=== PATIENT | female | born 1985 | race Caucasian/White ===

== ENCOUNTER 2020-05-01 11:21 | Emergency (ER) | payer MEDICAID, SELFPAY ==
--- NOTE | ~2020-05-01 | XR_ITS ---
EXAMINATION: XR THORACIC SPINE XR LUMBAR SPINE CLINICAL INFORMATION: Lower back pain radiating to the upper back COMPARISON: None TECHNIQUE: 3 views of the thoracic spine. 3 views of the lumbar spine. FINDINGS: Thoracic spine: No fracture or subluxation. Vertebral body height and alignment is maintained. Disc spaces are maintained. The paravertebral soft tissues are unremarkable. The visualized lung is clear. Lumbar spine: No fracture or subluxation. Mild levoscoliosis. Vertebral body height and alignment is maintained. Disc spaces are maintained. The sacroiliac joints are symmetric. Visualized bowel gas pattern is unremarkable. XR/XR lumbar spine 2-3V IMPRESSION: Slightly levoscoliosis of the lumbar spine. Otherwise unremarkable appearance of the thoracolumbar spine.
--- NOTE | ~2020-05-01 | XR_ITS ---
EXAMINATION: XR THORACIC SPINE XR LUMBAR SPINE CLINICAL INFORMATION: Lower back pain radiating to the upper back COMPARISON: None TECHNIQUE: 3 views of the thoracic spine. 3 views of the lumbar spine. FINDINGS: Thoracic spine: No fracture or subluxation. Vertebral body height and alignment is maintained. Disc spaces are maintained. The paravertebral soft tissues are unremarkable. The visualized lung is clear. Lumbar spine: No fracture or subluxation. Mild levoscoliosis. Vertebral body height and alignment is maintained. Disc spaces are maintained. The sacroiliac joints are symmetric. Visualized bowel gas pattern is unremarkable. XR/XR thoracic spine 3V IMPRESSION: Slightly levoscoliosis of the lumbar spine. Otherwise unremarkable appearance of the thoracolumbar spine.
[2020-05-01 11:53] VITALS: BP 119/70; PULSE 85; RESP 18; TEMP 36.6; O2SAT 99; BMI 29.2
[2020-05-01 13:04] LABS: Glucose Urine UA NEG (NEG); Leukocyte Esterase Urine NEG (NEG); Nitrite Urine NEG (NEG); Specific Gravity - Urine >= 1.030 (1.005-1.025); Urine Blood NEG (NEG); Urine Ketones 15 MG/DL (NEG); Urine Protein NEG (NEG-TRACE)
[2020-05-01 13:05] LABS: UPreg QC Valid YES; Urine Pregnancy NEGATIVE (NEGATIVE)
[2020-05-01 13:13] LABS: Appearance Urine CLEAR; Color Urine YELLOW
[2020-05-01 14:00] LABS: Basophils Absolute Auto 0.1 X10*3/uL (0.0-0.2); Basophils Percent Auto 0.6 % (0-2); Eosinophils Absolute Auto 0.2 X10*3/uL (0.0-0.4); Eosinophils Percent Auto 2.1 % (0-4); Hematocrit 40.1 % (37-47); Hemoglobin 13.6 g/dl (12.0-16.0); Imm Gran Abs Auto 0.03 X10*3/uL (0.00-0.03); Imm Gran Pct Auto 0.4 % (0.0-0.4); Lymphocytes Absolute Auto 2.5 X10*3/uL (1.2-4.9); Lymphocytes Percent Auto 30.1 % (20-40); Mean Corpuscular HGB Conc 33.9 g/dl (31.0-35.0); Mean Corpuscular Hemoglobin 33.7 pg (27.0-33.0); Mean Corpuscular Volume 99.5 fL (80-98); Mean Platelet Volume 10.3 fL (9.4-12.3); Monocytes Absolute Auto 0.5 X10*3/uL (0.1-1.2); Monocytes Percent Auto 6.1 % (2-11); Neutrophils Percent Auto 60.7 % (45-73); Platelet Count 216 X10*3/uL (160-400); Red Blood Count 4.03 X10*6/uL (4.20-5.50); Red Cell Distribution Width 11.7 % (11.0-16.0); White Blood Count 8.2 X10*3/uL (4.8-10.8)
[2020-05-01] MEDS: NaPROXEN 500 MG TABLET PO (14:16)
[2020-05-01 14:35] LABS: Anion Gap 13 (12-20); Blood Urea Nitrogen 13 mg/dL (9-16); Carbon Dioxide 23 mmol/L (22-29); Chloride 106 mmol/L (96-108); Estimated Glomerular Filt Rate > 60; Glucose Random 68 mg/dL (60-115); Potassium 3.9 mmol/L (3.3-5.1); Sodium 138 mmol/L (135-145)
[2020-05-01 14:40] LABS: MANUAL DIFF FLAG NO
--- NOTE | 2020-05-01 15:42 | ED.BACK ---
HPI - Back Pain/Injury General Chief Complaint: Back Pain/Injury Stated Complaint: back pain,headache Time Seen by Provider: 05/01/20 13:21 Source: patient Mode of arrival: ambulatory Limitations: no limitations History of Present Illness HPI Narrative: 34-year-old female with a past medical history of asthma, migraine headaches and tachycardia presenting to the ED with complaints of lower back pain radiating to her thoracic spine worse with movement over the past month worse today. Reports that she has been taking [id number] Motrin and muscle relaxants and no symptomatic relief. Reports that the pain is making her nauseated. Denies any other symptoms complaints or concerns at this time. Denies recent injury. MD elicited complaint: back pain Onset (ago): month(s) (A month and a half worse today) Timing: constant and progressively worsening Severity: moderate Similar Symptoms Previously: No Quality: aching Location: lumbar spine Radiation: other (To thoracic spine) Exacerbating factors: movement Relieving factors: none Associated symptoms: denies other symptoms Work related injury: No Related Data Previous Rx's Medication Instructions Recorded acetaminophen [Tylenol Extra 500 mg PO Q6H PRN #14 tab 05/01/20 Strength] cyclobenzaprine 10 mg PO Q8H #10 tab 05/01/20 naproxen 500 mg PO BID PRN #10 tab 05/01/20 oxycodone 5 mg PO BID PRN #10 tab 05/01/20 Allergies Allergy/AdvReac Type Severity Reaction Status Date / Time levofloxacin [From LEVAQUIN] Allergy Intermediate rash Verified 05/01/20 11:52 Review of Systems Review of Systems: Constitutional : No trauma, No Weight loss, No Fever, No Chills, ENT/Mouth : No Hearing loss, No Ear Pain, No Nasal Congestion, No Sinus Pain, No Hoarseness, No sore throat, No Rhinorrhea, No Swallowing Difficulty Cardiovascular : No Chest Pain, No SOB Respiratory : No Cough, No Dyspnea Gastrointestinal : No Nausea, No Vomiting, No Diarrhea, No abdominal Pain, No Hematochezia, No Melena Genitourinary : No Dysuria, No Urinary Frequency, No Hematuria, No Urinary or Bowel Incontinence/retention Musculoskeletal : + Back pain, No neck pain, No joint stiffness, No joint swelling Skin : No Skin Lesions, No rash or signs of infection Neuro : No Weakness, No radiation, No Numbness, No Paresthesias, + headache, no loss of bowel or bladder incontinence, no saddle anesthesia, Focal weakness, No radiation Denies history of IV drug usage. Yes all other systems are reviewed and are negative [facility] Past Medical History Attestation statement: The following information was validated with the patient. Medical History Asthma Migraine Tachycardia Social History Social History Advance Directives: No Advance Directives Information Provided: No Physical Exam Vital Signs: Vital Signs: Last Vital Signs Temp 97.9 F 05/01/20 11:53 Pulse 85 05/01/20 11:53 Resp 18 05/01/20 11:53 BP 119/70 05/01/20 11:53 Pulse Ox 99 05/01/20 11:53 Body Mass Index 29.2 vital signs have been reviewed as normal and appeared to be correct. Blood pressure normal. Heart rate normal. Respiration rate normal. Temperature normal. Oxygen saturation normal. Appearance: Alert. Oriented X3. No acute distress. Head: Normal external exam. Normocephalic. Atraumatic. No Hsu signs noted. No raccoon eyes noted Eyes: PERRLA. EOMI. Conjunctiva and sclera normal. Eyelids normal. ENT: EAC normal. TM's Normal. Pharynx normal. Uvula midline. Moist mucous membranes. No trismus noted. No drooling noted. No muffled voice noted. Neck: Normal inspection. Neck supple. FROM. No adenopathy. Thyroid Normal. No meningeal signs. No neck mass noted. CVS: Normal heart rate and rhythm. Heart sound normal. No murmurs noted. Pulses normal throughout. Respiratory: No respiratory distress. Painless inspiration. Breath sounds normal. No wheezes/rales/rhonchi noted. Chest nontender. No accessory muscle usage noted or decreased air movement noted. Abdomen: Soft and nontender. Bowel sounds normal in all 4 quadrants. No distention noted. No organomegaly noted. No visible injury noted. Back: No CVA tenderness. Full range of motion noted. No obvious deformities, or edema. Mild para-spinal muscular tenderness from lumbar region to coccyx. Full ROM in back and lower extremities. 5/5 strength hip extension/flexion, abduction, adduction. Mild Lumbar pain with hip flexion against resistance. Straight leg raise test negative on right; Straight leg raise test negative on left; Reflexes normal ankle and knee bilaterally; EHL motor strength normal bilaterally Skin: Skin warm and dry. Normal skin color. Normal skin turgor. No rashes/lesions/lacerations noted. Extremities: No lower extremity edema. Extremities exhibit normal range of motion. Extremities nontender. Neuro: Oriented X 3. No motor deficit. No sensory deficit. Reflexes normal. Course Course Course Narrative: Pt c likely muscular pain, but could be herniated disc. Neuro exam shows no deficits. Not c/w AAA/epidural abscess/dissection.No high risk Hx (Incont, fever, immunosupp, recent surgery/LP, coag, signif trauma, wt loss, puls mass, hx/o Ca, TB, or IVDU) to warrant MRI/CT today. Labs obtained and all within normal limits. UA within normal limits no evidence of UTI. Negative . X-ray obtained revealed levoscoliosis of lumbar spine otherwise no other acute processes noted. Not c/w Pyelo/UTI/kidney stone/spinal fx. Not cauda equina syndrome. DC c meds and f/u. MDM - Back Pain/Injury Differential Diagnosis Differential diagnosis: Likely lumbar radiculopathy, sciatica and strain of lumbar region Medical Records Attestation: I reviewed the patient's medical records. Lab Data Attestation: I reviewed the patient's lab results. Result diagrams: 05/01/20 13:52 05/01/20 13:52 Labs: Lab Results 05/01/20 05/01/20 05/01/20 Range/Units 12:38 12:38 13:52 WBC 8.2 (4.8-10.8) X10*3/uL RBC 4.03 L (4.20-5.50) X10*6/uL Hgb 13.6 (12.0-16.0) g/dl Hct 40.1 (37-47) % MCV 99.5 H (80-98) fL MCH 33.7 H (27.0-33.0) pg MCHC 33.9 (31.0-35.0) g/dl RDW 11.7 (11.0-16.0) % Plt Count 216 (160-400) X10*3/uL MPV 10.3 (9.4-12.3) fL Immature Gran % (Auto) 0.4 (0.0-0.4) % Neut % (Auto) 60.7 (45-73) % Lymph % (Auto) 30.1 (20-40) % [place] % (Auto) 6.1 (2-11) % Eos % (Auto) 2.1 (0-4) % Baso % (Auto) 0.6 (0-2) % Lymph # (Auto) 2.5 (1.2-4.9) X10*3/uL [place] # (Auto) 0.5 (0.1-1.2) X10*3/uL Eos # (Auto) 0.2 (0.0-0.4) X10*3/uL Baso # (Auto) 0.1 (0.0-0.2) X10*3/uL Abs Immat Gran (auto) 0.03 (0.00-0.03) X10*3/uL Absolute Neuts (auto) 5.0 (2.0-8.3) X10*3/uL Absolute Nucleated RBC 0.000 (0.0-0.012) X10*3/uL Nucleated RBC % (auto) 0.0 (0.0-0.2) /100WBC Sodium (135-145) mmol/L Potassium (3.3-5.1) mmol/L Chloride (96-108) mmol/L Carbon Dioxide (22-29) mmol/L Anion Gap (12-20) BUN (9-16) mg/dL Creatinine (0.5-1.4) mg/dL Estim Creat Clear Calc Estimated GFR Random Glucose (60-115) mg/dL Calcium (8.4-10.2) mg/dL Urine Color YELLOW Urine Appearance CLEAR Urine pH 6.0 (5.0-8.0) Ur Specific [place] >= 1.030 H (1.005-1.025) Urine Protein NEG (NEG-TRACE) MG/DL Urine Glucose (UA) NEG (NEG) MG/DL Urine Ketones 15 (NEG) MG/DL Urine Blood NEG (NEG) Urine Nitrite NEG (NEG) Ur Leukocyte Esterase NEG (NEG) Urine Test NEGATIVE (NEGATIVE) 05/01/20 Range/Units 13:52 WBC (4.8-10.8) X10*3/uL RBC (4.20-5.50) X10*6/uL Hgb (12.0-16.0) g/dl Hct (37-47) % MCV (80-98) fL MCH (27.0-33.0) pg MCHC (31.0-35.0) g/dl RDW (11.0-16.0) % Plt Count (160-400) X10*3/uL MPV (9.4-12.3) fL Immature Gran % (Auto) (0.0-0.4) % Neut % (Auto) (45-73) % Lymph % (Auto) (20-40) % [place] % (Auto) (2-11) % Eos % (Auto) (0-4) % Baso % (Auto) (0-2) % Lymph # (Auto) (1.2-4.9) X10*3/uL [place] # (Auto) (0.1-1.2) X10*3/uL Eos # (Auto) (0.0-0.4) X10*3/uL Baso # (Auto) (0.0-0.2) X10*3/uL Abs Immat Gran (auto) (0.00-0.03) X10*3/uL Absolute Neuts (auto) (2.0-8.3) X10*3/uL Absolute Nucleated RBC (0.0-0.012) X10*3/uL Nucleated RBC % (auto) (0.0-0.2) /100WBC Sodium 138 (135-145) mmol/L Potassium 3.9 (3.3-5.1) mmol/L Chloride 106 (96-108) mmol/L Carbon Dioxide 23 (22-29) mmol/L Anion Gap 13 (12-20) BUN 13 (9-16) mg/dL Creatinine 0.64 (0.5-1.4) mg/dL Estim Creat Clear Calc 112.0 Estimated GFR > 60 Random Glucose 68 (60-115) mg/dL Calcium 9.0 (8.4-10.2) mg/dL Urine Color Urine Appearance Urine pH (5.0-8.0) Ur Specific [place] (1.005-1.025) Urine Protein (NEG-TRACE) MG/DL Urine Glucose (UA) (NEG) MG/DL Urine Ketones (NEG) MG/DL Urine Blood (NEG) Urine Nitrite (NEG) Ur Leukocyte Esterase (NEG) Urine Test (NEGATIVE) Imaging Data X-ray of thoracic/lumbar spine: Attestation: I personally reviewed and interpreted this imaging study as follows: Radiologist's impression: FINDINGS: Thoracic spine: No fracture or subluxation. Vertebral body height and alignment is maintained. Disc spaces are maintained. The paravertebral soft tissues are unremarkable. The visualized lung is clear. Lumbar spine: No fracture or subluxation. Mild levoscoliosis. Vertebral body height and alignment is maintained. Disc spaces are maintained. The sacroiliac joints are symmetric. Visualized bowel gas pattern is unremarkable. XR/XR thoracic spine 3V IMPRESSION: Slightly levoscoliosis of the lumbar spine. Otherwise unremarkable appearance of the thoracolumbar spine. Discharge Plan Discharge Clinical Impression: Lumbar scoliosis, Back pain Patient Disposition: Home, Self-Care Instructions: Scoliosis in Children (DC), Back Pain (ED), Lower Back Exercises (ED) Additional Instructions: You had normal labs today. Your urine was within normal limits there was no evidence of a urinary tract infection. You had a negative test. Your x-rays revealed scoliosis of the lumbar spine. Follow-up with your primary care provider and return if any new or worsening symptoms. You can also call [facility] they are located at [address] [place] [address] their number is [phone] Prescriptions: New cyclobenzaprine 10 mg tablet 10 mg PO Q8H Qty: 10 RF: 0 acetaminophen [Tylenol Extra Strength] 500 mg tablet 500 mg PO Q6H PRN (Reason: pain) Qty: 14 RF: 0 naproxen 500 mg tablet 500 mg PO BID PRN (Reason: pain) Qty: 10 RF: 0 oxycodone 5 mg tablet 5 mg PO BID PRN (Reason: pain) Qty: 10 RF: 0 Referrals: Rachel Clark NP [Primary Care Provider] - 2 days
== END 2020-05-01 16:21 | disposition home or self-care (01) ==
PROVIDERS: Emergency Provider Emergency Medicine; PCP Nurse Practitioner Family
DX: M54.5 Low back pain (principal); M41.86 Other forms of scoliosis, lumbar region
CPT/HCPCS: 36415; 72072; 72100; 80048; 81003; 81025; 85025; 99283; 99284

== ENCOUNTER 2020-05-22 10:30 | Emergency (ER) | payer MEDICAID, SELFPAY ==
--- NOTE | 2020-05-22 10:32 | ED.ARRPALP ---
HPI - Arrhythmia/Palpitations General Chief Complaint: Arrhythmia/Palpitations Stated Complaint: SVT 190 CONVERTED TO 90 FROM MD OFFICE Time Seen by Provider: 05/22/20 10:32 Source: patient Mode of arrival: EMS Limitations: no limitations History of Present Illness HPI narrative: Patient with prior history of SVT on beta blockers, since having her baby 2 years ago no issues. Now with 2 weeks of symptoms. Patient has not taken any of her betablocker since having her baby. MD complaint: rapid heart beat Onset (ago): week(s) Duration: intermittent Severity: moderate Context: occurred during exertion Arrhythmia history: SVT Associated symptoms: shortness of breath Related Data Previous Rx's Medication Instructions Recorded acetaminophen [Tylenol Extra 500 mg PO Q6H PRN #14 tab 05/01/20 Strength] cyclobenzaprine 10 mg PO Q8H #10 tab 05/01/20 naproxen 500 mg PO BID PRN #10 tab 05/01/20 oxycodone 5 mg PO BID PRN #10 tab 05/01/20 atenolol 25 mg PO DAILY #30 tab 05/22/20 Allergies Allergy/AdvReac Type Severity Reaction Status Date / Time levofloxacin [From LEVAQUIN] Allergy Intermediate rash Verified 05/01/20 11:52 Review of Systems Constitutional: Constitutional: Reports no additional constitutional complaints Eyes: Eyes: Reports no additional eye complaints ENT: Denies dizziness Cardiovascular: Cardiovascular: Reports no additional cardiovascular complaints Respiratory: Respiratory: Reports as per HPI Gastrointestinal: Gastrointestinal: Reports no additional gastrointestinal complaints Genitourinary: Genitourinary: Reports no additional female genitourinary complaints Musculoskeletal: Musculoskeletal: Reports no additional musculoskeletal complaints Integumentary/Breasts: Skin/Breast: Denies rash Neurologic: Reports system reviewed and no additional complaints, except as documented, Denies dizziness and Denies Sensory deficit (Neuro) Psychiatric: Psychiatric: Denies anxiety PMFSH Past Medical History Medical History Asthma Migraine Tachycardia Social History Social History Alcohol intake: current Alcohol intake frequency: holidays/special occasions only Smoking Status: Former smoker Smoked in Last 30 Days: No Use of substances other than those prescribed or required for medical reasons: No Advance Directives: No Advance Directives Information Provided: No Physical Exam Vital Signs: Vital Signs: Last Vital Signs Temp 98.3 F 05/22/20 10:37 Pulse 72 05/22/20 11:58 Resp 18 05/22/20 11:58 BP 133/94 H 05/22/20 11:58 Pulse Ox 98 05/22/20 11:58 Body Mass Index 27.8 Const: General: healthy appearing Nutritional Appearance: average body habitus Orientation/consciousness: oriented to person and patient oriented x3 Limitations: no limitations HENMT: Head: Yes normal to inspection Ears: external ears normal General nose exam: Normal external nose present Mouth: Normal oral and palatal mucosa present and oropharynx normal Throat: Yes posterior oropharynx normal Eyes: General: appearance normal, both eyes and all related structures Neck: Other: supple Neck: Yes normal visual inspection Chest: Chest palpation & inspection: normal inspection of the chest Resp: Auscultation: clear to auscultation bilaterally Cardio: Jugular venous distension: no JVD Rate: regular rate Rhythm: regular rhythm Heart sounds: S1 normal heart sound present and S2 normal heart sound present GI: Inspection: Yes normal to inspection Palpation (GI): Soft to palpation, nontender and No hepatosplenomegaly present Auscultation: normal bowel sounds : General: Yes no CVA tenderness Back/Spine/Pelvis: Back: no CVA tenderness Skin: Other: multiple ecchymosis on body, neck, chest and back Neuro: General: oriented to person and patient oriented x3 Cranial nerves: Yes CN's II-XII intact bilaterally Motor exam (neuro): 5/5 motor strength present throughout Sensory Exam: No Sensory deficit (Neuro) Extrem: General: Yes normal to inspection Psych: Appearance: grossly normal Course Course Course Narrative: heart rate 80 will give a dose of atenolol and dc home MDM - Arrhythmia/Palpitations Differential Diagnosis Differential diagnosis: Likely palpitations and supraventricular tachycardia Lab Data Result diagrams: 05/22/20 10:59 05/22/20 10:59 Labs: Lab Results 05/22/20 05/22/20 05/22/20 Range/Units 10:59 10:59 10:59 WBC 7.6 (4.8-10.8) X10*3/uL RBC 3.99 L (4.20-5.50) X10*6/uL Hgb 13.4 (12.0-16.0) g/dl Hct 39.1 (37-47) % MCV 98.0 (80-98) fL MCH 33.6 H (27.0-33.0) pg MCHC 34.3 (31.0-35.0) g/dl RDW 11.6 (11.0-16.0) % Plt Count 260 (160-400) X10*3/uL MPV 10.1 (9.4-12.3) fL Immature Gran % (Auto) 0.3 (0.0-0.4) % Neut % (Auto) 53.3 (45-73) % Lymph % (Auto) 37.0 (20-40) % [place] % (Auto) 6.7 (2-11) % Eos % (Auto) 1.9 (0-4) % Baso % (Auto) 0.8 (0-2) % Lymph # (Auto) 2.8 (1.2-4.9) X10*3/uL [place] # (Auto) 0.5 (0.1-1.2) X10*3/uL Eos # (Auto) 0.1 (0.0-0.4) X10*3/uL Baso # (Auto) 0.1 (0.0-0.2) X10*3/uL Abs Immat Gran (auto) 0.02 (0.00-0.03) X10*3/uL Absolute Neuts (auto) 4.0 (2.0-8.3) X10*3/uL Absolute Nucleated RBC 0.000 (0.0-0.012) X10*3/uL Nucleated RBC % (auto) 0.0 (0.0-0.2) /100WBC Sodium 138 (135-145) mmol/L Potassium 3.8 (3.3-5.1) mmol/L Chloride 107 (96-108) mmol/L Carbon Dioxide 21 L (22-29) mmol/L Anion Gap 14 (12-20) BUN 11 (9-16) mg/dL Creatinine 0.62 (0.5-1.4) mg/dL Estim Creat Clear Calc 111.7 Estimated GFR > 60 Random Glucose 92 D (60-115) mg/dL Calcium 9.1 (8.4-10.2) mg/dL Troponin I High Sens < 3.5 (<3.5-17.0) ng/L TSH 0.81 (0.32-4.0) uIU/mL ECG Data Attestation: I personally reviewed and interpreted this ECG as follows: Interpretation: sinus 85, no st or twave changes Discharge Plan Discharge Clinical Impression: Supraventricular tachycardia Patient Disposition: Home, Self-Care Instructions: Supraventricular Tachycardia (ED) Prescriptions: New atenolol 25 mg tablet 25 mg PO DAILY Qty: 30 RF: 0 No Action cyclobenzaprine 10 mg tablet 10 mg PO Q8H Qty: 10 RF: 0 acetaminophen [Tylenol Extra Strength] 500 mg tablet 500 mg PO Q6H PRN (Reason: pain) Qty: 14 RF: 0 naproxen 500 mg tablet 500 mg PO BID PRN (Reason: pain) Qty: 10 RF: 0 oxycodone 5 mg tablet 5 mg PO BID PRN (Reason: pain) Qty: 10 RF: 0 Referrals: Physician,Unknown [Primary Care Provider] - 2 days
--- NOTE | 2020-05-22 10:36 | ECG_ITS ---
Test Reason : SVT Blood Pressure : / mmHG Vent. Rate : 085 BPM Atrial Rate : 085 BPM P-R Int : 134 ms QRS Dur : 092 ms QT Int : 366 ms P-R-T Axes : 075 056 046 degrees QTc Int : 435 ms Poor data quality Normal sinus rhythm Normal ECG When compared with ECG of 17-APR-2018 23:23, No significant change was found Referred By: Darryl Henriquez Electronically Signed By:Eduardo Vaughn
[2020-05-22 10:37] VITALS: BP 123/87; BP 138/90; PULSE 80; PULSE 86; RESP 18; TEMP 36.8; O2SAT 100; O2SAT 97; BMI 27.8
[2020-05-22 10:48] VITALS: BP 123/87; PULSE 80
[2020-05-22] MEDS: Metoprolol Tartrate 5 MG/5 ML VIAL IVPUSH (10:48)
[2020-05-22 11:04] LABS: MANUAL DIFF FLAG NO
[2020-05-22 11:08] LABS: Basophils Absolute Auto 0.1 X10*3/uL (0.0-0.2); Basophils Percent Auto 0.8 % (0-2); Eosinophils Absolute Auto 0.1 X10*3/uL (0.0-0.4); Eosinophils Percent Auto 1.9 % (0-4); Hematocrit 39.1 % (37-47); Hemoglobin 13.4 g/dl (12.0-16.0); Imm Gran Abs Auto 0.02 X10*3/uL (0.00-0.03); Imm Gran Pct Auto 0.3 % (0.0-0.4); Lymphocytes Absolute Auto 2.8 X10*3/uL (1.2-4.9); Mean Corpuscular HGB Conc 34.3 g/dl (31.0-35.0); Mean Corpuscular Hemoglobin 33.6 pg (27.0-33.0); Mean Platelet Volume 10.1 fL (9.4-12.3); Monocytes Absolute Auto 0.5 X10*3/uL (0.1-1.2); Monocytes Percent Auto 6.7 % (2-11); Neutrophils Percent Auto 53.3 % (45-73); Platelet Count 260 X10*3/uL (160-400); Red Blood Count 3.99 X10*6/uL (4.20-5.50); Red Cell Distribution Width 11.6 % (11.0-16.0); White Blood Count 7.6 X10*3/uL (4.8-10.8)
[2020-05-22 11:36] LABS: Anion Gap 14 (12-20); Blood Urea Nitrogen 11 mg/dL (9-16); Calcium 9.1 mg/dL (8.4-10.2); Carbon Dioxide 21 mmol/L (22-29); Chloride 107 mmol/L (96-108); Creatinine Clr Calc Pharmacy 111.7; Estimated Glomerular Filt Rate > 60; Glucose Random 92 mg/dL (60-115); Potassium 3.8 mmol/L (3.3-5.1); Sodium 138 mmol/L (135-145)
[2020-05-22 11:58] VITALS: BP 133/94; PULSE 72; RESP 18; O2SAT 98
[2020-05-22 11:58] LABS: TSH reflex Free T4 0.81 uIU/mL (0.32-4.0)
[2020-05-22 12:12] LABS: Troponin-I High Sensitivity < 3.5 ng/L (<3.5-17.0)
[2020-05-22] MEDS: atenoloL 25 MG TABLET PO (12:58)
== END 2020-05-22 13:46 | disposition home or self-care (01) ==
PROVIDERS: Emergency Provider Emergency Medicine
DX: I47.1 Supraventricular tachycardia (principal)
CPT/HCPCS: 36415; 80048; 84443; 84484; 85025; 93005; 96374; 99284; 99285

== ENCOUNTER 2020-05-30 18:45 | Emergency (ER) | payer MEDICAID, SELFPAY ==
[2020-05-30] VITALS (7 sets, daily range): BP systolic 100–133; BP diastolic 70–91; PULSE 66–160; RESP 16–20; TEMP 35–37; O2SAT 98–100; BMI 26.6
--- NOTE | 2020-05-30 | ECG_ITS ---
Test Reason : PALPATIONS Blood Pressure : / mmHG Vent. Rate : 156 BPM Atrial Rate : 153 BPM P-R Int : 000 ms QRS Dur : 080 ms QT Int : 286 ms P-R-T Axes : 000 076 060 degrees QTc Int : 460 ms Supraventricular tachycardia Nonspecific ST abnormality Abnormal ECG No previous ECGs available Referred By: Vargas Rojas Electronically Signed By:DUY PRESTON MD
--- NOTE | 2020-05-30 19:00 | ECG_ITS ---
Test Reason : PALPITATIONS Blood Pressure : / mmHG Vent. Rate : 141 BPM Atrial Rate : 138 BPM P-R Int : 000 ms QRS Dur : 080 ms QT Int : 298 ms P-R-T Axes : 000 069 047 degrees QTc Int : 456 ms Supraventricular tachycardia Nonspecific ST abnormality Abnormal ECG When compared with ECG of 22-MAY-2020 10:36, Vent. rate has increased BY 56 BPM Non-specific change in ST segment in Anterior leads Referred By: Vargas Rojas Electronically Signed By:DUY PRESTON MD
[2020-05-30 19:16] LABS: MANUAL DIFF FLAG NO
[2020-05-30 19:17] LABS: Basophils Absolute Auto 0.1 X10*3/uL (0.0-0.2); Basophils Percent Auto 0.5 % (0-2); Eosinophils Absolute Auto 0.2 X10*3/uL (0.0-0.4); Eosinophils Percent Auto 1.3 % (0-4); Hematocrit 43.4 % (37-47); Hemoglobin 14.6 g/dl (12.0-16.0); Imm Gran Abs Auto 0.06 X10*3/uL (0.00-0.03); Imm Gran Pct Auto 0.5 % (0.0-0.4); Lymphocytes Absolute Auto 3.1 X10*3/uL (1.2-4.9); Mean Corpuscular HGB Conc 33.6 g/dl (31.0-35.0); Mean Corpuscular Hemoglobin 33.7 pg (27.0-33.0); Mean Corpuscular Volume 100.2 fL (80-98); Mean Platelet Volume 10.2 fL (9.4-12.3); Monocytes Absolute Auto 0.9 X10*3/uL (0.1-1.2); Monocytes Percent Auto 6.8 % (2-11); Neutrophils Absolute Auto 8.7 X10*3/uL (2.0-8.3); Neutrophils Percent Auto 66.9 % (45-73); Platelet Count 287 X10*3/uL (160-400); Red Blood Count 4.33 X10*6/uL (4.20-5.50)
[2020-05-30 19:25] LABS: Prothrombin Time 12.3 SEC (10.8-13.0)
--- NOTE | 2020-05-30 19:25 | ED_ITS ---
HPI - Arrhythmia/Palpitations General Chief Complaint: Arrhythmia/Palpitations Stated Complaint: palpitations Time Seen by Provider: 05/30/20 18:59 Source: patient Mode of arrival: ambulatory Limitations: no limitations History of Present Illness HPI narrative: Patient history of SVT off and on for last 2 years on 25 mg Lopressor was here on 05/22 with similar episode at that time she was not taking Lopressor 25 mg q.d. now she is taking every day and still having the episodes of palpitations specially today on arrival patient's heart rate was 156 SVT patient feel lightheaded and dizzy denies any chest pain or shortness breath no caffeine intake MD complaint: rapid heart beat Related Data Previous Rx's Medication Instructions Recorded acetaminophen [Tylenol Extra 500 mg PO Q6H PRN #14 tab 05/01/20 Strength] cyclobenzaprine 10 mg PO Q8H #10 tab 05/01/20 naproxen 500 mg PO BID PRN #10 tab 05/01/20 oxycodone 5 mg PO BID PRN #10 tab 05/01/20 atenolol 25 mg PO DAILY #30 tab 05/22/20 Allergies Allergy/AdvReac Type Severity Reaction Status Date / Time levofloxacin [From LEVAQUIN] Allergy Intermediate rash Verified 05/01/20 11:52 Review of Systems Review of Systems: Constitutional : No Weight loss, No Fever, No Chills ENT/Mouth : No sore throat, No Rhinorrhea Eyes: No Eye Pain, No Swelling Cardiovascular : No Chest Pain, ++ palpitations Respiratory : No Cough, No Sputum, no shortness of breath Gastrointestinal : no Nausea, No Vomiting, No Diarrhea, No abdominal Pain, no black stools Genitourinary : No Dysuria, No Urinary Frequency Musculoskeletal : No joint pain, No Myalgias, No Joint Swelling Skin : No Skin Lesions, No rash Neuro : No Weakness, No Numbness, + Dizziness, No Headache Psych : No Anxiety/Panic, No Depression Heme/Lymph: No Bruising, No Lymphadenopathy Endocrine : No Polyuria, No Polydipsia All other systems reviewed and are negative [facility] Past Medical History Medical History Asthma Migraine Tachycardia Social History Social History Alcohol intake: never Smoking Status: Former smoker Smoked in Last 30 Days: No Use of substances other than those prescribed or required for medical reasons: No Advance Directives: No Advance Directives Information Provided: No Physical Exam Vital Signs: Vital Signs: Last Vital Signs Temp 98.2 F 05/30/20 22:10 Pulse 66 05/30/20 22:10 Resp 18 05/30/20 22:10 BP 101/74 05/30/20 22:10 Pulse Ox 99 05/30/20 22:10 Body Mass Index 26.6 Appearance: Alert. Oriented X3. No acute distress. Eyes: Pupils equal, round and reactive to light. ENT: Pharynx normal. Neck: Normal inspection. Neck supple. CVS: Regular rhythm tachycardia Pulses normal. Respiratory: No respiratory distress. Breath sounds normal. Abdomen: Soft and nontender. Bowel sounds are present, no mass palpable, no CVA tenderness Skin: Skin warm and dry. Normal skin color. Normal skin turgor. Extremities: No lower extremity edema. No calf tenderness Neuro: Oriented X 3. No motor deficit. No sensory deficit. MDM - Arrhythmia/Palpitations MDM Narrative Medical decision making narrative: Patient's history of SVT came with on beta- toyin 25 mg daily came with persistent tachycardia for last 2 weeks got worse prior to arrival on arrival patient's heart rate was fluctuating between 156-160 responded to Adenocard 26 mg IV push came back to 146 again will try to give her Lopressor 5 mg 20:15 patient heart rate is still in 140s sinus tachycardia will give another dose of Lopressor 5 mg patient labs are stable TSH 1.3 22:00 patient heart rate decreased to 60s after Valsalva maneuver sinus rhythm now will discharge patient home Differential Diagnosis Differential diagnosis: Likely palpitations Medical Records Attestation: I reviewed the patient's medical records. Lab Data Attestation: I reviewed the patient's lab results. Result diagrams: 05/30/20 19:11 05/30/20 19:11 Labs: Lab Results 05/30/20 05/30/20 05/30/20 Range/Units 19:10 19:10 19:11 WBC 13.0 H (4.8-10.8) X10*3/uL RBC 4.33 (4.20-5.50) X10*6/uL Hgb 14.6 (12.0-16.0) g/dl Hct 43.4 (37-47) % MCV 100.2 H (80-98) fL MCH 33.7 H (27.0-33.0) pg MCHC 33.6 (31.0-35.0) g/dl RDW 12.0 (11.0-16.0) % Plt Count 287 (160-400) X10*3/uL MPV 10.2 (9.4-12.3) fL Immature Gran % (Auto) 0.5 H (0.0-0.4) % Neut % (Auto) 66.9 (45-73) % Lymph % (Auto) 24.0 (20-40) % Osborne % (Auto) 6.8 (2-11) % Eos % (Auto) 1.3 (0-4) % Baso % (Auto) 0.5 (0-2) % Lymph # (Auto) 3.1 (1.2-4.9) X10*3/uL Osborne # (Auto) 0.9 (0.1-1.2) X10*3/uL Eos # (Auto) 0.2 (0.0-0.4) X10*3/uL Baso # (Auto) 0.1 (0.0-0.2) X10*3/uL Abs Immat Gran (auto) 0.06 H (0.00-0.03) X10*3/uL Absolute Neuts (auto) 8.7 H (2.0-8.3) X10*3/uL Absolute Nucleated RBC 0.000 (0.0-0.012) X10*3/uL Nucleated RBC % (auto) 0.0 (0.0-0.2) /100WBC PT 12.3 (10.8-13.0) SEC INR 1.0 (0.9-1.1) Sodium (135-145) mmol/L Potassium (3.3-5.1) mmol/L Chloride (96-108) mmol/L Carbon Dioxide (22-29) mmol/L Anion Gap (12-20) BUN (9-16) mg/dL Creatinine (0.5-1.4) mg/dL Estim Creat Clear Calc Estimated GFR Random Glucose (60-115) mg/dL Calcium (8.4-10.2) mg/dL Total Bilirubin (0.0-1.0) mg/dL Direct Bilirubin (0.0-0.5) mg/dL AST (5-31) U/L ALT (0-31) U/L Alkaline Phosphatase (39-117) U/L Troponin I High Sens 17.4 H D (<3.5-17.0) ng/L Total Protein (6.5-8.0) g/dL Albumin (3.5-5.0) g/dL TSH (0.32-4.0) uIU/mL 05/30/20 Range/Units 19:11 WBC (4.8-10.8) X10*3/uL RBC (4.20-5.50) X10*6/uL Hgb (12.0-16.0) g/dl Hct (37-47) % MCV (80-98) fL MCH (27.0-33.0) pg MCHC (31.0-35.0) g/dl RDW (11.0-16.0) % Plt Count (160-400) X10*3/uL MPV (9.4-12.3) fL Immature Gran % (Auto) (0.0-0.4) % Neut % (Auto) (45-73) % Lymph % (Auto) (20-40) % Osborne % (Auto) (2-11) % Eos % (Auto) (0-4) % Baso % (Auto) (0-2) % Lymph # (Auto) (1.2-4.9) X10*3/uL Osborne # (Auto) (0.1-1.2) X10*3/uL Eos # (Auto) (0.0-0.4) X10*3/uL Baso # (Auto) (0.0-0.2) X10*3/uL Abs Immat Gran (auto) (0.00-0.03) X10*3/uL Absolute Neuts (auto) (2.0-8.3) X10*3/uL Absolute Nucleated RBC (0.0-0.012) X10*3/uL Nucleated RBC % (auto) (0.0-0.2) /100WBC PT (10.8-13.0) SEC INR (0.9-1.1) Sodium 137 (135-145) mmol/L Potassium 4.2 (3.3-5.1) mmol/L Chloride 107 (96-108) mmol/L Carbon Dioxide 23 (22-29) mmol/L Anion Gap 11 L (12-20) BUN 23 H D (9-16) mg/dL Creatinine 0.89 (0.5-1.4) mg/dL Estim Creat Clear Calc 76.2 Estimated GFR > 60 Random Glucose 136 H D (60-115) mg/dL Calcium 9.2 (8.4-10.2) mg/dL Total Bilirubin 0.6 (0.0-1.0) mg/dL Direct Bilirubin 0.2 (0.0-0.5) mg/dL AST 18 (5-31) U/L ALT 13 (0-31) U/L Alkaline Phosphatase 57 (39-117) U/L Troponin I High Sens (<3.5-17.0) ng/L Total Protein 6.8 (6.5-8.0) g/dL Albumin 4.5 (3.5-5.0) g/dL TSH 1.30 (0.32-4.0) uIU/mL ECG Data Attestation: I personally reviewed and interpreted this ECG as follows: Interpretation: Sinus tachycardia heart rate 156 beats per minute narrow complex QRS, normal axis nonspecific ST changes no acute ischemia impression SVT Discharge Plan Discharge Clinical Impression: Supraventricular tachycardia Patient Disposition: Home, Self-Care Instructions: Supraventricular Tachycardia (ED) Additional Instructions: Take atenolol as prescribed daily. Follow with durability engineer for further evaluation and treatment Report to the ER if recurrence of palpitation Use Valsalva maneuver as advised Prescriptions: No Action atenolol 25 mg tablet 25 mg PO DAILY Qty: 30 RF: 0 cyclobenzaprine 10 mg tablet 10 mg PO Q8H Qty: 10 RF: 0 acetaminophen [Tylenol Extra Strength] 500 mg tablet 500 mg PO Q6H PRN (Reason: pain) Qty: 14 RF: 0 naproxen 500 mg tablet 500 mg PO BID PRN (Reason: pain) Qty: 10 RF: 0 oxycodone 5 mg tablet 5 mg PO BID PRN (Reason: pain) Qty: 10 RF: 0 Referrals: Minor Fiore MD [Physician] - 2 days
[2020-05-30] MEDS: Metoprolol Tartrate 5 MG/5 ML VIAL IVPUSH ×2 (19:28→20:21)
[2020-05-30] MEDS: 0.9 % Sodium Chloride 1,000 ML 999 ML IVCONT (19:28)
[2020-05-30 19:42] LABS: Alanine Aminotransferase 13 U/L (0-31); Albumin Level 4.5 g/dL (3.5-5.0); Alkaline Phosphatase 57 U/L (39-117); Anion Gap 11 (12-20); Aspartate Amino Transferase 18 U/L (5-31); Bilirubin Direct 0.2 mg/dL (0.0-0.5); Bilirubin Total 0.6 mg/dL (0.0-1.0); Blood Urea Nitrogen 23 mg/dL (9-16); Calcium 9.2 mg/dL (8.4-10.2); Carbon Dioxide 23 mmol/L (22-29); Chloride 107 mmol/L (96-108); Creatinine Clr Calc Pharmacy 76.2; Estimated Glomerular Filt Rate > 60; Glucose Random 136 mg/dL (60-115); Potassium 4.2 mmol/L (3.3-5.1); Sodium 137 mmol/L (135-145); Total Protein 6.8 g/dL (6.5-8.0)
[2020-05-30 20:12] LABS: Troponin-I High Sensitivity 17.4 ng/L (<3.5-17.0)
--- NOTE | 2020-05-30 20:23 | PC.NURSE ---
patient a&ox3, property assessment monitor tachy 140s- provider notified, 5mg metoprolol ordered and given, pt has c/o chest discomfort as well as dizziness, vitals otherwise continue to be stable, will continue to monitor.
--- NOTE | 2020-05-30 22:12 | PC.NURSE ---
patient a&ox3, pt continued to have tachy hr in 130s-140s, provider was notified and performed vagal maneuvers with patient which broke the rhythm, patient currently in nsr 60-70s, vss, will continue to monitor.
--- NOTE | 2020-05-30 22:29 | PC.NURSE ---
ON ARRIVAL TO HE ED, PATIENT HAVING AN EKG SHOWING SVT. BROUGHT BACK TO ROOM 11 WHERE 2 IV LINES PLACED IN BILATERAL AC. SEUN RN GRABBING MEDICATION PER ANWER VERBAL ORDER. PATIENT HR WAS 158, MEDICATION PUSHED, HR THEN IN THE 80S. PATIENT REPORTS FEELING BETTER. ABOUT 30 MINUTES LATER HR THEN IN THE 140'S MD AWARE AND 5 MG OF LOPRESSOR GIVEN BY THIS RN. PATIENT ON THE PHONE TALKING TO FAMILY.
== END 2020-05-30 23:00 | disposition home or self-care (01) ==
PROVIDERS: Emergency Provider Internal Medicine
DX: R00.2 Palpitations (principal); I47.1 Supraventricular tachycardia
CPT/HCPCS: 36415; 80048; 80076; 84443; 84484; 85025; 85610; 93005; 96361; 96374; 96375; 99284; J0153

== ENCOUNTER → 2020-09-05 14:22 | Outpatient (BNVA) | payer MEDICAID, SELFPAY | PROVIDERS: PCP Internal Medicine Geriatric Medicine; Visit Provider Advanced Practice Midwife | DX: Z32.01 Encounter for pregnancy test, result positive (principal); R45.89 Other symptoms and signs involving emotional state | CPT/HCPCS: 81025; 99212 ==

== ENCOUNTER 2020-09-14 13:29 | Outpatient (REF) | payer MEDICAID, SELFPAY ==
--- NOTE | ~2020-09-14 | US_ITS ---
EXAMINATION: OBSTETRICAL ULTRASOUND, Follow up HISTORY: 35-year-old with unknown LMP Dating ultrasound COMPARISON: None TECHNIQUE: Real time transabdominal imaging with color and M-mode Doppler. PRESENTATION: Breech PLACENTA LOCATION: Posterior without previa AMNIOTIC FLUID: Normal MEASUREMENTS: 1. Biparietal Diameter: 3.5 cm; 16.5 wks 2. Head Circumference: 13.0 cm; 16.5 wks 3. Abdominal Circumference: 10.5 cm; 16.4 wks 4. Femur Length: 2.3 cm; 17.0 wks 5. Heart Rate: 150 beats per minute WEIGHT: Estimated weight is 165 grams (0 lbs 6 oz) -- N/A %. Survey was not attempted due to early gestational age. No abnormalities were seen in visualized anatomy. GESTATIONAL AGE: 1. Established GA: N/A wks 2. GA from AUA: 16.6 wks ESTIMATED DATE OF DELIVERY: 1. Established BRENTON: N/A 2. BRENTON from AU: 02/23/2021 US/US OB <= 14 weeks fetus IMPRESSION: 1. A single active fetus is in breech presentation 2. AUA is consistent with 16.6 weeks of gestation giving her an BRENTON of 02/23/2021 A follow-up in approximately 3 weeks for the anatomic survey is suggested. Thank you very much for this referral. This note was generated with a voice recognition program. Please excuse any errors which may have been overlooked during my review of this note. Sometimes these errors may affect the content or meaning of a given sentence.
== END 2020-09-14 13:30 | disposition home or self-care (01) ==
LOC: HO.US 13:29
PROVIDERS: Visit Provider Advanced Practice Midwife
DX: Z34.91 Encounter for supervision of normal pregnancy, unspecified, first trimester (principal); Z36.87 Encounter for antenatal screening for uncertain dates
CPT/HCPCS: 76801

== ENCOUNTER → 2020-09-22 14:06 | Outpatient (BNVA) | payer MEDICAID, SELFPAY | PROVIDERS: Visit Provider Advanced Practice Midwife | DX: O99.322 Drug use complicating pregnancy, second trimester (principal); F12.90 Cannabis use, unspecified, uncomplicated; Z3A.18 18 weeks gestation of pregnancy | CPT/HCPCS: 99212 ==

== ENCOUNTER 2020-09-25 11:46 | Outpatient (REF) | payer MEDICAID, SELFPAY ==
[2020-09-25 22:33] LABS: CT PCR NOT DETECTED (Not Detect.); NG PCR NOT DETECTED (Not Detect.)
[2020-09-26 08:34] LABS: BV Int Neg Control Negative (Negative); BV Int Pos Control Positive (Positive)
[2020-09-30 01:36] LABS: HPV 16 RNA NOT DETECTED (NOT DETECTED); HPV mRNA E6/E7 rflx Detected (Not Detected)
== END 2020-09-25 11:47 | disposition home or self-care (01) ==
LOC: HO.LAB 11:46
PROVIDERS: Visit Provider Advanced Practice Midwife
DX: O26.892 Other specified pregnancy related conditions, second trimester (principal); K11.7 Disturbances of salivary secretion; Z20.2 Contact with and (suspected) exposure to infections with a predominantly sexual mode of transmission
CPT/HCPCS: 81003; 87480; 87491; 87510; 87591; 87624; 87625; 87660; 88142; 99212

== ENCOUNTER 2020-09-29 11:06 | Outpatient (REF) | payer MEDICAID, SELFPAY ==
--- NOTE | ~2020-09-29 | US_ITS ---
EXAMINATION: US OBSTETRICAL CLINICAL INFORMATION: 35-year-old at 19.0 weeks of gestation Screening for anomaly COMPARISON: 08/15/2020 TECHNIQUE: Real-time transabdominal ultrasound was performed using C1-5 megahertz transducer. FINDINGS: A single, active, fetus is seen in breech presentation. The placenta is posterior without previa, and the amniotic fluid volume is wnl. MEASUREMENTS: 1. Biparietal Diameter: 4.3 cm; 19.0 wks 2. Occipital Frontal Diameter: 5.8 cm 3. Head Circumference: 16.2 cm; 19.0 wks 4. Abdominal Circumference: 13.5 cm; 19.0 wks 5. Femur Length: 2.9 cm; 18.6 wks 6. Humerus Length: 2.7 cm; 18.5 wks 7. Tibia Length: 2.6 cm; 19.3 wks 8. Ulna Length: 2.5 cm; 19.0 wks 9. Lateral ventricle: 0.7 cm 10. Cerebellum: 1.9 cm; 20.0 wks 11. Cisterna Magna: 0.31 cm 12. Nuchal Fold: 3.25 mm 13. Heart Rate: 144 beats per minute Rt ovary: normal Lt ovary: normal Cervical length 4.1 cm on T/A. GESTATIONAL AGE: 1. Established GA: 19.0 wks 2. GA from [facility]: 19.0 wks ESTIMATED DATE OF DELIVERY: 1. Established BRENTON: 02/23/2021 2. BRENTON from [facility]: 02/23/2021 ANATOMY: The visualized anatomy includes but not limited to: 1. Cranium: Normal 2. Intracranial anatomy: cavum septum pellucidi, lateral ventricles, choroid plexus, cerebellum, posterior fossa, third and fourth ventricles. 3. face: orbits, lip/palate, profile, nasal bone 4. Heart: four-chamber view of the heart, ventricular septum, foramen ovale, pulmonary vein, left and right outflow tracts, three-vessel view, 3 vessel trachea view, aortic and ductal arches, situs.. 5. Diaphragm: Normal 6. Abdominal wall: Normal 7. Cord Insertion: Normal 8. Spine: Cervical, thoracic, lumbar, sacral. 9. Stomach: Normal size and shape 10. Right Kidney: Normal 11. Left Kidney: Normal 12. 3 vessel cord: Normal 13. Upper extremity: Open hands, fifth digit. 14. Lower extremity: Tibia, fibula, bilateral feet. 15. Bladder: Normal 16. Genitalia: Male, patient aware US/US OB /maternal detail IMPRESSION: 1. Single, living, intrauterine with appropriate biometry. 2. Normal survey DISCUSSION: I reviewed today's ultrasound findings. We discussed the limitations of ultrasound in diagnosing aneuploidy and other congenital abnormalities. I reviewed the differences between screening test and diagnostic test. Amniocentesis was discussed and declined. She was informed that the baseline incidence of congenital abnormalities is approximately 3-5%. Not all these conditions are diagnosable in utero. RECOMMENDATIONS: 1. Follow-up when necessary Thank you for allowing me to participate in her care. Total time 30 minutes. The time spent was devoted to counseling the patient about the disease and diagnosis, coordinating care including reviewing her records, pertinent lab data and studies, as well as discussing diagnostic evaluation and workup, plan therapeutic interventions and future disposition of care. This includes any additional research needed to obtain further information in formulating the plan of care of this patient. This note was generated with a voice recognition program. Please excuse any errors which may have been overlooked during my review of this note. Sometimes these errors may affect the content or meaning of a given sentence.
== END 2020-09-29 11:07 | disposition home or self-care (01) ==
LOC: HO.US 11:06
PROVIDERS: Visit Provider Advanced Practice Midwife
DX: Z36.3 Encounter for antenatal screening for malformations (principal)
CPT/HCPCS: 76811

== ENCOUNTER → 2020-10-31 13:21 | Outpatient (BNVA) | payer MEDICAID, SELFPAY | PROVIDERS: Visit Provider Advanced Practice Midwife | DX: O21.9 Vomiting of pregnancy, unspecified (principal); O99.612 Diseases of the digestive system complicating pregnancy, second trimester; K11.7 Disturbances of salivary secretion; Z3A.23 23 weeks gestation of pregnancy; Z12.4 Encounter for screening for malignant neoplasm of cervix | CPT/HCPCS: 99212 ==

== ENCOUNTER 2020-11-27 09:17 | Emergency (ER) | payer MEDICAID, SELFPAY ==
[2020-11-27 09:53] VITALS: BP 114/60; PULSE 71; RESP 17; TEMP 35.9; O2SAT 98; BMI 30.2
[2020-11-27] MEDS: Lidocaine HCl 1 % MPF 5 ML VIAL SUBCUT (11:16)
--- NOTE | 2020-11-27 11:32 | ED.SKABFB ---
HPI - Skin/Abscess/Foreign Bdy General Chief complaint: Skin/Abscess/Foreign Body Stated complaint: abscess Time Seen by Provider: 11/27/20 10:24 Source: patient Mode of arrival: ambulatory Limitations: no limitations History of Present Illness HPI narrative: 35-year-old female who is currently 24 weeks being followed by OB due date 02/23/2021 denies any gynecology teacher complaints presenting to the ED with complaints of an abscess to her left buttocks for the past 2-3 days worse today. Denies any other symptoms complaints or concerns at this time. MD complaint: abscess/boil Onset (ago): day(s) (2-3 days worse today) Location: buttocks (Left) Severity: moderate Quality: constant and other (Throbbing sensation) Pain Consistency: constant Relieving factors: none Exacerbating factors: none Context: none Associated symptoms: denies other symptoms Treatments prior to arrival: none Related Data Previous Rx's Medication Instructions Recorded vitamin with calcium 1 tab PO DAILY #90 tab 09/05/20 no.72-iron 27 mg-folic acid 1 mg tablet ( Vitamins Plus Low Iron) doxylamine succinate 25 mg tablet 25 mg PO BEDTIME PRN #30 tab 09/25/20 (Unisom (doxylamine)) pyridoxine (vitamin B6) 25 mg 25 mg PO TID #90 tab 09/25/20 tablet metronidazole 0.75 % vaginal gel 1 appful VAGINAL BID 5 Days #70 g 10/31/20 (Metrogel Vaginal) ondansetron HCl 4 mg tablet 4 mg PO Q8H PRN #30 tab 10/31/20 (Zofran) acetaminophen 500 mg tablet 1,000 mg PO QID PRN #14 tab 11/27/20 (Tylenol Extra Strength) cephalexin 500 mg capsule 500 mg PO Q6H 10 Days #40 cap 11/27/20 Allergies Allergy/AdvReac Type Severity Reaction Status Date / Time levofloxacin [From LEVAQUIN] Allergy Intermediate rash Verified 10/31/20 13:25 Review of Systems Review of Systems: Constitutional : No Fever, No Chills, Cardiovascular : No Chest Pain, No SOB Respiratory : No Dyspnea Gastrointestinal : No abdominal pain Musculoskeletal : No Joint Swelling Skin : positive skin abscess/surrounding erythema, No Foreign bodies, No rash Neuro : No Weakness, No Numbness/tingling Psych : No SI/HI/thoughts of self injury Yes all other systems are reviewed and are negative [facility] Past Medical History Attestation statement: The following information was validated with the patient. Medical History Asthma Migraine Tachycardia Social History Social History Household Members: Children Housing: Apartment Are you a primary out of school hours care worker to a significant other at home: No Do you presently have visiting nurse or other home services: No Alcohol intake: former Patient Tobacco Use Status: Never used Tobacco Substance Use Type: Marijuana Trauma History: none Special roderick needs: No Agree to transfusion: Yes Advance Directives: No Patient : Yes Physical Exam Vital Signs: Vital Signs: Last Vital Signs Temp 96.7 F L 11/27/20 09:53 Pulse 71 11/27/20 09:53 Resp 17 11/27/20 09:53 BP 114/60 11/27/20 09:53 Pulse Ox 98 11/27/20 09:53 Body Mass Index 30.2 vital signs have been reviewed as normal and appeared to be correct. Blood pressure normal. Heart rate normal. Respiration rate normal. Temperature normal. Oxygen saturation normal. Appearance: Alert. Oriented X3. No acute distress. Head: Normal external exam. Normocephalic. Atraumatic. Eyes: PERRLA. EOMI. Conjunctiva and sclera normal. Eyelids normal. ENT:Pharynx normal. Uvula midline. Moist mucous membranes. Neck: Normal inspection. Neck supple. FROM. No adenopathy. No meningeal signs. CVS: Normal heart rate and rhythm. Heart sound normal. Pulses normal throughout. No murmurs/rales/gallops. Respiratory: No respiratory distress. Painless inspiration. Breath sounds normal. No wheezes/rales/rhonchi noted. Chest nontender. No accessory muscle usage noted or decreased air movement noted. Abdomen: Soft and nontender. Bowel sounds normal in all 4 quadrants. No distention noted. No organomegaly noted. No visible injury noted. Gravid uterus consistent with dates. Back:Full range of motion noted. No rashes/lesion/induration/fluctuance or signs of infection noted. Skin: Tender moderate size abscess to the left buttocks with fluctuance and surrounding erythema. No streaking/induration/purulent drainage noted. The rest of the Skin is warm and dry. Normal skin color. Normal skin turgor. No additional rashes/lesions/lacerations noted. Extremities: Extremities exhibit normal range of motion. Extremities nontender. Neuro: Oriented X 3. No motor deficit. No sensory deficit. Reflexes normal. Normal steady gait. No focal neuro deficits noted. Vascular: + radial pulses/+ 2 distal pedal pulses/+2 dorsalis pedis b/l. Normal cap refill. No cyanosis noted to upper extremity nails and lower extremity toes nails. Course Course Course Narrative: 35-year-old female who is currently 24 weeks due date on 02/23/2021 being followed by OB denies any gynecology teacher complaints is now status post I and D to the left buttocks. No packing placed. No complications. Patient tolerated procedure well. Will DC home with antibiotics and symptomatic treatment instructions return if any new or worsening symptoms to follow up with primary care provider and OBGYN. Patient understands agrees with this plan. MDM - Skin/Abscess/Foreign Bdy Medical Records Attestation: I reviewed the patient's medical records. Procedures Abscess I/D Site: other (Left buttocks) Local Anesthetic: lidocaine 1% Amount of anesthesia used (mL): 5 Technique: incised with blade Amount of fluid expressed (mL): 5 Sent for culture/gram staining?: No Irrigation: Yes Packing used?: none Complications: other (No complications) Discharge Plan Discharge Clinical Impression: Cellulitis, Abscess of skin or subcutaneous tissue Patient Disposition: Home, Self-Care Instructions: Cellulitis (ED), Abscess Incision and Drainage (DC), Warm Compress or Soak (ED) Prescriptions: New cephalexin 500 mg capsule 500 mg PO Q6H 10 Days Qty: 40 RF: 0 acetaminophen [Tylenol Extra Strength] 500 mg tablet 1,000 mg PO QID PRN (Reason: fever or pain) Qty: 14 RF: 0 No Action pyridoxine (vitamin B6) 25 mg tablet 25 mg PO TID Qty: 90 RF: 1 Unisom (doxylamine) 25 mg tablet 25 mg PO BEDTIME PRN (Reason: sleep) Qty: 30 RF: 1 Vitamin Plus Low Iron 27 mg iron- 1 mg tablet 1 tab PO DAILY Qty: 90 RF: 0 ondansetron HCl [Zofran] 4 mg tablet 4 mg PO Q8H PRN (Reason: nausea and vomiting) Qty: 30 RF: 1 metronidazole [Metrogel Vaginal] 0.75 % gel 1 appful vaginal BID 5 Days Qty: 70 RF: 0 Referrals: [facility] [Primary Care Provider] - 2 days Hitesh Arevalo MD [Physician] - 2 days Print Language: Filipino
== END 2020-11-27 11:48 | disposition home or self-care (01) ==
PROVIDERS: Emergency Provider Emergency Medicine
DX: L02.31 Cutaneous abscess of buttock (principal); F12.90 Cannabis use, unspecified, uncomplicated; Z79.899 Other long term (current) drug therapy; Z87.891 Personal history of nicotine dependence
CPT/HCPCS: 10060; 99283; 99284

== ENCOUNTER 2020-11-29 10:55 | Outpatient (REF) | payer MEDICAID, SELFPAY ==
[2020-11-29 12:40] LABS: Hematocrit 34.6 % (37-47); Hemoglobin 12.1 g/dl (12.0-16.0); Mean Corpuscular Hemoglobin 34.5 pg (27.0-33.0); Mean Corpuscular Volume 98.6 fL (80-98); Mean Platelet Volume 10.1 fL (9.4-12.3); Platelet Count 208 X10*3/uL (160-400); Red Blood Count 3.51 X10*6/uL (4.20-5.50); Red Cell Distribution Width 12.2 % (11.0-16.0); White Blood Count 8.4 X10*3/uL (4.8-10.8)
[2020-11-29 13:52] LABS: Syphilis Screen Nonreactive (Nonreactive)
[2020-11-29 15:50] LABS: Amphetamine Screen Urine Not Detected (Not Detect); Barbiturates, Urine Not Detected (Not Detect); Benzodiazepines Screen Urine Not Detected (Not Detect); Cannabinoid Screen Urine POSITIVE (Not Detect); Cocaine Screen Urine Not Detected (Not Detect); Fentanyl, urine Not Detected (Not Detect); Opiate Screen Urine Not Detected (Not Detect); Phencyclidine Screen Urine Not Detected (Not Detect)
[2020-11-30 05:04] LABS: HBsAGNum1 0.15 S/CO (0.00-0.99); HIV AB/AG Nonreactive (Nonreactive); HIV Num 1 0.11 S/CO (0.00-0.99); Hepatitis B Surface Antigen Negative (Negative); ~HepC Num1 0.06 S/CO (0.00-0.79); ~Hepatitis C Antibody Nonreactive (Nonreactive)
[2020-12-01 07:17] LABS: Rubella IgG Antibody 2.89 Index
== END 2020-11-29 10:56 | disposition home or self-care (01) ==
LOC: HO.LAB 10:55
PROVIDERS: Advanced Practice Midwife; Visit Provider Obstetrics & Gynecology
DX: O09.32 Supervision of pregnancy with insufficient antenatal care, second trimester (principal); O26.892 Other specified pregnancy related conditions, second trimester; R87.612 Low grade squamous intraepithelial lesion on cytologic smear of cervix (LGSIL); O99.342 Other mental disorders complicating pregnancy, second trimester; F41.8 Other specified anxiety disorders; O21.2 Late vomiting of pregnancy; O99.322 Drug use complicating pregnancy, second trimester; F12.90 Cannabis use, unspecified, uncomplicated; Z3A.27 27 weeks gestation of pregnancy; Z79.899 Other long term (current) drug therapy
CPT/HCPCS: 80307; 85027; 86762; 86780; 86787; 86803; 86850; 86900; 86901; 87340; 87389; 99212

== ENCOUNTER 2020-12-05 17:55 | Emergency (ER) | payer MEDICAID, SELFPAY ==
--- NOTE | ~2020-12-05 | XR_ITS ---
EXAMINATION: XR CHEST CLINICAL INFORMATION: Shortness of breath, cough. 29 weeks of gestation. COMPARISON: Chest radiograph dated from 09/24/2019. TECHNIQUE: AP view of the chest was obtained. FINDINGS: Normal appearance of the cardiomediastinal silhouette. Subtle hazy opacities in the right lower lobe. Otherwise, lungs are clear. No pleural effusion or pneumothorax. No acute osseous findings. XR/XR chest 1V IMPRESSION: Subtle hazy opacities in the right lower lobe are indeterminate and could be related with subsegmental atelectasis and in part accentuated by patient's slight rotation. However, an early infiltrate cannot be excluded.
[2020-12-05 18:01] VITALS: BP 169/80; PULSE 108; RESP 22; TEMP 36.4; O2SAT 95; BMI 31.5
--- NOTE | 2020-12-05 18:43 | ECG_ITS ---
Test Reason : SOB Blood Pressure : / mmHG Vent. Rate : 093 BPM Atrial Rate : 093 BPM P-R Int : 134 ms QRS Dur : 098 ms QT Int : 366 ms P-R-T Axes : 080 067 045 degrees QTc Int : 455 ms Normal sinus rhythm Incomplete right bundle branch block Borderline ECG Heart rate has decreased Referred By: Nathalie Ferrera Electronically Signed By:KATHI STEWART MD
[2020-12-05] MEDS: methylPREDNISolone Sod Succ 125 MG/2 ML VIAL IVPUSH (18:52)
[2020-12-05] MEDS: Magnesium Sulfate/H2O 2 GM/50 ML PIGGYBACK IV (18:52)
--- NOTE | 2020-12-05 18:53 | ED.SOB ---
HPI - SOB/Dyspnea General Chief Complaint: Dyspnea Stated Complaint: 29 wks, SoB, Asthma Time Seen by Provider: 12/05/20 18:30 Source: patient Mode of arrival: ambulatory History of Present Illness HPI Narrative: 35-year-old female with a past medical history of asthma, migraines, tachycardia, at 29 weeks gestation, presenting to the ED complaining increasing chest tightness, SOB, headache, myalgias, nonproductive and chest discomfort with deep inspiration and coughing x3 days. Reports increased wheezing despite inhalers. Denies fever chills, nausea, vomiting,, vaginal bleeding, vaginal discharge. Denies recent travel Related Data Previous Rx's Medication Instructions Recorded vitamin with calcium 1 tab PO DAILY #90 tab 09/05/20 no.72-iron 27 mg-folic acid 1 mg tablet ( Vitamins Plus Low Iron) doxylamine succinate 25 mg tablet 25 mg PO BEDTIME PRN #30 tab 09/25/20 (Unisom (doxylamine)) pyridoxine (vitamin B6) 25 mg 25 mg PO TID #90 tab 09/25/20 tablet metronidazole 0.75 % vaginal gel 1 appful VAGINAL BID 5 Days #70 g 10/31/20 (Metrogel Vaginal) ondansetron HCl 4 mg tablet 4 mg PO Q8H PRN #30 tab 10/31/20 (Zofran) acetaminophen 500 mg tablet 1,000 mg PO QID PRN #14 tab 11/27/20 (Tylenol Extra Strength) cephalexin 500 mg capsule 500 mg PO Q6H 10 Days #40 cap 11/27/20 Allergies Allergy/AdvReac Type Severity Reaction Status Date / Time levofloxacin [From LEVAQUIN] Allergy Intermediate rash Verified 10/31/20 13:25 Review of Systems Review of Systems: Constitutional: No Fever, No Chills, No Fatigue, No Malaise ENT/Mouth: No Ear Pain, No Nasal Congestion, No sore throat, No Rhinorrhea Eyes: No Eye Pain, No Swelling, No Redness, No Discharge, No Vision Changes Cardiovascular: +Chest Pain, + SOB, + Dyspnea on Exertion, No Orthopnea, No Edema, No Palpitations Respiratory: +Cough, No Sputum, +Wheezing, No Smoke Exposure, No Dyspnea Gastrointestinal: No Nausea, No Vomiting, No Diarrhea, No Constipation, No Abdominal pain Genitourinary: No Dysuria, No Urinary Frequency, No Flank Pain Musculoskeletal: No joint pain, No Myalgias, No Joint Swelling Skin: No Skin Lesions, No rash Neuro: No Weakness, No Numbness, No Dizziness, No Headache Yes all other systems are reviewed and are negative [facility] Past Medical History Attestation statement: The following information was validated with the patient. Medical History Asthma Migraine Tachycardia Social History Social History Household Members: Children Housing: Apartment Are you a primary care services manager to a significant other at home: No Do you presently have visiting nurse or other home services: No Alcohol intake: former Patient Tobacco Use Status: Never used Tobacco Substance Use Type: Marijuana Trauma History: none Special roderick needs: No Agree to transfusion: Yes Advance Directives: No Advance Directives Information Provided: Yes Physical Exam Vital Signs: Vital Signs: Last Vital Signs Temp 98.8 F 12/05/20 20:23 Pulse 109 H 12/05/20 21:37 Resp 20 12/05/20 21:37 BP 128/62 12/05/20 21:37 Pulse Ox 98 12/05/20 21:37 Body Mass Index 31.5 Const: General: cooperative Orientation/consciousness: patient oriented x3 Limitations: no limitations HENMT: Head: Yes normal to inspection Ears: hearing grossly normal bilaterally General nose exam: Normal external nose present Face and sinus: Yes normal facial exam Eyes: General: appearance normal, both eyes and all related structures EOM: EOMs intact bilaterally Neck: Neck: Yes normal visual inspection and Yes no meningeal signs Resp: Effort & Inspection: tachypneic Auscultation: wheezes expiratory wheezes, inspiratory wheezes and throughout Cardio: Rate: regular rate and tachycardic Heart sounds: S1 normal heart sound present and S2 normal heart sound present GI: Other: gravid uterus Inspection: Yes normal to inspection Palpation (GI): Soft to palpation, nontender, no guarding and not rigid Skin: Rashes: no rashes Wounds: no wounds Neuro: General: patient oriented x3 and no meningeal signs Gait exam (Neuro): Normal gait present Extrem: General: Yes normal to inspection, Yes no pedal edema and Yes no calf tenderness Course Course Course Narrative: -1913--no leukocytosis of 14.3 > empiric Ceftriaxone given -H&H stable, D-dimer 260 > upper limit of normal 278, PE unlikely. Labs otherwise unremarkable, beta quant 3,629 -2023-- XR chest 1V IMPRESSION: Subtle hazy opacities in the right lower lobe are indeterminate and could be related with subsegmental atelectasis and in part accentuated by patient's slight rotation. However, an early infiltrate cannot be excluded. > IV Azithromycin added. Plan will be for transfer to [facility], pending COVID results. On re-evaluation patient is still with diffuse expiratory wheeze, but better air movement -COVID-19, influenza, RSV negative. - HR 143 -spoke to OBGYN physician at [facility], who reports patient needs to be transferred to [facility] -spoke to OBGYN Dr. Kearney at [facility], patient will be admitted to Medicine with OBGYN consultation at [facility] -[phone]--Spoke to hospitalist Viki Felix at [facility], accepted patient, accepting physician Dr. Dinero MDM - SOB/Dyspnea MDM Narrative Medical decision making narrative: 35-year-old female with a past medical history of asthma, migraines, tachycardia, at 29 weeks gestation, presenting to the ED complaining increasing chest tightness, SOB, headache, myalgias, nonproductive and chest discomfort with deep inspiration and coughing x3 days. On exam initially tachycardic, tachypneic, inspiratory and expiratory wheeze noted throughout, no pedal edema/calf tenderness, talking in short sentences. Concern for asthma exacerbation vs PE. Rule out pneumonia/viral syndrome/COVID-19. Low concern for severe sepsis at this time, vital sign abnormalities likely from albuterol use [employer] Plan: EKG, labs, CXR, COVID-19 testing, Albuterol, Solu-Medrol, magnesium, Medical Records Attestation: I reviewed the patient's medical records. Lab Data Attestation: I reviewed the patient's lab results. Result diagrams: 12/05/20 18:51 12/05/20 18:51 Labs: Lab Results 12/05/20 12/05/20 12/05/20 Range/Units 18:51 18:51 18:51 WBC 14.3 H (4.8-10.8) X10*3/uL RBC 3.48 L (4.20-5.50) X10*6/uL Hgb 12.1 (12.0-16.0) g/dl Hct 34.3 L (37-47) % MCV 98.6 H (80-98) fL MCH 34.8 H (27.0-33.0) pg MCHC 35.3 H (31.0-35.0) g/dl RDW 12.0 (11.0-16.0) % Plt Count 283 D (160-400) X10*3/uL MPV 9.6 (9.4-12.3) fL Immature Gran % (Auto) 0.6 H (0.0-0.4) % Neut % (Auto) 77.3 H (45-73) % Lymph % (Auto) 12.4 L (20-40) % [place] % (Auto) 7.0 (2-11) % Eos % (Auto) 2.4 (0-4) % Baso % (Auto) 0.3 (0-2) % Lymph # (Auto) 1.8 (1.2-4.9) X10*3/uL [place] # (Auto) 1.0 (0.1-1.2) X10*3/uL Eos # (Auto) 0.4 (0.0-0.4) X10*3/uL Baso # (Auto) 0.0 (0.0-0.2) X10*3/uL Abs Immat Gran (auto) 0.08 H (0.00-0.03) X10*3/uL Absolute Neuts (auto) 11.1 H (2.0-8.3) X10*3/uL Absolute Nucleated RBC 0.000 (0.0-0.012) X10*3/uL Nucleated RBC % (auto) 0.0 (0.0-0.2) /100WBC PT (9.9-13.0) SEC INR (0.9-1.1) APTT (24.1-38.0) SEC D-Dimer NG/ML Sodium 136 (135-145) mmol/L Potassium 3.7 (3.3-5.1) mmol/L Chloride 106 (96-108) mmol/L Carbon Dioxide 18 L (22-29) mmol/L Anion Gap 16 (12-20) BUN 7 L D (9-16) mg/dL Creatinine 0.60 (0.5-1.4) mg/dL Estim Creat Clear Calc 123.0 Estimated GFR > 60 Random Glucose 84 (60-115) mg/dL Lactic Acid (0.5-2.0) mmol/L Calcium 9.0 (8.4-10.2) mg/dL Magnesium 1.8 (1.6-2.6) mg/dL Total Bilirubin 0.2 (0.0-1.0) mg/dL Direct Bilirubin < 0.2 (0.0-0.5) mg/dL AST 21 (5-31) U/L ALT 10 (0-31) U/L Alkaline Phosphatase 105 D (39-117) U/L Troponin I High Sens < 3.5 (<3.5-17.0) ng/L B-Natriuretic Peptide 24 (<100) pg/mL Total Protein 6.7 (6.5-8.0) g/dL Albumin 3.8 (3.5-5.0) g/dL Beta HCG, Quant 3629 mIU/mL Coronavirus (PCR) (Negative) Influenza Type A (PCR) (Negative) Influenza Type B (PCR) (Negative) RSV RNA Qual (PCR) (Negative) 12/05/20 12/05/20 12/05/20 Range/Units 19:25 19:25 19:26 WBC (4.8-10.8) X10*3/uL RBC (4.20-5.50) X10*6/uL Hgb (12.0-16.0) g/dl Hct (37-47) % MCV (80-98) fL MCH (27.0-33.0) pg MCHC (31.0-35.0) g/dl RDW (11.0-16.0) % Plt Count (160-400) X10*3/uL MPV (9.4-12.3) fL Immature Gran % (Auto) (0.0-0.4) % Neut % (Auto) (45-73) % Lymph % (Auto) (20-40) % [place] % (Auto) (2-11) % Eos % (Auto) (0-4) % Baso % (Auto) (0-2) % Lymph # (Auto) (1.2-4.9) X10*3/uL [place] # (Auto) (0.1-1.2) X10*3/uL Eos # (Auto) (0.0-0.4) X10*3/uL Baso # (Auto) (0.0-0.2) X10*3/uL Abs Immat Gran (auto) (0.00-0.03) X10*3/uL Absolute Neuts (auto) (2.0-8.3) X10*3/uL Absolute Nucleated RBC (0.0-0.012) X10*3/uL Nucleated RBC % (auto) (0.0-0.2) /100WBC PT 10.0 (9.9-13.0) SEC INR 0.9 (0.9-1.1) APTT 23.8 L (24.1-38.0) SEC D-Dimer 260 NG/ML Sodium (135-145) mmol/L Potassium (3.3-5.1) mmol/L Chloride (96-108) mmol/L Carbon Dioxide (22-29) mmol/L Anion Gap (12-20) BUN (9-16) mg/dL Creatinine (0.5-1.4) mg/dL Estim Creat Clear Calc Estimated GFR Random Glucose (60-115) mg/dL Lactic Acid 0.6 (0.5-2.0) mmol/L Calcium (8.4-10.2) mg/dL Magnesium (1.6-2.6) mg/dL Total Bilirubin (0.0-1.0) mg/dL Direct Bilirubin (0.0-0.5) mg/dL AST (5-31) U/L ALT (0-31) U/L Alkaline Phosphatase (39-117) U/L Troponin I High Sens (<3.5-17.0) ng/L B-Natriuretic Peptide (<100) pg/mL Total Protein (6.5-8.0) g/dL Albumin (3.5-5.0) g/dL Beta HCG, Quant mIU/mL Coronavirus (PCR) NEGATIVE (Negative) Influenza Type A (PCR) NEGATIVE (Negative) Influenza Type B (PCR) NEGATIVE (Negative) RSV RNA Qual (PCR) NEGATIVE (Negative) ECG Data Attestation: I personally reviewed and interpreted this ECG as follows: ECG interpretation date: 12/05/20 ECG interpretation time: 19:09 Prior ECG tracings: available for review Interpretation: EKG normal sinus rhythm with a rate of 93. QTC 455, artifact present, nonischemic no STEMI Critical Care Time Critical Care Time Critical Care Time: Yes Total Critical Care Time: 30 Attestation: Greater than 30 minutes of critical care time was spent evaluating patient, obtaining history, reviewing labs, reviewing imaging, re-evlauting patient, speaking to consultants, and transferring patient to acute care facility Discharge Plan Discharge Clinical Impression: Asthma with exacerbation, Pneumonia, 29 weeks gestation of Patient Disposition: Xfer [facility] Transfer Details: Accepting physician Dr. Dinero Prescriptions: No Action cephalexin 500 mg capsule 500 mg PO Q6H 10 Days Qty: 40 RF: 0 acetaminophen [Tylenol Extra Strength] 500 mg tablet 1,000 mg PO QID PRN (Reason: fever or pain) Qty: 14 RF: 0 pyridoxine (vitamin B6) 25 mg tablet 25 mg PO TID Qty: 90 RF: 1 Unisom (doxylamine) 25 mg tablet 25 mg PO BEDTIME PRN (Reason: sleep) Qty: 30 RF: 1 Vitamin Plus Low Iron 27 mg iron- 1 mg tablet 1 tab PO DAILY Qty: 90 RF: 0 ondansetron HCl [Zofran] 4 mg tablet 4 mg PO Q8H PRN (Reason: nausea and vomiting) Qty: 30 RF: 1 metronidazole [Metrogel Vaginal] 0.75 % gel 1 appful vaginal BID 5 Days Qty: 70 RF: 0
[2020-12-05 18:56] LABS: MANUAL DIFF FLAG NO
[2020-12-05 18:57] LABS: Basophils Percent Auto 0.3 % (0-2); Eosinophils Absolute Auto 0.4 X10*3/uL (0.0-0.4); Eosinophils Percent Auto 2.4 % (0-4); Hematocrit 34.3 % (37-47); Hemoglobin 12.1 g/dl (12.0-16.0); Imm Gran Abs Auto 0.08 X10*3/uL (0.00-0.03); Imm Gran Pct Auto 0.6 % (0.0-0.4); Lymphocytes Absolute Auto 1.8 X10*3/uL (1.2-4.9); Lymphocytes Percent Auto 12.4 % (20-40); Mean Corpuscular HGB Conc 35.3 g/dl (31.0-35.0); Mean Corpuscular Hemoglobin 34.8 pg (27.0-33.0); Mean Corpuscular Volume 98.6 fL (80-98); Mean Platelet Volume 9.6 fL (9.4-12.3); Neutrophils Absolute Auto 11.1 X10*3/uL (2.0-8.3); Neutrophils Percent Auto 77.3 % (45-73); Platelet Count 283 X10*3/uL (160-400); Red Blood Count 3.48 X10*6/uL (4.20-5.50); White Blood Count 14.3 X10*3/uL (4.8-10.8)
[2020-12-05 19:14] LABS: Alanine Aminotransferase 10 U/L (0-31); Albumin Level 3.8 g/dL (3.5-5.0); Alkaline Phosphatase 105 U/L (39-117); Anion Gap 16 (12-20); Aspartate Amino Transferase 21 U/L (5-31); Bilirubin Direct < 0.2 mg/dL (0.0-0.5); Bilirubin Total 0.2 mg/dL (0.0-1.0); Blood Urea Nitrogen 7 mg/dL (9-16); Carbon Dioxide 18 mmol/L (22-29); Chloride 106 mmol/L (96-108); Estimated Glomerular Filt Rate > 60; Glucose Random 84 mg/dL (60-115); Magnesium 1.8 mg/dL (1.6-2.6); Potassium 3.7 mmol/L (3.3-5.1); Sodium 136 mmol/L (135-145); Total Protein 6.7 g/dL (6.5-8.0)
[2020-12-05] MEDS: 0.9 % Sodium Chloride 500 ML 999 ML IV ×2 (19:15→20:53)
[2020-12-05] MEDS: Albuterol Sulfate (0.083%) 2.5 MG/3 ML VIAL.NEB 7.5 MG INHALE (19:17)
[2020-12-05 19:18] VITALS: PULSE 97; O2SAT 98
[2020-12-05 19:18] LABS: B Type Natriuretic Peptide 24 pg/mL (<100); Troponin-I High Sensitivity < 3.5 ng/L (<3.5-17.0)
[2020-12-05 19:19] LABS: HCG Quantitative 3629 mIU/mL
[2020-12-05 19:39] LABS: INTERNATIONAL NORM RATIO 0.9 (0.9-1.1)
[2020-12-05 19:42] LABS: D Dimer 260 NG/ML; Partial Thromboplastin Time 23.8 SEC (24.1-38.0)
[2020-12-05 19:52] LABS: Lactic Acid 0.6 mmol/L (0.5-2.0)
[2020-12-05] MEDS: cefTRIAXone sodium 1 GM in 0.9 % Sodium Chloride 50 ML IV (20:07)
[2020-12-05 20:20] LABS: Influenza A PCR NEGATIVE (Negative); Influenza B PCR NEGATIVE (Negative); Resp Syncy Virus RNA Qual PCR NEGATIVE (Negative); SARS COV2 PCR INHOUSE NEGATIVE (Negative)
[2020-12-05 20:23] VITALS: BP 128/62; PULSE 118; RESP 19; TEMP 37.1; O2SAT 98
[2020-12-05] MEDS: Azithromycin 500 MG in 0.9 % Sodium Chloride 250 ML 125 MG IV (20:49)
[2020-12-05 21:37] VITALS: BP 128/61; BP 128/62; PULSE 105; PULSE 109; RESP 20; RESP 24; O2SAT 97; O2SAT 98
[2020-12-05 22:06] VITALS: PULSE 103; O2SAT 97
[2020-12-05 22:27] VITALS: BP 115/46; PULSE 103; RESP 21; O2SAT 96
--- NOTE | 2020-12-05 22:45 | PC.NURSE ---
nurse to nurse called to Madalyn at [facility] [place] - will call when pt en route [phone]
--- NOTE | 2020-12-05 23:21 | PC.NURSE ---
Called an notified [facility] patient on route.
== END 2020-12-05 23:38 | disposition short-term general hospital (02) ==
PROVIDERS: Physician Assistant; Emergency Provider Internal Medicine
DX: O99.513 Diseases of the respiratory system complicating pregnancy, third trimester (principal); J18.9 Pneumonia, unspecified organism; J45.901 Unspecified asthma with (acute) exacerbation; R06.02 Shortness of breath; Z20.822 Contact with and (suspected) exposure to COVID-19; Z3A.29 29 weeks gestation of pregnancy
CPT/HCPCS: 0241U; 36415; 71045; 80048; 80076; 83605; 83735; 83880; 84484; 84702; 85025; 85379; 85610; 85730; 87040; 93005; 94640; 94644; 96365; 96366; 96367; 96375; 99285; J0456; J0696; J2930; J3475

== ENCOUNTER 2022-04-14 09:45 | Emergency (ER) | payer MEDICAID, SELFPAY ==
--- NOTE | ~2022-04-14 | US_ITS ---
EXAMINATION: US OBSTETRICAL ULTRASOUND CLINICAL INFORMATION: with spotting, rule out ectopic COMPARISON: OB ultrasound 09/29/2020. LMP: Unknown. Gestational age by maternal dates is unknown. Estimated date of delivery by maternal dates is unknown. TECHNIQUE: Ultrasound of the maternal pelvis is performed using transabdominal and transvaginal transducers. Transvaginal imaging is performed due to inadequate visualization transabdominally. M-mode Doppler is also performed. FINDINGS: There is a single intrauterine gestational sac with visible yolk sac, embryo/fetus, and cardiac activity. There is a small amount of subchorionic hemorrhage. Cervix is closed. HR: 108 beats per minute. CRL (crown rump length): 0.2 cm (5 weeks and 6 days +/- 4 days). [place] (estimated date of delivery): 12/09/2022 +/- 4 days. MATERNAL ADNEXA: The right maternal ovary measures 3.4 x 2.2 x 2.6 cm. There is a physiologic 2.1 cm corpus luteum. The left maternal ovary measures 2.4 x 1.9 x 1.4 cm. Left ovary is unremarkable. There is no adnexal mass. Trace free fluid in the pelvic cul-de-sac. US/US OB pelvic and transvaginal IMPRESSION: 1. Single intrauterine gestation with ultrasound gestational age of 5 weeks and 6 +/- 4 days. There is a small volume of subchorionic hemorrhage for which continued clinical and sonographic surveillance is recommended. 2. Estimated date of delivery is 12/09/2022 +/- 4 days. 3. No maternal adnexal mass or pelvic ascites.
--- NOTE | ~2022-04-14 | XR_ITS ---
EXAMINATION: XR CALCANEUS, LEFT CLINICAL INFORMATION: Injury COMPARISON: X-ray 04/14/2022 foot TECHNIQUE: Lateral and axial views of the left calcaneus were obtained. FINDINGS: No acute calcaneal fractures seen. The subtalar articulations appear maintained. Plantar calcaneal spur. Limited evaluation of the residual bones on these provided views, without gross fracture identified. XR/XR calcaneus LT min 2V IMPRESSION: No radiographic evidence of acute calcaneal fracture.
--- NOTE | ~2022-04-14 | XR_ITS ---
EXAMINATION: XR FOOT, LEFT CLINICAL INFORMATION: Rule out fracture. COMPARISON: None TECHNIQUE: AP, lateral, and oblique views of the left foot. XR/XR foot LT min 3V FINDINGS/IMPRESSION: There is a minimally displaced fracture involving the lateral aspects of the tuft of the left second distal phalanx. No other fracture or dislocation is seen. Bony mineralization appears preserved. The joint spaces appear maintained. There is a plantar calcaneal spur.
[2022-04-14 09:47] VITALS: BP 134/82; PULSE 97; RESP 20; TEMP 36.6; O2SAT 98; BMI 29.2
[2022-04-14 11:49] LABS: UPreg QC Valid YES; Urine Pregnancy POSITIVE (NEGATIVE)
[2022-04-14 12:39] LABS: MANUAL DIFF FLAG NO
[2022-04-14 12:40] LABS: Basophils Absolute Auto 0.1 X10*3/uL (0.0-0.2); Basophils Percent Auto 0.7 % (0-2); Eosinophils Absolute Auto 0.1 X10*3/uL (0.0-0.4); Eosinophils Percent Auto 0.8 % (0-4); Hematocrit 37.5 % (37.0-47.0); Hemoglobin 12.8 g/dl (12.0-16.0); Imm Gran Abs Auto 0.02 X10*3/uL (0.00-0.03); Imm Gran Pct Auto 0.3 % (0.0-0.4); Lymphocytes Absolute Auto 1.6 X10*3/uL (1.2-4.9); Lymphocytes Percent Auto 21.4 % (20-40); Mean Corpuscular HGB Conc 34.1 g/dl (31.0-35.0); Mean Corpuscular Hemoglobin 32.8 pg (27.0-33.0); Mean Corpuscular Volume 96.2 fL (80.0-98.0); Mean Platelet Volume 9.8 fL (9.4-12.3); Monocytes Absolute Auto 0.5 X10*3/uL (0.1-1.2); Monocytes Percent Auto 7.3 % (2-11); Neutrophils Absolute Auto 5.1 x10*3/uL (2.0-8.3); Neutrophils Percent Auto 69.5 % (45-73); Platelet Count 251 X10*3/uL (160-400); White Blood Count 7.4 X10*3/uL (4.8-10.8)
[2022-04-14 12:58] LABS: Anion Gap 12 (12-20); Blood Urea Nitrogen 10 mg/dL (9-16); Calcium 9.1 mg/dL (8.4-10.2); Carbon Dioxide 23 mmol/L (22-29); Chloride 106 mmol/L (96-108); Creatinine Clr Calc Pharmacy 124.1; Estimated Glomerular Filt Rate > 60; Glucose Random 89 mg/dL (60-115); Sodium 137 mmol/L (135-145)
[2022-04-14 13:19] LABS: Appearance Urine Turbid; Color Urine Yellow; Glucose Urine UA Negative (Negative); Leukocyte Esterase Urine Negative (Negative); Nitrite Urine Negative (Negative); Specific Gravity - Urine >= 1.030 (1.005-1.025); Urine Blood Negative (Negative); Urine Ketones Negative (Negative); Urine Protein Trace mg/dL (Neg-Trace)
--- NOTE | 2022-04-14 15:04 | ED.GENADULT ---
HPI - General Adult General Chief complaint: Extremity Injury, Lower Stated complaint: L foot inj Time Seen by Provider: 04/14/22 11:22 History of Present Illness HPI narrative: Patient with 2 complaints 1st complaint is she was standing on a chair and when she stepped down off the chair she stepped on to 1 of her child's toys and felt a sharp pain in her heel and now is here complaining of left heel pain Other complaint is she has felt nauseous for the last several days and thinks she might be , her last known period was approximately 2 months ago and she has had episodes of spotting since, denies any pelvic pain, no dysuria No abdominal pain no diarrhea no fever no recent illness Related Data Previous Rx's Medication Instructions Recorded vitamin with calcium 1 tab PO DAILY #90 tabs 09/05/20 no.72-iron 27 mg-folic acid 1 mg tablet ( Vitamins Plus Low Iron) doxylamine succinate 25 mg tablet 25 mg PO BEDTIME PRN sleep #30 tabs 09/25/20 (Unisom (doxylamine)) pyridoxine (vitamin B6) 25 mg 25 mg PO TID #90 tabs 09/25/20 tablet metronidazole 0.75 % (37.5 mg/5 1 appful vaginal BID 5 days #70 10/31/20 gram) vaginal gel (Metrogel grams Vaginal) ondansetron HCl 4 mg tablet 4 mg PO Q8H PRN nausea and 10/31/20 (Zofran) vomiting #30 tabs acetaminophen 500 mg tablet 1,000 mg PO QID PRN fever or pain 11/27/20 (Tylenol Extra Strength) #14 tabs cephalexin 500 mg capsule 500 mg PO Q6H 10 days #40 caps 11/27/20 Allergies Allergy/AdvReac Type Severity Reaction Status Date / Time levofloxacin [From LEVAQUIN] Allergy Intermediate rash Verified 10/31/20 13:25 [facility] Past Medical History Source: nursing notes reviewed Medical History Asthma Migraine Tachycardia Social History Social History Household Members: Children Housing: Apartment Are you a primary doggy daycare activities director to a significant other at home: No Do you presently have visiting nurse or other home services: No Alcohol intake: former Patient Tobacco Use Status: Never used Tobacco Substance Use Type: Marijuana Trauma History: none Special roderick needs: No Agree to transfusion: Yes Advance Directives: Yes Advance Directives Information Provided: Yes Advance Directives on File: No Physical Exam ED Vital Signs: Vital Signs - 24 hr 04/14/22 09:47 Temperature 97.9 F Pulse Rate 97 Respiratory Rate 20 Blood Pressure 134/82 Pulse Oximetry 98 Oxygen Delivery Method Room Air BMI result Body Mass Index 29.2 General appearance is no acute distress Head is normocephalic atraumatic Eyes anicteric no pallor Pharynx moist mucous membranes no redness swelling or exudate voice normal Neck is supple Chest clear to auscultation bilateral Heart no murmur Abdomen is soft nontender no rebound no guarding Extremities full range of motion x4 The left foot exam there is no obvious swelling there is no break in the skin there is tenderness to the heel and patient is walking on her toe to avoid putting weight on her heel but she is able to walk, Achilles tendon is intact and functioning normally, neurovascular intact distal Course Course Course Narrative: Left foot x-ray and left heel x-ray, calcaneus x-ray were negative CBC, chemistry, and urinalysis without acute abnormalities no sign of urinary tract infection, patient has no symptoms of urinary tract infection HCG was positive, [place] 22467, pelvic ultrasound showed single intrauterine gestation gestational age about 5 weeks, no adnexal mass Patient does experience some nausea but no vomiting, she is well hydrated now X-rays of her foot and calcaneus were negative but she did walk with a very uncomfortable limp so she was given crutches, 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 04/14/22 12:35 04/14/22 12:35 Labs: Lab Results 04/14/22 04/14/22 04/14/22 Range/Units 11:40 11:40 12:35 WBC 7.4 (4.8-10.8) X10*3/uL RBC 3.90 L (4.20-5.50) X10*6/uL Hgb 12.8 (12.0-16.0) g/dl Hct 37.5 (37.0-47.0) % MCV 96.2 (80.0-98.0) fL MCH 32.8 (27.0-33.0) pg MCHC 34.1 (31.0-35.0) g/dl RDW 12.0 (11.0-16.0) % Plt Count 251 (160-400) X10*3/uL MPV 9.8 (9.4-12.3) fL Immature Gran % (Auto) 0.3 (0.0-0.4) % Neut % (Auto) 69.5 (45-73) % Lymph % (Auto) 21.4 (20-40) % [place] % (Auto) 7.3 (2-11) % Eos % (Auto) 0.8 (0-4) % Baso % (Auto) 0.7 (0-2) % Lymph # (Auto) 1.6 (1.2-4.9) X10*3/uL [place] # (Auto) 0.5 (0.1-1.2) X10*3/uL Eos # (Auto) 0.1 (0.0-0.4) X10*3/uL Baso # (Auto) 0.1 (0.0-0.2) X10*3/uL Abs Immat Gran (auto) 0.02 (0.00-0.03) X10*3/uL Absolute Neuts (auto) 5.1 (2.0-8.3) x10*3/uL Absolute Nucleated RBC 0.000 (0.0-0.012) X10*3/uL Nucleated RBC % (auto) 0.0 (0.0-0.2) /100WBC Sodium (135-145) mmol/L Potassium (3.3-5.1) mmol/L Chloride (96-108) mmol/L Carbon Dioxide (22-29) mmol/L Anion Gap (12-20) BUN (9-16) mg/dL Creatinine (0.5-1.4) mg/dL Estim Creat Clear Calc Estimated GFR Random Glucose (60-115) mg/dL Calcium (8.4-10.2) mg/dL Beta HCG, Quant mIU/mL Urine Color Yellow Urine Appearance Turbid Urine pH 6.0 (5.0-9.0) Ur Specific [place] >= 1.030 H (1.005-1.025) Urine Protein Trace (Neg-Trace) mg/dL Urine Glucose (UA) Negative (Negative) mg/dL Urine Ketones Negative (Negative) mg/dL Urine Blood Negative (Negative) Urine Nitrite Negative (Negative) Ur Leukocyte Esterase Negative (Negative) Urine Test POSITIVE H (NEGATIVE) Blood Type 04/14/22 04/14/22 Range/Units 12:35 12:35 WBC (4.8-10.8) X10*3/uL RBC (4.20-5.50) X10*6/uL Hgb (12.0-16.0) g/dl Hct (37.0-47.0) % MCV (80.0-98.0) fL MCH (27.0-33.0) pg MCHC (31.0-35.0) g/dl RDW (11.0-16.0) % Plt Count (160-400) X10*3/uL MPV (9.4-12.3) fL Immature Gran % (Auto) (0.0-0.4) % Neut % (Auto) (45-73) % Lymph % (Auto) (20-40) % [place] % (Auto) (2-11) % Eos % (Auto) (0-4) % Baso % (Auto) (0-2) % Lymph # (Auto) (1.2-4.9) X10*3/uL [place] # (Auto) (0.1-1.2) X10*3/uL Eos # (Auto) (0.0-0.4) X10*3/uL Baso # (Auto) (0.0-0.2) X10*3/uL Abs Immat Gran (auto) (0.00-0.03) X10*3/uL Absolute Neuts (auto) (2.0-8.3) x10*3/uL Absolute Nucleated RBC (0.0-0.012) X10*3/uL Nucleated RBC % (auto) (0.0-0.2) /100WBC Sodium 137 (135-145) mmol/L Potassium 4.0 (3.3-5.1) mmol/L Chloride 106 (96-108) mmol/L Carbon Dioxide 23 (22-29) mmol/L Anion Gap 12 (12-20) BUN 10 (9-16) mg/dL Creatinine 0.59 (0.5-1.4) mg/dL Estim Creat Clear Calc 124.1 Estimated GFR > 60 Random Glucose 89 (60-115) mg/dL Calcium 9.1 (8.4-10.2) mg/dL Beta HCG, Quant 09662 mIU/mL Urine Color Urine Appearance Urine pH (5.0-9.0) Ur Specific [place] (1.005-1.025) Urine Protein (Neg-Trace) mg/dL Urine Glucose (UA) (Negative) mg/dL Urine Ketones (Negative) mg/dL Urine Blood (Negative) Urine Nitrite (Negative) Ur Leukocyte Esterase (Negative) Urine Test (NEGATIVE) Blood Type A Positive Discharge Plan Discharge Clinical Impression: Contusion of left heel, Patient Disposition: Home, Self-Care Additional Instructions: X-rays of your heel and foot did not show any broken bones so this is likely a bruise and should improve within several days If still having trouble walking on it and lots of pain after a week follow with orthopedist or your doctor for re-evaluation test was positive, ultrasound did confirm a in the uterus If bleeding worsens or if you develop pelvic pain, or vomiting or feel dehydrated return to the ER any time Most important follow with your feeder worker power unit operator for care in spring Prescriptions: No Action cephalexin 500 mg capsule 500 mg PO Q6H 10 Days Qty: 40 0RF acetaminophen [Tylenol Extra Strength] 500 mg tablet 1,000 mg PO QID PRN (Reason: fever or pain) Qty: 14 0RF pyridoxine (vitamin B6) 25 mg tablet 25 mg PO TID Qty: 90 1RF Unisom (doxylamine) 25 mg tablet 25 mg PO BEDTIME PRN (Reason: sleep) Qty: 30 1RF Vitamin Plus Low Iron 27 mg iron- 1 mg tablet 1 tab PO DAILY Qty: 90 0RF ondansetron HCl [Zofran] 4 mg tablet 4 mg PO Q8H PRN (Reason: nausea and vomiting) Qty: 30 1RF metronidazole [Metrogel Vaginal] 0.75 % gel 1 appful vaginal BID 5 Days Qty: 70 0RF Referrals: Cale Burt MD [Physician] - (Left foot injury) Interventions: ED Discharge Assessment Last Done: 04/14/22 15:25 Discharge Date/Time: 04/14/22 15:25
[2022-04-14 15:23] VITALS: BP 116/72; PULSE 67; RESP 18; TEMP 36.9; O2SAT 100
== END 2022-04-14 15:25 | disposition home or self-care (01) ==
PROVIDERS: Physician Assistant Medical; Emergency Provider Emergency Medicine; PCP General Practice
DX: S90.32XA Contusion of left foot, initial encounter (principal); O26.92 Pregnancy related conditions, unspecified, second trimester; Z3A.14 14 weeks gestation of pregnancy; M79.672 Pain in left foot; Y29.XXXA Contact with blunt object, undetermined intent, initial encounter; Y93.9 Activity, unspecified; Y92.009 Unspecified place in unspecified non-institutional (private) residence as the place of occurrence of the external cause; Y99.9 Unspecified external cause status; Z79.899 Other long term (current) drug therapy
CPT/HCPCS: 36415; 73630; 73650; 76801; 76817; 80048; 81003; 81025; 84702; 85025; 86900; 86901; 99283

== ENCOUNTER 2022-10-28 12:41 | Emergency (ER) | payer MEDICAID, SELFPAY ==
--- NOTE | 2022-10-28 12:42 | ECG_ITS ---
Test Reason : chest pain Blood Pressure : / mmHG Vent. Rate : 091 BPM Atrial Rate : 091 BPM P-R Int : 130 ms QRS Dur : 084 ms QT Int : 362 ms P-R-T Axes : 067 043 029 degrees QTc Int : 445 ms Normal sinus rhythm Normal ECG When compared with ECG of 05-DEC-2020 19:09, No significant change was found Referred By: Patricia Sinclair Electronically Signed By:KATIE PICKERING
--- NOTE | 2022-10-28 12:42 | ED_ITS ---
HPI - General Adult General Chief complaint: Dyspnea Stated complaint: chest pain Time Seen by Provider: 10/28/22 16:49 Source: patient Mode of arrival: ambulatory Limitations: no limitations History of Present Illness HPI narrative: Patient is 8 months 5 para 4 with history of anxiety been having palpitation episodes since morning with dieting today while driving felt increased shortness of breath and chest discomfort with palpitation with more anxiety saturating 100% on room air normal vitals no abdominal pain no vaginal bleed no swelling or pain in the legs history of similar episodes in the past Related Data Previous Rx's Medication Instructions Recorded vitamin with calcium 1 tab PO DAILY #90 tabs 09/05/20 no.72-iron 27 mg-folic acid 1 mg tablet ( Vitamins Plus Low Iron) doxylamine succinate 25 mg tablet 25 mg PO BEDTIME PRN sleep #30 tabs 09/25/20 (Unisom (doxylamine)) pyridoxine (vitamin B6) 25 mg 25 mg PO TID #90 tabs 09/25/20 tablet metronidazole 0.75 % (37.5 mg/5 1 appful vaginal BID 5 days #70 10/31/20 gram) vaginal gel (Metrogel grams Vaginal) ondansetron HCl 4 mg tablet 4 mg PO Q8H PRN nausea and 10/31/20 (Zofran) vomiting #30 tabs acetaminophen 500 mg tablet 1,000 mg PO QID PRN fever or pain 11/27/20 (Tylenol Extra Strength) #14 tabs cephalexin 500 mg capsule 500 mg PO Q6H 10 days #40 caps 11/27/20 hydroxyzine HCl 25 mg tablet 25 mg PO TID PRN anxiety #20 tabs 10/28/22 Allergies Allergy/AdvReac Type Severity Reaction Status Date / Time levofloxacin [From LEVAQUIN] Allergy Intermediate rash Verified 10/28/22 12:51 Review of Systems Review of Systems: Yes all other systems are reviewed and are negative PMFSH Past Medical History Medical History Asthma Migraine Tachycardia Social History Social History Household Members: Children Housing: Apartment Are you a primary critical care nurse to a significant other at home: No Do you presently have visiting nurse or other home services: No Alcohol intake: never Patient Tobacco Use Status: Never used Tobacco Smoked in Last 30 Days: No Use of substances other than those prescribed or required for medical reasons: No Substance Use Type: Marijuana Trauma History: none Special roderick needs: No Agree to transfusion: Yes Advance Directives: No Advance Directives Information Provided: No Patient : Yes Physical Exam ED Vital Signs: Vital Signs - 24 hr 10/28/22 12:44 10/28/22 17:05 10/28/22 17:24 Temperature 98.3 F Pulse Rate 92 81 86 Respiratory Rate 20 16 18 Blood Pressure 119/70 104/56 L 124/70 Pulse Oximetry 98 100 Oxygen Delivery Method Room Air Room Air BMI result Body Mass Index 33.3 Appearance: Alert. Oriented X3. No acute distress. Anxious Eyes: PERRLA, No Nystagmus ENT: Pharynx normal. Oral Mucosa moist Neck: Normal inspection. Neck supple. CVS: Normal heart rate and rhythm. Pulses normal. Respiratory: No respiratory distress. Equal air entry bilateral, no wheezing/rales/rhonchi Abdomen: Soft and nontender. Bowel sounds are present, gravid uterus nontender no CVA tenderness Skin: Skin warm and dry. Normal skin color. Normal skin turgor. Extremities: No lower extremity edema. No calf tenderness Neuro: Oriented X 3. No motor deficit. No sensory deficit.No cerebellar signs , cranial nerves II-XII intact Course Course Course Narrative: This is a rapid medical exam: Additional HPI, ROS, PE not included below will be deferred to primary provider. Patient is a 37-year-old female [place] 12/08/22 history of SVT presenting to the emergency department with complaint of shortness of breath and chest tightness which began prior to arrival. States has had similar symptoms previously, today symptoms began while driving. Patient initially hypertensive and tachycardic in triage, both of which improved during triage assessment. No lower extremity edema. Plan: EKG, labs, UA Medications Administered Discontinued Medications Generic Name Dose Route Start Last Admin Trade Name Freq PRN Reason Stop Dose Admin Hydroxyzine HCl 25 mg 10/28/22 17:35 10/28/22 17:43 Hydroxyzine Hcl 25 Mg Tablet PO 10/28/22 17:36 25 mg ONCE ONE Administration Medical Decision Making Medical Decision Making [facility] Narrative: Patient anxiety 8 months workup negative for acute discharge patient home on Atarax Differential Diagnosis Differential Diagnoses: The differential diagnosis associated with the presentation includes Anxiety/PE/asthma/pneumonia/ACS Admission/Observation Consideration of admission/observation: Escalation of care including admission/observation considered Lab Data MDM Lab Attestation statement: I reviewed the patient's lab results. 10/28/22 13:17 10/28/22 13:17 Labs: Lab Results 10/28/22 10/28/22 10/28/22 Range/Units 13:15 13:15 13:17 WBC 11.5 H (4.8-10.8) X10*3/uL RBC 3.52 L (4.20-5.50) X10*6/uL Hgb 11.4 L (12.0-16.0) g/dl Hct 33.9 L (37.0-47.0) % MCV 96.3 (80.0-98.0) fL MCH 32.4 (27.0-33.0) pg MCHC 33.6 (31.0-35.0) g/dl RDW 12.1 (11.0-16.0) % Plt Count 275 (160-400) X10*3/uL MPV 9.5 (9.4-12.3) fL Immature Gran % (Auto) 1.4 H (0.0-0.4) % Neut % (Auto) 72.9 (45-73) % Lymph % (Auto) 15.9 L (20-40) % [place] % (Auto) 6.4 (2-11) % Eos % (Auto) 2.7 (0-4) % Baso % (Auto) 0.7 (0-2) % Lymph # (Auto) 1.8 (1.2-4.9) X10*3/uL [place] # (Auto) 0.7 (0.1-1.2) X10*3/uL Eos # (Auto) 0.3 (0.0-0.4) X10*3/uL Baso # (Auto) 0.1 (0.0-0.2) X10*3/uL Abs Immat Gran (auto) 0.16 H (0.00-0.03) X10*3/uL Absolute Neuts (auto) 8.4 H (2.0-8.3) x10*3/uL Absolute Nucleated RBC 0.000 (0.0-0.012) X10*3/uL Nucleated RBC % (auto) 0.0 (0.0-0.2) /100WBC PT 10.1 L (11.1-13.3) SEC INR 0.8 L (0.9-1.1) D-Dimer High Sensitivty 480 NG/ML Sodium (135-145) mmol/L Potassium (3.3-5.1) mmol/L Chloride (96-108) mmol/L Carbon Dioxide (22-29) mmol/L Anion Gap (12-20) BUN (9-16) mg/dL Creatinine (0.5-1.4) mg/dL Estim Creat Clear Calc Estimated GFR Random Glucose (60-115) mg/dL Calcium (8.4-10.2) mg/dL Total Bilirubin (0.0-1.0) mg/dL AST (5-31) U/L ALT (0-31) U/L Alkaline Phosphatase (39-117) U/L Troponin I High Sens (<3.5-17.0) ng/L Total Protein (6.5-8.0) g/dL Albumin (3.5-5.0) g/dL Urine Color Yellow Urine Appearance Clear Urine pH 7.0 (5.0-9.0) Ur Specific [place] 1.010 (1.005-1.025) Urine Protein Negative (Neg-Trace) mg/dL Urine Glucose (UA) Negative (Negative) mg/dL Urine Ketones Negative (Negative) mg/dL Urine Blood Negative (Negative) Urine Nitrite Negative (Negative) Ur Leukocyte Esterase Negative (Negative) 10/28/22 10/28/22 Range/Units 13:17 13:17 WBC (4.8-10.8) X10*3/uL RBC (4.20-5.50) X10*6/uL Hgb (12.0-16.0) g/dl Hct (37.0-47.0) % MCV (80.0-98.0) fL MCH (27.0-33.0) pg MCHC (31.0-35.0) g/dl RDW (11.0-16.0) % Plt Count (160-400) X10*3/uL MPV (9.4-12.3) fL Immature Gran % (Auto) (0.0-0.4) % Neut % (Auto) (45-73) % Lymph % (Auto) (20-40) % [place] % (Auto) (2-11) % Eos % (Auto) (0-4) % Baso % (Auto) (0-2) % Lymph # (Auto) (1.2-4.9) X10*3/uL [place] # (Auto) (0.1-1.2) X10*3/uL Eos # (Auto) (0.0-0.4) X10*3/uL Baso # (Auto) (0.0-0.2) X10*3/uL Abs Immat Gran (auto) (0.00-0.03) X10*3/uL Absolute Neuts (auto) (2.0-8.3) x10*3/uL Absolute Nucleated RBC (0.0-0.012) X10*3/uL Nucleated RBC % (auto) (0.0-0.2) /100WBC PT (11.1-13.3) SEC INR (0.9-1.1) D-Dimer High Sensitivty NG/ML Sodium 135 (135-145) mmol/L Potassium 4.0 (3.3-5.1) mmol/L Chloride 105 (96-108) mmol/L Carbon Dioxide 22 (22-29) mmol/L Anion Gap 12 (12-20) BUN 7 L (9-16) mg/dL Creatinine 0.60 (0.5-1.4) mg/dL Estim Creat Clear Calc 124.0 Estimated GFR > 60 Random Glucose 82 (60-115) mg/dL Calcium 9.1 (8.4-10.2) mg/dL Total Bilirubin 0.3 (0.0-1.0) mg/dL AST 42 H (5-31) U/L ALT 18 (0-31) U/L Alkaline Phosphatase 141 H (39-117) U/L Troponin I High Sens < 2.7 (<3.5-17.0) ng/L Total Protein 7.0 (6.5-8.0) g/dL Albumin 3.6 (3.5-5.0) g/dL Urine Color Urine Appearance Urine pH (5.0-9.0) Ur Specific [place] (1.005-1.025) Urine Protein (Neg-Trace) mg/dL Urine Glucose (UA) (Negative) mg/dL Urine Ketones (Negative) mg/dL Urine Blood (Negative) Urine Nitrite (Negative) Ur Leukocyte Esterase (Negative) Independent Interpretation I performed an independent interpretation of an: EKG Interpretation: Normal sinus rhythm heart rate 91 beats per minute normal intervals normal axis no acute ischemia Discharge Plan Discharge Clinical Impression: Anxiety Patient Disposition: Home, Self-Care Instructions: Anxiety (ED) Additional Instructions: Take Atarax 1 tablet every 8 hours as needed for severe anxiety Follow-up with PCP Prescriptions: New hydroxyzine HCl 25 mg tablet 25 mg PO TID PRN (Reason: anxiety) Qty: 20 0RF No Action cephalexin 500 mg capsule 500 mg PO Q6H 10 Days Qty: 40 0RF acetaminophen [Tylenol Extra Strength] 500 mg tablet 1,000 mg PO QID PRN (Reason: fever or pain) Qty: 14 0RF pyridoxine (vitamin B6) 25 mg tablet 25 mg PO TID Qty: 90 1RF Unisom (doxylamine) 25 mg tablet 25 mg PO BEDTIME PRN (Reason: sleep) Qty: 30 1RF Vitamin Plus Low Iron 27 mg iron- 1 mg tablet 1 tab PO DAILY Qty: 90 0RF ondansetron HCl [Zofran] 4 mg tablet 4 mg PO Q8H PRN (Reason: nausea and vomiting) Qty: 30 1RF metronidazole [Metrogel Vaginal] 0.75 % gel 1 appful vaginal BID 5 Days Qty: 70 0RF Interventions: ED Discharge Assessment Last Done: 10/28/22 17:57 Discharge Date/Time: 10/28/22 17:57
[2022-10-28 12:44] VITALS: BP 119/70; PULSE 92; RESP 20; TEMP 36.8; O2SAT 98; BMI 33.3
[2022-10-28 13:20] LABS: MANUAL DIFF FLAG NO
[2022-10-28 13:22] LABS: Basophils Absolute Auto 0.1 X10*3/uL (0.0-0.2); Basophils Percent Auto 0.7 % (0-2); Eosinophils Absolute Auto 0.3 X10*3/uL (0.0-0.4); Eosinophils Percent Auto 2.7 % (0-4); Hematocrit 33.9 % (37.0-47.0); Hemoglobin 11.4 g/dl (12.0-16.0); Imm Gran Abs Auto 0.16 X10*3/uL (0.00-0.03); Imm Gran Pct Auto 1.4 % (0.0-0.4); Lymphocytes Absolute Auto 1.8 X10*3/uL (1.2-4.9); Lymphocytes Percent Auto 15.9 % (20-40); Mean Corpuscular HGB Conc 33.6 g/dl (31.0-35.0); Mean Corpuscular Hemoglobin 32.4 pg (27.0-33.0); Mean Corpuscular Volume 96.3 fL (80.0-98.0); Mean Platelet Volume 9.5 fL (9.4-12.3); Monocytes Absolute Auto 0.7 X10*3/uL (0.1-1.2); Monocytes Percent Auto 6.4 % (2-11); Neutrophils Absolute Auto 8.4 x10*3/uL (2.0-8.3); Neutrophils Percent Auto 72.9 % (45-73); Platelet Count 275 X10*3/uL (160-400); Red Blood Count 3.52 X10*6/uL (4.20-5.50); Red Cell Distribution Width 12.1 % (11.0-16.0); White Blood Count 11.5 X10*3/uL (4.8-10.8)
[2022-10-28 13:24] LABS: Appearance Urine Clear; Color Urine Yellow; Glucose Urine UA Negative (Negative); Leukocyte Esterase Urine Negative (Negative); Nitrite Urine Negative (Negative); Urine Blood Negative (Negative); Urine Ketones Negative (Negative); Urine Protein Negative (Neg-Trace)
[2022-10-28 13:29] LABS: INTERNATIONAL NORM RATIO 0.8 (0.9-1.1); Prothrombin Time 10.1 SEC (11.1-13.3)
[2022-10-28 13:52] LABS: Alanine Aminotransferase 18 U/L (0-31); Albumin Level 3.6 g/dL (3.5-5.0); Alkaline Phosphatase 141 U/L (39-117); Anion Gap 12 (12-20); Aspartate Amino Transferase 42 U/L (5-31); Bilirubin Total 0.3 mg/dL (0.0-1.0); Blood Urea Nitrogen 7 mg/dL (9-16); Calcium 9.1 mg/dL (8.4-10.2); Carbon Dioxide 22 mmol/L (22-29); Chloride 105 mmol/L (96-108); Estimated Glomerular Filt Rate > 60; Glucose Random 82 mg/dL (60-115); Sodium 135 mmol/L (135-145)
[2022-10-28 14:01] LABS: Troponin-I High Sensitivity < 2.7 ng/L (<3.5-17.0)
[2022-10-28 17:02] LABS: D Dimer High Sensitivity 480 NG/ML
[2022-10-28 17:05] VITALS: BP 104/56; PULSE 81; RESP 16
[2022-10-28 17:24] VITALS: BP 124/70; PULSE 86; RESP 18; O2SAT 100
[2022-10-28] MEDS: hydrOXYzine HCL 25 MG TABLET PO (17:43)
--- NOTE | 2022-10-28 17:56 | PC.NURSE ---
pt reporting increased anxiety, medicated per MAR, HR 142 via doppler, vss.
== END 2022-10-28 17:57 | disposition home or self-care (01) ==
PROVIDERS: Registered Nurse Emergency; Emergency Provider Internal Medicine; PCP General Practice
DX: O26.91 Pregnancy related conditions, unspecified, first trimester (principal); R07.89 Other chest pain; R06.02 Shortness of breath; F41.9 Anxiety disorder, unspecified; Z3A.08 8 weeks gestation of pregnancy; Z79.899 Other long term (current) drug therapy
CPT/HCPCS: 36415; 80053; 81003; 84484; 85025; 85379; 85610; 93005; 99283; 99284

== ENCOUNTER 2023-04-07 12:55 | Outpatient (REF) | payer MEDICAID, SELFPAY ==
[2023-04-07 16:15] LABS: MANUAL DIFF FLAG NO
[2023-04-07 16:22] LABS: Appearance Urine Clear; Color Urine Yellow; Glucose Urine UA Negative (Negative); Leukocyte Esterase Urine Negative (Negative); Nitrite Urine Negative (Negative); Urine Blood Negative (Negative); Urine Ketones Negative (Negative); Urine Protein Negative (Neg-Trace)
[2023-04-07 16:25] LABS: Bacteria Urine None Seen (None Seen); Hyaline Casts Urine 0-2 /LPF (0-2); RBC Urine 0-2 /HPF (0-2); WBC Urine 0-5 /HPF (0-5)
[2023-04-07 16:36] LABS: Basophils Absolute Auto 0.1 X10*3/uL (0.0-0.2); Basophils Percent Auto 1.1 % (0-2); Eosinophils Absolute Auto 0.4 X10*3/uL (0.0-0.4); Eosinophils Percent Auto 5.1 % (0-4); Hematocrit 39.2 % (37.0-47.0); Hemoglobin 12.8 g/dl (12.0-16.0); Imm Gran Abs Auto 0.04 X10*3/uL (0.00-0.03); Imm Gran Pct Auto 0.6 % (0.0-0.4); Lymphocytes Percent Auto 27.8 % (20-40); Mean Corpuscular HGB Conc 32.7 g/dl (31.0-35.0); Mean Platelet Volume 10.2 fL (9.4-12.3); Monocytes Absolute Auto 0.5 X10*3/uL (0.1-1.2); Monocytes Percent Auto 7.7 % (2-11); Neutrophils Absolute Auto 4.1 x10*3/uL (2.0-8.3); Neutrophils Percent Auto 57.7 % (45-73); Platelet Count 280 X10*3/uL (160-400); Red Cell Distribution Width 13.3 % (11.0-16.0)
[2023-04-07 16:38] LABS: Estimated Average Glucose 94 mg/dL; Hemoglobin A1c % 4.9 % (<6.0)
[2023-04-07 16:44] LABS: Alanine Aminotransferase 12 U/L (0-31); Albumin Level 4.1 g/dL (3.5-5.0); Alkaline Phosphatase 76 U/L (39-117); Anion Gap 10 (12-20); Aspartate Amino Transferase 20 U/L (5-31); Bilirubin Total 0.2 mg/dL (0.0-1.0); Blood Urea Nitrogen 12 mg/dL (9-16); Carbon Dioxide 24 mmol/L (22-29); Chloride 109 mmol/L (96-108); Estimated Glomerular Filt Rate > 60; Glucose Random 80 mg/dL (60-115); Potassium 3.8 mmol/L (3.3-5.1); Sodium 139 mmol/L (135-145); Total Protein 6.7 g/dL (6.5-8.0)
== END 2023-04-07 12:56 | disposition home or self-care (01) ==
LOC: HO.HHCL 12:55
PROVIDERS: Visit Provider General Practice
DX: O14.90 Unspecified pre-eclampsia, unspecified trimester (principal)
CPT/HCPCS: 36415; 80053; 81001; 83036; 85025

== ENCOUNTER 2023-07-17 12:22 | Outpatient (REF) | payer MEDICAID, SELFPAY ==
[2023-07-17 14:23] LABS: Bacterial Vaginosis PCR POSITIVE (Negative); Candida Group PCR NOT DETECTED (Not Detect); Candida glab krusei PCR NOT DETECTED (Not Detect); Trichomonas vaginalis PCR NOT DETECTED (Not Detect)
[2023-07-17 14:52] LABS: CT PCR NOT DETECTED (Not Detect.); NG PCR NOT DETECTED (Not Detect.)
== END 2023-07-17 12:23 | disposition home or self-care (01) ==
LOC: HO.LNP 12:22
PROVIDERS: Visit Provider Registered Nurse
DX: N76.0 Acute vaginitis (principal)
CPT/HCPCS: 0352U; 0353U; 87086; 87088; 87186

== ENCOUNTER 2023-07-28 21:18 | Emergency (ER) | payer MEDICAID, SELFPAY ==
[2023-07-28 21:42] VITALS: BP 142/95; PULSE 88; RESP 18; TEMP 36.9; O2SAT 95; BMI 34.2
[2023-07-28 22:29] LABS: Influenza A PCR NEGATIVE (Negative); Influenza B PCR NEGATIVE (Negative); Resp Syncy Virus RNA Qual PCR NEGATIVE (Negative); SARS COV2 PCR INHOUSE NEGATIVE (Negative)
--- OUTSIDE RECORDS SUMMARY | 2023-08-01 09:35 | XMS_ITS | Continuity of Care Document ---
Author Organization [facility] Address [address] [place] [id number] Care Team Providers Care Publication Director Name Role Phone Riley LEON, Justyna Acevedo Primary Care Physician Encounter [facility] [place] Date(s): 01/29/23 - 02/28/[address] [id number] Allergies, Adverse Reactions, Alerts Substance Reaction Severity Status levoFLOXacin Unknown Active levoFLOXacin ophthalmic Levofloxacin Levofloxacin Active Immunizations Given and Recorded Vaccine Date Status Refusal Reason influenza virus vaccine, inactivated 12/23/22 Give n influenza virus vaccine, inactivated 12/07/20 Give n tetanus/diphtheria/pertussis, acel(Tdap) 10/11/22 Given tetanus/diphtheria/pertussis, acel(Tdap) 12/07/20 Given tetanus/diphtheria/pertussis, acel(Tdap) 01/06/16 Given Medications acetaminophen 325 mg oral tablet 650 mg, 2, tablet, By Mouth, Every 4 hours, PRN, # 12 tablet, Refills 0, Tot. Refills 0, Maintenance, as needed for pain, 10/15/22 23:24:00 EDT, Route to Pharmacy Electronically, [facility]/pharmacy #[id number], 155, cm, 10/11/22 14:32:00 EDT, Height, 86.3, kg, 01... Start Date: 10/15/22 Status: Ordered albuterol CFC free 90 mcg/inh inhalation aerosol 180 mcg, 2, puffs, Inhalation, Every 4 hours, PRN, # 6.7 Gm, Refills 0, Tot. Refills 0, Maintenance, 11/20/22 14:32:00 EDT, Inhaler, Route to Pharmacy Electronically, [id number], [facility]/pharmacy #[id number], 155, cm, 11/15/22 10:18:00... Start Date: 11/20/22 Status: Ordered albuterol CFC free 90 mcg/inh inhalation aerosol 2, puffs, Inhalation, 4 times a day, PRN, # 8 Gm, Refills 0, Tot. Refills 0, Maintenance, 10/15/22 23:23:00 EDT, Aerosol, Route to Pharmacy Electronically, [id number], [facility]/pharmacy #[id number], 155, cm, 10/11/22 14:32:00 EDT, Heigh... Start Date: 10/15/22 Status: Ordered albuterol inhaler (OP) 0 Refills, Maintenance Start Date: 12/06/20 Status: Ordered Flovent HFA 110 mcg/inh inhalation aerosol 2 puffs, Inhalation, 2 times a day, # 12 Gm, 0 Refills, Maintenance, 10/15/22 23:17:00 EDT, Aerosol, [facility]/pharmacy #[id number], Partial fill upon patient request if the prescription is for a schedule II opioid drug., 155, cm, 10/11/22 14:32:00 EDT, Height, 8... Start Date: 10/15/22 Status: Ordered NIFEdipine 30 mg oral tablet, extended release 30 mg, By Mouth, Daily, # 30 tablet, Refills 0, Tot. Refills 0, Maintenance, 12/27/22 8:28:00 EDT, Route to Pharmacy Electronically, [facility], Partial fill upon patient request if the prescription is for a schedule II opioid drug... Start Date: 12/27/22 Stop Date: 01/26/23 Status: Ordered Problem List Condition Confirmation Course Effective Dates Status Health [facility] Informant Asthma Confirmed Active Obese class I Confirmed Active History ofParoxysmal SVT (supraventricular tachycardia) 1 Confirmed Active Pre-eclampsia Confirmed Active 1SVT in 2019 not futher problem Social History Social History Type Response Smoking Status Former smoker, quit more than 30 days ago; Other: Quit 2021; entered on: 05/13/22 Sex Patient Care team information Care Team Personnel Name: Gabriela Mcguire LPN Position: [facility] RN Member Role: Primary Care Nurse Name: Riley LEON, Justyna Acevedo Position: [facility] Physician - Primary Care Member Role: PCP Address: Address: [address] [place] [address], [address] [place], [place] [address] Care Team Related Persons Name: DAISY OWEN Address: [address] Address: [address] [place] [address] [place] Name: FABRICE OWEN Address: [address] Address: home [address] [place] [address] [place] Name: MONICO OWEN Address: [id number] Address: home [address] [place] [address] [place] Name: PETER DUKE Address: home [address] [place] [address]
--- OUTSIDE RECORDS SUMMARY | 2023-08-01 09:35 | XMS_ITS | Continuity of Care Document ---
Author Organization [facility] ter Address [address] [place] [address]- Care Team Providers Care Repair Department Supervisor Name Role Phone Justyna Lin MD Primary Care Physician Encounter [facility] Date(s): 03/27/23 - 03/27/[address] [address] Discharge Disposition: A-D/C Home Attending Physician: Kala Khoury MD Admitting Physician: Kala Khoury MD Referring Physician: Kala Khoury MD Allergies, Adverse Reactions, Alerts Substance Reaction Severity [...] 10/15/22 23:24:00 EDT, Route to Pharmacy Electronically, [facility]/pharmacy #[id number], 155, cm, 10/11/22 14:32:00 EDT, Height, 86.3, kg, 01... Start Date: 10/15/22 Status: Ordered albuterol CFC free 90 mcg/inh inhalation aerosol 180 mcg, 2, puffs, Inhalation, Every 4 hours, PRN, # 6.7 Gm, Refills 0, Tot. Refills 0, Maintenance, 11/20/22 14:32:00 EDT, Inhaler, Route to Pharmacy Electronically, [id number], [facility]/pharmacy #[id number], 155, cm, 11/15/22 10:18:00... Start Date: 11/20/22 Status: Ordered albuterol CFC free 90 mcg/inh inhalation aerosol 2, puffs, Inhalation, 4 times a day, PRN, # 8 Gm, Refills 0, Tot. Refills 0, Maintenance, 10/15/22 23:23:00 EDT, Aerosol, Route to Pharmacy Electronically, [id number], [facility]/pharmacy #[id number], 155, cm, 10/11/22 14:32:00 EDT, Heigh... Start Date: 10/15/22 Status: Ordered Flovent HFA 110 mcg/inh inhalation aerosol 2 puffs, Inhalation, 2 times a day, # 12 Gm, 0 Refills, Maintenance, 10/15/22 23:17:00 EDT, Aerosol, [facility]/pharmacy #[id number], Partial fill upon patient request if the prescription is for a schedule II opioid drug., 155, cm, 10/11/22 14:32:00 EDT, Height, 8... Start Date: 10/15/22 Status: Ordered ibuprofen 800 mg oral tablet 800 mg, 1, tablet, By Mouth, 3 times a day, PRN, # 30 tablet, Refills 0, Tot. Refills 0, Acute 04/10/23 12:00:00 EST, for pain, 03/27/23 13:16:00 EST, Route to Pharmacy Electronically, [facility], Partial fill upon patient request... Start Date: 03/27/23 Stop Date: 04/10/23 Status: Ordered oxyCODONE 5 mg oral tablet 5 mg, 1, tablet, By Mouth, Every 6 hours, PRN, # 5 tablet, Refills 0, Tot. Refills 0, Acute 04/03/23 12:00:00 EST, as needed for pain, 03/27/23 13:17:00 EST, Route to Pharmacy Electronically, [facility], Partial fill upon patient r... Start Date: 03/27/23 Stop Date: 04/03/23 Status: Ordered Oxycodone 5mg Oral Tablet (PACU ONLY) 5 mg, Tablet, By Mouth, Once, in PACU ONLY, PRN for Pain , Moderate, Routine, 03/27/23 15:28:00 EST Start Date: 03/27/23 Stop Date: 03/27/23 Status: Completed Tylenol 325 mg oral tablet 650 mg, 2, tablet, By Mouth, Every 4 hours, PRN, # 30 tablet, Refills 0, Tot. Refills 0, Acute 04/10/23 12:00:00 EST, for pain, 03/27/23 13:16:00 EST, Route to Pharmacy Electronically, [facility], Partial fill upon patient request... Start Date: 03/27/23 Stop Date: 04/10/23 Status: Ordered Problem List Condition Confirmation Course Effective Dates Status Health St atus Informant Asthma Confirmed Active Obese class I Confirmed Active History ofParoxysmal SVT (supraventricular tachycardia) 1 Confirmed Active Pre-eclampsia Confirmed Active 1SVT in 2019 not futher problem Vital Signs Most recent to oldest [Reference Range]: 1 2 3 Height 155 cm (03/27/23 12:48 PM) 155 cm (03/26/23 10:42 AM) Weight 82 kg (03/27/23 12:48 PM) 82 kg (03/26/23 10:42 AM) Oxygen Saturation [94-100 %] 95 % (03/27/23 5:15 PM) 97 % (03/27/23 4:45 PM) 95 % (03/27/23 4:30 PM) Pulse Rate [55-90 bpm] 56 bpm (03/27/23 12:48 PM) Body Mass Index [18.5-24.99 kg/m2] 34.13 kg/m2 *>HHI* (03/27/23 12:48 PM) 34.13 kg/m2 *>HHI* (03/26/23 10:42 AM) Blood Pressure [90-138/55-84 mm Hg] 156/93mm Hg *H* (03/27/23 4:45 PM) 133/78mm Hg (03/27/23 4:30 PM) 142/86mm Hg *H* (03/27/23 4:15 PM) Respiratory Rate [16-30 br/min] 15 br/min *L* (03/27/23 5:17 PM) 19 br/min (03/27/23 4:45 PM) 20 br/min (03/27/23 4:30 PM) Temperature [96.8-100.4 DegF] 97.5 DegF (03/27/23 2:45 PM) 98.2 DegF (03/27/23 12:48 PM) Liters per Minute 2 L/min (03/27/23 3:15 PM) 6 L/min (03/27/23 2:45 PM) Mode of Delivery (Oxygen) Room air (03/27/23 4:30 PM) Nasal cannula (03/27/23 3:15 PM) Simple face mask (03/27/23 2:45 PM) Blood pressure sites Arm, left (03/27/23 2:45 PM) Arm, right (03/27/23 12:48 PM) Temperature Route Temporal (03/27/23 2:45 PM) Temporal (03/27/23 12:48 PM) Dry Weight 81.8 kg (03/27/23 12:48 PM) 82 kg (03/26/23 10:42 AM) Weight Obtained Via Patient/family state d (03/26/23 10:42 AM) Dry Weight Obtained Via Standing scale (03/27/23 12:48 PM) Patient/family stated (03/26/23 10:42 AM) Social History Social History Type Response Smoking Status Former smoker, quit more than 30 days ago; Other: Quit 2021; entered on: 05/13/22 Sex Note * Heidy Hayes RN: PERFORM Event Display: Discharge/Transfer Note Hospital Authored Date: [id number] Nursing Discharge Note Entered On: 03/27/2023 17:31 EST Performed On: 03/27/2023 17:31 EST by Heidy Hayes RN Nursing Discharge Note 2 Discharge Time : 03/27/2023 17:25 EST Discharge Level of Care at Discharge : Home/Retirement/Foster Care Patient Left Unit Via : Wheelchair Patient Accompanied Off Unit with : Responsible adult DC Instructions Provided & Signed by Pt : Yes Patient Understands D/C Instructions : Yes Patient Instructions Discharge Signed : Yes Discharge Comments : hemodynamically stable on transport off unit Did Pt have Specialty Bed or Wound Vac : No Heidy Hayes RN - 03/27/2023 17:31 EST * Heidy Hayes RN: PERFORM Event Display: Patient Education/Instruction Authored Date: [id number] Surgery Adult Discharge Instructions [address] [address] Name: MAMADOU MARIANO : 1985?? Visit: 03/27/2023 12:15?? Current Date: 03/27/2023 16:55 ?? Account: [id number]?? Surgery Discharge Instructions We would like to thank you for allowing us to assist you with your healthcare needs. The following includes patient education materials and information regarding your injury/illness. Our entire staffstrives to provide an excellent experience for our patients and their families. PLEASE ENSURE YOU FOLLOW-UP PER THE INSTRUCTIONS BELOW! ?? YOUR OPINION IS IMPORTANT TO US! Please complete the survey you may receive by mail or email. Your feedback will be used to make improvements to the healthcare experiences of our patients and their families. Surveys are administered by [employer] ?? If further treatment with your primary care physician or another doctor is recommended, it is important for you to keep the appointment. Call your primary care physician or return to the Emergency Department immediately if your condition worsens, fails to improve, or new symptoms develop. If you need to find a doctor, you can call [facility] [employer] Link for a referral at [phone] or toll free at [phone]) or log in to [email or web address].. ?? [facility], in keeping with [facility] guidance, no longer requires face masks for staff, patientsor visitors in most situations. Similiar to time spent indoors at other locations, there is the chance that you were exposed to repiratory viruses during your time with us (such as flu or COVID-19). If you develop symptoms concerning for a viral respiratory infection, please seek testing (and treatment if indicated) from your medical provider or home test kit. ?? You can view and manage your care through the patient portal or by using a health care chinmay of your choosing. [employer] is a website that allows you to securely view your medical information including your hospital discharge summary, office visit summaries, medications and follow-up visits. You can also request appointments, renew medications, and request access to your medical information using a health care chinmay of your choosing, or just ask a question. You are entitled to know the individuals who participated in your treatment. This information is available within your medical record and will be provided upon your request. You can enroll at [email or web address] or register d uring your next office visit. You have been discharged from [facility], Patient Care Unit: [facility]??. If you have any questions regarding these instructions after you leave, please call us and we will be happy to assist you. [facility] Your Care Team Attending Physician Iraida LEON, Kala Cole?? Discharging Providers Paulina Dwyer MD Reason for Admission UNDESIRED FERTILITY Your Diagnosis Postoperative pain Primary Care Provider Riley LEON, Justyna Acevedo? Advance Directive Health Care Proxy on File Yes - Health Care Proxy What to do next Instructions From Your Doctor ?? Orders? 03/27/23 14:54:00 EST?? Instructions from your Care Team Please follow written directions provided?? Scheduled Follow-Up Appointments Friday 2:20 PM EST ?? With: Paulina Dwyer MD Where: [facility] [address] [place] [address]- Status: Pending You Need to Schedule the Following Appointments Follow Up with??Kala Khoury Why: For follow up or any questions/ concerns Where: [address] [place] [address] [place] [address]- Business (1) Follow Up with??Justyna Lin When:??In 0 days Discharge Medications MAMADOU SIMMONS :1985 Visit Date:03/27/2023 Medications: Please continue your medications until treatment is completed or stopped by your provider. You may resume your daily prescription medications. Discuss any questions related to medications with your provider. What How Much When Why Instructions Next Dose New Ibuprofen (ibuprofen 800 mg oral tablet) 1 tab(s) Oral 3 times a day as needed for for pain Pickup at [facility] New Oxycodone (oxyCODONE 5 mg oral tablet) 1 tab(s) Oral Every 6 hours as needed for as needed for pain Postoperative pain Pickup at [facility] Changed Acetaminophen (acetaminophen 325 mg oral tablet) 2 tab(s) Oral Every 4 hours as needed for as needed for pain Changed Acetaminophen (Tylenol 325 mg oral tablet) 2 tab(s) Oral Every 4 hours as needed for for pain Pickup at [facility] Unchanged Albuterol (albuterol CFC free 90 mcg/ inh inhalation aerosol) 2 puff(s) Inhalation 4 times a day as needed for as needed for wheezing Unchanged Albuterol (albuterol CFC free 90 mcg/ inh inhalation aerosol) 2 puff(s) Inhalation Every 4 hours as needed for Wheezing/Shortness of Breath Unchanged Fluticasone (Flovent HFA 110 mcg/ inh inhalation aerosol) 2 puff(s) Inhalation Twice a day Pharmacy Information [facility]: [address] [place] [address] [phone] Allergies (NKA means No Known Allergies) levoFLOXacin levoFLOXacin ophthalmic??(Levofloxacin, Levofloxacin) Education Materials Below is the list of Educational Leaflet Providered with your Discharge Instructions. Surgery Medical Daystay Surgical Overnight Discharge Instructions?NSAID Analgesic Schedule?? Valuables and Belongings I fully understand and agree that [facility] accepts no responsibility for all my personal property including clothing, toilet articles, radios, jewelry, dentures, hearing aids, rings, money, or any other property that is in my possession or is brought to me after admission. I understand certain valuables may be placed in a hospital safe for a short period of time. I understand that the hospital is not liable for loss or damage due to accident, fire, or other natural occurrence while said property is in the safe. I accept full responsibility for any personal property that I keep with me, and will not hold the hospital responsible in case of loss or disappearance. I acknowledge that i have been encouraged to send valuables and belongings home. ?? Review of Valuable and Belonging List: With patient Date for Pt to Sign Valuables/Belongings: 03/27/23 12:48:00 ?? Valuables & Belongings ?? Clothes Electronic devices Jewelry Monetary Items Personal devices Miscellaneous Medications (Valuables) Valuables at Bedside Jacket, Pants, Shirt, Shoes, Undergarments Cell phone Earrings ? Valuables Sent Home ? Valuables Sent to Security ? Other Discharge Information ? Pulmonary Rehab Status?? Pulmonary Rehab Discharge Status?? Respiratory Rate: 19 br/min ? Common Emergency Awareness Tips IS IT A STROKE? Act FAST and Check for these signs: FACE Does the face look uneven? ARM Does one arm drift down? SPEECH Does their speech sound strange? TIME Call at any sign of stroke ?? Heart Attack Signs Chest discomfort: Most heart attacks involve discomfort in the center of the chest and lasts more than a few minutes, or goes away and comes back. It can feel like uncomfortable pressure, squeezing, fullness or pain. Discomfort in upper body: Symptoms can include pain or discomfort in one or both arms, back, neck, jaw or stomach. Shortness of breath: With or without discomfort. Other signs: Breaking out in a cold sweat, nausea, or lightheaded. Remember, MINUTES DO MATTER. If you experience any of these heart attack warning signs, call to get immediate medical attention! ?? Smoking can increase your chances of developing chronic health problems and can cause harmful effects to other family members in your house. If you smoke, you are strongly encouraged to quit. Please call [facility] [employer] Link at [phone] or [phone] ([phone]) or log in to [email or web address] for referrals to smoking cessation programs. ?? The National Suicide Prevention Hotline is available 16/09 if you or someone you know needs to find a reason to keep living. By calling 0-353-289-[employer] (6410) you'll be connected to a skilled, trained counselor at a crisis center in your area. SURGERY DISCHARGE INSTRUCTIONS SIGNATURE PAGE MAMADOU SIMMONS Location:[facility] Registration Date and Time:03/27/2023 12:15 EST Primary Care Physician: Justyna Lin MD, Attending Physician: Kala Khoury MD, I MAMADOU SIMMONS, have received the above patient education materials/instructions and have verbalized understanding. If ambulance or transport services are being used I further acknowledge being given a choice of service. ?? If you need to contact me, please call me at this number: CIS . Patient/Floriculturist Name: MAMADOU MARIANO Patient/Floriculturist Signature: Relationship to Patient: SELF Witness Name/Signature: Heidy Hayes Date: 03/27/2023 * Heidy Hayes RN: PERFORM, SIGN, VERIFY Event Display: Patient Education Handout Authored Date: [id number] * Heidy Hayes RN: PERFORM Event Display: Patient Education Leaflets Authored Date: [id number] Surgery Medical Daystay Surgical Overnight Discharge Instructions ?? 295 Medical Daystay/Surgical Overnight Discharge Instructions ? Since your coordination and judgment may be altered by medication and/or anesthesia, a responsible adult must drive you home from the hospital. ? If you have received medication for pain or sedation while under our care, you should not drive, operate machinery, drink alcohol, or sign any legal documents for 24 hours.?? You should have someone with you at home tonight. ? Remain at home the day of discharge.?? You may be up and about unless otherwise instructed by your physician. ? You may resume your daily prescription medication schedule.?? Any depressant medication should be avoided for 24 hours unless otherwise instructed by your surgeon or anesthesiologist. ? Call your physician for a follow-up appointment.? If you experience unusual or severe pain not relied by your pain medication, excessive bleedingor drainage, persistent nausea and vomiting, excessive swelling or redness, foul odor from incisionsite or fever over 100.6F, you need to call your physician. ? A follow-up phone call by a nurse will be made the day after your procedure.?? If you have stayed with us over night, you will not be receiving a follow-up phone call. ? Nausea and vomiting are a common side effect of prescription pain medication.?? We recommend that pills are not taken on an empty stomach.?? While taking any prescription pain medication you should not drive or drink alcohol. ? * Heidy Hayes RN: PERFORM Event Display: Patient Education Leaflets Authored Date: [id number] NSAID Analgesic Schedule ?? 604 NSAID???s Analgesic Schedule ?? Pain is the primary source of illness following your procedure and can include dehydration, difficulty and painful swallowing, and weight loss. These symptoms can lead to increased post-operative visits and hospital readmission. The best way to control pain is to take pain medications regularly. Your doctor has recommended both Ibuprofen and Acetaminophen (generic/store brands are okay, too). These can be picked up over the counter at your pharmacy of choice. Follow the instructions on the bottle to determine the proper dosage to give. The simplest way to take these medications it to rotate the two at 3-hour intervals. Here is a sample diagram. The time you take your medications may vary from this example. Do not give Ibuprofen more than every 6 hours or Acetaminophen every 4 hours. Do not give Acetaminophen if your doctor has given you a prescription that contains Acetaminophen. ? Patient Care team information Care Team Personnel Name: Gabriela Mcguire LPN Position: [facility] OB RN Member Role: Primary Care Nurse Name: Justyna Lin MD Position: [facility] Physician - Primary Care Member Role: PCP Address: Address: [address] [place] [address], [address] Care Team Related Persons Name: DAISY OWEN Address: [address] Address: home [address], [place] Name: FABRICE OWEN Address: [address] Address: home [address] [place], [place] Name: MONICO OWEN Address: [address] Address: home [address] [place], [place] Name: PETER DUKE Address: home [address] [place] [address]
--- OUTSIDE RECORDS SUMMARY | 2023-08-01 09:35 | XMS_ITS | Continuity of Care Document ---
Author Organization [facility] ter Address [address] [place] [address]- Care Team Providers Care Marketing Underwriter Name Role Phone Eduardo NO, [place] Primary Care Physician Encounter [facility] Date(s): 12/05/20 - 12/09/[address] [address] Discharge Disposition: A-D/C Home Attending Physician: Darcie Vega MD Admitting Physician: Jovita Dinero MD Referring Physician: Not on Staff, Referring MD Allergies, Adverse Reactions, Alerts Substance Reaction Severity Status levoFLOXacin Unknown Active Immunizations Given and Recorded Vaccine Date Status Refusal Reason influenza virus vaccine, inactivated 12/07/20 Give n tetanus/diphtheria/pertussis, acel(Tdap) 12/07/20 Given tetanus/diphtheria/pertussis, acel(Tdap) 01/06/16 Given Medications albuterol CFC free 90 mcg/inh inhalation aerosol 180 mcg, 2, puffs, Inhalation, Every 4 hours, PRN, # 6.7 Gm, Refills 0, Tot. Refills 0, Maintenance, 12/09/20 13:31:00 EDT, Inhaler, Route to Pharmacy Electronically, [id number], [facility], 157, cm, 12/06... Start Date: 12/09/20 Status: Ordered albuterol inhaler (OP) 0 Refills, Maintenance Start Date: 12/06/20 Status: Ordered azithromycin 250 mg oral tablet 1 tablet = 250 mg, By Mouth, Daily, for 3 days, # 3 tablet, 0 Refills, Acute 12/12/20 13:32:00 EDT,12/09/20 13:32:00 EDT, Tablet, [facility], Partial fill upon patient request ifthe prescription is for a schedule II opioid drug.,... Start Date: 12/09/20 Stop Date: 12/12/20 Status: Ordered Problem List Condition Effective Dates Status Health Status Inform ant Asthma(Confirmed) Active Smoking (tobacco) complicati ng , third trimester(Confirmed) Active Migraines(Confirmed) Active Paroxysmal SVT (supraventric ular tachycardia)(Confirmed) Active Results Orders for Microbiology Reports Name Date Sputum Culture w/ Gram Smear 12/06/20 Microbiology Reports TEST:Sputum Culture STATUS:Auth (Verified) BODY SITE: SOURCE:INDUCE COLLECTED DATE/TIME:12/06/20 3:09 PM Sputum Culture SPECIMEN DESCRIPTION : INDUCED SPUTUM SPECIAL REQUESTS : NONE GRAM STAIN : 2+ POLYMORPHONUCLEAR LEUKOCYTES 2+ GRAM POSITIVE COCCI CULTURE : 4+ NORMAL LUCIUS REPORT STATUS : FINAL 12/08/2020 Vital Signs Most recent to oldest [Reference Range]: 1 2 3 Height 157 cm (12/05/20 11:53 PM) Weight 76 kg (12/05/20 11:53 PM) Oxygen Saturation [94-100 %] 98 % (12/09/20 7:45 AM) 98 % (12/08/20 10:45 PM) 99 % (12/08/20 1:00 PM) Pulse Rate [55-90 bpm] 93 bpm *H* (12/05/20 11:53 PM) Body Mass Index [18.5-24.99] 30.83 *>HHI* (12/05/20 11:53 PM) Blood Pressure [90-138/55-84 mm Hg] 111/72mm Hg (12/09/20 7:45 AM) 105/53mm Hg (12/08/20 10:45 PM) 110/66mm Hg (12/08/20 1:00 PM) Respiratory Rate [16-30 br/min] 18 br/min (12/09/20 7:45 AM) 18 br/min (12/08/20 10:45 PM) 16 br/min (12/08/20 12:29 AM) Temperature [96.8-100.4 DegF] 98.6 DegF (12/09/20 7:45 AM) 99.0 DegF (12/08/20 10:45 PM) 98.9 DegF (12/08/20 12:29 AM) Mode of Delivery (Oxygen) Room air (12/09/20 7:45 AM) Room air (12/08/20 10:45 PM) Room air (12/08/20 1:00 PM) Blood pressure sites Arm, left (12/08/20 10:45 PM) Arm, left (12/08/20 1:00 PM) Arm, left (12/08/20 8:16 AM) Temperature Route Oral (12/09/20 7:45 AM) Oral (12/08/20 10:45 PM) Oral (12/08/20 12:29 AM) Dry Weight 76 kg (12/05/20 11:53 PM) Social History Social History Type Response Smoking Status Current every day adrianne crandall entered on: 01/06/16 Sex
--- OUTSIDE RECORDS SUMMARY | 2023-08-01 09:35 | XMS_ITS | Continuity of Care Document ---
Author Organization [facility] [employer] Address [address] [place] [id number]- Care Team Providers Care Community Educator Name Role Phone Not on Staff, PCP Primary Care Physician Unavail able Encounter [facility] Date(s): 09/04/22 - 11/01/[address] [id number] Attending Physician: Not on Staff, Attending MD Allergies, Adverse Reactions, Alerts Substance Reaction Severity Status levoFLOXacin Unknown Active levoFLOXacin ophthalmic Levofloxacin Levofloxacin Active Immunizations Given and Recorded Vaccine Date Status Refusal Reason tetanus/diphtheria/pertussis, acel(Tdap) 10/11/22 Given tetanus/diphtheria/pertussis, acel(Tdap) 12/07/20 Given tetanus/diphtheria/pertussis, acel(Tdap) 01/06/16 Given influenza virus vaccine, inactivated 12/07/20 Give n Medications acetaminophen 325 mg oral tablet 650 mg, 2, tablet, By Mouth, Every 4 hours, PRN, # 12 tablet, Refills 0, Tot. Refills 0, Maintenance, as needed for pain, 10/15/22 23:24:00 EDT, Route to Pharmacy Electronically, [facility]/pharmacy #[id number], 155, cm, 10/11/22 14:32:00 EDT, Height, 86.3, kg, 01... Start Date: 10/15/22 Status: Ordered albuterol CFC free 90 mcg/inh inhalation aerosol 2, puffs, Inhalation, 4 times a day, PRN, # 8 Gm, Refills 0, Tot. Refills 0, Maintenance, 10/15/22 23:23:00 EDT, Aerosol, Route to Pharmacy Electronically, [id number], [facility] #[id number], 155, cm, 10/11/22 14:32:00 EDT, Heigh... Start Date: 10/15/22 Status: Ordered albuterol CFC free 90 mcg/inh inhalation aerosol 180 mcg, 2, puffs, Inhalation, Every 4 hours, PRN, # 6.7 Gm, Refills 0, Tot. Refills 0, Maintenance, 12/09/20 13:31:00 EDT, Inhaler, Route to Pharmacy Electronically, [id number], [facility], 157, cm, 12/06... Start Date: 12/09/20 Status: Ordered albuterol inhaler (OP) 0 Refills, Maintenance Start Date: 12/06/20 Status: Ordered aspirin 81 mg oral delayed release tablet 162 mg, 2, tablet, By Mouth, Daily, # 180 tablet, Refills 1, Tot. Refills 1, Maintenance, 06/07/22 10:54:00 EDT, Route to Pharmacy Electronically, [facility], Partial fill upon patient request if the prescription is for a schedule... Start Date: 06/07/22 Stop Date: 12/04/22 Status: Ordered Flovent HFA 110 mcg/inh inhalation aerosol 2 puffs, Inhalation, 2 times a day, # 12 Gm, 0 Refills, Maintenance, 10/15/22 23:17:00 EDT, Aerosol, [facility]/pharmacy #[id number], Partial fill upon patient request if the prescription is for a schedule II opioid drug., 155, cm, 10/11/22 14:32:00 EDT, Height, 8... Start Date: 10/15/22 Status: Ordered guaiFENesin 100 mg/5 mL oral liquid 5 mL = 100 mg, By Mouth, Every 4 hours, PRN for cough, # 300 mL, 0 Refills, Maintenance, 10/15/22 23:22:00 EDT, Liquid, [facility]/pharmacy #[id number], 155, cm, 10/11/22 14:32:00 EDT, Height, 86.3, kg, 03/01/21 17:10:00 EST, Dry Weight Start Date: 10/15/22 Status: Ordered metronidazole topical 0.75% gel with applicator 1 application, Vaginally, Daily at bedtime, # 70 Gm, 0 Refills, Soft Stop, 06/11/22 12:19:00 EDT, Gel, [facility], Partial fill upon patient request if the prescription is for a schedule II opioid drug., 1 application Vaginally Jenniffer... Start Date: 06/11/22 Stop Date: 06/16/22 Status: Ordered miconazole 2% topical cream 1 application, Vaginally, Daily at bedtime, Apply 5 gm vaginally at bedtime for seven days, # 45 Gm, 0 Refills, Maintenance, 10/11/22 15:43:00 EDT, Cream, [facility], Partial fillupon patient request if the prescription is for a s... Start Date: 10/11/22 Stop Date: 10/18/22 Status: Ordered pyridoxine 25 mg oral tablet 1 tablet = 25 mg, By Mouth, 3 times a day, PRN Nausea & Vomiting, # 100 tablet, 8 Refills, Maintenance, 05/13/22 10:31:00 EDT, Tablet, Partial fill upon patient request if the prescription is fora schedule II opioid drug. Start Date: 05/13/22 Status: Ordered Problem List Condition Confirmation Course Effective Dates Status Health [facility] Informant Asthma Confirmed Active Former cigarette smoker quit 2021 Confirmed Active History of Migraines --2018 Confirmed Active Obese class I Confirmed Active History ofParoxysmal SVT (supraventricular tachycardia) 1 Confirmed Active 1SVT in 2019 not futher problem Social History Social History Type Response Smoking Status Former smoker, quit more than 30 days ago; Other: Quit 2021; entered on: 05/13/22 Sex Patient Care team information Care Team Personnel Name: Gabriela Mcguire LPN Position: [facility] OB RN Member Role: Primary Care Nurse Name: Not on Staff, PCP Position: [facility] Physician (General Medicine) Member Role: PCP Care Team Related Persons Name: DAISY OWEN Address: [id number] Address: [address] [place] [address] [place] Name: MONICO OWEN Address: [id number] Address: [address] [place] [address] [place] Name: PETER DUKE Address: [address] [place] [address]
--- OUTSIDE RECORDS SUMMARY | 2023-08-01 09:35 | XMS_ITS | Continuity of Care Document ---
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 you'll be connected to a skilled, trained counselor at a crisis center in your area. INPATIENT DISCHARGE INSTRUCTIONS SIGNATURE PAGE LEILANI MARIANOMAMADOU Location:[facility] Registration Date and Time:10/29/2022 14:39 EDT Primary Care Physician: Not on Staff, PCP Attending Physician: Tien Bowman MD, I MAMADOU SIMMONS, have received the above patient education materials/instructions and have verbalized understanding. If ambulance or transport services are being used I further acknowledge being given a choice of service. ?? If you need to contact me, please call me at this number: . Patient/Vocal Teacher Name: Patient/Vocal Teacher Signature: Relationship to Patient: Witness Name/Signature: Date: * Carin Villalba RN: PERFORM Event Display: Patient Education Leaflets Authored Date: [id number] Premature Labor ?? [id number] Premature Labor Premature labor ( labor) is when symptoms of labor occur before 37 weeks of . (Thisis 3 weeks before your due date.) Premature labor can lead to premature delivery. This means givingbirth to your baby early. Babies need at least 37 weeks of for all the organs to develop normally. The earlier the delivery, the greater the risks to the baby. In most cases, the cause of premature labor is unknown. But certain factors may make the problem more likely. These include: ??? History of premature labor with other pregnancies ??? Smoking ??? Alcohol or substance abuse ??? Low prepregnancy weight or weight gain during ??? Short time period between pregnancies ??? Being with twins, triplets, or more ??? History of certain types of surgery on the cervix or uterus ??? Having a short cervix ??? Certain infections There are a number of other risk factors. Ask your healthcare provider to help you understand the risk factors specific to your case. Then find out what you can do to control or reduce them. Contractions are one of the main signs of premature labor. A contraction is different from cramping. It may feel painful and the belly (abdomen) may get hard. It can last from a few seconds to a few minutes. Some women may feel only a sense of pressure in the belly, thighs, rectum, or vagina. Some may feel only the hardening of the uterus without pain or pressure. Or there may be a constant pain in the lower back, which spreads forward toward the belly. Premature labor is often treated with medicines.??A hospital stay may be needed. If labor doesn't progress and you and your baby are both healthy, you may be discharged to continue care at home. Home care ??? Ask your provider any questions you have. Be certain you understand how to care for yourself at home. Also follow all recommendations given by your healthcare providers. ??? Learn the signs of premature labor.??Watch for these signs when you get home. ??? Limit or restrict activities as advised. This may include stopping certain physical activities and cutting back hours at work. ??? Don't do strenuous work as advised by your provider.??Ask family and friends for help with tasks and support at home, if needed. ??? Don???t smoke, drink alcohol, or use other harmful substances. ??? Take steps to reduce stress. ??? Report any unusual symptoms to your provider. ?? Follow-up care Follow up with your healthcare provider directed.??Weekly visits with your provider may be needed. ?? When to seek medical advice Call your healthcare provider right away if any of these occur: ??? Regular or frequent contractions, whether they're painful or not ??? Pressure in the pelvis ??? Pressure in the lower belly or mildcramping in your belly with or without diarrhea ??? Constant low, dull backache ??? Gush or slow leaking of water from your vagina ??? Change in vaginal discharge (watery, mucus, or bloody) ??? Any vaginal bleeding ??? Decreased movement of your baby ?? Last Reviewed Date: 2021 ?? 4644-3181 [employer]. All rights reserved. This information is not intended as a substitute for professional medical care. Always follow your healthcare professional's instructions. ?? Patient Care team information Care Team Personnel Name: Gabriela Mcguire LPN Position: [facility] OB RN Member Role: Primary Care Nurse Name: Not on Staff, PCP Position: [facility] Physician (General Medicine) Member Role: PCP Name: *[facility], Trauma Attending Position: [facility] ED Attendings Patient Name: *[facility], Trauma Resident Position: [facility] ED Medicine MD Name: Carin Villalba RN Position: [facility] OB RN Member Role: Patient Care Provider Name: Callie Whittington RN Position: [facility] ED RN W/OE and Tasks Member Role: Patient Care Provider Name: Rivas Portillo Position: [facility] ED TA [facility] Member Role: Tape Control Skin Or Spar Mill Operator Care Team Related Persons Name: DAISY OWEN Address: [address] Address: home [address] [place] [address] [place] Name: MONICO OWEN Address: [address] Address: [address] [place] [address] [place] Name: PETER DUKE Address: [address] [place] [address]
--- OUTSIDE RECORDS SUMMARY | 2023-08-01 09:35 | XMS_ITS | Continuity of Care Document ---
Author Organization [facility] Address [address] [place] [address]- Care Team Providers Care Fixture Builder Name Role Phone Not on Staff, PCP Primary Care Physician Unavail able Encounter [facility] Date(s): 10/14/22 - 11/13/[address] [address] Allergies, Adverse Reactions, Alerts Substance Reaction Severity [...] 10/15/22 23:24:00 EDT, Route to Pharmacy Electronically, [id number], 155, cm, 10/11/22 14:32:00 EDT, Height, 86.3, kg, 01... Start Date: 10/15/22 Status: Ordered albuterol CFC free 90 mcg/inh inhalation aerosol 2, puffs, Inhalation, 4 times a day, PRN, # 8 Gm, Refills 0, Tot. Refills 0, Maintenance, 10/15/22 23:23:00 EDT, Aerosol, Route to Pharmacy Electronically, [id number], [id number], 155, cm, 10/11/22 14:32:00 EDT, Heigh... Start Date: 10/15/22 Status: Ordered albuterol CFC free 90 mcg/inh inhalation aerosol 180 mcg, 2, puffs, Inhalation, Every 4 hours, PRN, # 6.7 Gm, Refills 0, Tot. Refills 0, Maintenance, 12/09/20 13:31:00 EDT, Inhaler, Route to Pharmacy Electronically, [id number], [facility], 157, cm, 12/06... Start Date: 12/09/20 Status: Ordered albuterol inhaler (OP) 0 Refills, Maintenance Start Date: 12/06/20 Status: Ordered aspirin 81 mg oral delayed release tablet 162 mg, 2, tablet, By Mouth, Daily, # 180 tablet, Refills 1, Tot. Refills 1, Maintenance, 06/07/22 10:54:00 EDT, Route to Pharmacy Electronically, [facility], Partial fill upon patient request if the prescription is for a schedule... Start Date: 06/07/22 Stop Date: 12/04/22 Status: Ordered Flovent HFA 110 mcg/inh inhalation aerosol 2 puffs, Inhalation, 2 times a day, # 12 Gm, 0 Refills, Maintenance, 10/15/22 23:17:00 EDT, Aerosol, [id number], Partial fill upon patient request if the prescription is for a schedule II opioid drug., 155, cm, 10/11/22 14:32:00 EDT, Height, 8... Start Date: 10/15/22 Status: Ordered guaiFENesin 100 mg/5 mL oral liquid 5 mL = 100 mg, By Mouth, Every 4 hours, PRN for cough, # 300 mL, 0 Refills, Maintenance, 10/15/22 23:22:00 EDT, Liquid, [facility] #[id number], 155, cm, 10/11/22 14:32:00 EDT, Height, 86.3, kg, 03/01/21 17:10:00 EST, Dry Weight Start Date: 10/15/22 Status: Ordered metronidazole topical 0.75% gel with applicator 1 application, Vaginally, Daily at bedtime, # 70 Gm, 0 Refills, Soft Stop, 06/11/22 12:19:00 EDT, Gel, [facility], Partial fill upon patient request if the prescription is for a schedule II opioid drug., 1 application Vaginally Jenniffer... Start Date: 06/11/22 Stop Date: 06/16/22 Status: Ordered miconazole 2% topical cream 1 application, Vaginally, Daily at bedtime, Apply 5 gm vaginally at bedtime for seven days, # 45 Gm, 0 Refills, Maintenance, 10/11/22 15:43:00 EDT, Cream, [facility], Partial fillupon patient request if the [...] Nurse Name: Not on Staff, PCP Position: [facility] Physician (General Medicine) Member Role: PCP Care Team Related Persons Name: DAISY OWEN Address: Address: [address] [place] [address] [place] Name: MONICO OWEN Address: Address: [address] [place] [address] [place] Name: PETER DUKE Address: [address] [place] [address]
--- OUTSIDE RECORDS SUMMARY | 2023-08-01 09:35 | XMS_ITS | Continuity of Care Document ---
Author Organization [facility] Address [address] [place] [address]- Care Team Providers Care Poultry Veterinarian Name Role Phone Riley LEON, Justyna Acevedo Primary Care Physician [phone] Encounter [facility] Date(s): 12/24/22 - 01/25/[address] [address] Attending Physician: Not on Staff, [...] 01/06/16 Given Medications acetaminophen 325 mg oral capsule 2 capsule = 650 mg, By Mouth, Every 6 hours, PRN as needed for pain, For acute cause, 90 day supplynot indicated not to exceed 4000 mg/day, # 60 capsule, 0 Refills, Acute 02/21/23 7:00:00 EST, 12/23/22 6:52:00 EDT, Capsule, [facility]... Start Date: 12/23/22 Stop Date: 02/21/23 Status: Ordered acetaminophen 325 mg oral tablet 650 mg, 2, tablet, By Mouth, Every 4 hours, PRN, # 12 tablet, Refills 0, Tot. Refills 0, Maintenance, as needed for pain, 10/15/22 23:24:00 EDT, Route to Pharmacy Electronically, [facility]/pharmacy #[id number], 155, cm, 10/11/22 14:32:00 EDT, Height, 86.3, kg, 01... Start Date: 10/15/22 Status: Ordered albuterol CFC free 90 mcg/inh inhalation aerosol 180 mcg, 2, puffs, Inhalation, Every 4 hours, PRN, # 6.7 Gm, Refills 0, Tot. Refills 0, Maintenance, 11/20/22 14:32:00 EDT, Inhaler, Route to Pharmacy Electronically, [id number], [facility]/pharmacy #[id number], 155, cm, 11/15/22 10:18:00... Start Date: 11/20/22 Status: Ordered albuterol CFC free 90 mcg/inh inhalation aerosol 2, puffs, Inhalation, 4 times a day, PRN, # 8 Gm, Refills 0, Tot. Refills 0, Maintenance, 10/15/22 23:23:00 EDT, Aerosol, Route to Pharmacy Electronically, [id number], [facility]/pharmacy #[id number], 155, cm, 10/11/22 14:32:00 EDT, Heigh... Start Date: 10/15/22 Status: Ordered albuterol inhaler (OP) 0 Refills, Maintenance Start Date: 12/06/20 Status: Ordered Flovent HFA 110 mcg/inh inhalation aerosol 2 puffs, Inhalation, 2 times a day, # 12 Gm, 0 Refills, Maintenance, 10/15/22 23:17:00 EDT, Aerosol, [facility]/pharmacy #[id number], Partial fill upon patient request if the prescription is for a schedule II opioid drug., 155, cm, 10/11/22 14:32:00 EDT, Height, 8... Start Date: 10/15/22 Status: Ordered ibuprofen 600 mg oral tablet 600 mg, 1, tablet, By Mouth, Every 6 hours, PRN, For acute cause, 90 day supply not indicated not to exceed 3200 mg/day with food or milk, # 60 tablet, Refills 0, Tot. Refills 0, Acute 02/21/23 7:00:00 EST, Pain , Mild, 12/23/22 6:52:00 EDT, Route t... Start Date: 12/23/22 Stop Date: 02/21/23 Status: Ordered NIFEdipine 30 mg oral tablet, extended release 30 mg, By Mouth, Daily, # 30 tablet, Refills 0, Tot. Refills 0, Maintenance, 12/27/22 8:28:00 EDT, Route to Pharmacy Electronically, [facility], Partial fill upon patient request if the prescription is for a schedule II opioid drug... Start Date: 12/27/22 Stop Date: 01/26/23 Status: Ordered Problem List Condition Confirmation Course Effective Dates Status Health St atus Informant Asthma Confirmed Active History ofParoxysmal SVT (supraventricular tachycardia) 1 Confirmed Active Pre-eclampsia Confirmed Active Severe obesity (BMI 35.0-39.9) with comorbidity Confirmed Active 1SVT in 2019 not futher problem Social History Social History Type Response Smoking Status Former smoker, quit more than 30 days ago; Other: Quit 2021; entered on: 05/13/22 Sex Patient Care team information Care Team Personnel Name: Gabriela Mcguire LPN Position: [facility] OB RN Member Role: Primary Care Nurse Name: Justyna Lin MD Position: [facility] Physician - Primary Care Member Role: PCP Address: Address: [address] [place] [address], [address] Care Team Related Persons Name: DAISY OWEN Address: [address] Address: [address] [place] [address] [place] Name: MONICO OWEN Address: [address] Address: home [address] [place] [address] [place] Name: MAMADOU SIMMONS GIRL Address: [address] Address: home [address] [place] [address] [place] Name: PETER DUKE Address: [address] [place] [address]
--- OUTSIDE RECORDS SUMMARY | 2023-08-01 09:36 | XMS_ITS | Continuity of Care Document ---
Author Organization [facility] Address [address] [place] [address]- Care Team Providers Care Narcotics Agent Name Role Phone Riley LEON, Justyna Acevedo Primary Care Physician Encounter [facility] Date(s): 09/04/22 - 12/15/[address] [address] Attending Physician: Not on Staff, Attending MD [...] 10/15/22 23:24:00 EDT, Route to Pharmacy Electronically, [facility]/pharmacy #[id number], 155, cm, 10/11/22 14:32:00 EDT, Height, 86.3, kg, 01... Start Date: 10/15/22 Status: Ordered albuterol CFC free 90 mcg/inh inhalation aerosol 180 mcg, 2, puffs, Inhalation, Every 4 hours, PRN, # 6.7 Gm, Refills 0, Tot. Refills 0, Maintenance, 11/20/22 14:32:00 EDT, Inhaler, Route to Pharmacy Electronically, [id number], [facility]/pharmacy #[id number], 155, cm, 11/15/22 10:18:00... Start Date: 11/20/22 Status: Ordered albuterol CFC free 90 mcg/inh inhalation aerosol 2, puffs, Inhalation, 4 times a day, PRN, # 8 Gm, Refills 0, Tot. Refills 0, Maintenance, 10/15/22 23:23:00 EDT, Aerosol, Route to Pharmacy Electronically, [id number], [facility]/pharmacy #[id number], 155, cm, 10/11/22 14:32:00 EDT, Heigh... Start Date: 10/15/22 Status: Ordered albuterol inhaler (OP) 0 Refills, Maintenance Start Date: 12/06/20 Status: Ordered aspirin 81 mg oral delayed release tablet 162 mg, 2, tablet, By Mouth, Daily, # 180 tablet, Refills 1, Tot. Refills 1, Maintenance, 06/07/22 10:54:00 EDT, Route to Pharmacy Electronically, [facility], Partial fill upon patient request if the prescription is for a schedule... Start Date: 06/07/22 Stop Date: 12/04/22 Status: Ordered Flovent HFA 110 mcg/inh inhalation aerosol 2 puffs, Inhalation, 2 times a day, # 12 Gm, 0 Refills, Maintenance, 10/15/22 23:17:00 EDT, Aerosol, [facility]/pharmacy #[id number], Partial fill upon patient request if the prescription is for a schedule II opioid drug., 155, cm, 10/11/22 14:32:00 EDT, Height, 8... Start Date: 10/15/22 Status: Ordered guaiFENesin 100 mg/5 mL oral liquid 5 mL = 100 mg, By Mouth, Every 4 hours, PRN for cough, # 300 mL, 0 Refills, Maintenance, 10/15/22 23:22:00 EDT, Liquid, [facility]/pharmacy #[id number], 155, cm, 10/11/22 14:32:00 EDT, Height, 86.3, kg, 03/01/21 17:10:00 EST, Dry Weight Start Date: 10/15/22 Status: Ordered metronidazole topical 0.75% gel with applicator 1 application, Vaginally, Daily at bedtime, # 70 Gm, 0 Refills, Soft Stop, 06/11/22 12:19:00 EDT, Gel, [facility], Partial fill upon patient request if the prescription is for a schedule II opioid drug., 1 application Vaginally Jenniffer... Start Date: 06/11/22 Stop Date: 06/16/22 Status: Ordered miconazole 2% topical cream 1 application, Vaginally, Daily at bedtime, Apply 5 gm vaginally at bedtime for seven days, # 45 Gm, 0 Refills, Maintenance, 10/11/22 15:43:00 EDT, Cream, [facility], Partial fillupon patient request if [...] atus Informant Asthma Confirmed Active Obese class II Confirmed Active History ofParoxysmal SVT (supraventricular tachycardia) 1 Confirmed Active 1SVT in 2019 not futher problem Social History Social History Type Response Smoking Status Former smoker, quit more than 30 days ago; Other: Quit 2021; entered on: 05/13/22 Sex Patient Care team information Care Team Personnel Name: Gabriela Mcguire LPN Position: [facility] OB RN Member Role: Primary Care Nurse Name: Justyna Lin MD Position: [facility] Physician - Primary Care Member Role: PCP Address: Address: [address] [place] [address], 1st [place] [address]- Care Team Related Persons Name: DAISY OWEN Address: Address: home [address] [place] [address] [place] Name: MONICO OWEN Address: Address: [address] [place] [address] [place] Name: PETER DUKE Address: home [address] [facility] [place] [address]
--- OUTSIDE RECORDS SUMMARY | 2023-08-01 09:36 | XMS_ITS | Continuity of Care Document ---
Author Organization [facility] Address [address] [place] [address]- Care Team Providers Care Relay Motorman Name Role Phone Riley LEON, Justyna Acevedo Primary Care Physician Encounter [facility] Date(s): 09/25/22 - 10/25/[address] [address] Allergies, Adverse Reactions, Alerts Substance Reaction [...] 23:24:00 EDT, Route to Pharmacy Electronically, [facility]/pharmacy #[id number], 155, cm, 10/11/22 14:32:00 EDT, Height, 86.3, kg, 01... Start Date: 10/15/22 Status: Ordered albuterol CFC free 90 mcg/inh inhalation aerosol 2, puffs, Inhalation, 4 times a day, PRN, # 8 Gm, Refills 0, Tot. Refills 0, Maintenance, 10/15/22 23:23:00 EDT, Aerosol, Route to Pharmacy Electronically, [id number], [facility]/pharmacy #[id number], 155, cm, 10/11/22 14:32:00 EDT, Heigh... Start Date: 10/15/22 Status: Ordered albuterol CFC free 90 mcg/inh inhalation aerosol 180 mcg, 2, puffs, Inhalation, Every 4 hours, PRN, # 6.7 Gm, Refills 0, Tot. Refills 0, Maintenance, 12/09/20 13:31:00 EDT, Inhaler, Route to Pharmacy Electronically, [id number], [facility], 157, cm, 12/06... Start Date: 12/09/20 Status: Ordered albuterol inhaler (OP) 0 Refills, Maintenance Start Date: 12/06/20 Status: Ordered aspirin 81 mg oral delayed release tablet 162 mg, 2, tablet, By Mouth, Daily, # 180 tablet, Refills 1, Tot. Refills 1, Maintenance, 06/07/22 10:54:00 EDT, Route to Pharmacy Electronically, [facility], Partial fill upon patient request if the prescription is for a schedule... Start Date: 06/07/22 Stop Date: 12/04/22 Status: Ordered Flovent HFA 110 mcg/inh inhalation aerosol 2 puffs, Inhalation, 2 times a day, # 12 Gm, 0 Refills, Maintenance, 10/15/22 23:17:00 EDT, Aerosol, [facility]/pharmacy #[id number], Partial fill upon patient request if the prescription is for a schedule II opioid drug., 155, cm, 10/11/22 14:32:00 EDT, Height, 8... Start Date: 10/15/22 Status: Ordered guaiFENesin 100 mg/5 mL oral liquid 5 mL = 100 mg, By Mouth, Every 4 hours, PRN for cough, # 300 mL, 0 Refills, Maintenance, 10/15/22 23:22:00 EDT, Liquid, [facility]/pharmacy #[id number], 155, cm, 10/11/22 14:32:00 EDT, Height, 86.3, kg, 03/01/21 17:10:00 EST, Dry Weight Start Date: 10/15/22 Status: Ordered metronidazole topical 0.75% gel with applicator 1 application, Vaginally, Daily at bedtime, # 70 Gm, 0 Refills, Soft Stop, 06/11/22 12:19:00 EDT, Gel, [facility], Partial fill upon patient request if the prescription is for a schedule II opioid drug., 1 application Vaginally Jenniffer... Start Date: 06/11/22 Stop Date: 06/16/22 Status: Ordered miconazole 2% topical cream 1 application, Vaginally, Daily at bedtime, Apply 5 gm vaginally at bedtime for seven days, # 45 Gm, 0 Refills, Maintenance, 10/11/22 15:43:00 EDT, Cream, [facility], Partial fillupon patient request if [...] Team Personnel Name: Gabriela Mcguire LPN Position: [facility] OB RN Member Role: Primary Care Nurse Name: Justyna Lin MD Position: [facility] Physician - Primary Care Member Role: PCP Address: Address: [address], [address] [place] [address]- Care Team Related Persons Name: DAISY OWEN Address: [address] Address: [address] [place] [address] [place] Name: MONICO OWEN Address: [address] Address: [address] [place] [address] [place] Name: MAMADOU MARIANO Address: [address] [place] [address] Name: PETER DUKE Address: home [address] [place] [address]
--- OUTSIDE RECORDS SUMMARY | 2023-08-01 09:36 | XMS_ITS | Continuity of Care Document ---
Author Organization [facility] Address [address] [place] [address]- Care Team Providers Care Battery Container Inspector Name Role Phone Riley LEON, Justyna Acevedo Primary Care Physician [place] [facility] [place]/07/22 - 07/07/[address] [address] Allergies, Adverse Reactions, Alerts Substance [...] 13:31:00 EDT, Inhaler, Route to Pharmacy Electronically, [id number], [facility], 157, cm, 12/06... Start Date: 12/09/20 Status: Ordered albuterol inhaler (OP) 0 Refills, Maintenance Start Date: 12/06/20 Status: Ordered aspirin 81 mg oral delayed release tablet 162 mg, 2, tablet, By Mouth, Daily, # 180 tablet, Refills 1, Tot. Refills 1, Maintenance, 06/07/22 10:54:00 EDT, Route to Pharmacy Electronically, [facility], Partial fill upon patient request if the prescription is for a schedule... Start Date: 06/07/22 Stop Date: 12/04/22 Status: Ordered metronidazole topical 0.75% gel with applicator 1 application, Vaginally, Daily at bedtime, # 70 Gm, 0 Refills, Soft Stop, 06/11/22 12:19:00 EDT, Gel, [facility], Partial fill upon patient request if the prescription is for a schedule II opioid drug., 1 application Vaginally Jenniffer... Start Date: 06/11/22 Stop Date: 06/16/22 Status: Ordered pyridoxine 25 mg oral tablet 1 tablet = 25 mg, By Mouth, 3 times a day, PRN Nausea & Vomiting, # 100 tablet, 8 Refills, Maintenance, 05/13/22 10:31:00 EDT, Tablet, Partial fill upon patient request if the prescription is fora schedule II opioid drug. Start Date: 05/13/22 Status: Ordered Zithromax 500 mg oral tablet 2 tablet = 1,000 mg, By Mouth, Once, # 2 tablet, 0 Refills, Soft Stop, 06/10/22 15:36:00 EDT, Tablet, [facility], Partial fill upon patient request if the prescription is for a schedule II opioid drug., 155, cm, 06/07/22 10:47:00 E... Start Date: 06/10/22 Status: Ordered Problem List Condition Confirmation Course [...] Team Personnel Name: Gabriela Mcguire LPN Position: [facility] OB RN Member Role: Primary Care Nurse Name: Justyna Lin MD Position: [facility] Physician (General Medicine) Member Role: PCP Address: Address: [address] [place] [address], 1st [place] [address]- Care Team Related Persons Name: DAISY OWEN Address: [address] Address: [address] [address] [place] Name: MONICO OWEN Address: [address] Address: [address] [place] [address] Name: MAMADOU MARIANO Address: [address] [place] [address] Name: PETER DUKE Address: [address] [place] [address]
--- OUTSIDE RECORDS SUMMARY | 2023-08-01 09:36 | XMS_ITS | Continuity of Care Document ---
Author Organization [facility] ter Address [address] [place] [id number]- Care Team Providers Care Satellite Installer Name Role Phone Riley LEON, Justyna Acevedo Primary Care Physician [place] [facility] [place] - 12/27/[address] [id number] Discharge Disposition: A-D/C Home Attending Physician: Tien Bowman MD Admitting Physician: Tien Bowman MD Referring Physician: Tien Bowman MD Allergies, Adverse Reactions, Alerts Substance Reaction [...] 02/21/23 7:00:00 EST, 12/23/22 6:52:00 EDT, Capsule, [facility]... Start Date: 12/23/22 Stop Date: 02/21/23 Status: Ordered acetaminophen 325 mg oral tablet 650 mg, 2, tablet, By Mouth, Every 4 hours, PRN, # 12 tablet, Refills 0, Tot. Refills 0, Maintenance, as needed for pain, 10/15/22 23:24:00 EDT, Route to Pharmacy Electronically, [facility]/pharmacy #[id number], 155, cm, 10/11/22 14:32:00 EDT, Height, 86.3, kg, 01... Start Date: 10/15/22 Status: Ordered albuterol CFC free 90 mcg/inh inhalation aerosol 180 mcg, 2, puffs, Inhalation, Every 4 hours, PRN, # 6.7 Gm, Refills 0, Tot. Refills 0, Maintenance, 11/20/22 14:32:00 EDT, Inhaler, Route to Pharmacy Electronically, [id number], [facility]/pharmacy #[id number], 155, cm, 11/15/22 10:18:00... Start Date: 11/20/22 Status: Ordered albuterol CFC free 90 mcg/inh inhalation aerosol 2, puffs, Inhalation, 4 times a day, PRN, # 8 Gm, Refills 0, Tot. Refills 0, Maintenance, 10/15/22 23:23:00 EDT, Aerosol, Route to Pharmacy Electronically, [id number], [facility]/pharmacy #[id number], 155, cm, 10/11/22 14:32:00 EDT, Heigh... Start Date: 10/15/22 Status: Ordered albuterol inhaler (OP) 0 Refills, Maintenance Start Date: 12/06/20 Status: Ordered Flexeril 10 mg oral tablet 10 mg, Tablet, By Mouth, Once, STAT, 12/26/22 21:31:00 EDT, Stop date 12/26/22 21:31:00 EDT Start Date: 12/26/22 Stop Date: 12/26/22 Status: Completed Flovent HFA 110 mcg/inh inhalation aerosol 2 puffs, Inhalation, 2 times a day, # 12 Gm, 0 Refills, Maintenance, 10/15/22 23:17:00 EDT, Aerosol, [facility]/pharmacy #[id number], Partial fill upon patient request [...] Date: 12/23/22 Stop Date: 02/21/23 Status: Ordered Labetalol Inj 20 mg, Injection, IV Push Slowly, Once, Routine, 12/25/22 14:00:00 EDT, Stop date 12/25/22 14:00:00EDT Start Date: 12/25/22 Stop Date: 12/25/22 Status: Completed Labetalol Inj 40 mg, Injection, IV Push Slowly, Once, Routine, 12/25/22 15:00:00 EDT, Stop date 12/25/22 15:00:00EDT Start Date: 12/25/22 Stop Date: 12/25/22 Status: Completed NIFEdipine 30 mg oral tablet, extended release 30 mg, By Mouth, Daily, # 30 tablet, Refills 0, Tot. Refills 0, Maintenance, 12/27/22 8:28:00 EDT, Route to Pharmacy Electronically, [facility], Partial fill upon patient request [...] oldest [Reference Range]: 1 2 3 Height 156 cm (12/25/22 3:00 PM) Weight 90 kg (12/25/22 3:00 PM) Oxygen Saturation [94-100 %] 99 % (12/27/22 5:30 AM) 98 % (12/27/22 2:19 AM) 96 % (12/26/22 10:55 PM) Pulse Rate [55-90 bpm] 79 bpm (12/25/22 3:00 PM) 77 bpm (12/25/22 1:20 PM) 73 bpm (12/25/22 1:13 PM) Body Mass Index [18.5-24.99 kg/m2] 36.98 kg/m2 *>HHI* (12/25/22 3:00 PM) Blood Pressure [90-138/55-84 mm Hg] 142/90mm Hg *H* (12/27/22 8:25 AM) 144/74mm Hg *H* (12/27/22 5:30 AM) 134/69mm Hg (12/27/22 2:19 AM) Respiratory Rate [16-30 br/min] 20 br/min (12/27/22 2:19 AM) 18 br/min (12/26/22 10:55 PM) 18 br/min (12/26/22 10:50 PM) Temperature [96.8-100.4 DegF] 98.9 DegF (12/26/22 10:55 PM) 98.3 DegF (12/26/22 7:00 AM) 98.4 DegF (12/25/22 8:51 PM) Mode of Delivery (Oxygen) Room air (12/26/22 6:10 PM) Room air (12/26/22 3:10 PM) Room air (12/26/22 12:00 PM) Blood pressure sites Arm, left (12/26/22 6:10 PM) Arm, right (12/26/22 3:10 PM) Arm, left (12/26/22 12:00 PM) Temperature Route Oral (12/26/22 6:10 PM) Oral (12/26/22 7:00 AM) Oral (12/25/22 8:51 PM) Dry Weight 90 kg (12/25/22 3:00 PM) Social History Social History Type Response Smoking Status Former smoker, quit more than 30 days ago; Other: Quit 2021; entered on: 05/13/22 Sex History and physical note * Yamil LEON, Mary: PERFORM Event Display: History and Physical Hospital Authored Date: [id number] Patient: ??LEILANI MARIANO MAMADOU ? Age:??37 Years?Sex:??Female?:??1985?? OB Reason for Admission OB Reason for Admission?? No qualifying data available. LMP/EGA/BRENTON Gestational Age (EGA) and BRENTON? * Note: EGA calculated as of 12/25/2022 ?No EGA/BRENTON calculations have been recorded History of Present Illness 37y/o PPD 4 presents with 1 day history of headaches and vision changes. Was seen at peds office and noted to have severe range BP and brought to [facility] by EMS. Currently notes moderate headache,and general unwell feeling. Symptoms started last night??with headache an associated numbness of hands and prei-oral area, seeing spots in her vision. ??Denies any shortness of breath/chest pain/nausea/vomitting. Minimal vaginal bleeding. No abdominal pain. Review of Systems neg, except as above. Physical Exam Vitals & Measurements HR:??77??(Peripheral)?? BP:??169/98?? Gen: awake, alert and oriented Resp: CTAB, no added sounds CVS: RRR, no murmurs Abdo: soft, non tender, some left upper subchondral point tenderness ext: brisk patellar reflexes, no ankle clonus. Assessment/Plan PPD 4 with severe pre-eclampsia. s/p 60mg total of IV labetelol and 5mg hydralazine. Will admit Pre-eclampsia labs start Magnesiunm sulfate infusion continue to medically manage BPs. ?? Plan reviewed with patient and partner, they expressed understanding and all questions answered. OB History History?(5,0,0,5)? # 1 ?Baby 1 ?Outcome Date:??08/21/2002?Outcome or [...] Outcome:??Live ? Sex:??Male?Wt:?3311 g ? Complications:??None ?Hospital:??[facility] ?? # 4 ?Baby 1 ?Outcome Date:??12/21/2022?Outcome or Result:??Vaginal ?Gest Age:??41 weeks 6 days ? Outcome:??Live ? Sex:??Female?Wt:?3770 g ?Ethan Labor:??10 hr 45 min Labs Labs Labs & Tests Antibody Screen: Negative (12/21/22) Blood Type: A Positive (12/21/22) Chlamydia Trachomatis Amplified Probe: NEGATIVE (12/21/22) Creatinine-Blood: 0.6 mg/dL (12/22/22) Glucose 50 Gm, +60 Minutes: 75 mg/dL (09/04/22) Hct: 38.6 % (12/25/22) Hepatitis B Surface Antigen: NEGATIVE (05/20/22) Hepatitis C Ab: NEGATIVE (05/20/22) Hgb: 12.2 Gm/dL (12/25/22) HIV 4th Generation Ab-Ag Result: NEGATIVE (05/20/22) RPR Titer Result: NOT INDICATED (09/04/22) Rubella IgG Ab: POSITIVE (05/20/22) Syphilis Screen by JOHN: NEGATIVE (09/04/22) Urine Culture: Urine Culture (10/15/22) Problem List Active Active Problem List Asthma: (Medical) History ofParoxysmal SVT (supraventricular tachycardia): (Medical) SVT ??in 2019 ??not futher problem Obese class II: (Medical) Pre-eclampsia: (Medical) Procedure/Surgical History Dilatation & Curettage: 12/24/12 Vaginal delivery of fetus times 4 Home Medications Acetaminophen: 650 mg = 2 tablet, By Mouth, Every 4 hours, PRN (as needed for pain) Acetaminophen: 650 mg = 2 capsule, By Mouth, Every 6 hours, PRN (as needed for pain), For acute cause, 90 day supply not indicatednot to exceed 4000 mg/day Albuterol Albuterol: 2 puffs, Inhalation, 4 times a day, PRN (as needed for wheezing) Albuterol: 180 mcg = 2 puffs, Inhalation, Every 4 hours, PRN (Wheezing/Shortness of Breath) Fluticasone: 2 puffs, Inhalation, 2 times a day Ibuprofen: 600 mg = 1 tablet, By Mouth, Every 6 hours, PRN (Pain , Mild), For acute cause, 90 day supply not indicatednot to exceed 3200 mg/daywith food or milk Allergies levoFLOXacin levoFLOXacin ophthalmic??(Levofloxacin, Levofloxacin) Social History Alcohol Use: Never. Electronic Cigarette/Vaping Electronic Cigarette Use: Never. 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 Exercise Self assessment: Fair condition. Home/Environment Living situation: Home/Independent. Lives with: Children. DCF involvement: Past. Other: 2012 When I was young . Nutrition/Health Diet: Regular. Sexual Sexually involved in last 6 months: Yes. Gender identity: Identifies as female. Self described orientation: Straight or heterosexual. Substance Abuse Use: Current. Type: Marijuana. Other: Mar 2021 states I quit now makes me sick . Tobacco Use: Former smoker, quit more than 30 days ago. Other: Quit 2021. Family History No family history recorded. Plan No Data Found Hospital Progress note * Joanna Whitney RN: PERFORM, SIGN, VERIFY Event Display: Progress Note Hospital Authored Date: Patient: MAMADOU SIMMONS Age: 37 years Sex: Female : 1985 Associated Diagnoses: None Author: Joanna Whitney RN Pt denies GOMES, visual changes, RUQ pain or SOB. Discharge instructions discussed, new medications aswell as administration times discussed. Educated pt to resume babyscripts PP BP monitoring and alert provider if any Pre- E symptoms persist. D/c ambulatory off unit with partner. Discharge Information Case Management Discharge Plan : Case Management Discharge Plan Data 12/23/2022 13:19 EDT Discharge Level of Care at Discharge Home/Mcc/Foster Care * Jaymie Green RN: PERFORM, SIGN, VERIFY Event Display: Progress Note Hospital Authored Date: [id number] Patient: MAMADOU SIMMONS Age: 37 years Sex: Female : 1985 Associated Diagnoses: None Author: Jaymie Green RN Pt is a PP readmit post mag. Pt's VSS, some BPs have been mild range. Pt denies RUQ pain or vision changes at this time but was reporting headache overnight. Pt received tylenol and flexeril and is using a k pad for her head/neck pain. Pt states her pain has improved from a 7/10 to a 4/10 and is able to rest overnight. Continuing to check BPs q2-q4 and measuring urine outputs. Will continue with plan of care. * Lea Butler DO: PERFORM Event Display: Progress Note Hospital Authored Date: Patient: ??MAMADOU SIMMONS ? Age:??37 Years?Sex:??Female?:??1985?? Subjective Into see patient to evaluate headache. ??She states that she has left-sided pressure behind her eyes??but finds that it is radiating upwards from the back of her neck.?? She is having sensitivity to light as well.?? She has a history of migraines??but states that this does not feel similar to her migraines but finds that??some of the??symptoms she is having??is similar to a migraine.?? She??otherwise has no black spots in her vision, chest pain, shortness of breath, right upper quadrant pain. Review of Systems Constitutional, HEENT, cardiovascular, respiratory, gastrointestinal, genitourinary, musculoskeletal, skin, endocrine, neurological, psychiatric, hematologic/lymphatic, allergy/immune otherwise reviewed and negative Physical Exam Vitals & Measurements T:??98.3?F?? HR:??88??(Monitored)?? RR:??18?? BP:??128/74?? SpO2:??99%?? General: pleasant, cooperative,??laying comfortably in bed, well appearing, in no acute distress but does appear uncomfortable. Lights are off Pulm: non-labored respirations MSK: tenderness to palpation on left side of posterior neck, significant trapezius muscle tenderpoint on left side??. Psych: appropriate mood and affect. answering questions appropriately. Ext: non-tender, non-edematous Assessment/Plan Assessment:??Mamadou is a 37 yo G12 now P5,??readmitted on PPD4 in the setting of pre-eclampsia with severe features based on sustained severe range blood pressures. Received magnesium for seizure prophylaxis. Still having pressure along the left side of her head however does find it radiates from the posterior side of her neck on the left side. Significant tenderness to palpation on exam. Will administer dose of flexeril with K pad for MSK etiology of discomfort. Patient has history of migraines as well and given photophobia, could be another migraine. Will continue to monitor. If no improvement, discussed possible imaging. ?? state (Z39.2): - Continue routine care - Pain Management: continue Ibuprofen & Tylenol, ice packs on perineum; Rx sent to pharmacy - Lacerations/repairs: no repairs, right periurethral laceration healing well - feeding: Bottle - Contraception: Depo; Laparoscopic salpingectomy in near future (booking request sent) ?? Pre-eclampsia (O14.90): - s/p magnesium - I&O q4hr - BP q2-q4h - SCDs - Mag check q 4-6 hr Pushed medications: hydralazine 5,10 (12/25) PO antihypertensive: Nifedipine 30 daily (12/25) ?? Intake and Output Intake and Output Results?? This visit (24 hour periods starting at 07:00 EDT)? 12/26/22 *?? 12/25/22?? 12/24/22?? Total Summary?Intake mL?? 600?? 1,170?? --?Output mL?? 1,400?? 3,400?? --?Fluid Balance ?? -800?? -2,230?? --?? Intake (2)?Lactated Ringers Injection 1,000 mL mL?? 300?? 457.5?? --?Magnesium Sulfate 20 Gm mL?? 300?? 712.5?? --?Total?? 600?? 1,170?? --?? Output (1)?Urine Voided mL?? 1,400?? 3,400?? --?Total?? 1,400?? 3,400?? --?? Counts (2)?Urine Count ?? --?? 1?? --?Urine Voided mL?? 1,400?? 3,400?? --? * This column has not completed the indicated time period.?? Note * Joanna Whitney RN: PERFORM Event Display: Discharge/Transfer Note Hospital Authored Date: [id number] Nursing Discharge Note Entered On: 12/27/2022 11:06 EDT Performed On: 12/27/2022 11:05 EDT by Joanna Whitney RN Nursing Discharge Note 2 Discharge Time : 12/27/2022 10:40 EDT Discharge Level of Care at Discharge : Home/Mcc/Foster Care Patient Left Unit Via : Ambulatory Patient Accompanied Off Unit with : Significant other DC Instructions Provided & Signed by Pt : Yes Patient Understands D/C Instructions : Yes Patient Instructions Discharge Signed : Yes Did Pt have Specialty Bed or Wound Vac : No Joanna Whitney RN - 12/27/2022 11:05 EDT * Yamil LEON, Mary: PERFORM, MODIFY Event Display: Discharge/Transfer Note Hospital Authored Date: [id number] Patient: ??MAMADOU SIMMONS ? Age:??37 Years?Sex:??Female?:??1985?? Admit Date Admission Date: 12/25/2022 Discharge Date 12/27/2022 OB Reason for Admission OB Reason for Admission?? No qualifying data available. [facility] Course Mamadou is a 37 yo??, admitted on PPD4 from a vaginal delivery complicated by preeclampsia withoutsevere features. She presented with sustained severe BPs requiring IV hydralazine pushes, ruled in for preeclampsia with severe features, was started on Nifedipine 30 mg daily, and was admitted for magnesium for seizure prophylaxis. HELLP labs noted for elevated AST/ALT 85/64, that trended down on day of discharge AST/ALT 35/43. BPs were normal to high mild on Nifedipine. HD 2 patient reported occipital headache, relieved with flexeril overnight. Objective/Physical Exam on Day of Discharge Vitals & Measurements T:??98.9?F?? HR:??86??(Monitored)?? RR:??20?? BP:??142/90?? SpO2:??99%?? HT:??156??cm?? WT:??90??kg?? BMI:??36.98?? Gen: NAD Resp: WNL Abd: Soft, firm fundus Ext: WWP, trace edema, Assessment/Plan/Discharge Diagnosis Pre-eclampsia (O14.90):? S/P - 4g Mag bolus --> Mag 2g/hr Pushed medications: hydralazine 5,10 (12/25) PO antihypertensive: Nifedipine 30 daily (12/25) RX sent to pharmacy. ?? state (Z39.2):? - Continue routine care - Pain Management: continue Ibuprofen & Tylenol, ice packs on perineum; Rx sent to pharmacy - Lacerations/repairs:??no repairs, right periurethral laceration healing well - Infant feeding: Bottle - Contraception:??Depo; Laparoscopic??salpingectomy in near future??(booking request sent) ?? Future Appointments Friday 10:00 AM EST ?? Where: [facility] - Juvenile Probation Officer [address] [place] [phone]- Status: Pending Friday 11:20 AM EST ?? Where: [facility] - Juvenile Probation Officer [address] [place] [id number]- Status: Pending Delivery Summary Labor and Delivery Summary ?No active found. ?? Discharge Medications ???Acetaminophen (acetaminophen 325 mg oral capsule)???Acetaminophen (acetaminophen 325 mg oral tablet)???Albuterol (albuterol CFC free 90 mcg/inh inhalation aerosol)???Albuterol (albuterol CFC free 90 mcg/inh inhalation aerosol)???Albuterol (albuterol inhaler (OP))???Fluticasone (Flovent HFA 110 mc g/inh inhalation aerosol)???Ibuprofen (ibuprofen 600 mg oral tablet)???NIFEdipine (NIFEdipine 30 mgoral tablet, extended release) Immunizations during Hospitalization Vaccine Date Status influenza virus vaccine, inactivated 12/23/2022 Given tetanus/diphtheria/pertussis, acel(Tdap) 10/11/2022 Given influenza virus vaccine, inactivated 12/07/2020 Given tetanus/diphtheria/pertussis, acel(Tdap) 12/07/2020 Given tetanus/diphtheria/pertussis, acel(Tdap) 01/06/2016 Given Contraception ??desires laparoscopic??salpingectomy ? Infant Feeding Method No Results Patient Instructions ?Congratulations! enjoy this time with your family and don't forget to??take good care of yourself while taking care of baby. Specific instructions in addition to the instructions provided by nursing: -Do not put anything in the vagina, no tampons, intercourse or douching for 6 weeks. -??Walk as often as you are able to - Call your doctor if:?-fever of 100.4 or greater ?-heavy vaginal bleeding ?-foul-smelling vaginal discharge ?-difficulty or burning with urination ?-nausea and vomiting with inability to tolerate food ?-pain not controlled by your prescribed medications ?-redness/swelling/drainage at incision(s) ?-shortness of breath or chest pain. ? -or with any questions or concerns -Call if you have any symptoms of preeclampsia (high blood pressure in ) including: ? -??Headache, that won't??go away with Tylenol or usual??over the counter treatments ? -??Visual Changes ?- Pain in the right upper quadrant of your abdomen ? -?? SOB ?-??Chest Pain * Tongue Joanna TAVARES: PERFORM Event Display: Patient Education/Instruction Authored Date: [id number] Inpatient Adult Discharge Instructions [place] [id number] Name: MAMADOU MARIANO DOB: 1985 Visit: 12/25/2022 13:38:00 Current Date: 12/27/2022 09:05 Account: [id number] Inpatient Adult Discharge Instructions We would like [...] and their families. Surveys are administered by [email or web address] ?? If further treatment with your primary care physician or another doctor is recommended, it is important for you to keep the appointment. Call your primary care physician or return to the Emergency Department immediately if your condition worsens, fails to improve, or new symptoms develop. If you need to find a doctor, you can call [facility] Link for a referral at [phone] or toll free at [phone]) or log in to [email or web address].. ?? [facility], in keeping with [facility] guidance, no longer requires face masks for [...] a health care chinmay of your choosing. [employer] is a website that allows you to securely view your medical information including your hospital discharge summary, office visit summaries, medications and follow-up visits. You can also request appointments, renew medications, and request access to your medical information using a health care chinmay of your choosing, or just ask a question. You can enroll at [email or web address] or register during your next office visit. You have been discharged from [facility], Patient Care Unit: [facility]. If you have any questions regarding these instructions after you leave, please call us and we will be happy to assist you. [facility] Your Care Team Attending Physician Gracie LEON, Tien Discharging Providers Spenser LEON, Eleanor Reason for Admission [facility] Your Diagnosis Pre-eclampsia state Tests Performed Below is a partial list of the tests performed during your hospitalization. You may have had other tests and procedures not included in this list. Please discuss all test results with your provider. ALT AST BUN CBC Creatinine Magnesium Level Urine Protein/Creatinine Ratio Primary Care Provider Riley LEON, Justyna Acevedo Advance Directive Health Care Proxy on File Yes - Health Care Proxy Discharge Vitals Temperature: 98.9 DegF Height: 156 cm Pulse Rate: 79 bpm Weight: 90 kg Respiratory Rate: 20 br/min Body Mass Index:??36.98 kg/m2??Critical Systolic Blood Pressure:??142 mm Hg??High Body surface area: 1.97 Diastolic Blood Pressure:??90 mm Hg??High ?? Oxygen Saturation: 99 % ?? Studies Pending All tests and labs ordered during this hospital stay have been completed unless listed below. Please discuss all pending results with your provider listed above in these instructions. ?? Hold Lavender Tube (BB) What to do next Instructions From Your Doctor ?Congratulations! enjoy this time with your family and don't forget to??take good care of yourself while taking care of baby. Specific instructions in addition to the instructions provided by nursing: -Do not put anything in the vagina, no tampons, intercourse or douching for 6 weeks. -??Walk as often as you are able to - Call your doctor if:?-fever of 100.4 or greater ?-heavy vaginal bleeding ?-foul-smelling vaginal discharge ?-difficulty or burning with urination ?-nausea and vomiting with inability to tolerate food ?-pain not controlled by your prescribed medications ?-redness/swelling/drainage at incision(s) ?-shortness of breath or chest pain. ? -or with any questions or concerns -Call if you have any symptoms of preeclampsia (high blood pressure in ) including: ? -??Headache, that won't??go away with Tylenol or usual??over the counter treatments ? -??Visual Changes ?- Pain in the right upper quadrant of your abdomen ? -?? SOB ?-??Chest Pain Discharge Orders Scheduled Follow-Up Appointments Friday 10:00 AM EST ?? Where: [facility] - Juvenile Probation Officer [address] [place] [phone]- Status: Pending Friday 11:20 AM EST ?? Where: [facility] - Juvenile Probation Officer [address] [place] [phone]- Status: Pending Discharge Medications MAMADOU SIMMONS :1985 Visit Date:12/25/2022 Medications: Please continue your medications until treatment is completed or stopped by your provider. Medications not listed below should be discontinued. Discuss any questions related to medications with your provider. What How Much When Instructions Next Dose New NIFEdipine (NIFEdipine 30 mg oral tablet, extended release) 30 Milligram Oral Daily Duration: 30 Days Pickup at [facility] 9 AM daily Unchanged Acetaminophen (acetaminophen 325 mg oral capsule) 2 capsule Oral Every 6 hours as needed for as needed for pain For acute cause, 90 day supply not indicated not to exceed 4000 mg/ day ?? as needed Unchanged Acetaminophen (acetaminophen 325 mg oral tablet) [...] Breath Unchanged Albuterol (albuterol inhaler (OP)) Unchanged Fluticasone (Flovent HFA 110 mcg/ inh inhalation aerosol) 2 puff(s) Inhalation Twice a day Unchanged Ibuprofen (ibuprofen 600 mg oral tablet) 1 tab(s) Oral Every 6 hours as needed for Pain , Mild For acute cause, 90 day supply not indicated not to exceed 3200 mg/ day with food or milk ?? as needed Pharmacy Information [facility]: [address], [place] [id number] [phone] Test Results Below is a partial list of the most recent Laboratory test results done prior to this discharge. You may have had other tests and procedures not included in this list. Please discuss all test resultswith your provider. Est Creatinine Clearance - 99.78 mL/min (12/27/2022) ALT (12/27/2022) ???ALT (SGPT) - 43 units/L AST (12/27/2022) ???AST (SGOT) - 35 units/L BUN (12/25/2022) ???BUN - 13 mg/dL CBC (12/27/2022) ???WBC - 8.5 k/mm3???RBC - 4.12 m/mm3???Hgb - 12.0 Gm/dL???Hct - 37.3 %???MCV - 90.5 femtoliters???MCH - 29.1 pg???MCHC - 32.2 g/dL???Platelet Count - 292 k/mm3???RDW-SD - 45.1 femtoliters???MPV - 9.6 femtoliters???Nucleated RBC (Automated) - 0.0 #/100 WBC'S???Abs. NRBC - 0.0 k/mm3 Creatinine (12/27/2022) ???Creatinine-Blood - 0.6 mg/dL???Estimated GFR Creatinine - 119 ML/MIN/1.73 M2 Magnesium Level (12/25/2022) ???Magnesium - 4.4 mg/dL Urine Protein/Creatinine Ratio (12/25/2022) ???Protein, Total Urine Random - 5 mg/dL???TP/Cr Ratio - 0.31???Creatinine, Urine - 17.2 mg/dL Allergies (NKA means No Known Allergies) levoFLOXacin levoFLOXacin ophthalmic??(Levofloxacin, Levofloxacin) Problems Active Problems??(4) Asthma?? History ofParoxysmal SVT (supraventricular tachycardia)?? Pre-eclampsia?? Severe obesity (BMI 35.0-39.9) with comorbidity?? Education Materials Below is the list of Educational Leaflet Providered with your Discharge Instructions. Understanding Preeclampsia?? Valuables and Belongings I fully understand and agree that [facility] accepts no responsibility for all my [...] to send valuables and belongings home. ?? No Valuables/Belongings: No valuables/belongings present Review of Valuable and Belonging List: With patient Date for Pt to Sign Valuables/Belongings: 12/27/22 08:48:00 ?? Other Discharge Information ? Pulmonary Rehab Status?? Pulmonary Rehab Discharge Status?? Respiratory Rate: 20 br/min ? Common Emergency Awareness Tips IS [...] are strongly encouraged to quit. Please call [facility] Link at [phone] or [phone] ([phone]) or log in to [email or web address] for referrals to smoking cessation programs. ?? 686 Suicide & Crisis Lifeline is available 16/09 if you or someone you know needs to find a reason to keep living. By calling 259 you'll be connected to a skilled, trained counselor at a crisis center in your area. INPATIENT DISCHARGE INSTRUCTIONS SIGNATURE PAGE LEILANI MARIANOMAMADOU Location:[facility] Registration Date and Time:12/25/2022 13:38 EDT Primary Care Physician: Justyna Lin MD, Attending Physician: Tien Bowman MD, I MAMADOU SIMMONS, have received the above patient education materials/instructions and have verbalized understanding. If ambulance or transport services are being used I further acknowledge being given a choice of service. ?? If you need to contact me, please call me at this number: . Patient/Laser Beam Trim Operator Name: Patient/Laser Beam Trim Operator Signature: Relationship to Patient: Witness Name/Signature: Date: * Tongue Joanna TAVARES: PERFORM Event Display: Patient Education Leaflets Authored Date: [id number] Understanding Preeclampsia ?? [id number] Understanding Preeclampsia Preeclampsia is a condition that can happen in . It includes high blood pressure (hypertension), swelling, and signs of organ problems.??It can show up around week 20 of . It often goes away by 12 weeks after you give . It can lead to serious health risks for you and your baby. During your , your healthcare provider will watch your blood pressure. Your blood pressure will be monitored regularly throughout your to help check for preeclampsia. Dangers of preeclampsia If not treated, preeclampsia can cause problems for you and your baby. The placenta is the organ that nourishes your baby. It may tear away from the wall of the uterus. This can put the baby at risk for health problems ( distress). It can put the baby at risk for . Preeclampsia can also cause these health problems in you: ??? Kidney failure or other organ damage ??? Seizures ???Stroke ?? Who???s at risk for preeclampsia? No one knows what causes preeclampsia. It can happen in any person. But there are things that increase your risk. You may need to take a daily low dose of aspirin if you are at risk for preeclampsia. You???re at higher risk for preeclampsia if you have any of these: ??? Diabetes ??? High blood pressure ??? Obesity ??? Kidney disease ??? Autoimmune disease such as lupus ??? A family history of preeclampsia You???re at higher risk if any of these apply to you: ??? This is your first ??? You are having twins or more ??? You???re under age 18 or overage 40 ??? You used in vitro fertilization ??? You are Black And you???re at higher risk if you had any of these in a past : ??? Preeclampsia ??? Intrauterine growth restriction (IUGR) ? Placental abruption ? Symptoms A common symptom of preeclampsia is high blood pressure. Other symptoms may include: ??? Fast weight gain ??? Protein in your urine ??? Headache ??? Belly (abdominal) pain on your right side ??? Vision problems such as flashes or spots ??? Swelling (edema) in your face or hands (this often happens near the end of a normal ) ?? Tests you may have Your healthcare provider will want to check your blood pressure. This will need to be done often inyour . If your blood pressure is high, you may have??these tests: ??? Urine tests to look for protein ??? Blood tests to confirm preeclampsia ??? monitoring to make sure that your babyis healthy ?? Treating preeclampsia Preeclampsia almost always ends soon after you give . Until then, your healthcare provider canhelp you manage it. If your symptoms are mild, you may to: ? Limit your activity ??? Rest in bed ??? Not do heavy lifting ?? If your symptoms are severe, you will stay in the hospital. Treatment here may include: ??? Limits to your activity. This is to help control your blood pressure. You should not lift anything heavy. You will need to spend 8 hours a day lying down with your feet up. ??? Magnesium IV (intravenous) drip. This is done during labor. It's to prevent seizures ??? Induced labor or section. ?? When to call your healthcare provider Call your healthcare provider if your symptoms start quickly or are severe. This includes swelling,weight gain, or other symptoms.??Some cases of preeclampsia are more severe than others. Your symptoms also may change or get worse as you get closer to your due date. ?? Once you give In most cases, preeclampsia goes away on its own soon after you give . This is often by the 12th week after you deliver. Within days after you give , your blood pressure, swelling, and other symptoms??should get better. But for some people, problems from preeclampsia can continue after . ?? preeclampsia Preeclampsia that starts after is rare. There are 2 types: ??? preeclampsia. This may start in the first 48 hours after . ??? Late-onset preeclampsia. This starts more than 48 hours after . Both of these types are rare. But call your healthcare provider right away if you have symptoms of preeclampsia after you give . ?? How daily issues affect your health Many things in your daily life impact your health. This can include transportation, money problems,housing, access to food, and children's ministries director. If you can???t get to medical appointments, you may not receive the care you need. When money is tight, it may be difficult to pay for medicines. And living far from a grocery store can make it hard to buy healthy food. If you have concerns in any of these or other areas, talk with your healthcare team. They may know of local resources to assist you. Or they may have a staff person who can help. ?? Last Reviewed Date: 2020 ?? 3240-6256 [employer]. All rights reserved. This information is not intended as a substitute for professional medical care. Always follow your healthcare professional's instructions. ?? Patient Care team information Care Team Personnel Name: Gabriela Mcguire LPN Position: [facility] RN Member Role: Primary Care Nurse Name: Justyna Lin MD Position: S Physician - Primary Care Member Role: PCP Address: Address: [address] [place] [address], [address] Name: Joanna Whitney RN Position: [facility] RN Member Role: Patient Care Provider Care Team Related Persons Name: DAISY OWEN Address: [address] Address: home [address] [place] [address] [place] Name: MONICO OWEN Address: [address] Address: home [address] [address] [place] Name: MAMADOU SIMMONS GIRL Address: [address] Address: home [address] [place] [address] [place] Name: PETER DUKE Address: home [address] [place] [address]
--- OUTSIDE RECORDS SUMMARY | 2023-08-01 09:36 | XMS_ITS | Continuity of Care Document ---
Author Organization [facility] Address [address] [place] [address]- Care Team Providers Care Tile Shader Name Role Phone Not on Staff, PCP Primary Care Physician Unavail able [place]counter [facility] [place] Date(s): 10/15/22 - 11/14/[address] [address] Allergies, Adverse Reactions, Alerts Substance Reaction [...] 23:23:00 EDT, Aerosol, Route to Pharmacy Electronically, [id number], [facility]/pharmacy #[id number], 155, cm, 10/11/22 14:32:00 EDT, Heigh... Start Date: 10/15/22 Status: Ordered albuterol CFC free 90 mcg/inh inhalation aerosol 180 mcg, 2, puffs, Inhalation, Every 4 hours, PRN, # 6.7 Gm, Refills 0, Tot. Refills 0, Maintenance, 12/09/20 13:31:00 EDT, Inhaler, Route to Pharmacy Electronically, [id number], [facility], 157, cm, 12/06... Start Date: 12/09/20 Status: Ordered albuterol inhaler (OP) 0 Refills, Maintenance Start Date: 12/06/20 Status: Ordered aspirin 81 mg oral delayed release tablet 162 mg, 2, tablet, By Mouth, Daily, # 180 tablet, Refills 1, Tot. Refills 1, Maintenance, 06/07/22 10:54:00 EDT, Route to Pharmacy Electronically, [facility], Partial fill upon patient request if the prescription is for a schedule... Start Date: 06/07/22 Stop Date: 12/04/22 Status: Ordered Flovent HFA 110 mcg/inh inhalation aerosol 2 puffs, Inhalation, 2 times a day, # 12 Gm, 0 Refills, Maintenance, 10/15/22 23:17:00 EDT, Aerosol, [facility]/pharmacy #[id number], Partial fill upon patient request if the prescription is for a schedule II opioid drug., 155, cm, 10/11/22 14:32:00 EDT, Height, 8... Start Date: 10/15/22 Status: Ordered guaiFENesin 100 mg/5 mL oral liquid 5 mL = 100 mg, By Mouth, Every 4 hours, PRN for cough, # 300 mL, 0 Refills, Maintenance, 10/15/22 23:22:00 EDT, Liquid, [facility]/pharmacy #[id number], 155, cm, 10/11/22 14:32:00 EDT, Height, 86.3, kg, 03/01/21 17:10:00 EST, Dry Weight Start Date: 10/15/22 Status: Ordered metronidazole topical 0.75% gel with applicator 1 application, Vaginally, Daily at bedtime, # 70 Gm, 0 Refills, Soft Stop, 06/11/22 12:19:00 EDT, Gel, [facility], Partial fill upon patient request if the prescription is for a schedule II opioid drug., 1 application Vaginally Jenniffer... Start Date: 06/11/22 Stop Date: 06/16/22 Status: Ordered miconazole 2% topical cream 1 application, Vaginally, Daily at bedtime, Apply 5 gm vaginally at bedtime for seven days, # 45 Gm, 0 Refills, Maintenance, 10/11/22 15:43:00 EDT, Cream, [facility], Partial fillupon patient request if the [...] Team Personnel Name: Gabriela Mcguire LPN Position: [facility] RN Member Role: Primary Care Nurse Name: Not on Staff, PCP Position: [facility] Physician (General Medicine) Member Role: PCP Care Team Related Persons Name: DAISY OWEN Address: Address: [address] [place] [address] [place] Name: MONICO OWEN Address: Address: [address] [place] [address] [place] Name: PETER DUKE Address: [address] [place] [address]
--- OUTSIDE RECORDS SUMMARY | 2023-08-01 09:36 | XMS_ITS | Continuity of Care Document ---
Author Organization [facility] ter Address [address] [place] [address]- Care Team Providers Care Running Instructor Name Role Phone Eduardo NO, Rachel [place] Primary Care Physician [phone] [place] [facility] [place] Date(s): 03/01/21 - 03/04/[address] [address] Discharge Disposition: A-D/C Home Attending Physician: Blayne Tirado MD Admitting Physician: Blayne Tirado MD Referring Physician: Blayne Tirado MD Allergies, Adverse Reactions, Alerts Substance Reaction Severity Status levoFLOXacin Unknown Active Immunizations Given and Recorded Vaccine Date Status Refusal Reason influenza virus vaccine, inactivated 12/07/20 Give n tetanus/diphtheria/pertussis, acel(Tdap) 12/07/20 Given tetanus/diphtheria/pertussis, acel(Tdap) 01/06/16 Given Medications Acetaminophen Tablet 650 mg, Tablet, By Mouth, Every 4 hours, PRN for Pain , Mild, (1-3), may give 325mg per patient preference and re-dose with 325mg within 4 hours, if needed. Patient should only receive a total of 650mg of Acetaminophen every 4 hours., Routine, 03/02... Start Date: 03/02/21 Stop Date: 03/04/21 Status: Discontinued albuterol CFC free 90 mcg/inh inhalation aerosol 180 mcg, 2, puffs, Inhalation, Every 4 hours, PRN, # 6.7 Gm, Refills 0, Tot. Refills 0, Maintenance, 12/09/20 13:31:00 EDT, Inhaler, Route to Pharmacy Electronically, [id number], [facility], 157, cm, 12/06... Start Date: 12/09/20 Status: Ordered albuterol inhaler (OP) 0 Refills, Maintenance Start Date: 12/06/20 Status: Ordered Ibuprofen Tablet 800 mg, Tablet, By Mouth, Every 8 hours, PRN for Pain , Moderate, (4-6), may give 400mg per patientpreference and re-dose with 400mg within 8 hours if needed. Patient should only receive a total of 800mg of Ibuprofen every 8 hours., Routine, ... Start Date: 03/02/21 Stop Date: 03/04/21 Status: Discontinued Problem List Condition Effective Dates Status Health Status Inform ant Asthma(Confirmed) Active Smoking (tobacco) complicati ng , third trimester(Confirmed) Active Migraines(Confirmed) Active Obese class II(Confirmed) Active Paroxysmal SVT (supraventric ular tachycardia)(Confirmed) Active Vital Signs Most recent to oldest [Reference Range]: 1 2 3 4 Height 155 cm (03/04/21 8:19 AM) 155 cm (03/04/21 8:03 AM) 155 cm (03/03/21 11:04 PM) Weight 86.3 kg (03/01/21 5:10 PM) Oxygen Saturation [94-100 %] 99 % (03/03/21 4:55 PM) 97 % (03/03/21 8:26 AM) 98 % (03/03/21 5:21 AM) Pulse Rate [55-90 bpm] 64 bpm (03/04/21 8:19 AM) 65 bpm (03/03/21 11:04 PM) 75 bpm (03/03/21 4:55 PM) Body Mass Index [18.5-24.99] 35.92 *>HHI* (03/01/21 5:10 PM) Blood Pressure [90-138/55-84 mm Hg] 119/84mm Hg (03/04/21 8:19 AM) 130/70mm Hg (03/03/21 11:04 PM) 106/51mm Hg (03/03/21 4:55 PM) Respiratory Rate [16-30 br/min] 17 br/min (03/04/21 8:19 AM) 18 br/min (03/03/21 4:55 PM) 18 br/min (03/03/21 4:47 PM) 18 br/min (03/03/21 4:47 PM) Temperature [96.8-100.4 DegF] 98.3 DegF (03/04/21 8:19 AM) 98.0 DegF (03/03/21 11:04 PM) 97.9 DegF (03/03/21 4:55 PM) Mode of Delivery (Oxygen) Room air (03/03/21 4:55 PM) Room air (03/03/21 8:26 AM) Room air (03/03/21 5:21 AM) Blood pressure sites Arm, right (03/04/21 8:19 AM) Arm, left (03/03/21 4:55 PM) Arm, left (03/03/21 8:26 AM) Temperature Route Oral (03/04/21 8:19 AM) Oral (03/03/21 11:04 PM) Oral (03/03/21 4:55 PM) Dry Weight 86.3 kg (03/01/21 5:10 PM) Social History Social History Type Response Smoking Status Current every day adrianne crandall entered on: 01/06/16 Sex
--- OUTSIDE RECORDS SUMMARY | 2023-08-01 09:36 | XMS_ITS | Continuity of Care Document ---
Author Organization [facility] Address [address] [place] [address]- Care Team Providers Care Pedal Assembler Name Role Phone Riley LEON, Justyna Acevedo Primary Care Physician [phone] [facility] [place] Date(s): 03/24/23 - 04/23/[address] [address] Allergies, Adverse Reactions, Alerts Substance Reaction [...] 10/15/22 23:24:00 EDT, Route to Pharmacy Electronically, [facility]/pharmacy #[id number], 155, cm, 10/11/22 14:32:00 EDT, Height, 86.3, kg, 01... Start Date: 10/15/22 Status: Ordered albuterol CFC free 90 mcg/inh inhalation aerosol 180 mcg, 2, puffs, Inhalation, Every 4 hours, PRN, # 6.7 Gm, Refills 0, Tot. Refills 0, Maintenance, 11/20/22 14:32:00 EDT, Inhaler, Route to Pharmacy Electronically, [id number], [facility]/pharmacy #[id number], 155, cm, 11/15/22 10:18:00... Start Date: 11/20/22 Status: Ordered albuterol CFC free 90 mcg/inh inhalation aerosol 2, puffs, Inhalation, 4 times a day, PRN, # 8 Gm, Refills 0, Tot. Refills 0, Maintenance, 10/15/22 23:23:00 EDT, Aerosol, Route to Pharmacy Electronically, [id number], [facility]/pharmacy #[id number], 155, cm, 10/11/22 14:32:00 EDT, Heigh... Start Date: 10/15/22 Status: Ordered Flovent HFA 110 mcg/inh inhalation aerosol 2 puffs, Inhalation, 2 times a day, # 12 Gm, 0 Refills, Maintenance, 10/15/22 23:17:00 EDT, Aerosol, [facility]/pharmacy #[id number], Partial fill upon patient request if the prescription is for a schedule II opioid drug., 155, cm, 10/11/22 14:32:00 EDT, Height, 8... Start Date: 10/15/22 Status: Ordered Problem List Condition Confirmation Course [...] Care team information Care Team Personnel Name: Justyna Lin MD Position: [facility] Physician - Primary Care Member Role: PCP Address: Address: [address] [place] [address], 1[address] [place] [address]- Care Team Related Persons Name: DAISY OWEN Address: [address] Address: home [address] [place], [place] Name: FABRICE OWEN Address: [address] Address: home [address] [place], [place] Name: MONICO OWEN Address: [address] Address: [address] [place], [place] Name: PETER DUKE Address: home [address] [place] [address] [place] [address]
--- OUTSIDE RECORDS SUMMARY | 2023-08-01 09:36 | XMS_ITS | Continuity of Care Document ---
Author Organization [facility] Address [address] [place] [address]- Care Team Providers Care Logging Tractor Operator Swamp Name Role Phone Riley LEON, Justyna Acevedo Primary Care Physician En[place] [facility] [place] Date(s): 06/05/23 - 07/05/[address] [address] Attending Physician: AdmDiego grady Admitting Physician: AdmtrDiego Referring Physician: Admtr, Ar8 Allergies, Adverse Reactions, Alerts Substance Reaction Severity [...] EDT, Route to Pharmacy Electronically, [facility]/pharmacy #[id number], 155, cm, 10/11/22 14:32:00 EDT, Height, 86.3, kg, 01... Start Date: 10/15/22 Status: Ordered albuterol CFC free 90 mcg/inh inhalation aerosol 180 mcg, 2, puffs, Inhalation, Every 4 hours, PRN, # 6.7 Gm, Refills 0, Tot. Refills 0, Maintenance, 11/20/22 14:32:00 EDT, Inhaler, Route to Pharmacy Electronically, [id number], [facility]/pharmacy #[id number], 155, cm, 11/15/22 10:18:00... Start Date: 11/20/22 Status: Ordered albuterol CFC free 90 mcg/inh inhalation aerosol 2, puffs, Inhalation, 4 times a day, PRN, # 8 Gm, Refills 0, Tot. Refills 0, Maintenance, 10/15/22 23:23:00 EDT, Aerosol, Route to Pharmacy Electronically, [id number], [facility]/pharmacy #[id number], 155, cm, 10/11/22 14:32:00 EDT, Heigh... Start Date: 10/15/22 Status: Ordered Flovent HFA 110 mcg/inh inhalation aerosol 2 puffs, Inhalation, 2 times a day, # 12 Gm, 0 Refills, Maintenance, 10/15/22 23:17:00 EDT, Aerosol, [facility]/pharmacy #[id number], Partial fill upon patient request [...] Team Personnel Name: Justyna Lin MD Position: S Physician - Primary Care Member Role: PCP Address: Address: [facility], 1st [place] [address]- Care Team Related Persons Name: DAISY OWEN Address: [address] Address: home [address] [facility] [place] [address] Name: FABRICE OWEN Address: [address] Address: [address] [place] [address] Name: MONICO OWEN Address: [address] Address: [address] [place] [address] Name: PETER DUKE Address: home [address] [place] [address]
--- OUTSIDE RECORDS SUMMARY | 2023-08-01 09:36 | XMS_ITS | Continuity of Care Document ---
Author Organization [facility] Address [address] [place] [address]- Care Team Providers Care Machine Slat Basket Maker Name Role Phone Riley LEON, Justyna Acevedo Primary Care Physician [place] [facility] [place] Date(s): 02/25/23 - 03/27/[address] [address] Referring Physician: Genesis Medina Allergies, Adverse Reactions, Alerts Substance Reaction Severity [...] 10/15/22 23:24:00 EDT, Route to Pharmacy Electronically, [facility]/pharmacy #[id number], 155, cm, 10/11/22 14:32:00 EDT, Height, 86.3, kg, 01... Start Date: 10/15/22 Status: Ordered albuterol CFC free 90 mcg/inh inhalation aerosol 180 mcg, 2, puffs, Inhalation, Every 4 hours, PRN, # 6.7 Gm, Refills 0, Tot. Refills 0, Maintenance, 11/20/22 14:32:00 EDT, Inhaler, Route to Pharmacy Electronically, [id number], [facility]/pharmacy #[id number], 155, cm, 11/15/22 10:18:00... Start Date: 11/20/22 Status: Ordered albuterol CFC free 90 mcg/inh inhalation aerosol 2, puffs, Inhalation, 4 times a day, PRN, # 8 Gm, Refills 0, Tot. Refills 0, Maintenance, 10/15/22 23:23:00 EDT, Aerosol, Route to Pharmacy Electronically, [id number], [facility]/pharmacy #[id number], 155, cm, 10/11/22 14:32:00 EDT, Heigh... Start Date: 10/15/22 Status: Ordered Flovent HFA 110 mcg/inh inhalation aerosol 2 puffs, Inhalation, 2 times a day, # 12 Gm, 0 Refills, Maintenance, 10/15/22 23:17:00 EDT, Aerosol, [facility]/pharmacy #[id number], Partial fill upon patient request [...] 03/27/23 13:16:00 EST, Route to Pharmacy Electronically, [facility], Partial fill upon patient request... Start Date: 03/27/23 Stop Date: 04/10/23 Status: Ordered oxyCODONE 5 mg oral tablet 5 mg, 1, tablet, By Mouth, Every 6 hours, PRN, # 5 tablet, Refills 0, Tot. Refills 0, Acute 04/03/23 12:00:00 EST, as needed for pain, 03/27/23 13:17:00 EST, Route to Pharmacy Electronically, [facility], Partial fill upon patient r... Start Date: 03/27/23 Stop Date: 04/03/23 Status: Ordered Tylenol 325 mg oral tablet 650 mg, 2, tablet, By Mouth, Every 4 hours, PRN, # 30 tablet, Refills 0, Tot. Refills 0, Acute 04/10/23 12:00:00 EST, for pain, 03/27/23 13:16:00 EST, Route to Pharmacy Electronically, [facility], Partial fill upon patient request... [...] Team Personnel Name: Gabriela Mcguire LPN Position: [facility] OB RN Member Role: Primary Care Nurse Name: Justyna Lin MD Position: [facility] Physician - Primary Care Member Role: PCP Address: Address: [address] [place] [address], [address] Care Team Related Persons Name: DAISY OWEN Address: [address] Address: [address] [place] [address] [place] Name: FABRICE OWEN Address: [address] Address: [address] [place] [address] [place] Name: MONICO OWEN Address: [address] Address: [address] [place] [address] [place] Name: PETER DUKE Address: home [address] [place] [address]
--- OUTSIDE RECORDS SUMMARY | 2023-08-01 09:36 | XMS_ITS | Continuity of Care Document ---
Author Organization [facility] Address [address] [place] [id number]- Care Team Providers Care Genetic Coordinator Name Role Phone Riley LEON, Justyna Acevedo Primary Care Physician [phone] [place] [facility] [place] - 07/13/[address] [address]- Attending Physician: Not on Staff, Attending MD [...] 13:31:00 EDT, Inhaler, Route to Pharmacy Electronically, [id number], [facility], 157, cm, 12/06... Start Date: 12/09/20 Status: Ordered albuterol inhaler (OP) 0 Refills, Maintenance Start Date: 12/06/20 Status: Ordered aspirin 81 mg oral delayed release tablet 162 mg, 2, tablet, By Mouth, Daily, # 180 tablet, Refills 1, Tot. Refills 1, Maintenance, 06/07/22 10:54:00 EDT, Route to Pharmacy Electronically, [facility], Partial fill upon patient request if the prescription is for a schedule... Start Date: 06/07/22 Stop Date: 12/04/22 Status: Ordered metronidazole topical 0.75% gel with applicator 1 application, Vaginally, Daily at bedtime, # 70 Gm, 0 Refills, Soft Stop, 06/11/22 12:19:00 EDT, Gel, [facility], Partial fill upon patient request [...] Soft Stop, 06/10/22 15:36:00 EDT, Tablet, [facility], Partial fill upon patient request [...] Team Personnel Name: Gabriela Mcguire LPN Position: [facility] OB RN Member Role: Primary Care Nurse Name: Justyna Lin MD Position: [facility] Physician (General Medicine) Member Role: PCP Address: Address: [address] [place] [address], [address] [place] [address]- Care Team Related Persons Name: DAISY OWEN Address: [id number] Address: [address] [address] [place] Name: MONICO OWEN Address: [id number] Address: [address] [place] [address] [place] Name: MAMADOU MARIANO Address: [address] [place] [address] Name: PETER DUKE Address: [address] [place] [address]
--- OUTSIDE RECORDS SUMMARY | 2023-08-01 09:36 | XMS_ITS | Continuity of Care Document ---
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 above in these instructions. ?? Chlamydia/N. Gonorrhoeae TMA (NAAT) Hold Lavender Tube (BB) Type and Screen, Use Hold Lavender What to do next Instructions From Your Doctor Discharge:??Home ?? Please call the office with any concerns including:?? Heavy vaginal bleeding?? Fever of 100.4 or greater Foul-smelling vaginal discharge Difficulty or burning with urination Nausea and vomiting with inability to tolerate food Pain not controlled by the medications listed below Shortness of breath or chest pain. Swelling of the extremities. ?? General Instructions: - Avoid lifting anything 15 lbs or greater until cleared by doctor. - Stairs are OK but avoid multiple trips/ skipping steps and go slowly. - Walk as often as you are able. - Do not put anything in the vagina. No intercourse, tampons, or douching - For pain, you can use wzlq-scr-gufgvdg medicines:??Tylenol (acetaminophen, up to 1000mg every 6 hours) and ibuprofen (up to 600mg every 6 hours) - Continue using stool softeners as needed??(examples: colace/docusate, senna, miralax) - Shower as usual. Avoid tubs / soaking / pools. ?? Thank you for allowing us to be part of your care team. ?? [facility]??[address] Discharge Orders Instructions from your Care Team Discharge Care Instructions for the New Mom?? Please take a few moments to read through these helpful instructions before you leave the hospital.??Your nurse will be glad to answer any questions you may have. ??You can also find this and more information throughout the purple??Becoming a Family??booklet,??[facility]???s New Beginnings Guide??and the?? Consultation Services Guide??given to you after the of your baby. ??You may also phone our nurses stations if you have further questions. ??[facility]???s: ??First Floor ([phone]), Second Floor ([phone]). ?? Please call your provider if you have any questions or concerns ??before your next appointment. For ongoing support??please?Like?us on our Facebook page?[facility]???s New Beginnings?and sign up for our email newsletter at??[email or web address]. ??News and information will be sent to you??until your baby???s third birthday. Instructions for the New Mother Activity:?? For the next 2 weeks at home?no heavy lifting, avoid unnecessary stair climbing, and no driving (especially if you are taking medicine that may make you sleepy or feel that you are sleep deprived). ?? For the next 4-6 weeks - no tampons, no douches, no sexual intercourse. Use your krystina bottle to rinse your perineum until your vaginal flow stops. ??If you have stitches in your bottom, they generally dissolve within 7-10 days. ??Apply Tucks/witch isabel pads until your soreness subsides. ??Use your bathroom at home every 3 to 4 hours, rinse, and change your pads. Warm showers feel great on achy muscles, sore backs and sore bottoms. Exercise: Walking is the best form of exercise. ??Wait until your follow up appointment with your provider in4-6 weeks before engaging in more strenuous activity. Diet: Drink plenty of fluids to avoid constipation and to help support your recovery. Eat plenty of iron rich foods such as red meat, iron fortified cereals like Total and Cream of Wheat, raisins, prunes, greens and spinach. ??These will help to build your blood count back up as all women lose some blood after delivery. ??Also add foods rich in Vitamin C such as strawberries, oranges, papayas, kale and brady peppers. Continue to take your vitamins if you are . ??If you are not follow the instructions of your provider. ??If you were prescribed iron supplements such as ferrous sulfate, it is important to continue these until your doctor or freight conductor tells you to stop. Breast Care for Nursing Mothers: Wear a comfortable fitting, supportive nursing bra. ??An underwire bra is not recommended. Express drops of breast milk and rub over your nipples and areola (brown area) before and after each feeding to protect and heal sensitive skin and then air dry your nipples. ??If you are experiencing any soreness, you may purchase nipple cream such as TenderCare or Lansinoh. ??Use it in the following manner: ??finish your feeding or pumping session, self-express colostrum onto your nipple and air dry, apply the nipple cream to the nipple and areola. ??Use only small amounts for best results. If you are having difficulty getting the baby to latch onto the breast due to swelling of the areola, try applying pressure with your fingers for a couple of minutes above and below your nipple and walk your fingers outward softening the area and pushing the swelling away. ??This technique is knownas reverse pressure softening. ??For demonstrations of this and other techniques such as the [place] Hand Expression technique, please refer to the resources section of the Consultation Services Guide that you received from services.?? When your milk first comes in, usually within 3 to 5 days after delivery, you may experience engorgement. ??Your breasts may become swollen and very tender. ??Cold compresses work great to help with discomfort and reduce swelling. It will get better in a couple of days. ??Continue to nurse your baby frequently. ?? Call [facility]???s Consultation Service at [phone], press 1 to schedule an outpatient appointment or press 3??and a image consultant will return your call that day or the next if you call after 3pm. ? Control: Your doctor or freight conductor will discuss control methods with you [facility] or at your checkup. ??Be sure to let your provider know if you are . . You received a Depo Provera injection on _12/23/2022 . ??This control method is effective as long as you repeat it every 3 months.?Schedule your next dose before . ?? Pain Management: Cramping after is common and increases in strength with each baby you have. ??If you experience painful cramps, and have no allergies to acetaminophen (Tylenol) or ibuprofen (Motrin), you may continue to take these medications as you did in the hospital. ??Ibuprofen is also helpful with back aches following epidurals, perineal pain following a vaginal delivery, and moderate incisional pain after a section or a tubal ligation. ?? If you experience gas distention, especially after surgery, you may take an over the counter medication called simethicone. ??Take these chewable tablets 4 times a day as needed and directed on the package. ??Keep moving. ??Walking or rocking in a chair, will help to move the gas along. ??Turner tea made with heated turner aminta (instead of water) and a tea bag, stirred to dissolve carbonation (bubbles) is a helpful drink to soothe a gassy stomach. Warning Signs of a Problem to Notify Your Doctor or Tire Service Technician of: Heavy vaginal bleeding?which is??soaking a pad every hour??with bright red blood. Passing blood clots the size of an egg or larger. ?? A temperature greater than or equal to 100.4 especially if accompanied by any of the following symptoms?painful, frequent urination; extreme back or flank pain; lower belly pain with a foul smell to your vaginal flow; a red hard hot area on your breast. ?? Severe headache that does not go away after taking acetaminophen or ibuprofen. ?? A headache that changes your vision, including seeing spots or blurring. Right sided upper abdominal pain along the rib cage area. Pain in your legs that is warm and tender to the touch. depression signs may include?loss of interest in your baby, weepiness, difficulty focusing, weight loss with no appetite, exhaustion, feeling overwhelmed or anxious, feelings??of despair, or thoughts of harming yourself or your baby. ??These symptoms are important and should be discussed with your doctor or freight conductor. depression may develop over a period of time and needs prompt medical attention. ??Do not suffer in silence. ??In both the??Becoming a Family??booklet and the??[facility]??New Beginnings Guide??there is a screening tool used to identify women at risk, called the [place] Scale which you have taken in the office prior to delivery and again during your ho spital stay. ??Three to four weeks after your delivery, and before your check with your provider, take this test and share your results with your provider. ??Be sure to mention any score of 10 or more. ?? Many women, and even some partners, may experience the?baby blues?? . ??This is a state of feeling overwhelmed and weepy. ??Discomfort from childbirth, hormonal changes, exhaustion, changes to your body and lifestyle are a few of the things that contribute to the highs and lows new parents go through. ??Don???t be afraid to ask your partner or family and friends for some help at home so you can get some rest and a few minutes to yourself. ??The blues will quickly pass. Personal Safety: Every person has the right to feel safe at home and live free from physical or emotional harm. ??Ifyou have suffered mental or physical abuse at home, you are not alone. ??There is help. ??Please call [facility] or the [facility] at [phone]. ?? BP checks using baby scripts 2x per day Scheduled Follow-Up Appointments Friday 10:00 AM EST ?? Where: [facility] - [facility] [address] [place] [address]- Status: Pending Discharge Medications MAMADOU SIMMONS :1985 Visit Date:12/20/2022 Medications: Please continue your medications until treatment is completed or stopped by your provider. Medications not listed below should be discontinued. Discuss any questions related to medications with your provider. What How Much When Instructions Next Dose New Ibuprofen (ibuprofen 600 mg oral tablet) 1 tab(s) Oral Every 6 hours as needed for Pain , Mild For acute cause, 90 day supply not indicated not to exceed 3200 mg/ day with food or milk ?? Pickup at [facility] Changed Acetaminophen (acetaminophen 325 mg oral capsule) 2 capsule Oral Every 6 hours as needed for as needed for pain For acute cause, 90 day supply not indicated not to exceed 4000 mg/ day ?? Pickup at [facility] Changed Acetaminophen (acetaminophen 325 mg [...] puff(s) Inhalation Twice a day Pharmacy Information [facility]: [address], [place] [id number] [phone] ?? What How Much When Why Comments Stop Taking Aspirin (aspirin 81 mg oral delayed release tablet) 2 tab(s) Oral Daily Duration: 90 Days Stop Taking Guaifenesin (guaiFENesin 100 mg/ 5 mL oral liquid) 5 Milliliter Oral Every 4 hours as needed for for cough Stop Taking Metronidazole Topical (metronidazole topical 0.75% gel with applicator) 1 chinmay Vaginally Daily at Bedtime Duration: 5 Days Stop Taking Miconazole Topical (miconazole 2% topical cream) 1 chinmay Vaginally Daily at Bedtime Vaginal yeast infection Duration: 7 Days Apply 5 gm vaginally at bedtime for seven days ?? Stop Taking Pyridoxine (pyridoxine 25 mg oral tablet) 1 tab(s) Oral 3 times a day as needed for Nausea & Vomiting Test Results Below is a partial list of the most recent Laboratory test results done prior to this discharge. You may have had other tests and procedures not included in this list. Please discuss all test resultswith your provider. Antibody Screen - Negative (12/21/2022) Blood Type - A Positive (12/21/2022) Est Creatinine Clearance - 99.78 mL/min (12/21/2022) ALT (12/22/2022) ???ALT (SGPT) - 15 units/L AST (12/22/2022) ???AST (SGOT) - 40 units/L BUN (12/21/2022) ???BUN - 12 mg/dL CBC (12/22/2022) ???WBC - 10.4 k/mm3???RBC - 3.21 m/mm3???Hgb - 9.5 Gm/dL???Hct - 29.4 %???MCV - 91.6 femtoliters???MCH - 29.6 pg???MCHC - 32.3 g/dL???Platelet Count - 195 k/mm3???RDW-SD - 44.5 femtoliters???MPV - 10.9 femtoliters???Nucleated RBC (Automated) - 0.0 #/100 WBC'S???Abs. NRBC - 0.0 k/mm3 Creatinine (12/22/2022) ???Creatinine-Blood - 0.6 mg/dL???Estimated GFR Creatinine - 118 ML/MIN/1.73 M2 LDH (12/21/2022) ???LDH - 326 units/L Urine Protein/Creatinine Ratio (12/21/2022) ???Protein, Total Urine Random - 35 mg/dL???TP/Cr Ratio - 0.31???Creatinine, Urine - 112.0 mg/dL Immunizations This Visit Given Vaccine Date influenza virus vaccine, inactivated 12/23/2022 Allergies (NKA means No Known Allergies) levoFLOXacin levoFLOXacin ophthalmic??(Levofloxacin, Levofloxacin) Problems Active Problems??(5) Asthma?? History ofParoxysmal SVT (supraventricular tachycardia)?? Obese class II?? Pre-eclampsia? Education Materials Below is the list of Educational Leaflet Providered with your Discharge Instructions. Valuables and Belongings I fully understand and agree that [facility] accepts no responsibility for all my [...] home. ?? No Valuables/Belongings: No valuables/belongings present Date for Pt to Sign Valuables/Belongings: 12/21/22 19:54:00 ?? Other Discharge Information ? Pulmonary Rehab Status?? Pulmonary Rehab Discharge Status?? Respiratory Rate: 18 br/min ? Common Emergency Awareness Tips IS [...] are strongly encouraged to quit. Please call [facility] at [phone] or [phone] ([phone]) or log in to [email or web address] for referrals to smoking cessation programs. ?? 007 Suicide & Crisis Lifeline is available 16/09 if you or someone you know needs to find a reason to keep living. By calling 818 you'll be connected to a skilled, trained counselor at a crisis center in your area. INPATIENT DISCHARGE INSTRUCTIONS SIGNATURE PAGE MAMADOU SIMMONS Location:[facility] Registration Date and Time:12/20/2022 22:17 EDT Primary Care Physician: Justyna Lin MD, Attending Physician: Kala Khoury MD, MAMADOU DE LA CRUZ, have received the above patient education materials/instructions and have verbalized understanding. If ambulance or transport services are being used I further acknowledge being given a choice of service. ?? If you need to contact me, please call me at this number: . Patient/Cottage Attendant Name: Patient/Cottage Attendant Signature: Relationship to Patient: Witness Name/Signature: Date: Patient Care team information Care Team Personnel Name: Gabriela Mcguire LPN Position: [facility] OB RN Member Role: Primary Care Nurse Name: Justyna Lin MD Position: [facility] Physician - Primary Care Member Role: PCP Address: Address: [address] [place] [address], [address] [place] [address]- Care Team Related Persons Name: DAISY OWEN Address: Address: home [address] [place] [address] [place] Name: MONICO OWEN Address: Address: [address] [place] [address] [place] Name: MAMADOU SIMMONS Address: Address: [address] [place] [address] [place] Name: PETER DUKE Address: home [address] [place] [address]
--- OUTSIDE RECORDS SUMMARY | 2023-08-01 09:36 | XMS_ITS | Continuity of Care Document ---
Author Organization [facility] Address [address] [place] [address]- Care Team Providers Care Student Outreach Coordinator Name Role Phone Riley LEON, Justyna Acevedo Primary Care Physician Encounter [facility] Date(s): 01/31/23 - 03/02/[address] [address] Attending Physician: Admtr, Diego Admitting Physician: Admtr, Diego Referring Physician: Admtr, Ar8 Allergies, Adverse Reactions, [...] 10/15/22 23:24:00 EDT, Route to Pharmacy Electronically, [facility]/pharmacy #[id number], 155, cm, 10/11/22 14:32:00 EDT, Height, 86.3, kg, 01... Start Date: 10/15/22 Status: Ordered albuterol CFC free 90 mcg/inh inhalation aerosol 180 mcg, 2, puffs, Inhalation, Every 4 hours, PRN, # 6.7 Gm, Refills 0, Tot. Refills 0, Maintenance, 11/20/22 14:32:00 EDT, Inhaler, Route to Pharmacy Electronically, [id number], [facility]/pharmacy #[id number], 155, cm, 11/15/22 10:18:00... Start Date: 11/20/22 Status: Ordered albuterol CFC free 90 mcg/inh inhalation aerosol 2, puffs, Inhalation, 4 times a day, PRN, # 8 Gm, Refills 0, Tot. Refills 0, Maintenance, 10/15/22 23:23:00 EDT, Aerosol, Route to Pharmacy Electronically, [id number], [facility]/pharmacy #[id number], 155, cm, 10/11/22 14:32:00 EDT, Heigh... Start Date: 10/15/22 Status: Ordered albuterol inhaler (OP) 0 Refills, Maintenance Start Date: 12/06/20 Status: Ordered Flovent HFA 110 mcg/inh inhalation aerosol 2 puffs, Inhalation, 2 times a day, # 12 Gm, 0 Refills, Maintenance, 10/15/22 23:17:00 EDT, Aerosol, [facility]/pharmacy #[id number], Partial fill upon patient request if the prescription is for a schedule II opioid drug., 155, cm, 10/11/22 14:32:00 EDT, Height, 8... Start Date: 10/15/22 Status: Ordered NIFEdipine 30 mg oral tablet, extended release 30 mg, By Mouth, Daily, # 30 tablet, Refills 0, Tot. Refills 0, Maintenance, 12/27/22 8:28:00 EDT, Route to Pharmacy Electronically, [facility], Partial fill upon patient request [...] Care team information Care Team Personnel Name: Shayla FERNANDEZ Gabriela Position: [facility] OB RN Member Role: Primary Care Nurse Name: Justyna Lin MD Position: [facility] Physician - Primary Care Member Role: PCP Address: Address: [address] [place] [address], [address] Care Team Related Persons Name: DAISY OWEN Address: [id number] Address: home [address] [place] [address] [place] Name: FABRICE OWEN Address: [address] Address: home [address] [place] [address] Name: MONICO OWEN Address: [address] Address: home [address] [place] [address] [place] Name: PETER DUKE Address: home [address] [place] [address]
--- OUTSIDE RECORDS SUMMARY | 2023-08-01 09:36 | XMS_ITS | Continuity of Care Document ---
Author Organization [facility] ter Address [address] [place] [address]- Care Team Providers Care Librarian Assistant Name Role Phone Eduardo NO, Rachel Lake Primary Care Physician Encounter [facility] Date(s): 01/03/21 - 02/08/[address] [address]- Attending Physician: Neal Sandoval MD Admitting Physician: Neal Sandoval MD Referring Physician: Madalyn Hills MD Allergies, Adverse Reactions, Alerts Substance Reaction [...] 13:31:00 EDT, Inhaler, Route to Pharmacy Electronically, [id number], [facility], 157, cm, 12/06... Start Date: 12/09/20 Status: Ordered albuterol inhaler (OP) 0 Refills, Maintenance Start Date: 12/06/20 Status: Ordered Problem List Condition Effective Dates Status Health Status Inform ant Asthma(Confirmed) Active Smoking (tobacco) complicati ng , third trimester(Confirmed) Active Migraines(Confirmed) Active Paroxysmal SVT (supraventric ular tachycardia)(Confirmed) Active Social History Social History Type Response Smoking Status Current every day adrianne crandall entered on: 01/06/16 Sex
--- OUTSIDE RECORDS SUMMARY | 2023-08-01 09:36 | XMS_ITS | Continuity of Care Document ---
Author Organization [facility] Address [address] [place] [address]- Care Team Providers Care Auto Body Service Mechanic Name Role Phone Rliey LEON, Justyna Acevedo Primary Care Physician [place] [facility] [place]/04/[place] - 12/01/[address] [address] Attending Physician: Linda Tsai CNM Admitting Physician: Linda Tsai CNM Allergies, Adverse Reactions, Alerts Substance Reaction Severity [...] 23:24:00 EDT, Route to Pharmacy Electronically, [facility]/pharmacy #[id number], 155, cm, 10/11/22 14:32:00 EDT, Height, 86.3, kg, 01... Start Date: 10/15/22 Status: Ordered albuterol CFC free 90 mcg/inh inhalation aerosol 180 mcg, 2, puffs, Inhalation, Every 4 hours, PRN, # 6.7 Gm, Refills 0, Tot. Refills 0, Maintenance, 11/20/22 14:32:00 EDT, Inhaler, Route to Pharmacy Electronically, [id number], [facility]/pharmacy #[id number], 155, cm, 11/15/22 10:18:00... Start Date: 11/20/22 Status: Ordered albuterol CFC free 90 mcg/inh inhalation aerosol 2, puffs, Inhalation, 4 times a day, PRN, # 8 Gm, Refills 0, Tot. Refills 0, Maintenance, 10/15/22 23:23:00 EDT, Aerosol, Route to Pharmacy Electronically, [id number], [facility]/pharmacy #[id number], 155, cm, 10/11/22 14:32:00 EDT, Heigh... Start Date: 10/15/22 Status: Ordered albuterol inhaler (OP) 0 Refills, Maintenance Start Date: 12/06/20 Status: Ordered aspirin 81 mg oral delayed release tablet 162 mg, 2, tablet, By Mouth, Daily, # 180 tablet, Refills 1, Tot. Refills 1, Maintenance, 06/07/22 10:54:00 EDT, Route to Pharmacy Electronically, [facility], Partial fill upon patient request if the prescription is for a schedule... Start Date: 06/07/22 Stop Date: 12/04/22 Status: Ordered Flovent HFA 110 mcg/inh inhalation aerosol 2 puffs, Inhalation, 2 times a day, # 12 Gm, 0 Refills, Maintenance, 10/15/22 23:17:00 EDT, Aerosol, [facility]/pharmacy #[id number], Partial fill upon patient request if the prescription is for a schedule II opioid drug., 155, cm, 10/11/22 14:32:00 EDT, Height, 8... Start Date: 10/15/22 Status: Ordered guaiFENesin 100 mg/5 mL oral liquid 5 mL = 100 mg, By Mouth, Every 4 hours, PRN for cough, # 300 mL, 0 Refills, Maintenance, 10/15/22 23:22:00 EDT, Liquid, [facility]pharmacy #[id number], 155, cm, 10/11/22 14:32:00 EDT, Height, 86.3, kg, 03/01/21 17:10:00 EST, Dry Weight Start Date: 10/15/22 Status: Ordered metronidazole topical 0.75% gel with applicator 1 application, Vaginally, Daily at bedtime, # 70 Gm, 0 Refills, Soft Stop, 06/11/22 12:19:00 EDT, Gel, [facility], Partial fill upon patient request if the prescription is for a schedule II opioid drug., 1 application Vaginally Jenniffer... Start Date: 06/11/22 Stop Date: 06/16/22 Status: Ordered miconazole 2% topical cream 1 application, Vaginally, Daily at bedtime, Apply 5 gm vaginally at bedtime for seven days, # 45 Gm, 0 Refills, Maintenance, 10/11/22 15:43:00 EDT, Cream, [facility], Partial fillupon patient request if [...] Team Personnel Name: Gabriela Mcguire LPN Position: [facility] OB RN Member Role: Primary Care Nurse Name: Justyna Lin MD Position: [facility] Physician - Primary Care Member Role: PCP Address: Address: [address] [place] [address], 1[address] [place], [place] [address] Care Team Related Persons Name: DAISY OWEN Address: [address] Address: [address] [place] [address] [place] Name: MONICO OWEN Address: [address] Address: home [address] [place] [address] [place] Name: PETER DUKE Address: home [address] [place] [address] [place] [address]
--- OUTSIDE RECORDS SUMMARY | 2023-08-01 09:36 | XMS_ITS | Continuity of Care Document ---
Author Organization [facility] Address [address] [place] [address]- Care Team Providers Care Bridge Operator Slip Name Role Phone Riley LEON, Justyna Acevedo Primary Care Physician [place] [facility] [place] Date(s): 08/02/22 - 10/20/[address] [address] Attending Physician: Not on Staff, Attending [...] 23:23:00 EDT, Aerosol, Route to Pharmacy Electronically, [id number], [id number], 155, cm, 10/11/22 14:32:00 EDT, Heigh... Start Date: 10/15/22 Status: Ordered albuterol CFC free 90 mcg/inh inhalation aerosol 180 mcg, 2, puffs, Inhalation, Every 4 hours, PRN, # 6.7 Gm, Refills 0, Tot. Refills 0, Maintenance, 12/09/20 13:31:00 EDT, Inhaler, Route to Pharmacy Electronically, [id number], [facility], 157, cm, 12/06... Start Date: 12/09/20 Status: Ordered albuterol inhaler (OP) 0 Refills, Maintenance Start Date: 12/06/20 Status: Ordered aspirin 81 mg oral delayed release tablet 162 mg, 2, tablet, By Mouth, Daily, # 180 tablet, Refills 1, Tot. Refills 1, Maintenance, 06/07/22 10:54:00 EDT, Route to Pharmacy Electronically, [facility], Partial fill upon patient request if the prescription is for a schedule... Start Date: 06/07/22 Stop Date: 12/04/22 Status: Ordered Flovent HFA 110 mcg/inh inhalation aerosol 2 puffs, Inhalation, 2 times a day, # 12 Gm, 0 Refills, Maintenance, 10/15/22 23:17:00 EDT, Aerosol, [facility] #[id number], Partial fill upon patient request if the prescription is for a schedule II opioid drug., 155, cm, 10/11/22 14:32:00 EDT, Height, 8... Start Date: 10/15/22 Status: Ordered guaiFENesin 100 mg/5 mL oral liquid 5 mL = 100 mg, By Mouth, Every 4 hours, PRN for cough, # 300 mL, 0 Refills, Maintenance, 10/15/22 23:22:00 EDT, Liquid, [facility] #[id number], 155, cm, 10/11/22 14:32:00 EDT, Height, 86.3, kg, 03/01/21 17:10:00 EST, Dry Weight Start Date: 10/15/22 Status: Ordered metroNIDAZOLE 500 mg oral tablet 1 tablet = 500 mg, By Mouth, Every 12 hours, for 7 days, # 14 tablet, 0 Refills, Acute 10/21/22 14:05:00 EDT, 10/14/22 14:05:00 EDT, Tablet, [facility], Partial fill upon patient request if the prescription is for a schedule II opi... Start Date: 10/14/22 Stop Date: 10/21/22 Status: Ordered metronidazole topical 0.75% gel with applicator 1 application, Vaginally, Daily at bedtime, # 70 Gm, 0 Refills, Soft Stop, 06/11/22 12:19:00 EDT, Gel, [facility], Partial fill upon patient request if the prescription is for a schedule II opioid drug., 1 application Vaginally Jenniffer... Start Date: 06/11/22 Stop Date: 06/16/22 Status: Ordered miconazole 2% topical cream 1 application, Vaginally, Daily at bedtime, Apply 5 gm vaginally at bedtime for seven days, # 45 Gm, 0 Refills, Maintenance, 10/11/22 15:43:00 EDT, Cream, [facility], Partial fillupon patient request [...] Name: Gabriela Mcguire LPN Position: [facility] OB RN Member Role: Primary Care Nurse Name: Justyna Lin MD Position: [facility] Physician - Primary Care Member Role: PCP Address: Address: [address] [place] [address], 1st [place] [address]- [place] Care Team Related Persons Name: NEO OWENFLY Address: [address] Address: [address] [place] [address] Name: MONICO OWEN Address: [address] Address: [address] [place] [address] [place] Name: MAMADOU MARIANO Address: [address] [place] [address] Name: PETER DUKE Address: [address] [place] [address]
--- OUTSIDE RECORDS SUMMARY | 2023-08-01 09:36 | XMS_ITS | Continuity of Care Document ---
Author Organization [facility] ter Address [address] [place] [address]- Care Team Providers Care Computer Operations Supervisor Name Role Phone Eduardo NO, Rachel V Primary Care Physician Encounter [facility] Date(s): 01/24/21 - 01/24/[address] [address] Attending Physician: Little Eng MD Allergies, Adverse Reactions, Alerts Substance Reaction [...] 13:31:00 EDT, Inhaler, Route to Pharmacy Electronically, [id number], [facility], 157, cm, 12/06... Start Date: [...]
--- OUTSIDE RECORDS SUMMARY | 2023-08-01 09:36 | XMS_ITS | Continuity of Care Document ---
Author Organization [facility] Address [address] [place] [address]- Care Team Providers Care Tracer Bullet Charging Machine Operator Name Role Phone Riley LEON, Jutsyna Acevedo Primary Care Physician [place] [facility] [place] 11/06/22 - 12/08/[address] [address] Attending Physician: Not on Staff, Attending MD Referring Physician: Arielle George DO Allergies, Adverse Reactions, Alerts Substance Reaction Severity [...] 10/15/22 23:24:00 EDT, Route to Pharmacy Electronically, [facility] #[id number], 155, cm, 10/11/22 14:32:00 EDT, Height, 86.3, kg, 01... Start Date: 10/15/22 Status: Ordered albuterol CFC free 90 mcg/inh inhalation aerosol 180 mcg, 2, puffs, Inhalation, Every 4 hours, PRN, # 6.7 Gm, Refills 0, Tot. Refills 0, Maintenance, 11/20/22 14:32:00 EDT, Inhaler, Route to Pharmacy Electronically, [id number], [facility] #[id number], 155, cm, 11/15/22 10:18:00... Start Date: 11/20/22 Status: Ordered albuterol CFC free 90 mcg/inh inhalation aerosol 2, puffs, Inhalation, 4 times a day, PRN, # 8 Gm, Refills 0, Tot. Refills 0, Maintenance, 10/15/22 23:23:00 EDT, Aerosol, Route to Pharmacy Electronically, [id number], [facility]/pharm[facility] #[id number], 155, cm, 10/11/22 14:32:00 EDT, Heigh... Start Date: 10/15/22 Status: Ordered albuterol inhaler (OP) 0 Refills, Maintenance Start Date: 12/06/20 Status: Ordered aspirin 81 mg oral delayed release tablet 162 mg, 2, tablet, By Mouth, Daily, # 180 tablet, Refills 1, Tot. Refills 1, Maintenance, 06/07/22 10:54:00 EDT, Route to Pharmacy Electronically, [facility], Partial fill upon patient request if the prescription is for a schedule... Start Date: 06/07/22 Stop Date: 12/04/22 Status: Ordered Flovent HFA 110 mcg/inh inhalation aerosol 2 puffs, Inhalation, 2 times a day, # 12 Gm, 0 Refills, Maintenance, 10/15/22 23:17:00 EDT, Aerosol, [facility]/pharmacy #[id number], Partial fill upon patient request if the prescription is for a schedule II opioid drug., 155, cm, 10/11/22 14:32:00 EDT, Height, 8... Start Date: 10/15/22 Status: Ordered guaiFENesin 100 mg/5 mL oral liquid 5 mL = 100 mg, By Mouth, Every 4 hours, PRN for cough, # 300 mL, 0 Refills, Maintenance, 10/15/22 23:22:00 EDT, Liquid, [facility]/pharm[facility] #[id number], 155, cm, 10/11/22 14:32:00 EDT, Height, 86.3, kg, 03/01/21 17:10:00 EST, Dry Weight Start Date: 10/15/22 Status: Ordered metronidazole topical 0.75% gel with applicator 1 application, Vaginally, Daily at bedtime, # 70 Gm, 0 Refills, Soft Stop, 06/11/22 12:19:00 EDT, Gel, [facility], Partial fill upon patient request if the prescription is for a schedule II opioid drug., 1 application Vaginally Jenniffer... Start Date: 06/11/22 Stop Date: 06/16/22 Status: Ordered miconazole 2% topical cream 1 application, Vaginally, Daily at bedtime, Apply 5 gm vaginally at bedtime for seven days, # 45 Gm, 0 Refills, Maintenance, 10/11/22 15:43:00 EDT, Cream, [facility], Partial fillupon patient request if [...] Team Personnel Name: Gabriela Mcguire LPN Position: [facility] OB RN Member Role: Primary Care Nurse Name: Justyna Lin MD Position: [facility] Physician - Primary Care Member Role: PCP Address: Address: [address] [place] [address], 1st [place] [address]- Care Team Related Persons Name: DAISY OWEN Address: [address] Address: [address] [place] [address] [place] Name: MONICO OWEN Address: [address] Address: [address] [place] [address] [place] Name: PETER DUKE Address: home [address] [place] [address] [place] [address]
--- OUTSIDE RECORDS SUMMARY | 2023-08-01 09:36 | XMS_ITS | Continuity of Care Document ---
Author Organization [facility] Address [address] [place] [address]- Care Team Providers Care Seat Cover Maker Name Role Phone Riley LEON, Justyna Acevedo Primary Care Physician Encounter [facility] [place] Date(s): 12/11/22 - 02/07/[address] [address] Attending Physician: Not on Staff, Attending MD [...] 02/21/23 7:00:00 EST, 12/23/22 6:52:00 EDT, Capsule, [facility]... Start Date: 12/23/22 Stop Date: 02/21/23 Status: Ordered acetaminophen 325 mg oral tablet 650 mg, 2, tablet, By Mouth, Every 4 hours, PRN, # 12 tablet, Refills 0, Tot. Refills 0, Maintenance, as needed for pain, 10/15/22 23:24:00 EDT, Route to Pharmacy Electronically, [facility]/pharmacy #[id number], 155, cm, 10/11/22 14:32:00 EDT, Height, 86.3, kg, 01... Start Date: 10/15/22 Status: Ordered albuterol CFC free 90 mcg/inh inhalation aerosol 180 mcg, 2, puffs, Inhalation, Every 4 hours, PRN, # 6.7 Gm, Refills 0, Tot. Refills 0, Maintenance, 11/20/22 14:32:00 EDT, Inhaler, Route to Pharmacy Electronically, [id number], [facility]/pharmacy #[id number], 155, cm, 11/15/22 10:18:00... Start Date: 11/20/22 Status: Ordered albuterol CFC free 90 mcg/inh inhalation aerosol 2, puffs, Inhalation, 4 times a day, PRN, # 8 Gm, Refills 0, Tot. Refills 0, Maintenance, 10/15/22 23:23:00 EDT, Aerosol, Route to Pharmacy Electronically, [id number], [facility]/pharmacy #[id number], 155, cm, 10/11/22 14:32:00 EDT, Heigh... Start Date: 10/15/22 Status: Ordered albuterol inhaler (OP) 0 Refills, Maintenance Start Date: 12/06/20 Status: Ordered Flovent HFA 110 mcg/inh inhalation aerosol 2 puffs, Inhalation, 2 times a day, # 12 Gm, 0 Refills, Maintenance, 10/15/22 23:17:00 EDT, Aerosol, [facility]/pharmacy #[id number], Partial fill upon patient request [...] 12/27/22 8:28:00 EDT, Route to Pharmacy Electronically, [facility], Partial fill upon patient request [...] Team Personnel Name: Gabriela Mcguire LPN Position: [facility] OB RN Member Role: Primary Care Nurse Name: Justyna Lin MD Position: [facility] Physician - Primary Care Member Role: PCP Address: Address: [address] [place] [address], 1st [place] [address]- Care Team Related Persons Name: DAISY OWEN Address: [address] Address: [address] [place] [address] [place] Name: MONICO OWEN Address: [address] Address: home [address] [place] [address] [place] Name: MAMADOU SIMMONS GIRL Address: [address] Address: home [address] [place] [address] [place] Name: PETER DUKE Address: home [address] [facility] [address]
--- OUTSIDE RECORDS SUMMARY | 2023-08-01 09:36 | XMS_ITS | Continuity of Care Document ---
Author Organization [facility] Address [address] [place] [address]- Care Team Providers Care Deburrer Name Role Phone Riley LEON, Justyna Acevedo Primary Care Physician [phone] Encounter [facility] [place] Date(s): 04/22/22 - 05/22/[address] [address] Allergies, Adverse Reactions, Alerts Substance Reaction Severity [...] 13:31:00 EDT, Inhaler, Route to Pharmacy Electronically, [id number], [facility], 157, cm, 12/06... Start Date: 12/09/20 Status: Ordered albuterol inhaler (OP) 0 Refills, Maintenance Start Date: 12/06/20 Status: Ordered pyridoxine 25 mg oral tablet 1 tablet = 25 mg, By Mouth, 3 times a day, PRN Nausea & Vomiting, # 100 tablet, 8 Refills, Maintenance, 05/13/22 10:31:00 EDT, Tablet, Partial fill upon patient request if the prescription is fora schedule II opioid drug. Start Date: 3/20/23 Status: Ordered Problem List Condition Confirmation Course Effective Dates Status Health St at[facility] Informant Asthma Confirmed Active Former cigarette smoker quit 2021 Confirmed Active History of Migraines --2019 Confirmed Active Obese class II Confirmed Active History ofParoxysmal SVT (supraventricular tachycardia) 1 Confirmed Active 1SVT in 2019 not futher problem Social History Social History Type Response Smoking Status Former smoker, quit more than 30 days ago; Other: Quit 2021; entered on: 05/13/22 Sex Patient Care team information Care Team Personnel Name: Justyna Lin MD Position: [facility] Physician (General Medicine) Member Role: PCP Address: Address: [address] [place] [address], 1st [place] [address]- Care Team Related Persons Name: DAISY OWEN Address: [address] Address: [address] [place] [address] Name: MONICO OWEN Address: [address] Address: [address] [place] [address] Name: MAMADOU MARIANO Address: [address] [place] [address] Name: PETER DUKE Address: [address] [place] [address]
--- OUTSIDE RECORDS SUMMARY | 2023-08-01 09:36 | XMS_ITS | Continuity of Care Document ---
Author Organization [facility] Address [address] [place] [address]- Care Team Providers Care Pairer Odds Name Role Phone Eduardo NO, Rachel Lake Primary Care Physician [phone] Encounter [facility] [place] Date(s): 07/20/20 - 08/19/[address] [address] Attending Physician: Diego Julien Admitting Physician: Diego Julien Referring Physician: AdmtrDiego Allergies, Adverse Reactions, Alerts Substance Reaction Severity Status levoFLOXacin Unknown Active Immunizations Given and Recorded Vaccine Date Status Refusal Reason tetanus/diphtheria/pertussis, acel(Tdap) 01/06/16 Given Medications Zoloft 25 mg oral tablet 2 tablet = 50 mg, By Mouth, Daily, Take 1 tab x 1 week, then take 2 tabs daily., # 60 tablet, 1 Refills, Maintenance, 04/20/18 11:27:17 EST, Tablet Start Date: 04/20/18 Stop Date: 06/19/18 Status: Ordered Problem List Condition Effective Dates Status Health Status Inform ant Asthma(Confirmed) Active Smoking (tobacco) complicati ng , third trimester(Confirmed) Active Migraines(Confirmed) Active Paroxysmal SVT (supraventric ular tachycardia)(Confirmed) Active Social History Social History Type Response Smoking Status Current every day adrianne crandall entered on: 01/06/16 Sex
--- OUTSIDE RECORDS SUMMARY | 2023-08-01 09:36 | XMS_ITS | Continuity of Care Document ---
Author Organization [facility] ter Address [address] [place] [address]- Care Team Providers Care Carnallite Plant Operator Name Role Phone Eduardo NO, Rachel Lake Primary Care Physician [phone] Encounter [facility] [place] Date(s): 10/14/20 - 10/14/[address] [address] Attending Physician: Silvia East MD Admitting Physician: Silvia East MD Referring Physician: Silvia East MD Allergies, Adverse Reactions, Alerts Substance Reaction [...]
--- OUTSIDE RECORDS SUMMARY | 2023-08-01 09:36 | XMS_ITS | Continuity of Care Document ---
Author Organization [facility] Address [address] [place] [address]- Care Team Providers Care Licensed Nurse Practitioner Name Role Phone Eduardo NO, Rachel Lake Primary Care Physician Encounter [facility] [place] Date(s): 07/11/20 - 08/10/[address] [address] Allergies, Adverse Reactions, Alerts Substance Reaction [...]
--- OUTSIDE RECORDS SUMMARY | 2023-08-01 09:36 | XMS_ITS | Continuity of Care Document ---
Author Organization [facility] Address [address] [place] [address]- Care Team Providers Care Center Lead Consultant Name Role Phone Riley LEON, Justyna Acevedo Primary Care Physician Encounter [facility] [place] Date(s): 04/14/23 - 07/05/[address] [address] Attending Physician: Not on Staff, Attending [...] 23:24:00 EDT, Route to Pharmacy Electronically, [facility]/pharmacy #[id number], 155, cm, 10/11/22 14:32:00 EDT, Height, 86.3, kg, 01... Start Date: 10/15/22 Status: Ordered albuterol CFC free 90 mcg/inh inhalation aerosol 180 mcg, 2, puffs, Inhalation, Every 4 hours, PRN, # 6.7 Gm, Refills 0, Tot. Refills 0, Maintenance, 11/20/22 14:32:00 EDT, Inhaler, Route to Pharmacy Electronically, [id number], [facility]/pharmacy #[id number], 155, cm, 11/15/22 10:18:00... Start Date: 11/20/22 Status: Ordered albuterol CFC free 90 mcg/inh inhalation aerosol 2, puffs, Inhalation, 4 times a day, PRN, # 8 Gm, Refills 0, Tot. Refills 0, Maintenance, 10/15/22 23:23:00 EDT, Aerosol, Route to Pharmacy Electronically, [id number], [facility] #[id number], 155, cm, 10/11/22 14:32:00 EDT, Heigh... Start Date: 10/15/22 Status: Ordered Flovent HFA 110 mcg/inh inhalation aerosol 2 puffs, Inhalation, 2 times a day, # 12 Gm, 0 Refills, Maintenance, 10/15/22 23:17:00 EDT, Aerosol, [facility]/pharmacy #[id number], Partial fill upon patient request if [...] Primary Care Member Role: PCP Address: Address: [address] [place] [address], 1st [place] [address]- Care Team Related Persons Name: DAISY OWEN Address: Address: [address] [place] [address] Name: FABRICE OWEN Address: Address: [address] [place] [address] Name: MONICO OWEN Address: [address] Address: [address] [place] [address] Name: PETER DUKE Address: [address] [place] [address]
--- OUTSIDE RECORDS SUMMARY | 2023-08-01 09:36 | XMS_ITS | Continuity of Care Document ---
Author Organization [facility] Aysha mika Address [address] [place] [address] [address] [place] [address]- Care Team Providers Care Shift Superintendent Name Role Phone Justyna Lin MD Primary Care Physician Encounter [facility] Date(s): 11/13/22 - 12/13/22 [facility] [address] [place], [place] [address] Attending Physician: Admtr, Ar8 Admitting Physician: Admtr, Ar8 Referring Physician: Admtr, Ar8 Allergies, Adverse Reactions, [...] 14:32:00 EDT, Inhaler, Route to Pharmacy Electronically, [id number], [facility]/pharmacy #[id number], 155, cm, 11/15/22 10:18:00... Start Date: 11/20/22 Status: Ordered albuterol CFC free 90 mcg/inh inhalation aerosol 2, puffs, Inhalation, 4 times a day, PRN, # 8 Gm, Refills 0, Tot. Refills 0, Maintenance, 10/15/22 23:23:00 EDT, Aerosol, Route to Pharmacy Electronically, [id number], [facility]/pharmacy #[id number], 155, cm, 10/11/22 14:32:00 EDT, Heigh... Start Date: 10/15/22 Status: Ordered albuterol inhaler (OP) 0 Refills, Maintenance Start Date: 12/06/20 Status: Ordered aspirin 81 mg oral delayed release tablet 162 mg, 2, tablet, By Mouth, Daily, # 180 tablet, Refills 1, Tot. Refills 1, Maintenance, 06/07/22 10:54:00 EDT, Route to Pharmacy Electronically, [facility], Partial fill upon patient request [...] Refills, Soft Stop, 06/11/22 12:19:00 EDT, Gel, [facility], Partial fill upon patient request if the prescription is for a schedule II opioid drug., 1 application Vaginally Jenniffer... Start Date: 06/11/22 Stop Date: 06/16/22 Status: Ordered miconazole 2% topical cream 1 application, Vaginally, Daily at bedtime, Apply 5 gm vaginally at bedtime for seven days, # 45 Gm, 0 Refills, Maintenance, 10/11/22 15:43:00 EDT, Cream, [facility], Partial fillupon patient request if [...] Primary Care Member Role: PCP Address: Address: [address] [place] [address], 1st [address] [place], [place] [address] Care Team Related Persons Name: DAISY OWEN Address: [address] Address: [address] [place] [address] [place] Name: MONICO OWEN Address: [address] Address: [address] [place] [address] [place] Name: PETER DUKE Address: [address] [place] [address]
--- OUTSIDE RECORDS SUMMARY | 2023-08-01 09:36 | XMS_ITS | Continuity of Care Document ---
Author Organization [facility] Address [address] [place] [address]- Care Team Providers Care Artificial Inseminator Name Role Phone Riley LEON, Justyna Acevedo Primary Care Physician [place] [facility] [place] - 10/18/[address] [address] Attending Physician: Not on Staff, Attending MD [...] 10/15/22 23:24:00 EDT, Route to Pharmacy Electronically, [facility]/pharmacy #[id number], 155, cm, 10/11/22 14:32:00 EDT, Height, 86.3, kg, 01... Start Date: 10/15/22 Status: Ordered albuterol CFC free 90 mcg/inh inhalation aerosol 2, puffs, Inhalation, 4 times a day, PRN, # 8 Gm, Refills 0, Tot. Refills 0, Maintenance, 10/15/22 23:23:00 EDT, Aerosol, Route to Pharmacy Electronically, [id number], [id number], 155, cm, 10/11/22 14:32:00 EDT, Heigh... Start Date: 10/15/22 Status: Ordered albuterol CFC free 90 mcg/inh inhalation aerosol 180 mcg, 2, puffs, Inhalation, Every 4 hours, PRN, # 6.7 Gm, Refills 0, Tot. Refills 0, Maintenance, 12/09/20 13:31:00 EDT, Inhaler, Route to Pharmacy Electronically, [id number], [facility], 157, cm, 12/06... Start Date: 12/09/20 Status: Ordered albuterol inhaler (OP) 0 Refills, Maintenance Start Date: 12/06/20 Status: Ordered aspirin 81 mg oral delayed release tablet 162 mg, 2, tablet, By Mouth, Daily, # 180 tablet, Refills 1, Tot. Refills 1, Maintenance, 06/07/22 10:54:00 EDT, Route to Pharmacy Electronically, [facility], Partial fill upon patient request if the prescription is for a schedule... Start Date: 06/07/22 Stop Date: 12/04/22 Status: Ordered Flovent HFA 110 mcg/inh inhalation aerosol 2 puffs, Inhalation, 2 times a day, # 12 Gm, 0 Refills, Maintenance, 10/15/22 23:17:00 EDT, Aerosol, [facility]/pharmacy #[id number], Partial fill upon patient request if the prescription is for a schedule II opioid drug., 155, cm, 10/11/22 14:32:00 EDT, Height, 8... Start Date: 10/15/22 Status: Ordered guaiFENesin 100 mg/5 mL oral liquid 5 mL = 100 mg, By Mouth, Every 4 hours, PRN for cough, # 300 mL, 0 Refills, Maintenance, 10/15/22 23:22:00 EDT, Liquid, [facility]/pharmacy #[id number], 155, cm, 10/11/22 14:32:00 EDT, Height, 86.3, kg, 03/01/21 17:10:00 EST, Dry Weight Start Date: 10/15/22 Status: Ordered metroNIDAZOLE 500 mg oral tablet 1 tablet = 500 mg, By Mouth, Every 12 hours, for 7 days, # 14 tablet, 0 Refills, Acute 10/21/22 14:05:00 EDT, 10/14/22 14:05:00 EDT, Tablet, [facility], Partial fill upon patient request if the prescription is for a schedule II opi... Start Date: 10/14/22 Stop Date: 10/21/22 Status: Ordered metronidazole topical 0.75% gel with applicator 1 application, Vaginally, Daily at bedtime, # 70 Gm, 0 Refills, Soft Stop, 06/11/22 12:19:00 EDT, Gel, [facility], Partial fill upon patient request if the prescription is for a schedule II opioid drug., 1 application Vaginally Jenniffer... Start Date: 06/11/22 Stop Date: 06/16/22 Status: Ordered miconazole 2% topical cream 1 application, Vaginally, Daily at bedtime, Apply 5 gm vaginally at bedtime for seven days, # 45 Gm, 0 Refills, Maintenance, 10/11/22 15:43:00 EDT, Cream, [facility], Partial fillupon patient request [...] Team Personnel Name: Gabriela Mcguire LPN Position: [facility] OB RN Member Role: Primary Care Nurse Name: Riley LEON, Justyna Acevedo Position: [facility] Physician - Primary Care Member Role: PCP Address: Address: [address] [facility], 1st [place] [address]- Care Team Related Persons Name: DAISY OWEN Address: [address] Address: [address] [place] [address] Name: MONICO OWEN Address: [address] Address: [address] [place] [address] [place] Name: MAMADOU MARIANO Address: [address] [place] [address] Name: PETER DUKE Address: [address] [place] [address]
--- OUTSIDE RECORDS SUMMARY | 2023-08-01 09:36 | XMS_ITS | Continuity of Care Document ---
Author Organization [facility] Address [address] [place] [address]- Care Team Providers Care Whitewasher Name Role Phone Riley LEON, Justyna Acevedo Primary Care Physician [place] [facility] [place] [facility] [place]/22/[place] - 07/04/[address] [address] Attending Physician: Not on Staff, Attending MD Referring Physician: Filippo SORENSEN, SHINGLE TRIMMER, Nunu Acevedo Allergies, Adverse Reactions, Alerts Substance Reaction Severity [...] 13:31:00 EDT, Inhaler, Route to Pharmacy Electronically, [id number], [facility], 157, cm, 12/06... Start Date: 12/09/20 Status: Ordered albuterol inhaler (OP) 0 Refills, Maintenance Start Date: 12/06/20 Status: Ordered aspirin 81 mg oral delayed release tablet 162 mg, 2, tablet, By Mouth, Daily, # 180 tablet, Refills 1, Tot. Refills 1, Maintenance, 06/07/22 10:54:00 EDT, Route to Pharmacy Electronically, [facility], Partial fill upon patient request if the prescription is for a schedule... Start Date: 06/07/22 Stop Date: 12/04/22 Status: Ordered metronidazole topical 0.75% gel with applicator 1 application, Vaginally, Daily at bedtime, # 70 Gm, 0 Refills, Soft Stop, 06/11/22 12:19:00 EDT, Gel, [facility], Partial fill upon patient request [...] Refills, Soft Stop, 06/10/22 15:36:00 EDT, Tablet, [facility], Partial fill upon patient request [...] Team Personnel Name: Gabriela Mcguire LPN Position: [facility] OB RN Member Role: Primary Care Nurse Name: Justyna Lin MD Position: [facility] Physician (General Medicine) Member Role: PCP Address: Address: [address] [place] [address], [address] Care Team Related Persons Name: DAISY OWEN Address: [address] Address: [address] [place] [address] Name: BRAYDENMONICO Address: [address] Address: [address] [place] [address] [place] Name: MAMADOU MARIANO Address: [address] [place] [address] Name: PETER DUKE Address: [address] [place] [address]
--- OUTSIDE RECORDS SUMMARY | 2023-08-01 09:36 | XMS_ITS | Continuity of Care Document ---
Author Organization [facility] Address [address] [place] [address]- Care Team Providers Care Foreign Clerk Name Role Phone Justyna Lin MD Primary Care Physician Encounter [facility] [place] Date(s): 12/13/22 - 12/13/[address] [address] Discharge Disposition: A-D/C Home Attending Physician: Tien [...] 10/15/22 23:24:00 EDT, Route to Pharmacy Electronically, [facility]/pharmacy #[id number], 155, cm, 10/11/22 14:32:00 EDT, Height, 86.3, kg, 01... Start Date: 10/15/22 Status: Ordered albuterol CFC free 90 mcg/inh inhalation aerosol 180 mcg, 2, puffs, Inhalation, Every 4 hours, PRN, # 6.7 Gm, Refills 0, Tot. Refills 0, Maintenance, 11/20/22 14:32:00 EDT, Inhaler, Route to Pharmacy Electronically, [id number], [facility]/pharmacy #[id number], 155, cm, 11/15/22 10:18:00... Start Date: 11/20/22 Status: Ordered albuterol CFC free 90 mcg/inh inhalation aerosol 2, puffs, Inhalation, 4 times a day, PRN, # 8 Gm, Refills 0, Tot. Refills 0, Maintenance, 10/15/22 23:23:00 EDT, Aerosol, Route to Pharmacy Electronically, [id number], [facility]/pharmacy #[id number], 155, cm, 10/11/22 14:32:00 EDT, Heigh... Start Date: 10/15/22 Status: Ordered albuterol inhaler (OP) 0 Refills, Maintenance Start Date: 12/06/20 Status: Ordered aspirin 81 mg oral delayed release tablet 162 mg, 2, tablet, By Mouth, Daily, # 180 tablet, Refills 1, Tot. Refills 1, Maintenance, 06/07/22 10:54:00 EDT, Route to Pharmacy Electronically, [facility], Partial fill upon patient request if the prescription is for a schedule... Start Date: 06/07/22 Stop Date: 12/04/22 Status: Ordered Flovent HFA 110 mcg/inh inhalation aerosol 2 puffs, Inhalation, 2 times a day, # 12 Gm, 0 Refills, Maintenance, 10/15/22 23:17:00 EDT, Aerosol, [facility]/pharmacy #[id number], Partial fill upon patient request if the prescription is for a schedule II opioid drug., 155, cm, 10/11/22 14:32:00 EDT, Height, 8... Start Date: 10/15/22 Status: Ordered guaiFENesin 100 mg/5 mL oral liquid 5 mL = 100 mg, By Mouth, Every 4 hours, PRN for cough, # 300 mL, 0 Refills, Maintenance, 10/15/22 23:22:00 EDT, Liquid, [facility]/pharmacy #[id number], 155, cm, 10/11/22 14:32:00 EDT, Height, 86.3, kg, 03/01/21 17:10:00 EST, Dry Weight Start Date: 10/15/22 Status: Ordered metronidazole topical 0.75% gel with applicator 1 application, Vaginally, Daily at bedtime, # 70 Gm, 0 Refills, Soft Stop, 06/11/22 12:19:00 EDT, Gel, [facility], Partial fill upon patient request if the prescription is for a schedule II opioid drug., 1 application Vaginally Jenniffer... Start Date: 06/11/22 Stop Date: 06/16/22 Status: Ordered miconazole 2% topical cream 1 application, Vaginally, Daily at bedtime, Apply 5 gm vaginally at bedtime for seven days, # 45 Gm, 0 Refills, Maintenance, 10/11/22 15:43:00 EDT, Cream, [facility], Partial fillupon patient request if [...] Most recent to oldest [Reference Range]: 1 Weight 86.8 kg (12/13/22 3:46 PM) Oxygen Saturation [94-100 %] 100 % (12/13/22 3:44 PM) Pulse Rate [55-90 bpm] 86 bpm (12/13/22 3:44 PM) Blood Pressure [90-138/55-84 mm Hg] 134/ 75mm Hg (12/13/22 3:44 PM) Respiratory Rate [16-30 br/min] 20 br/mi n (12/13/22 3:44 PM) Temperature [96.8-100.4 DegF] 98.4 DegF (12/13/22 3:46 PM) Mode of Delivery (Oxygen) Room air (12/13/22 3:44 PM) Blood pressure sites Arm, right (12/13/22 3:44 PM) Temperature Route Oral (12/13/22 3:46 PM) Dry Weight 86.8 kg (12/13/22 3:46 PM) Weight Obtained Via Standing scale (12/13/22 3:46 PM) Dry Weight Obtained Via Standing scale (12/13/22 3:46 PM) Social History Social History Type Response Smoking Status Former smoker, quit more than 30 days ago; Other: Quit 2021; entered on: 05/13/22 Sex Note * Timmy Brown RN: PERFORM Event Display: Discharge/Transfer Note Hospital Authored Date: [id number] Nursing Discharge Note Entered On: 12/13/2022 17:09 EDT Performed On: 12/13/2022 17:08 EDT by Timmy Brown RN Nursing Discharge Note 2 Discharge Time : 12/13/2022 17:09 EDT Discharge Level of Care at Discharge : Home/Intermediate/Foster Care Patient Left Unit Via : Ambulatory Patient Accompanied Off Unit with : Significant other DC Instructions Provided & Signed by Pt : Yes Patient Understands D/C Instructions : Yes Patient Instructions Discharge Signed : Yes Did Pt have Specialty Bed or Wound Vac : No Timmy Brown RN - 12/13/2022 17:08 EDT * Timmy Brown RN: PERFORM Event Display: Patient Education/Instruction Authored Date: [id number] Inpatient Adult Discharge Instructions [address] [address] Name: MAMADOU MARIANO : 1985 Visit: 12/13/2022 15:17:00 Current Date: 12/13/2022 16:54 Account: [id number] Inpatient Adult Discharge Instructions We would like [...] and their families. Surveys are administered by [employer] ?? If further treatment with your primary care physician or another doctor is recommended, it is important for you to keep the appointment. Call your primary care physician or return to the Emergency Department immediately if your condition worsens, fails to improve, or new symptoms develop. If you need to find a doctor, you can call [facility] for a referral at [phone] or toll free at [phone]) or log in to [email or web address].. ?? [facility], in keeping with [facility] guidance, no longer requires face masks for [...] a health care chinmay of your choosing. [employer] is a website that allows you to securely view your medical information including your hospital discharge summary, office visit summaries, medications and follow-up visits. You can also request appointments, renew medications, and request access to your medical information using a health care chinmay of your choosing, or just ask a question. You can enroll at [email or web address] or register during your next office visit. You have been discharged from [facility], Patient Care Unit: WETU1. If you have any questions regarding these instructions after you leave, please call us and we will be happy to assist you. [facility] Your Care Team Attending Physician Tien Bowman MD Tests Performed Below is a partial list of the tests performed during your hospitalization. You may have had other tests and procedures not included in this list. Please discuss all test results with your provider. Primary Care Provider Justyna Lin MD Advance Directive Health Care Proxy on File Yes - Health Care Proxy Discharge Vitals Temperature: 98.4 DegF Weight: 86.8 kg Pulse Rate: 86 bpm ?? Respiratory Rate: 20 br/min ?? Systolic Blood Pressure: 134 mm Hg ?? Diastolic Blood Pressure: 75 mm Hg ?? Oxygen Saturation: 100 % ?? Studies Pending All tests and labs ordered during this hospital stay have been completed unless listed below. Please discuss all pending results with your provider listed above in these instructions. ?? No incomplete studies found What to do next Instructions From Your Doctor Discharge Orders Scheduled Follow-Up Appointments Friday 10:00 AM EST ?? Where: [facility] - [facility] Pool [address] [place] [address]- Status: Pending You Need to Schedule the Following Appointments Follow Up with??Jacques KENT, Latrice Acevedo Why: Please keep all scheduled appts with your OB Provider and call with any additional concerns orquestions. Where: [address] [place] [address]- Discharge Medications LEILANIRobert TIPTONESMAMADOU :1985 Visit Date:12/13/2022 Medications: Please continue your medications until treatment [...] Please discuss all test resultswith your provider. Allergies (NKA means No Known Allergies) levoFLOXacin levoFLOXacin ophthalmic??(Levofloxacin, Levofloxacin) Problems Active Problems??(4) Asthma?? History ofParoxysmal SVT (supraventricular tachycardia)?? Obese class II? Education Materials Below is the list of Educational Leaflet Providered with your Discharge Instructions. Hydroxyzine Oral Capsule?? Labor Induction?? How to Prepare for Childbirth?? How to Know You Are in Labor?? Recognizing Labor?? Kick Counts?? Valuables and Belongings I fully understand and agree that [facility] accepts no responsibility for all my [...] encouraged to send valuables and belongings home. ? Other Discharge Information ? Pulmonary Rehab [...] are strongly encouraged to quit. Please call [facility] at [phone] or [phone] ([phone]) or log in to [email or web address] for referrals to smoking cessation programs. ?? 959 Suicide & Crisis Lifeline is available 16/09 if you or someone you know needs to find a reason to keep living. By calling 995 you'll be connected to a skilled, trained counselor at a crisis center in your area. INPATIENT DISCHARGE INSTRUCTIONS SIGNATURE PAGE MAMADOU SIMMONS Location:[facility] Registration Date and Time:12/13/2022 15:17 EDT Primary Care Physician: Justyna Lin MD, Attending Physician: Tien Bowman MD, I MAMADOU SIMMONS, have received the above patient education materials/instructions and have verbalized understanding. If ambulance or transport services are being used I further acknowledge being given a choice of service. ?? If you need to contact me, please call me at this number: . Patient/Veterinary Hospital Attendant Name: Patient/Veterinary Hospital Attendant Signature: Relationship to Patient: Witness Name/Signature: Date: * Timmy Brown RN: PERFORM Event Display: Patient Education Leaflets Authored Date: [id number] Hydroxyzine Oral Capsule ?? [id number] Hydroxyzine Oral Capsule Brands: [employer] Uses This medicine is used for the following purposes: ??? agitation ??? anxiety ??? itching ?? Instructions This medicine may be taken with or without food. Store at room temperature away from heat, light, and moisture. Do not keep in the bathroom. Drug interactions can change how medicines work or increase risk for side effects. Tell your healthcare providers about all medicines taken. Include prescription and fhox-mby-tbcjacx medicines, vitamins, and herbal medicines. Speak with your doctor or pharmacist before starting or stopping any medicine. Tell your doctor if symptoms do not get better or if they get worse. ?? Cautions Tell your doctor and pharmacist if you ever had an allergic reaction to a medicine. Do not use the medication any more than instructed. Your ability to stay alert or to react quickly may be impaired by this medicine. Do not drive or operate machinery until you know how this medicine will affect you. Please check with your doctor before drinking alcohol while on this medicine. Tell the doctor or pharmacist if you are , planning to be , or . Do not share this medicine with anyone who has not been prescribed this medicine. ?? Side Effects The following is a list of some common side effects from this medicine. Please speak with your doctor about what you should do if you experience these or other side effects. ??? constipation ??? dizziness or drowsiness ??? dry mouth Call your doctor or get medical help right away if you notice any of these more serious side effects: ??? confusion ??? fainting ??? hallucinations (unusual thoughts, seeing or hearing things that are not real) ??? fast or irregular heart beats ??? mood changes ??? seizures ??? shakiness ??? difficulty or discomfort urinating ??? blurring or changes of vision A few people may have an allergic reaction to this medicine. Symptoms can include difficulty breathing, skin rash, itching, swelling, or severe dizziness. If you notice any of these symptoms, seek medical help quickly. ?? Extra Please speak with your doctor, nurse, or pharmacist if you have any questions about this medicine. ?? [email or web address] IMPORTANT NOTE: This document tells you briefly how to take your medicine, but it does not tell youall there is to know about it. Your doctor or pharmacist may give you other documents about your medicine. Please talk to them if you have any questions. Always follow their advice. There is a more complete description of this medicine available in [employer]. Scan this code on your smartphone or tablet or use the web address below. You can also ask your pharmacist for a printout. If you have any questions, please ask your pharmacist. The display and use of this drug information is subject to Terms of Use. Copyright(c) 2022 [employer]. ?? [employer]. All rights reserved. This information is not intended as a substitute for professional medical care. Always follow your healthcare professional's instructions. ?? * Timmy Brown RN: PERFORM Event Display: Patient Education Leaflets Authored Date: [id number] Labor Induction ?? 61010 Labor Induction Labor induction is a way to help get your labor started. This can protect your health and your baby???s, too. Reasons for inducing labor A healthcare provider will decide to induce labor if the health of the parent or baby is at risk by continuing the . These conditions include: ??? Preeclampsia ??? Poor growth ??? Low amniotic fluid ??? Infection of the membranes (chorioamnionitis) ??? Ruptured bag of water ??? Certain diseases, like diabetes Labor induction may also be done after 39 weeks for a nonmedical reason, such as if the person lives far away from the hospital. ?? Ways to induce labor Your healthcare provider can get your labor started by using one or more of these methods: ??? Prostaglandin.??This is a medicine that may be given as a pill, capsule, or vaginal suppository. It softens, thins (effaces), and opens (dilates) the cervix. This is called cervical ripening. Your healthcare provider may also use??a Benito catheter or a double balloon catheter. They insert the catheter into??your cervix to push it open. This causes the release of natural prostaglandins. ??? Pitocin (oxytocin). This is a medicine your healthcare provider gives you??through an IV (intravenous) line. You may get it within 4 to 24 hours after you have prostaglandin. Pitocin helps start contractions. It???s always given in the hospital. ??? Rupturing the membrane. This is a procedure in which your healthcare provider??uses a small tool to break your bag of water. This is done??more often in people who have given before. And it???s always done in the hospital. Your cervix needs to be dilated enough before this procedure. The baby's head also needs to be down and close to the cervix.? Risks of labor induction With labor induction, you may have a higher risk of: ??? A section (surgical delivery), but there may be a lower chance of this in a first delivery ??? An infection ??? A longer stay in the hospital ??? Uterine rupture (rare) ??? (extremely rare) ?? What to expect Prostaglandin may be given in the hospital or at home. monitoring is needed after placement. Other methods of inducing labor are done in the hospital. You???ll need to stay in the hospital until you give . Your healthcare provider may attach monitors to your belly. These will measure your contractions and help make sure your baby has no problems. No matter how your labor is induced, a??few factors may affect how long it takes you to give .These include how long it takes for your cervix to thin and open, and when contractions begin. ?? Give yourself time Even though inducing labor gets the process started, you still may need to wait. People who have labor induced most often give within a day or so. But it can take as long as a few days to give . ?? Last Reviewed Date: 2022 ?? 6078-6525 [employer]. All rights reserved. This information is not intended as a substitute for professional medical care. Always follow your healthcare professional's instructions. ?? * Timmy Brown RN: PERFORM Event Display: Patient Education Leaflets Authored Date: [id number] How to Prepare for Childbirth ?? How to Prepare for Childbirth - Video One of the best ways to learn about the birthing process is to take a childbirth education class. Most women take the classes in their third trimester of . To view the video go to this web address: [email or web address] Or, scan this QR code with your smart phone Last Reviewed Date: 2019 ?? 5337-0477 [employer]. All rights reserved. This information is not intended as a substitute for professional medical care. Always follow your healthcare professional's instructions. ?? Patient Care team information Care Team Personnel Name: Gabriela Mcguire LPN Position: S OB RN Member Role: Primary Care Nurse Name: Justyna iLn MD Position: S Physician - Primary Care Member Role: PCP Address: Address: [address] [place] [address], [address] Name: Timmy Brown RN Position: S OB RN Member Role: Patient Care Provider Care Team Related Persons Name: DAISY OWEN Address: [address] Address: [address] [place] [address] [place] Name: MONICO OWEN Address: [address] Address: [address] [place] [address] [place] Name: PETER DUKE Address: [address] [place] [address]
--- OUTSIDE RECORDS SUMMARY | 2023-08-01 09:36 | XMS_ITS | Continuity of Care Document ---
Author Organization [facility] Address [address] [place] [address]- Care Team Providers Care Film Sorter Name Role Phone Riley LEON, Justyna Acevedo Primary Care Physician [phone] Encounter [facility] Date(s): 06/10/22 - 07/10/[address] [address]- Allergies, Adverse Reactions, Alerts Substance Reaction Severity [...] 13:31:00 EDT, Inhaler, Route to Pharmacy Electronically, [id number], [facility], 157, cm, 12/06... Start Date: 12/09/20 Status: Ordered albuterol inhaler (OP) 0 Refills, Maintenance Start Date: 12/06/20 Status: Ordered aspirin 81 mg oral delayed release tablet 162 mg, 2, tablet, By Mouth, Daily, # 180 tablet, Refills 1, Tot. Refills 1, Maintenance, 06/07/22 10:54:00 EDT, Route to Pharmacy Electronically, [facility], Partial fill upon patient request if the prescription is for a schedule... Start Date: 06/07/22 Stop Date: 12/04/22 Status: Ordered metronidazole topical 0.75% gel with applicator 1 application, Vaginally, Daily at bedtime, # 70 Gm, 0 Refills, Soft Stop, 06/11/22 12:19:00 EDT, Gel, [facility], Partial fill upon patient request [...] Refills, Soft Stop, 06/10/22 15:36:00 EDT, Tablet, [facility], Partial fill upon patient request [...] Team Personnel Name: Gabriela Mcguire LPN Position: [facility] OB RN Member Role: Primary Care Nurse Name: Justyna Lin MD Position: [facility] Physician (General Medicine) Member Role: PCP Address: Address: [address] [place] [address], 1[address] [place] [address]- Care Team Related Persons Name: DAISY OWEN Address: [id number] Address: home [address] [place] [address] [place] Name: MONICO OWEN Address: [address] Address: [address] [place] [address] Name: GARCÍA MAMADOU Address: home [address] [place] [address] Name: PETER DUKE Address: [address] [place] [address]
--- OUTSIDE RECORDS SUMMARY | 2023-08-01 09:36 | XMS_ITS | Continuity of Care Document ---
Author Organization [facility] Address [address] [place] [address]- Care Team Providers Care Insurance Sales Manager Name Role Phone Riley LEON, Justyna Acevedo Primary Care Physician Encounter [facility] Date(s): 06/07/22 - 08/04/[address] [address] Attending Physician: Brisa Moreno CNM Admitting Physician: Brisa Moreno CNM Allergies, Adverse Reactions, Alerts Substance Reaction [...] 13:31:00 EDT, Inhaler, Route to Pharmacy Electronically, [id number], [facility], 157, cm, 12/06... Start Date: 12/09/20 Status: Ordered albuterol inhaler (OP) 0 Refills, Maintenance Start Date: 12/06/20 Status: Ordered aspirin 81 mg oral delayed release tablet 162 mg, 2, tablet, By Mouth, Daily, # 180 tablet, Refills 1, Tot. Refills 1, Maintenance, 06/07/22 10:54:00 EDT, Route to Pharmacy Electronically, [facility], Partial fill upon patient request if the prescription is for a schedule... Start Date: 06/07/22 Stop Date: 12/04/22 Status: Ordered metronidazole topical 0.75% gel with applicator 1 application, Vaginally, Daily at bedtime, # 70 Gm, 0 Refills, Soft Stop, 06/11/22 12:19:00 EDT, Gel, [facility], Partial fill upon patient request [...] Refills, Soft Stop, 06/10/22 15:36:00 EDT, Tablet, [facility], Partial fill upon patient request [...] Care Nurse Name: Justyna Lin MD Position: [facility] Physician - Primary Care Member Role: PCP Address: Address: [address] [place] [address], [address] Care Team Related Persons Name: BRAYDEN DAISY Address: [address] Address: [address] [place] [address] Name: BRAYDEN MONICO Address: [address] Address: home [address] [place] [address] Name: MAMADOU MARIANO Address: [address] [place] [address] Name: PETER DUKE Address: home [address] [place] [address]
--- OUTSIDE RECORDS SUMMARY | 2023-08-01 09:36 | XMS_ITS | Continuity of Care Document ---
Author Organization [facility] Aysha mika Address [address] [place] [address] [address] [place] [address]- Care Team Providers Care Epitaxial Reactor Operator Name Role Phone Riley LEON, Justyna Acevedo Primary Care Physician Encounter [facility] [place] Date(s): 10/30/22 - 12/13/22 [facility] [address] [place], [place] [address] Attending Physician: Won Liu MD Referring Physician: Not on Staff, Referring [...] 23:24:00 EDT, Route to Pharmacy Electronically, [facility]/pharmacy #[id number], 155, cm, 10/11/22 14:32:00 EDT, Height, 86.3, kg, 01... Start Date: 10/15/22 Status: Ordered albuterol CFC free 90 mcg/inh inhalation aerosol 180 mcg, 2, puffs, Inhalation, Every 4 hours, PRN, # 6.7 Gm, Refills 0, Tot. Refills 0, Maintenance, 11/20/22 14:32:00 EDT, Inhaler, Route to Pharmacy Electronically, [id number], [facility]/pharmacy #[id number], 155, cm, 11/15/22 10:18:00... Start Date: 11/20/22 Status: Ordered albuterol CFC free 90 mcg/inh inhalation aerosol 2, puffs, Inhalation, 4 times a day, PRN, # 8 Gm, Refills 0, Tot. Refills 0, Maintenance, 10/15/22 23:23:00 EDT, Aerosol, Route to Pharmacy Electronically, [id number], [facility]/pharmacy #[id number], 155, cm, 10/11/22 14:32:00 EDT, Heigh... Start Date: 10/15/22 Status: Ordered albuterol inhaler (OP) 0 Refills, Maintenance Start Date: 12/06/20 Status: Ordered aspirin 81 mg oral delayed release tablet 162 mg, 2, tablet, By Mouth, Daily, # 180 tablet, Refills 1, Tot. Refills 1, Maintenance, 06/07/22 10:54:00 EDT, Route to Pharmacy Electronically, [facility], Partial fill upon patient request if the prescription is for a schedule... Start Date: 06/07/22 Stop Date: 12/04/22 Status: Ordered Flovent HFA 110 mcg/inh inhalation aerosol 2 puffs, Inhalation, 2 times a day, # 12 Gm, 0 Refills, Maintenance, 10/15/22 23:17:00 EDT, Aerosol, [facility]/pharmacy #[id number], Partial fill upon patient request if the prescription is for a schedule II opioid drug., 155, cm, 10/11/22 14:32:00 EDT, Height, 8... Start Date: 10/15/22 Status: Ordered guaiFENesin 100 mg/5 mL oral liquid 5 mL = 100 mg, By Mouth, Every 4 hours, PRN for cough, # 300 mL, 0 Refills, Maintenance, 10/15/22 23:22:00 EDT, Liquid, [facility]/pharmacy #[id number], 155, cm, 10/11/22 14:32:00 EDT, Height, 86.3, kg, 03/01/21 17:10:00 EST, Dry Weight Start Date: 10/15/22 Status: Ordered metronidazole topical 0.75% gel with applicator 1 application, Vaginally, Daily at bedtime, # 70 Gm, 0 Refills, Soft Stop, 06/11/22 12:19:00 EDT, Gel, [facility], Partial fill upon patient request if the prescription is for a schedule II opioid drug., 1 application Vaginally Jenniffer... Start Date: 06/11/22 Stop Date: 06/16/22 Status: Ordered miconazole 2% topical cream 1 application, Vaginally, Daily at bedtime, Apply 5 gm vaginally at bedtime for seven days, # 45 Gm, 0 Refills, Maintenance, 10/11/22 15:43:00 EDT, Cream, [facility], Partial fillupon patient [...] Team Personnel Name: Gabriela Mcguire LPN Position: [facility] OB RN Member Role: Primary Care Nurse Name: Justyna Lin MD Position: [facility] Physician - Primary Care Member Role: PCP Address: Address: [address] [facility], 1st [place] [address]- Care Team Related Persons Name: DAISY OWEN Address: Address: home [address] [place] [address] [place] Name: MONICO OWEN Address: Address: [address] [place] [address] [place] Name: PETER DUKE Address: [address] [place] [address]
--- OUTSIDE RECORDS SUMMARY | 2023-08-01 09:36 | XMS_ITS | Continuity of Care Document ---
Author Organization [facility] Address [address] [place] [address]- Care Team Providers Care School Janitor Name Role Phone Eduardo NO, Rachel Lake Primary Care Physician Encounter [facility] [place] Date(s): 10/14/20 - 10/14/[address] [address]- Discharge Disposition: A-D/C Walkout Attending Physician: Burt Morelos MD Admitting Physician: Burt Morelos MD Referring Physician: Not on Staff, Referring [...] recent to oldest [Reference Range]: 1 2 Weight 75 kg (10/14/20 10:31 AM) Oxygen Saturation [94-100 %] 99 % (10/14/20 9:50 AM) Pulse Rate [55-90 bpm] 78 bpm (10/14/20 9:57 AM) 89 bpm (10/14/20 9:50 AM) Blood Pressure [90-138/55-84 mm Hg] 102/ 66mm Hg (10/14/20 9:57 AM) Respiratory Rate [16-30 br/min] 16 br/mi n (10/14/20 9:57 AM) 18 br/min (10/14/20 9:50 AM) Temperature [96.8-100.4 DegF] 98.8 DegF (10/14/20 9:57 AM) Blood pressure sites Arm, right (10/14/20 9:57 AM) Temperature Route Oral (10/14/20 9:57 AM) Dry Weight 75 kg (10/14/20 10:31 AM) Social History Social History Type Response Smoking Status Current every day adrianne crandall entered on: 01/06/16 Sex
--- OUTSIDE RECORDS SUMMARY | 2023-08-01 09:36 | XMS_ITS | Continuity of Care Document ---
Author Organization [facility] Address [address] [place] [address]- Care Team Providers Care Student Outreach Coordinator Name Role Phone Riley LEON, Justyna Acevedo Primary Care Physician [phone] Encounter [facility] [place] Date(s): 05/13/22 - 06/20/[address] [address] Attending Physician: Not on Staff, Attending MD Referring Physician: Not on Staff, Referring [...] 13:31:00 EDT, Inhaler, Route to Pharmacy Electronically, [id number], [facility], 157, cm, 12/06... Start Date: 12/09/20 Status: Ordered albuterol inhaler (OP) 0 Refills, Maintenance Start Date: 12/06/20 Status: Ordered aspirin 81 mg oral delayed release tablet 162 mg, 2, tablet, By Mouth, Daily, # 180 tablet, Refills 1, Tot. Refills 1, Maintenance, 06/07/22 10:54:00 EDT, Route to Pharmacy Electronically, [facility], Partial fill upon patient request if the prescription is for a schedule... Start Date: 06/07/22 Stop Date: 12/04/22 Status: Ordered metronidazole topical 0.75% gel with applicator 1 application, Vaginally, Daily at bedtime, # 70 Gm, 0 Refills, Soft Stop, 06/11/22 12:19:00 EDT, Gel, [facility], Partial fill upon patient request if the prescription is for a schedule II opioid drug., 1 application Vaginally Jenniffer... Start Date: 06/11/22 Stop Date: 06/16/22 Status: Ordered ondansetron 4 mg oral tablet, disintegrating 1 tablet = 4 mg, By Mouth, Every 6 hours, PRN Nausea & Vomiting, for 20 days, # 120 tablet, 0 Refills, Acute 06/27/22 10:52:00 EDT, 06/07/22 10:52:00 EDT, Tablet, [facility], Partial fill upon patient request if the prescription is... Start Date: 06/07/22 Stop Date: 06/27/22 Status: Ordered pyridoxine 25 mg oral tablet 1 tablet = 25 mg, By Mouth, 3 times a day, PRN Nausea & Vomiting, # 100 tablet, 8 Refills, Maintenance, 05/13/22 10:31:00 EDT, Tablet, Partial fill upon patient request if the prescription is fora schedule II opioid drug. Start Date: 05/13/22 Status: Ordered Reglan 10 mg oral tablet 1 tablet = 10 mg, By Mouth, 4 times a day, for 14 days, # 56 tablet, 0 Refills, Acute 06/21/22 10:52:00 EDT, 06/07/22 10:52:00 EDT, Tablet, [facility], Partial fill upon patient request if the prescription is for a schedule II opio... Start Date: 06/07/22 Stop Date: 06/21/22 Status: Ordered Unisom 25 mg oral tablet 1 tablet = 25 mg, By Mouth, Daily, for 14 days, 15 to 30 minutes before bed, # 14 tablet, 0 Refills, Acute 06/21/22 10:51:00 EDT, 06/07/22 10:51:00 EDT, Tablet, [facility], Partial fill upon patient request if the prescription is f... Start Date: 06/07/22 Stop Date: 06/21/22 Status: Ordered Zithromax 500 mg oral tablet 2 tablet = 1,000 mg, By Mouth, Once, # 2 tablet, 0 Refills, Soft Stop, 06/10/22 15:36:00 EDT, Tablet, [facility], Partial fill upon patient request [...] Care team information Care Team Personnel Name: Riley LEON, Justyna Acevedo Position: [facility] Physician (General Medicine) Member Role: PCP Address: Address: [address] [place] [address], [address] Care Team Related Persons Name: DAISY OWEN Address: [id number] Address: [address] [place] [address] [place] Name: MONICO OWEN Address: [address] Address: [address] [place] [address] [place] Name: MAMADOU MARIANO Address: [address] [place], [place] Name: PETER DUKE Address: [address] [place] [address]
--- OUTSIDE RECORDS SUMMARY | 2023-08-01 09:36 | XMS_ITS | Continuity of Care Document ---
Author Organization [facility] Address [address] [place] [address]- Care Team Providers Care Pick Up Man Name Role Phone Eduardo NO, Rachel Lake Primary Care Physician Encounter [facility] [place] Date(s): 07/14/20 - 08/19/[address] [address]- Attending Physician: Not on Staff, Attending MD [...]
== END 2023-07-29 02:02 | disposition left against medical advice (07) ==
LOC: HO.ED 07-29 01:47
PROVIDERS: Emergency Provider Emergency Medicine; PCP General Practice
DX: H92.02 Otalgia, left ear (principal)
CPT/HCPCS: 0241U; 99281; 99283

== ENCOUNTER 2023-08-18 14:22 | Emergency (ER) | payer MEDICAID, SELFPAY ==
--- NOTE | ~2023-08-18 | XR_ITS ---
EXAMINATION: XR CHEST CLINICAL INFORMATION: Cough. COMPARISON: Chest x-ray December 05, 2020 TECHNIQUE: Frontal view of the chest was obtained. FINDINGS: No significant abnormality is noted involving the heart, lungs, mediastinum, bony thorax or soft tissues. XR/XR chest 1V IMPRESSION: Unremarkable examination.
--- NOTE | 2023-08-18 14:44 | ED_ITS ---
HPI - Headache General Chief Complaint: Headache Stated Complaint: Migraine sent by PCP Time Seen by Provider: 08/18/23 21:19 Source: patient Mode of arrival: ambulatory Limitations: no limitations History of Present Illness ED Provider: Mariaj Fink PA-C HPI Narrative: Patient is a 38 year old assigned female at with a history of asthma and migraines presenting to the emergency department today with a headache. Patient states that over the last month she has had URI symptoms for which she was evaluated at an urgent care and given prednisone. Patient states that she is now having a headache that feels like a migraine but the patient hasn't had a migraine since she was a child. Patient denies any dizziness, lightheadedness, abdominal pain, nausea, vomiting, fever, chills, blurry vision, double vision, loss of vision, chest pain, difficulty breathing, shortness of breath, back pain, night sweats, pain with urination, increased urinary frequency, increased urinary urgency, blood in her urine or stool, syncope or a near syncopal episode, recent trauma or falls, bowel incontinence, bladder incontinence, or any other complaints at this time. MD elicited complaint: headache Exacerbating factors: none Relieving factors: nothing Associated symptoms: none Treatments prior to arrival: acetaminophen and ibuprofen Related Data Previous Rx's ?Medication ?Instructions ?Recorded vitamin with calcium 1 tab PO DAILY #90 tabs 09/05/20 no.72-iron 27 mg-folic acid 1 mg tablet ( Vitamins Plus Low Iron) doxylamine succinate 25 mg tablet 25 mg PO BEDTIME PRN sleep #30 tabs 09/25/20 (Unisom (doxylamine)) pyridoxine (vitamin B6) 25 mg 25 mg PO TID #90 tabs 09/25/20 tablet metronidazole 0.75 % (37.5 mg/5 1 appful vaginal BID 5 days #70 10/31/20 gram) vaginal gel (Metrogel grams Vaginal) ondansetron HCl 4 mg tablet 4 mg PO Q8H PRN nausea and 10/31/20 (Zofran) vomiting #30 tabs acetaminophen 500 mg tablet 1,000 mg (2 x 500 mg) PO QID PRN 11/27/20 (Tylenol Extra Strength) fever or pain #14 tabs cephalexin 500 mg capsule 500 mg PO Q6H 10 days #40 caps 11/27/20 hydroxyzine HCl 25 mg tablet 25 mg PO TID PRN anxiety #20 tabs 10/28/22 Allergies Allergy/AdvReac Type Severity Reaction Status Date / Time levofloxacin [From LEVAQUIN] Allergy Intermediate rash Verified 08/18/23 14:48 Review of Systems 2 Constitutional: Constitutional: Reports no additional constitutional complaints, Denies chills, Denies fever(s), Reports headache(s) and Denies night sweats Eyes: Eyes: Reports no additional eye complaints, Denies blurry vision, Denies change in vision, Denies diplopia, Denies eye discharge, Denies loss of vision and Denies eye pain ENT: Denies dizziness and Reports headache(s) Cardiovascular: Cardiovascular: Reports no additional cardiovascular complaints, Denies chest pain, Denies lightheadedness, Denies Loss of Consciousness and Denies dyspnea Respiratory: Respiratory: Reports no additional respiratory complaints and Denies dyspnea Gastrointestinal: Gastrointestinal: Reports no additional gastrointestinal complaints, Denies abdominal pain, Denies melena, Denies hematochezia, Denies change in bowel habits and Denies change in stool character Genitourinary: Genitourinary: Denies hematuria, Denies urinary frequency, Denies dysuria, Denies urinary incontinence, Denies urinary hesitancy and Denies urinary urgency Musculoskeletal: Musculoskeletal: Reports no additional musculoskeletal complaints, Denies numbness and Denies tingling Neurologic: Denies dizziness, Reports headache(s), Denies loss of vision, Denies numbness and Denies tingling Psychiatric: Psychiatric: Reports no additional psychiatric complaints Endocrine: Endocrine: Reports no additional endocrine complaints Hematologic/Lymphatic: Hematologic/Lymphatic: Reports no additional hematologic/lymphatic complaints Allergic/Immunologic: Allergic/Immunologic: Reports no additional allergic/immunologic complaints [facility] Past Medical History Attestation statement: The following information was validated with the patient. Source: old records reviewed and nursing notes reviewed Medical History Tachycardia Migraine Asthma Social History Social History Household Members: Children Housing: Apartment Are you a primary child care specialist to a significant other at home: No Do you presently have visiting nurse or other home services: No Alcohol intake: never Patient Tobacco Use Status: Never used Tobacco Substance Use Type: Marijuana Trauma History: none Special roderick needs: No Agree to transfusion: Yes Advance Directives: No Advance Directives Information Provided: No Do you have a plan to hurt others: No Plan Physical Exam 2 Vital Signs: Vital Signs: Last Vital Signs Temp 97.8 F 08/18/23 21:54 Pulse 68 08/18/23 21:54 Resp 18 08/18/23 21:54 BP 125/78 08/18/23 21:54 Pulse Ox 98 08/18/23 21:54 O2 Del Method Room Air 08/18/23 21:54 BMI result Body Mass Index 33.7 Const: General: cooperative, no acute distress, alert and awake Nutritional Appearance: well nourished Orientation/consciousness: patient oriented x3 Limitations: no limitations HEENT: Head: Yes normal to inspection and Yes atraumatic Ears: hearing grossly normal bilaterally and external ears normal General nose exam: Normal external nose present, no nasal discharge noted and no epistaxis Face and sinus: Yes normal facial exam, No abrasion and No laceration Mouth: Normal oral and palatal mucosa present, no drooling and no muffled voice Eyes: General: appearance normal, both eyes and all related structures P eriorbital: periorbital findings normal Eyelids: Yes eyelids normal C onjunctivae: conjunctivae normal Pupils: Equal, round and reactive pupils present EOM: EOMs intact bilaterally Neck: Neck: Yes normal visual inspection, Yes full ROM and Yes no lymphadenopathy Chest: Chest palpation & inspection: normal inspection of the chest Resp: Effort & Inspection: normal respiratory effort and able to speak in complete sentences GI: Inspection: Yes normal to inspection Neuro: General: patient oriented x3 and moves all extremities Cranial nerves: Yes Equal, round and reactive pupils present Cognition (Neuro): n ormal cognition Motor exam (neuro): 5/5 motor strength present throughout Sensory Exam: Normal double simultaneous stimulation for sensation C oordination: [id number] test normal Extrem: General: Yes normal to inspection, Yes full ROM and Yes capillary refill normal Psych: Appearance: grossly normal Mental Status: mental status grossly normal Affect: normal affect Attitude: cooperative Thought process: N ormal thought process present Thought content: Normal thought content present Insight: Good insight present (Psych) Course Course Course Narrative: This is a Rapid Medical Exam performed in triage by Nathalie Pouliot PA-C. Full HPI, ROS and PE to be performed by primary ED provider. 38 year-old F w/ PMHx migraines, asthma, 7mos post-, presenting to the ED c/o asthma, cough, congestion x few weeks w/HTN at home. Reports GOMES x3 days with photophobia and dizziness. Was sent to ED by her PCP. Has been taking OTC cough meds & tylenol/Motrin PE: ambulating w/steady gait. Lungs CTA Plan: Labs, US, viral testing, CXR -1952--labs, viral studies, x-ray reassuring. reports continued headache > will give Fioricet in triage and re-evaluate Medications Administered Discontinued Medications Generic Name Dose Route Start Last Admin Trade Name Freq PRN Reason Stop Dose Admin Acetaminophen/Butalbital/Caffeine 1 tab 08/18/23 19:53 08/18/23 19:57 Butalb/Acetamin/Caff 50/325/40 Tablet PO 08/18/23 19:54 1 tab ONCE ONE Administration Ketorolac Tromethamine 15 mg 08/18/23 21:40 08/18/23 21:52 Ketorolac Tromethamine 15 Mg/Ml Vial IM 08/18/23 21:41 15 mg ONCE ONE Administration Medical Decision Making Medical Decision Making MDM Narrative: Patient is a 38 year old assigned female at with a history of migraines and asthma presenting to the emergency department today with a headache. Patient's physical exam was unremarkable. Patient's blood work was unremarkable. Patient's urine showed no acute process. Patient's chest x-ray showed no acute process. I explained my physical exam findings as well as all test results to the patient. I answered all questions asked by the patient. Patient received Toradol which she stated helped her symptoms significantly. I stressed the importance of the patient taking her medication as prescribed. I stressed the importance of the patient following up with her primary care provider. I stressed the importance of the patient returning to the emergency department immediately if her symptoms were to worsen or if she were to develop any dizziness, shortness of breath, difficulty breathing, chest pain, blurry vision, loss of vision, nausea, vomiting, abdominal pain, fever, chills, back pain, or any other complaints. Patient verbalized agreement and understanding with this treatment plan and discharge. Differential Diagnosis Differential Diagnoses: The differential diagnosis associated with the presentation includes Headache Migraine URI Admission/Observation Consideration of admission/observation: Escalation of care including admission/observation considered Patient would have been admitted to the hospital had her work up had any findings where hospital admission was appropriate and her clinical presentation warranted hospital admission. Lab Data [facility] Lab Attestation statement: I reviewed the patient's lab results. My interpretation of these results are in the [facility] Rationale portion of this note. 08/18/23 18:38 08/18/23 18:38 Labs: Lab Results 08/18/23 Range/Units 18:38 WBC 8.1 (4.8-10.8) X10*3/uL RBC 4.67 (4.20-5.50) X10*6/uL Hgb 15.1 (12.0-16.0) g/dl Hct 43.7 (37.0-47.0) % MCV 93.6 (80.0-98.0) fL MCH 32.3 (27.0-33.0) pg MCHC 34.6 (31.0-35.0) g/dl RDW 12.3 (11.0-16.0) % Plt Count 327 (160-400) X10*3/uL MPV 9.9 (9.4-12.3) fL Immature Gran % (Auto) 0.5 H (0.0-0.4) % Neut % (Auto) 87.4 H (45-73) % Lymph % (Auto) 10.4 L (20-40) % Mcdowell % (Auto) 0.6 L (2-11) % Eos % (Auto) 0.4 (0-4) % Baso % (Auto) 0.7 (0-2) % Lymph # (Auto) 0.8 L (1.2-4.9) X10*3/uL Mcdowell # (Auto) 0.1 (0.1-1.2) X10*3/uL Eos # (Auto) 0.0 (0.0-0.4) X10*3/uL Baso # (Auto) 0.1 (0.0-0.2) X10*3/uL Abs Immat Gran (auto) 0.04 H (0.00-0.03) X10*3/uL Absolute Neuts (auto) 7.1 (2.0-8.3) x10*3/uL Absolute Nucleated RBC 0.000 (0.0-0.012) X10*3/uL Nucleated RBC % (auto) 0.0 (0.0-0.2) /100WBC Sodium 141 (135-145) mmol/L Potassium 4.2 (3.3-5.1) mmol/L Chloride 105 (96-108) mmol/L Carbon Dioxide 23 (22-29) mmol/L Anion Gap 17 (12-20) BUN 13 (9-16) mg/dL Creatinine 0.77 (0.5-1.4) mg/dL Estim Creat Clear Calc 100.2 Estimated GFR > 60 Random Glucose 178 H (60-115) mg/dL Calcium 9.9 D (8.4-10.2) mg/dL Urine Color Yellow Urine Appearance Clear Urine pH 6.0 (5.0-9.0) Ur Specific Langdon 1.020 (1.005-1.025) Urine Protein Negative (Neg-Trace) mg/dL Urine Glucose (UA) Negative (Negative) mg/dL Urine Ketones Trace (Negative) mg/dL Urine Blood Negative (Negative) Urine Nitrite Negative (Negative) Ur Leukocyte Esterase Negative (Negative) Urine Test NEGATIVE (NEGATIVE) Influenza Type A (PCR) NEGATIVE (Negative) Influenza Type B (PCR) NEGATIVE (Negative) RSV RNA Qual (PCR) NEGATIVE (Negative) SARS-CoV-2 RNA (RT-PCR) NEGATIVE (Negative) Independent Interpretation I performed an independent interpretation of an: Plain X-Ray Interpretation: My interpretation is in agreement with the radiologist's impression of this imaging study. - EXAMINATION: XR CHEST CLINICAL INFORMATION: Cough. COMPARISON: Chest x-ray December 05, 2020 TECHNIQUE: Frontal view of the chest was obtained. FINDINGS: No significant abnormality is noted involving the heart, lungs, mediastinum, bony thorax or soft tissues. XR/XR chest 1V IMPRESSION: Unremarkable examination. Dictated By: Leonel Brown MD Signed By: Electronically signed by Leonel Brown MD 08/18/23 0721 Radiology Impression Discussion of test interpretation with radiology: I have reviewed the radiologist's reading. Discharge Plan Discharge Clinical Impression: Headache Patient Disposition: Home, Self-Care Instructions: Acute Headache (DC) Additional Instructions: Follow up with your primary care provider. Return to the emergency department immediately if your symptoms worsen or if you develop any dizziness, shortness of breath, difficulty breathing, chest pain, blurry vision, loss of vision, nausea, vomiting, abdominal pain, fever, chills, back pain, or any other complaints. Prescriptions: No Action cephalexin 500 mg capsule 500 mg PO Q6H 10 Days Qty: 40 0RF acetaminophen [Tylenol Extra Strength] 500 mg tablet 1,000 mg PO QID PRN (Reason: fever or pain) Qty: 14 0RF hydroxyzine HCl 25 mg tablet 25 mg PO TID PRN (Reason: anxiety) Qty: 20 0RF pyridoxine (vitamin B6) 25 mg tablet 25 mg PO TID Qty: 90 1RF Unisom (doxylamine) 25 mg tablet 25 mg PO BEDTIME PRN (Reason: sleep) Qty: 30 1RF Vitamin Plus Low Iron 27 mg iron- 1 mg tablet 1 tab PO DAILY Qty: 90 0RF ondansetron HCl [Zofran] 4 mg tablet 4 mg PO Q8H PRN (Reason: nausea and vomiting) Qty: 30 1RF metronidazole [Metrogel Vaginal] 0.75 % gel 1 appful vaginal BID 5 Days Qty: 70 0RF Referrals: Justyna Lin MD [Primary Care Provider] - Interventions: ED Discharge Assessment Last Done: 08/18/23 21:54 Discharge Date/Time: 08/18/23 21:55 Print Language: Sinhala
[2023-08-18 14:45] VITALS: BP 138/94; PULSE 75; RESP 20; TEMP 35.9; O2SAT 100; BMI 33.7
[2023-08-18 18:46] LABS: MANUAL DIFF FLAG NO
[2023-08-18 18:48] LABS: Basophils Absolute Auto 0.1 X10*3/uL (0.0-0.2); Basophils Percent Auto 0.7 % (0-2); Eosinophils Percent Auto 0.4 % (0-4); Hematocrit 43.7 % (37.0-47.0); Hemoglobin 15.1 g/dl (12.0-16.0); Imm Gran Abs Auto 0.04 X10*3/uL (0.00-0.03); Imm Gran Pct Auto 0.5 % (0.0-0.4); Lymphocytes Absolute Auto 0.8 X10*3/uL (1.2-4.9); Lymphocytes Percent Auto 10.4 % (20-40); Mean Corpuscular HGB Conc 34.6 g/dl (31.0-35.0); Mean Corpuscular Hemoglobin 32.3 pg (27.0-33.0); Mean Corpuscular Volume 93.6 fL (80.0-98.0); Mean Platelet Volume 9.9 fL (9.4-12.3); Monocytes Absolute Auto 0.1 X10*3/uL (0.1-1.2); Monocytes Percent Auto 0.6 % (2-11); Neutrophils Absolute Auto 7.1 x10*3/uL (2.0-8.3); Neutrophils Percent Auto 87.4 % (45-73); Platelet Count 327 X10*3/uL (160-400); Red Blood Count 4.67 X10*6/uL (4.20-5.50); Red Cell Distribution Width 12.3 % (11.0-16.0); White Blood Count 8.1 X10*3/uL (4.8-10.8)
[2023-08-18 19:06] LABS: Appearance Urine Clear; Color Urine Yellow; Glucose Urine UA Negative (Negative); Leukocyte Esterase Urine Negative (Negative); Nitrite Urine Negative (Negative); Urine Blood Negative (Negative); Urine Ketones Trace mg/dL (Negative); Urine Protein Negative (Neg-Trace)
[2023-08-18 19:08] LABS: Anion Gap 17 (12-20); Blood Urea Nitrogen 13 mg/dL (9-16); Calcium 9.9 mg/dL (8.4-10.2); Carbon Dioxide 23 mmol/L (22-29); Chloride 105 mmol/L (96-108); Creatinine Clr Calc Pharmacy 100.2; Estimated Glomerular Filt Rate > 60; Glucose Random 178 mg/dL (60-115); Potassium 4.2 mmol/L (3.3-5.1); Sodium 141 mmol/L (135-145)
[2023-08-18 19:13] LABS: UPreg QC Valid YES; Urine Pregnancy NEGATIVE (NEGATIVE)
[2023-08-18 19:41] LABS: Influenza A PCR NEGATIVE (Negative); Influenza B PCR NEGATIVE (Negative); Resp Syncy Virus RNA Qual PCR NEGATIVE (Negative); SARS COV2 PCR INHOUSE NEGATIVE (Negative)
[2023-08-18 19:53] VITALS: BP 135/77; PULSE 71; RESP 18; TEMP 36.2; O2SAT 96
[2023-08-18] MEDS: Butalb/Acetamin/Caff 50/325/40 TABLET 1 TAB PO (19:57)
[2023-08-18 21:34] VITALS: BP 125/78; PULSE 68; RESP 18; TEMP 36.6; O2SAT 98
[2023-08-18] MEDS: Ketorolac Tromethamine 15 MG/ML VIAL IM (21:52)
[2023-08-18 21:54] VITALS: BP 125/78; PULSE 68; RESP 18; TEMP 36.6; O2SAT 98
== END 2023-08-18 21:55 | disposition home or self-care (01) ==
PROVIDERS: Physician Assistant; Emergency Provider Internal Medicine; PCP General Practice
DX: R51.9 Headache, unspecified (principal); R05.9 Cough, unspecified; Z79.899 Other long term (current) drug therapy; Z03.818 Encounter for observation for suspected exposure to other biological agents ruled out
CPT/HCPCS: 0241U; 36415; 71045; 80048; 81003; 81025; 85025; 96372; 99283; 99284; J1885

== ENCOUNTER 2023-10-16 11:43 | Outpatient (REF) | payer MEDICAID, SELFPAY ==
--- NOTE | ~2023-10-16 | XR_ITS ---
EXAMINATION: XR CHEST CLINICAL INFORMATION: Cough, asthma COMPARISON: Frontal view 08/18/23 TECHNIQUE: 2 views of the chest were obtained. FINDINGS: The mediastinum, marla, and vasculature are within normal limits. No pneumonia, edema, large area of atelectasis, pleural fluid or pneumothorax. Jewelry in the anterior chest wall. XR/XR chest 2V IMPRESSION: No pneumonia or edema. Electronically signed by: Jamar Easley MD 10/19/2023 09:27 PM EDT
== END 2023-10-16 11:44 | disposition home or self-care (01) ==
LOC: HO.HHCX 11:43
PROVIDERS: Visit Provider Student in an Organized Health Care Education/Training Program
DX: R05.9 Cough, unspecified (principal)
CPT/HCPCS: 71046

== ENCOUNTER 2024-02-02 22:15 | Emergency (ER) | payer MEDICAID, SELFPAY ==
[2024-02-02 22:39] VITALS: BP 147/90; PULSE 109; RESP 18; TEMP 36.7; O2SAT 99; BMI 34.0
[2024-02-02 22:54] LABS: MANUAL DIFF FLAG NO
[2024-02-02 22:55] LABS: Basophils Absolute Auto 0.1 X10*3/uL (0.0-0.2); Basophils Percent Auto 0.7 % (0-2); Eosinophils Absolute Auto 0.5 X10*3/uL (0.0-0.4); Eosinophils Percent Auto 6.1 % (0-4); Hematocrit 41.6 % (37.0-47.0); Hemoglobin 14.3 g/dl (12.0-16.0); Imm Gran Abs Auto 0.02 X10*3/uL (0.00-0.03); Imm Gran Pct Auto 0.2 % (0.0-0.4); Lymphocytes Absolute Auto 1.5 X10*3/uL (1.2-4.9); Lymphocytes Percent Auto 17.4 % (20-40); Mean Corpuscular HGB Conc 34.4 g/dl (31.0-35.0); Mean Corpuscular Hemoglobin 32.2 pg (27.0-33.0); Mean Corpuscular Volume 93.7 fL (80.0-98.0); Mean Platelet Volume 9.7 fL (9.4-12.3); Monocytes Absolute Auto 0.9 X10*3/uL (0.1-1.2); Monocytes Percent Auto 10.6 % (2-11); Neutrophils Absolute Auto 5.5 x10*3/uL (2.0-8.3); Platelet Count 243 X10*3/uL (160-400); Red Blood Count 4.44 X10*6/uL (4.20-5.50); Red Cell Distribution Width 12.7 % (11.0-16.0); White Blood Count 8.5 X10*3/uL (4.8-10.8)
[2024-02-02 23:08] LABS: Alanine Aminotransferase 15 U/L (0-31); Albumin Level 4.3 g/dL (3.5-5.0); Alkaline Phosphatase 93 U/L (39-117); Anion Gap 11 (12-20); Aspartate Amino Transferase 28 U/L (5-31); Bilirubin Total 0.1 mg/dL (0.0-1.0); Blood Urea Nitrogen 6 mg/dL (9-16); Calcium 9.7 mg/dL (8.4-10.2); Carbon Dioxide 24 mmol/L (22-29); Chloride 104 mmol/L (96-108); Creatinine Clr Calc Pharmacy 96.8; Estimated Glomerular Filt Rate > 60; Glucose Random 99 mg/dL (60-115); Lipase 9 U/L (8-78); Potassium 3.6 mmol/L (3.3-5.1); Sodium 135 mmol/L (135-145); Total Protein 6.9 g/dL (6.5-8.0)
--- NOTE | 2024-02-03 01:29 | ED.ABDPAIN ---
HPI - Abdominal Pain General Chief Complaint: Abdominal Pain Stated Complaint: ?food poisoning Time Seen by Provider: 02/03/24 00:55 Source: patient Mode of arrival: ambulatory Limitations: no limitations History of Present Illness ED Provider: ALEXANDREA HPI narrative: 38 yo female with PMH of asthma and migraines denies concerns for tells me she ate calamari for dinner last night - no one else ate it. Around bedtime she started to feel hot and have abdominal cramps with n/v/d no bloody stools or fevers. She states she is just not getting better. She notes no travel, she tried a bodega antibiotic from DR marisa Hedrick that did nothing. MD elicited complaint: abdominal pain Pertinent past history: none Onset (ago): day(s) (1) Pain Consistency: intermittent Severity: moderate Quality: cramping Radiation: none Migration to: no migration Exacerbating factors: eating Relieving factors: nothing Context: possible food poisoning Associated symptoms: nausea, vomiting and diarrhea Related Data Previous Rx's ?Medication ?Instructions ?Recorded vitamin with calcium 1 tab PO DAILY #90 tabs 09/05/20 no.72-iron 27 mg-folic acid 1 mg tablet ( Vitamins Plus Low Iron) doxylamine succinate 25 mg tablet 25 mg PO BEDTIME PRN sleep #30 tabs 09/25/20 (Unisom (doxylamine)) pyridoxine (vitamin B6) 25 mg 25 mg PO TID #90 tabs 09/25/20 tablet metronidazole 0.75 % (37.5 mg/5 1 appful vaginal BID 5 days #70 10/31/20 gram) vaginal gel (Metrogel grams Vaginal) ondansetron HCl 4 mg tablet 4 mg PO Q8H PRN nausea and 10/31/20 (Zofran) vomiting #30 tabs acetaminophen 500 mg tablet 1,000 mg (2 x 500 mg) PO QID PRN 11/27/20 (Tylenol Extra Strength) fever or pain #14 tabs cephalexin 500 mg capsule 500 mg PO Q6H 10 days #40 caps 11/27/20 hydroxyzine HCl 25 mg tablet 25 mg PO TID PRN anxiety #20 tabs 10/28/22 ondansetron 4 mg disintegrating 4 mg PO Q8H PRN nausea and 02/03/24 tablet vomiting #20 tabs Allergies Allergy/AdvReac Type Severity Reaction Status Date / Time levofloxacin [From LEVAQUIN] Allergy Intermediate rash Verified 02/02/24 22:42 Review of Systems Review of Systems Constitutional : No Weight loss, No Fever, No Chills ENT/Mouth : No sore throat, No Rhinorrhea Eyes: No Swelling, No Redness Cardiovascular : No Chest Pain, No SOB, NoEdema Respiratory : No Cough, No Sputum, No Wheezing Gastrointestinal : Positive Nausea, Positive Vomiting, positive Diarrhea, positive abdominal Pain, No Hematochezia, No Melena Genitourinary : No Dysuria, No Urinary Frequency, No Hematuria, No Urgency Musculoskeletal : No joint pain, No Myalgias, No Joint Swelling Skin : No Skin Lesions, No rash Neuro : No Weakness, No Numbness, No Dizziness, No Headache All other systems reviewed and are negative. [facility] Past Medical History Attestation statement: The following information was validated with the patient. Source: old records reviewed Medical History Tachycardia Migraine Asthma Social History Social History Household Members: Children Housing: Apartment Are you a primary school childcare attendant to a significant other at home: No Do you presently have visiting nurse or other home services: No Alcohol intake: never Patient Tobacco Use Status: Never used Tobacco Substance Use Type: Marijuana Trauma History: none Special roderick needs: No Agree to transfusion: Yes Advance Directives: No Advance Directives Information Provided: Yes Do you have a plan to hurt others: No Plan Physical Exam ED Vital Signs: Vital Signs - 24 hr 02/02/24 22:39 02/03/24 02:12 Temperature 98.0 F Pulse Rate 109 H Respiratory Rate 18 16 Blood Pressure 147/90 H Pulse Oximetry 99 Oxygen Delivery Method Room Air BMI result Body Mass Index 34.0 Appearance: Alert. Oriented X3. No acute distress. Eyes: Pupils equal, round and reactive to light. ENT: Pharynx normal. Neck: Normal inspection. Neck supple. CVS: Normal heart rate and rhythm. Pulses normal. Respiratory: No respiratory distress. Breath sounds normal. Abdomen: Soft and mild diffuse ttp no rebound or guarding Skin: Skin warm and dry. Normal skin color. Extremities: No lower extremity edema. Neuro: Oriented X 3. No motor deficit. No sensory deficit. Medical Decision Making Medical Decision Making [facility] Narrative: 38 yo female with PMH of asthma and migraines here with c/o n/v/d and abdominal cramps after eating calamari at this time will need basic labs, IVF and IV toradol/morphine for pain. Given the clinical history and diffuse ttp of the abdomen suspect food toxicity or viral syndrome Differential Diagnosis Differential Diagnoses: The differential diagnosis associated with the presentation includes viral syndrome, food toxicity Admission/Observation Consideration of admission/observation: Escalation of care including admission/observation considered patient is feeling much better anticipate DC home Lab Data [facility] Lab Attestation statement: I reviewed the patient's lab results. 02/02/24 22:50 02/02/24 22:50 Labs: Lab Results 02/02/24 Range/Units 22:50 WBC 8.5 (4.8-10.8) X10*3/uL RBC 4.44 (4.20-5.50) X10*6/uL Hgb 14.3 (12.0-16.0) g/dl Hct 41.6 (37.0-47.0) % MCV 93.7 (80.0-98.0) fL MCH 32.2 (27.0-33.0) pg MCHC 34.4 (31.0-35.0) g/dl RDW 12.7 (11.0-16.0) % Plt Count 243 D (160-400) X10*3/uL MPV 9.7 (9.4-12.3) fL Immature Gran % (Auto) 0.2 (0.0-0.4) % Neut % (Auto) 65.0 (45-73) % Lymph % (Auto) 17.4 L (20-40) % Ashe % (Auto) 10.6 (2-11) % Eos % (Auto) 6.1 H (0-4) % Baso % (Auto) 0.7 (0-2) % Lymph # (Auto) 1.5 (1.2-4.9) X10*3/uL [place]he # (Auto) 0.9 (0.1-1.2) X10*3/uL Eos # (Auto) 0.5 H (0.0-0.4) X10*3/uL Baso # (Auto) 0.1 (0.0-0.2) X10*3/uL Abs Immat Gran (auto) 0.02 (0.00-0.03) X10*3/uL Absolute Neuts (auto) 5.5 (2.0-8.3) x10*3/uL Absolute Nucleated RBC 0.000 (0.0-0.012) X10*3/uL Nucleated RBC % (auto) 0.0 (0.0-0.2) /100WBC Sodium 135 (135-145) mmol/L Potassium 3.6 (3.3-5.1) mmol/L Chloride 104 (96-108) mmol/L Carbon Dioxide 24 (22-29) mmol/L Anion Gap 11 L (12-20) BUN 6 L (9-16) mg/dL Creatinine 0.77 (0.5-1.4) mg/dL Estim Creat Clear Calc 96.8 Estimated GFR > 60 Random Glucose 99 (60-115) mg/dL Calcium 9.7 (8.4-10.2) mg/dL Total Bilirubin 0.1 (0.0-1.0) mg/dL AST 28 (5-31) U/L ALT 15 (0-31) U/L Alkaline Phosphatase 93 (39-117) U/L Total Protein 6.9 (6.5-8.0) g/dL Albumin 4.3 (3.5-5.0) g/dL Lipase 9 (8-78) U/L Beta HCG, Quant < 2 mIU/mL External Record Review External record reviewed: Outpatient record Prescription Management I considered prescription management with: Other Medications Administered Discontinued Medications Generic Name Dose Route Start Last Admin Trade Name Freq PRN Reason Stop Dose Admin Lactated Ringer's 1,000 mls @ 999 mls/hr 02/03/24 01:22 02/03/24 02:13 Lr IV 02/03/24 02:22 999 mls/hr .Q1H1M ONE Administration Ketorolac Tromethamine 15 mg 02/03/24 01:22 02/03/24 02:13 Ketorolac Tromethamine 15 Mg/Ml Vial IVPUSH 02/03/24 01:23 15 mg ONCE ONE Administration Morphine Sulfate 4 mg 02/03/24 01:22 02/03/24 02:12 Morphine Sulfate 4 Mg/Ml Cartridge IVPUSH 02/03/24 01:23 4 mg ONCE ONE Administration Protocol Ondansetron HCl 4 mg 02/03/24 01:22 02/03/24 02:12 Ondansetron Hcl 4 Mg/2 Ml Vial IVPUSH 02/03/24 01:23 4 mg ONCE ONE Administration Discharge Plan Discharge Clinical Impression: Nausea vomiting and diarrhea Patient Disposition: Still a Patient Instructions: Acute Nausea and Vomiting (ED), Acute Diarrhea (ED) Additional Instructions: stay hydrated, eat a bland diet for 48 hours then advance slowly return for worsening pain, fevers, bloody stools or any other concerns Prescriptions: New ondansetron 4 mg tablet,disintegrating 4 mg PO Q8H PRN (Reason: nausea and vomiting) Qty: 20 0RF No Action cephalexin 500 mg capsule 500 mg PO Q6H 10 Days Qty: 40 0RF acetaminophen [Tylenol Extra Strength] 500 mg tablet 1,000 mg PO QID PRN (Reason: fever or pain) Qty: 14 0RF hydroxyzine HCl 25 mg tablet 25 mg PO TID PRN (Reason: anxiety) Qty: 20 0RF pyridoxine (vitamin B6) 25 mg tablet 25 mg PO TID Qty: 90 1RF Unisom (doxylamine) 25 mg tablet 25 mg PO BEDTIME PRN (Reason: sleep) Qty: 30 1RF Vitamin Plus Low Iron 27 mg iron- 1 mg tablet 1 tab PO DAILY Qty: 90 0RF ondansetron HCl [Zofran] 4 mg tablet 4 mg PO Q8H PRN (Reason: nausea and vomiting) Qty: 30 1RF metronidazole [Metrogel Vaginal] 0.75 % gel 1 appful vaginal BID 5 Days Qty: 70 0RF Stand Alone Forms: Work/School Release Print Language: Salvadorean
[2024-02-03 01:39] LABS: HCG Quantitative < 2 mIU/mL
[2024-02-03 02:12] VITALS: RESP 16
[2024-02-03] MEDS: ondansetron HCL 4 MG/2 ML VIAL IVPUSH (02:12)
[2024-02-03] MEDS: Morphine Sulfate 4 MG/ML CARTRIDGE IVPUSH (02:12)
[2024-02-03] MEDS: Ketorolac Tromethamine 15 MG/ML VIAL IVPUSH (02:13)
[2024-02-03] MEDS: Lactated Ringers 1,000 ML 999 ML IV (02:13)
[2024-02-03 02:45] VITALS: BP 107/64; PULSE 84; RESP 20; TEMP 37.2; O2SAT 93
--- NOTE | 2024-02-03 05:37 | PC.NURSE ---
this rn assumed care of pt @ 0330. po challenge performed pt tolerated po liquids and food well denies pain dr tellez made aware awaiting disposition
[2024-02-03 06:05] VITALS: BP 108/57; PULSE 71; RESP 16; TEMP 36.7; O2SAT 95
== END 2024-02-03 06:30 | disposition home or self-care (01) ==
PROVIDERS: Emergency Medicine; Emergency Provider Emergency Medicine; PCP General Practice
DX: R11.2 Nausea with vomiting, unspecified (principal); R19.7 Diarrhea, unspecified; J45.909 Unspecified asthma, uncomplicated
CPT/HCPCS: 36415; 80053; 83690; 84702; 85025; 96361; 96374; 96375; 99284; 99285; J1885; J2270; J2405; J7120

== ENCOUNTER 2024-09-05 11:06 | Emergency (ER) | payer MEDICAID, SELFPAY ==
--- NOTE | ~2024-09-05 | XR_ITS ---
CLINICAL HISTORY: dyspnea Chest Radiographs, 2 views Comparison: 10/16/23 Findings: No cardiomegaly. Normal mediastinal contours. No pneumothorax. No opacity. No pleural effusion. Normal upper abdomen. No acute fracture. Impression: No acute findings. This document has been electronically signed by: Justa Otriz MD on 09/05/2024 13:00:08
[2024-09-05 11:10] VITALS: BP 176/98; PULSE 81; RESP 22; TEMP 37.2; O2SAT 98; BMI 31.4
--- NOTE | 2024-09-05 11:18 | ED.GENADULT ---
[facility] - General Adult General Chief complaint: Allergic Reaction Stated complaint: rash all over body, having trouble breathing Time Seen by Provider: 09/05/24 11:58 Source: patient History of Present Illness ED Provider: 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 No fever or chills no hemoptysis no pleurisy Related Data Previous Rx's ?Medication ?Instructions ?Recorded vitamin with calcium 1 tab PO DAILY #90 tabs 09/05/20 no.72-iron 27 mg-folic acid 1 mg tablet ( Vitamins Plus Low Iron) doxylamine succinate 25 mg tablet 25 mg PO BEDTIME PRN sleep #30 tabs 09/25/20 (Unisom (doxylamine)) pyridoxine (vitamin B6) 25 mg 25 mg PO TID #90 tabs 09/25/20 tablet metronidazole 0.75 % (37.5 mg/5 1 appful vaginal BID 5 days #70 10/31/20 gram) vaginal gel (Metrogel grams Vaginal) ondansetron HCl 4 mg tablet 4 mg PO Q8H PRN nausea and 10/31/20 (Zofran) vomiting #30 tabs acetaminophen 500 mg tablet 1,000 mg (2 x 500 mg) PO QID PRN 11/27/20 (Tylenol Extra Strength) fever or pain #14 tabs cephalexin 500 mg capsule 500 mg PO Q6H 10 days #40 caps 11/27/20 hydroxyzine HCl 25 mg tablet 25 mg PO TID PRN anxiety #20 tabs 10/28/22 ondansetron 4 mg disintegrating 4 mg PO Q8H PRN nausea and 02/03/24 tablet vomiting #20 tabs prednisone 20 mg tablet 40 mg (2 x 20 mg) PO DAILY 5 days 09/05/24 #10 tabs Allergies Allergy/AdvReac Type Severity Reaction Status Date / Time levofloxacin (From LEVAQUIN) Allergy Intermediate rash Verified 09/05/24 11:14 Review of Systems Constitutional: Constitutional: Reports as per [facility] Past Medical History Medical History Tachycardia Migraine Asthma Social History Social History Household Members: Children Both parents involved: No Housing: Apartment Are you a primary before and after school daycare worker to a significant other at home: No Do you presently have visiting nurse or other home services: No 75 years or older and lives alone: No Alcohol intake: never Patient Tobacco Use Status: Never used Tobacco Substance Use Type: Marijuana Trauma History: none Special roderick needs: No Agree to transfusion: Yes Physical Exam ED Vital Signs: Vital Signs - 24 hr 09/05/24 11:10 09/05/24 12:43 09/05/24 14:45 Temperature 98.9 F 98.4 F Pulse Rate 81 69 82 Respiratory Rate 22 H 22 H 17 Blood Pressure 176/98 H 140/85 H Pulse Oximetry 98 98 Oxygen Delivery Method Room Air Room Air 09/05/24 14:50 Temperature 98.4 F Pulse Rate 82 Respiratory Rate 17 Blood Pressure 140/85 H Pulse Oximetry 98 Oxygen Delivery Method Room Air BMI result Body Mass Index 31.4 Const Other: Gen: ?Overall well-appearing patient HEENT: PERRLA, EOMI, MMM, Neck: Supple, no LAD CV: RRR, no obvious murmurs appreciated Resp: ?Expiratory wheezing throughout no rales no rhonchi, no stridor Abd: ?Bowel sounds are present, no tenderness no rebound no rigidity MSK: FROM, strength 5/5 all extremities Skin: Urticarial rash over her upper chest and upper back Neuro: ?Alert and oriented x3, moving upper and lower extremities symmetrically, no obvious facial asymmetry noted Course Reevaluation(s) Reevaluation #1: RME 39-year-old female placed on cetirizine for a proximally 6 weeks ago. Rash has not improved. Amoxicillin started 7 days for dental infection. Now having generalized swelling, urticaria, and wheezing. History of asthma. Lung sounds with wheezing. No airway compromise. Speaks full clear sentences. Oropharynx is moist and tolerate secretions. Patient to room. Medications Administered Discontinued Medications Generic Name Dose Route Start Last Admin Trade Name Freq PRN Reason Stop Dose Admin Albuterol Sulfate 5 mg/ 0 mg 09/05/24 12:38 09/05/24 12:41 Albuterol/Ipratropium 3 ml INHALE 09/05/24 12:39 1 each ONCE ONE Administration Famotidine 20 mg 09/05/24 12:19 09/05/24 12:40 Famotidine/Pf 20 Mg/2 Ml Vial IVPUSH 09/05/24 12:20 20 mg ONCE ONE Administration Sodium Chloride 1,000 mls @ 999 mls/hr 09/05/24 12:30 09/05/24 14:35 Ns IV 09/05/24 13:30 Infused .Q1H1M JANETH Infusion Methylprednisolone Sodium Succinate 125 mg 09/05/24 12:19 09/05/24 12:40 Methylprednisolone Sod Succ 125 Mg/2 Ml Vial IVPUSH 09/05/24 12:20 125 mg ONCE ONE Administration Medical Decision Making Medical Decision Making [facility] Narrative: Presenting with wheezing, urticarial rash in the setting of seasonal exposure, has been using amoxicillin for the past 5 days this does not appear to be related to that, we will give nebulizer treatment, steroids, we will obtain chest x-ray doubt that this is pneumonia or CHF, at this point I would also recommend the patient stop the amoxicillin as she has had an extractions who states he has no pain there she has had no stridor nothing to suspect ENT or upper airway infection, I doubt that this is a reaction to antibiotic but 5 days afterwards I think it is both at this point is unnecessary given presents of urticaria, we will continue to monitor for symptom improvement. Patient re-evaluated, she feels much better, we will discharge Differential Diagnosis Differential Diagnoses: The differential diagnosis associated with the presentation includes CHF, COPD exacerbation, pneumonia, pneumothorax, ACS, PE, Admission/Observation Consideration of admission/observation: Escalation of care including admission/observation considered Radiology Impression Discussion of test interpretation with radiology: I have reviewed the radiologist's reading. Discharge Plan Discharge Clinical Impression: Asthma exacerbation, Urticaria Patient Disposition: Home, Self-Care Additional Instructions: Continue cetirizine, we will discontinue your amoxicillin, continue steroids starting tomorrow, follow up with the PCP, and as discussed 2 puffs of albuterol for the rest of the day every 4 hours, any worsening issues concerns come back to the ER Prescriptions: New prednisone 20 mg tablet 40 mg PO DAILY 5 Days Qty: 10 0RF No Action cephalexin 500 mg capsule 500 mg PO Q6H 10 Days Qty: 40 0RF acetaminophen [Tylenol Extra Strength] 500 mg tablet 1,000 mg PO QID PRN (Reason: fever or pain) Qty: 14 0RF hydroxyzine HCl 25 mg tablet 25 mg PO TID PRN (Reason: anxiety) Qty: 20 0RF ondansetron 4 mg tablet,disintegrating 4 mg PO Q8H PRN (Reason: nausea and vomiting) Qty: 20 0RF pyridoxine (vitamin B6) 25 mg tablet 25 mg PO TID Qty: 90 1RF Unisom (doxylamine) 25 mg tablet 25 mg PO BEDTIME PRN (Reason: sleep) Qty: 30 1RF Vitamin Plus Low Iron 27 mg iron- 1 mg tablet 1 tab PO DAILY Qty: 90 0RF ondansetron HCl [Zofran] 4 mg tablet 4 mg PO Q8H PRN (Reason: nausea and vomiting) Qty: 30 1RF metronidazole [Metrogel Vaginal] 0.75 % gel 1 appful vaginal BID 5 Days Qty: 70 0RF Referrals: [facility] [Primary Care Provider, Medical] - 10 days Clinical Impression: Asthma exacerbation Interventions: ED Discharge Assessment Last Done: 09/05/24 14:50 Discharge Date/Time: 09/05/24 14:50 Print Language: Sami
--- NOTE | 2024-09-05 11:28 | PC.NURSE ---
Pt placed in room, placed on monitor at this time, IV placed, resp called and given a heads up about patient.
--- NOTE | 2024-09-05 12:05 | PC.NURSE ---
Patient reports that x 1 week ago she was wedding in the yard and started having blisters on her finger. Reports breathing has worsened over the last week , hx of asthma , reports facial swelling
[2024-09-05] MEDS: Albuterol Sulfate 5 MG, Albuterol/Iprat 2.5/0.5MG 3 ML 3 ML INHALE (12:41)
[2024-09-05 12:43] VITALS: PULSE 69; RESP 22; O2SAT 99
--- NOTE | 2024-09-05 14:41 | PC.NURSE ---
Patient reports feeling much better, decreased facial swelling noted
[2024-09-05 14:45] VITALS: BP 140/85; PULSE 82; RESP 17; TEMP 36.9; O2SAT 98
[2024-09-05 14:50] VITALS: BP 140/85; PULSE 82; RESP 17; TEMP 36.9; O2SAT 98
== END 2024-09-05 14:50 | disposition home or self-care (01) ==
PROVIDERS: Emergency Provider Emergency Medicine
DX: L50.0 Allergic urticaria (principal); J45.901 Unspecified asthma with (acute) exacerbation; R06.02 Shortness of breath; R05.9 Cough, unspecified
CPT/HCPCS: 71046; 94640; 96361; 96374; 96375; 99284; 99285; J1308; J2919

== ENCOUNTER → 2024-09-05 12:26 | Outpatient (BNV) | payer MEDICAID, SELFPAY | PROVIDERS: Emergency Provider Emergency Medicine; Visit Provider Radiology Diagnostic Radiology | DX: R06.00 Dyspnea, unspecified (principal) | CPT/HCPCS: 71046 ==

== ENCOUNTER 2024-09-13 12:24 | Outpatient (REF) | payer MEDICAID, SELFPAY ==
--- NOTE | ~2024-09-13 | XR_ITS ---
EXAMINATION: XR CHEST 2 VIEWS HISTORY: cough/asthma exacerbation COMPARISON: Comparison is made with the prior examination dated 09/05/2024. FINDINGS: PA and lateral views of the chest are submitted. The lungs are expanded and clear. There is no pleural effusion, pneumothorax, or pulmonary vascular congestion. The heart is normal in size. The bones are intact. XR/XR chest 2V IMPRESSION: No acute cardiopulmonary abnormality. Electronically signed by: Jaguar Hinojosa MD 09/13/2024 12:41 PM EDT
--- OUTSIDE RECORDS SUMMARY | 2024-09-13 13:11 | XMS_ITS | Encounter Summary ---
Author Organization [facility] Address [address] [place] [address] Care Team Providers Care Nut Cracker Name Role Phone Justyna Lin MD Primary Care Provider [phone] Reason for Visit * Reason Comments Med Refill Encounter Details Date Type Department Care Team ([facility] st Contact Info) Description 11/09/2023 Refill [facility] [address], [place] [phone] Justyna Lin MD [address] [place], [place] [phone] Social History Tobacco Use Types Packs/Day Years Used Date Smoking Tobacco: Former Cigarettes Smokeless Tobacco: Never Alcohol Use Standard Drinks/Week Comments Not Currently 0 (1 standard drink = 0.6 oz pur e alcohol) Depression Answer Date Recorded Patient Health Questionnaire-9 Score 22 04/09/2023 Patient Health Questionnaire-9 Score 22 04/09/2023 Last PHQ-9: Questionnaire Data Not on file 0 04/09/2023 Housing Stability Answer Date Recorded What is your housing situation today? I have [place] 06/20/[address] you li ve. Do you have problems with any of the following? None of the above 06/20/2023 Food Insecurity Answer Date Recorded Within the past 12 months, y ou worried that your food would run out before you got money to buy more: Never True 06/20/2023 Within the past 12 months,th e food you bought just didn't last and you didn't have enough money to get more: Never True Transportation Answer Date Recorded In the past 12 months, has l ack of transportation kept you from medical appts, meetings, work or from getting things needed for daily living? No 06/20/2023 Utilities Answer Date Recorded In the past 12 months, has t he electric, gas, oil or water company threatened to shut off services in your home? No 06/20/2023 Depression Answer Date Recorded Patient Health Questionnaire-2 Score 6 04/09/2023 Comments No Sex and Gender Information Value Date Recorded Sex Assigned at Female 12/24/2021 10:14 AM EDT Legal Sex Female 10:14 AM EDT Gender Identity Female 12/24/2021 10:14 AM EDT Sexual Orientation Choose not to disclose 2021 10:14 AM EDT documented as of this encounter Plan of Treatment Upcoming Encounters Date Type Department Care Team (Late st Contact Info) Description 09/14/2024 10:30 AM EDT Office Visit [facility] [address] [place] [address] Justyna Lin MD [address] [place] [address] documented as of this encounter Visit Diagnoses Not on filedocumented in this encounter Additional Health Concerns Assessment Noted Time PHQ-9 Depression Total Score: 22 024 9:06 AM EST documented as of this encounter Care Teams Nut Cracker Relationship Specialty Start Date End Date Justyna Lin MD [address] [place] [address] PCP - General Family Medicine 04/04/20 [facility] [employer] 07/18/23 documented as of this encounter
== END 2024-09-13 12:25 | disposition home or self-care (01) ==
LOC: HO.HHCX 12:24
PROVIDERS: Visit Provider Internal Medicine
DX: J45.41 Moderate persistent asthma with (acute) exacerbation (principal)
CPT/HCPCS: 71046

== ENCOUNTER → 2024-09-13 12:25 | Outpatient (BNV) | payer MEDICAID, SELFPAY | PROVIDERS: Visit Provider Radiology Diagnostic Radiology | DX: R05.9 Cough, unspecified (principal); J44.1 Chronic obstructive pulmonary disease with (acute) exacerbation | CPT/HCPCS: 71046 ==

== ENCOUNTER 2024-11-23 00:05 | Emergency (ER) | payer MEDICAID, SELFPAY ==
[2024-11-23 00:15] VITALS: BP 158/91; PULSE 78; RESP 16; TEMP 36.2; O2SAT 95; BMI 35.5
--- OUTSIDE RECORDS SUMMARY | 2024-11-23 02:37 | XMS_ITS | Clinical Summary ---
Author Organization [employer] Address [address] [facility] 7[address] [place] [address] Care Team Providers Care Accessibility Lift Technician Name Role Phone Justyna Lin MD Primary Care Provider [phone] Allergies Active Allergy Reactions Criticality Noted Date Comments Levofloxacin Swelling 04/08/2019 Medications * This document contains information received from the source organization and may not represent a complete record from that organization. Spacer/Aero-Holdi ng Chambers (OptiChamber Saige) misc 1 each every 4 (four) hours if needed (asthma). 1 each 03/24/19 25 Active ipratropium-albut priyank (Duo-Neb) 0.5-2.5 mg/3 mL nebulizer solution INHALE 1 AMPULE USING A NEBULIZER EVERY 6 HOURS NEEDED FOR WHEEZING 180 mL 2 03/25/19 25 Active cetirizine (ZyrTEC) 10 MG tabletIndications :Seasonal allergies Take 1 tablet (10 mg) by mouth if needed each day for allergies. 90 tablet 1 07/29/19 25 2024 Active NIFEdipine XL (Procardia XL) 30 MG 24 hr tablet Take 1 tablet (30 mg) by mouth in the morning. 90 tablet 3 07/29/19 25 Active Vit-Fe Fumarate-FA ( Vitamins) 28-0.8 MG tabletIndications :Low back pain at multiple sites Take 1 tablet by mouth in the morning. 90 tablet 3 07/29/19 25 Active ammonium lactate (Amlactin) 12 % cream Apply topically if needed for dry skin. 385 g 08/17/19 25 2025 Active levocetirizine (Xyzal) 5 MG tablet Take 1 tablet (5 mg) by mouth in the evening. 30 tablet 08/17/19 25 Active acetaminophen (Tylenol 8 Hour) 650 MG ER tablet Take 1 tablet (650 mg) by mouth every 8 (eight) hours if needed for mild pain. Do not crush, chew, or split. 30 tablet 08/31/19 25 Active ibuprofen 600 MG tablet Take 1 tablet (600 mg) by mouth 3 times daily. 30 tablet 08/31/19 25 Active predniSONE (Deltasone) 20 MG tablet Take 3 tab PO/d x 3d/ then 2 tab po/d D4 to D6 then 1 tab PO/d thereafter to complete 14d 28 tablet 09/14/19 25 Active albuterol (Ventolin HFA) 108 (90 Base) MCG/ACT inhaler INHALE 2 PUFFS BY MOUTH EVERY 6 HOURS IF NEEDED FOR WHEEZING OR SHORTNESS OF BREATH 18 g 3 09/14/19 25 Active fluticasone furoate (Arnuity Ellipta) 200 MCG/ACT inhaler Inhale 1 puff Once per day. Rinse mouth with water after use to reduce aftertaste and incidence of candidiasis. Do not swallow. 30 each 3 09/14/19 25 Active azithromycin (Zithromax) 250 MG tablet Take 2 tabs PO daily x 1d then 1 tab PO daily on D2 to D5 6 tablet 09/14/19 25 Active ARIPiprazole (Abilify) 10 MG tablet Take 10 mg by mouth at bedtime. 03/17/19 25 Active ondansetron ODT (Zofran-ODT) 4 MG disintegrating tablet take 1 tablet orally every 8 hours as needed for nausea and vomiting 02/03/20 24 Active white petrolatum gel Apply topically if needed for dry skin. 500 g 2 09/15/19 25 Active sertraline (Zoloft) 100 MG tablet Take 1 tablet (100 mg) by mouth Once per day. 90 tablet 3 09/15/19 25 2025 Active triamcinolone (Kenalog) 0.1 % cream APPLY TOPICALLY TWICE DAILY IN THE MORNING AND AT BEDTIME NEEDED FOR PAIN OR FOR SWELLING 80 g 1 11/16/19 25 Active triamcinolone (Kenalog) 0.1 % cream Apply topically if needed in the morning and at bedtime (pain and swelling). 80 g 1 07/222024 Discontinued Active Problems Problem Noted Date Diagnosed Date Dermatitis due to plants, in cluding poison keaton, sumac, and oak 09/13/2024 Assessment & Plan (09/13/2024 1:13 PM EDT): Not improved with topical medications, start prednisone 60 mg and taper over 2 weeks. We discussed about avoiding scratching, use ice packs on affected area, follow- up with PCP tomorrow Open fracture of tooth 08/30/2024 Dental caries 08/30/2024 Flexural eczema 08/16/2024 Assessment & Plan (08/16/2024 10:36 AM EDT): Unclear the unclear if is triggered by arthropod bite. I advised her to vacuum her home and dispose of the vacuum bag on the dumpster, clean and wash her linings with hot water and nonallergenic soap. Change to a nonallergenic bathing soap. Use triamcinolone cream mixed with moisturizing cream twice daily x 1 week (ideally CeraVe if she can buy it, otherwise can use AmLactin as prescribed). Moderate asthma with exacerbation 10/16/2023 Assessment & Plan (09/13/2024 1:12 PM EDT): This patient has symptoms for more than 1 month, I will treat for bronchitis/asthma exacerbation with Z-Vadim given that she is potentially allergic to amoxicillin, will obtain information from ED Albuterol updraft + PRD 60 mg today at the office, continue albuterol every 6 hours for the next 5 days then as needed + continue prednisone taper for over 2 weeks (given that she also has contact dermatitis). Restart fluticasone daily and follow-up with PCP Order CXR Assessment & Plan (10/16/2023 5:58 PM EDT): Here covid Flu ,RSV today are Neg Seems asthma exacerbation from viral illness ,VS wnl, Received Duoneb NBZ in office today -Continue Arnuity Ellipta use and albuterol PRN -CXR order today to r/o PNA-will pt w result -NBZ machine today w Abelardo request to [facility] staff climate scientist -prednisone 40 daily for 5 days -dextromethorphan QID PRN -tylenol prn -alarm signs and symptoms discussed w pt History of pre-eclampsia 08/17/2023 BMI 33.0-33.9,adult 06/05/2023 Primary hypertension 04/09/2023 Assessment & Plan (07/17/2023 6:39 AM EDT): Elevated in office, suspected 2/2 pain/illness Continue Nifedipine 30mg XL daily and monitor BP daily Follow up precautions reviewed Assessment & Plan (06/05/2023 1:09 PM EDT): Reported blood pressures at home <140/90 Labs normal for renal and liver function, normal electrolytes Continue Nifedipine 30mg XL daily and monitor BP daily Assessment & Plan (04/09/2023 9:01 AM EST): Elevated blood pressure continues Labs normal for renal and liver function, normal electrolytes Restart Nifedipine 30mg XL daily and monitor BP daily depression 04/09/2023 Assessment & Plan (08/04/2023 8:38 AM EDT): Will reschedule appointment for inperson, with overbook, at earliest possible Assessment & Plan (06/05/2023 1:07 PM EDT): Increase Zoloft to 100mg nightly Add Buspar 5mg BID Reviewed options for CRISIS, CHD, and ER if symptoms worsen Assessment & Plan (04/10/2023 8:11 AM EST): During IBH Consult [place] presenting with depressed mood, loss of interests/pleasure , changes in sleep difficulty falling asleep and difficulty staying asleep , change in appetite or weight overeating, trouble concentrating, fatigue/loss of energy, difficulty concentrating, feeling of being a failure, excessive worry/anxiety, difficulty controlling worry, restless/keyed up/On edge, easily fatigued, difficulty concentrating/Mind going blank , irritability, muscle tension, and sleep disturbance difficulty falling asleep and difficulty staying asleep , and crying spells, forgetfulness, nightmares, flashbacks, avoidance PLAN: (check all that apply) New/Additional Services needed Off-site services for Behavioral Health Integration Plan External OP BH therapy referral and OP psychiatry Referral Low back pain at multiple sites 04/07/2023 Pre-eclampsia 03/26/2023 03/26/2023 Assessment & Plan (04/09/2023 9:01 AM EST): Both at the end of requiring delivery and in the period Former cigarette smoker 12/06/2022 12/07/19 Paroxysmal supraventricular tachycardia 04/22/19 Overview (12/06/2022): SVT in 2019 not futher problem Assessment & Plan (04/22/2022 6:50 AM EST): Not symptomatic currently Can take Atenolol if feels it currently May need cardiology consult if starts again in Tinea pedis of right foot 04/22/2022 History of cardiac arrhythmia 01/28/2022 Low 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 Reviewed med use and SE -Cont symptomatic management w/ albuterol PRN -Follow up precautions reviewed Kidney stones 04/25/2014 Encounters Date Type Department Care Team Description 11/13/[address] [facility] [address] [place] [address] Justyna Lin MD 09/14/2024 10:30 AM EDT Office Visit [facility] [address] [place] [address] Justyna Lin MD Dermatitis due to plants, including poison keaton, sumac, and oak (Primary Dx); Dietary counseling; Exercise counseling; Overweight; Paroxysmal supraventricular tachycardia (CMS/HCC); Moderate asthma with exacerbation, unspecified whether persistent 09/14/2024 Travel 09/13/2024 1:00 PM EDT Office Visit [facility] [address] [place] [address] America Morgan MD Moderate persistent asthma with exacerbation (Primary Dx); Dermatitis due to plants, including poison keaton, sumac, and oak 09/13/[address] [facility] [address] [place] [phone] Justyna Lin MD Chart Prep 09/06/[address] [facility] [address] [place] [phone] Justyna Lin MD Pre-visit Planning ((Unable to complete PVP screening, to be completed in office ) 09/05/2024 Orders Only [facility] External Provider, [facility] 08/30/2024 1:15 PM EDT Office Visit [facility] ADULT DENTAL [address] [place] [address] Marcelo Castillo DDS Open fracture of tooth, initial encounter (Primary Dx); Dental caries from Last 3 Months Immunizations Immunization Administration Dates Next Due DTaP 02/08/2012, 2,01/16/1988,12/21,1986 Hep B, Adolescent or Pediatric 11/24/2000,1998,10/11/1998 Hib ([facility]) 10/08/1991 IPV 10/05/1991, 8,1986,09/28 Influenza injectable quadriv alent preservative free 12/23/2022,12/07/2020 Influenza, seasonal, injecta ble, preservative free 02/08/2012 MMR 03/14/1988 Pneumococcal Polysaccharide PPSV23 07/27/2012 TD (adult), 2 Lf tetanus tox oid, preservative free, adsorbed 05/30/1998 Tdap 10/11/2022, 1,07/15/2016,01/05 Social History Tobacco Use Types Packs/Day Years Used Date Smoking Tobacco: Former Cigarettes Smokeless Tobacco: Never Tobacco Cessation:Counseling Given: Not Answered Alcohol Use Standard Drinks/Week Comments Not Currently 0 (1 standard drink = 0.6 oz pur e alcohol) Depression Answer Date Recorded Patient Health Questionnaire-9 Score 14 09/14/2024 Patient Health Questionnaire-9 Score 14 09/14/2024 Last PHQ-9: Questionnaire Data Not on file 0 09/14/2024 Housing Stability Answer Date Recorded What is [...] Answer Date Recorded Patient Health Questionnaire-2 Score 3 09/14/2024 Comments No Sex and Gender Information Value Date Recorded Sex Assigned at Female 12/24/2021 10:14 AM EDT Legal Sex Female 10:14 AM EDT Gender Identity Female 12/24/2021 10:14 AM EDT Sexual Orientation Choose not to disclose 2021 10:14 AM EDT Last Filed Vital Signs Vital Sign Reading Time Taken Comments Blood Pressure 112/74 09/14/2024 10:24 AM EDT Pulse 80 09/14/2024 10:24 AM EDT Temperature 36 C (96.8 F) 09/14/2024 10:24 AM EDT Respiratory Rate 16 09/14/2024 10:24 AM EDT Oxygen Saturation 95% 09/13/2024 10:14 AM EDT Inhaled Oxygen Concentration - - Weight 78.5 kg (173 lb) 09/14/2024 10:24 AM EDT Height 157.5 cm (5' 2 ) 09/14/2024 10:24 AM EDT Body Mass Index 31.64 09/14/2024 10:24 AM EDT Plan of Treatment Health Maintenance Due Date Last Done Comments Dental Oral Exam 1986 Dental Prophylaxis 1986 Dental X-Ray: Bitewings 1986 Lipid Panel 1986 Alcohol/Substance Use Screening 1998 Family Planning (PISQ) 2001 HPV Vaccines (1 - 3-dose series) 2001 Pneumococcal Vaccine: Pediatrics (0 to 5 Years) and At-Risk Patients (6 to 49) Years (2 of 2 - PCV) 07/27/2013 07/27/2012 SDOH Screening 06/19/2024 06/20/2023 COVID-19 Vaccine ( season) 2024 Influenza Vaccine (#1) 2024 , 12/07/2020, 02/08/2012 Depression Monitoring 03/17/2025 09/14/2024, 025 Disability Screening 09/14/2025 09/14/2024 Tobacco Screening 09/16/2025 09/16/2024 Cervical Cancer Screening 06/08/2027 HPV/Cotest 06/08/2027 06/07/2022 Pap Smear 06/08/2027 06/07/2022 Dental X-Ray: Full Mouth 09/01/2027 08/30/2024 DTaP/Tdap/Td Vaccines (10 - Td or Tdap) 10/11/2032 10/11/2022, 12/07/2020, 07/15/2016, Additional history exists Zoster Vaccines (1 of 2) 2036 RSV Patients and Patients Aged 60 years or older (1 - 1-dose 75+ series) 2061 IPV Vaccines Completed 10/05/1991, 12/26, 1986, Additional history exists HIB Vaccines Aged Out 10/08/1991 No longer eligi ble based on patient's age to complete this topic Hepatitis B Vaccines Completed 11/24/2000, 01/09/1999, 10/11/1998 HIV Screening Completed 11/29/2020 Hepatitis C Screening Completed 11/29/2020 Hepatitis A Vaccines Aged Out No long er eligible based on patient's age to complete this topic Meningococcal B Vaccine Aged Out No l onger eligible based on patient's age to complete this topic Meningococcal Vaccine Aged Out No mg nahum eligible based on patient's age to complete this topic RSV under 20 months Aged Out No longe r eligible based on patient's age to complete this topic Rotavirus Vaccines Aged Out No longer eligible based on patient's age to complete this topic Procedures Procedure Name Priority Date/Time Associated Diagnosis Comments XR CHEST 2 VIEWS Routine 09/13/2024 11:4 4 AM EDT Moderate persistent asthma with exacerbation XR CHEST 2 VIEWS Routine 09/05/2024 1:00 PM EDT 15 EXTRACTION, ERUPTED TOOTH REQ REMOVAL OF BONE AND/OR SECTIONING OF TOOTH Routine 08/30/2024 1:15 PM EDT CASE PRESENTATION, DETAILED AND EXTENSIVE TREATMENT PLANNING Routine 08/30/2024 1:15 PM EDT PANORAMIC RADIOGRAPHIC IMAGE Routine 08/30/2024 1:15 PM EDT LIMITED ORAL EVALUATION - PROBLEM FOCUSED Routine 08/30/2024 1:15 PM EDT HM PAP/HPV Routine 06/07/2022 ZZZ HISTORICAL HEPATITIS C ANTIBODY Routine 11/29/2020 11:59 AM EDT from Last 3 Months or Most Recently Relevant to Health Maintenance Results * XR Chest 2 Views (09/13/2024 11:44 AM EDT) Only the most recent of2 resultswithin the time period is included. Anatomical Region Laterality Modality Chest Radiographic Lizzie ging 09/13/2024 11:4 4 AM EDT Narrative 09/13/2024 12:44 PM EDT [address] [address] XRay Report Signed Patient: America Ng MR#: [id number] : 1985 Acct:[id number] Age/Sex: 39 / F ADM Date: 09/13/24 Loc: HO.HHCX Attending Dr: America Morgan MD Ordering Physician: America Morgan MD Date of Service: 09/13/24 Procedure(s): XR chest 2V Accession Number(s): [id number] cc: America Morgan MD EXAMINATION: XR CHEST 2 VIEWS HISTORY: cough/asthma exacerbation COMPARISON: Comparison is made with the prior examination dated 09/05/2024. FINDINGS: PA and lateral views of the chest are submitted. The lungs are expanded and clear. There is no pleural effusion, pneumothorax, or pulmonary vascular congestion. The heart is normal in size. The bones are intact. XR/XR chest 2V IMPRESSION: No acute cardiopulmonary abnormality. Electronically signed by: Jaguar Hinojosa MD 09/13/2024 12:41 PM EDT RP Dictated By: Jaguar Hinojosa MD Signed By: <Electronically signed by Jaguar Hinojosa MD in OV> 09/13/24 1241 DD/ 1144 TD/TT: 09/13/24 1233 Regional Business Manager: Procedure Note Donotuseinterpreter, Image - 09/13/[address] [address] XRay Report Signed Patient: Zamzam Ng#: [id number] : 1985Acct:[id number] Age/Sex: 39 / FADM Date: 09/13/24 Loc: THANH.HHCX Attending Dr: America Morgan MD Ordering Physician: America Morgan MD Date of Service: 09/13/24 Procedure(s): XR chest 2V Accession Number(s): [id number] cc: America Morgan MD EXAMINATION: XR CHEST 2 VIEWS HISTORY: cough/asthma exacerbation COMPARISON: Comparison is made with the prior examination dated 09/05/2024. FINDINGS: PA and lateral views of the chest are submitted. The lungs are expanded and clear. There is no pleural effusion, pneumothorax, or pulmonary vascular congestion. The heart is normal in size. The bones are intact. XR/XR chest 2V IMPRESSION: No acute cardiopulmonary abnormality. Electronically signed by: Jaguar Hinojosa MD 09/13/2024 12:41 PM EDT RP Dictated By: Jaguar Hinojosa MD Signed By: <Electronically signed by Jaguar Hinojosa MD in OV> 09/13/24 1241 DD/ 1144 TD/TT: 09/13/24 1233 Regional Business Manager: America Morgan MD IMG XR PROCEDURES Final Result * Hm Pap Smear (06/07/2022) Pathologist [facility] Pap Negative for intraephithelial lesion or malignancy Negative for intraephithelial lesion or malignancy, Other HPV Undetected Undetected, Indeterminate, Quantitative, Not Detected Result [facility] Historical Provider HEALTH MAINTENANCE Final Result * Hepatitis C Antibody (11/29/2020 11:59 AM EDT) Pathologist [facility] Hepatitis C Antibody Nonreactive Nonreactive [facility] Comment: Antibodies to HCV not detected; does not exclude early acute HCV infection. HIV AB/AG Nonreactive Nonreactive [facility] Comment: HIV-1 p24 Ag and/or HIV-1/HIV-2 Ab not detected. A test result that is nonreactive does not exclude the possibility of exposure to or infection with HIV-1 and/or HIV-2. Nonreactive results in this assay for individuals with prior exposure to HIV-1 and/or HIV-2 may be due to antigen and antibody levels that are below the limit of detection of this assay. The [employer] Therapist HIV Ag/Ab Combo assay result and supplemental assay results should be interpreted in conjunction with the patient's clinical presentation, history and other laboratory results. If the results are inconsistent with clinical evidence, additional testing is suggested to confirm the result. Hepatitis B Surface Antigen Negative Negative [facility] 11/29/2020 11:5 9 AM EDT Result [facility] Violet Carlos HISTORICAL/NON ORDERABLE LABS Fi nal Result [facility] [address] from Last 3 Months or Most Recently Relevant to Health Maintenance Insurance [facility] C3 [facility] MEDICAID STAND ADULT Care Teams Accessibility Lift Technician Relationship Specialty Start Date End Date Justyna Lin MD [address] [place] [address] PCP - General Family Medicine 04/04/20 Madai Mata Baggage Porter HeadParquet Floor Layer 07/18/23
--- OUTSIDE RECORDS SUMMARY | 2024-11-23 02:37 | XMS_ITS | Encounter Summary ---
Author Organization [employer] Address [address] [facility] [address] [facility] [address] [place] [address] Care Team Providers Care It Program Manager Name Role Phone Justyna Lin MD Primary Care Provider [phone] Reason for Visit * Reason Comments Med Refill Encounter Details Date Type Department Care Team ([facility] st Contact Info) Description 06/23/2024 Refill [facility] [address] [place], [place] [phone] Burt Gold MD [address] [place], [place] [phone] Cough in adult patient Social History Tobacco Use Types Packs/Day Years [...] as of this encounter Plan of Treatment Not on file documented as of this encounter Visit Diagnoses Diagnosis Cough in adult patient documented in this encounter Additional Health Concerns Assessment Noted Time PHQ-9 Depression Total Score: 22 024 9:06 AM EST documented as of this encounter Care Teams It Program Manager Relationship Specialty Start Date End Date Justyna Lin MD [address] [place] [phone] PCP - General Family Medicine 04/04/20 Madai Mata Game TechnicianMult Au Matic Operator 07/18/23 documented as of this encounter
--- OUTSIDE RECORDS SUMMARY | 2024-11-23 02:37 | XMS_ITS | Encounter Summary ---
Author Organization [employer] Address [address] [place] [address] Care Team Providers Care Contact Lens Lathe Operator Name Role Phone Justyna Lin MD Primary Care Provider [phone] Encounter Details Date Type Department Care Team (Late st Contact Info) Description 03/26/2023 Orders Only [facility] [address] [place], [place] [phone] Justyna Lin MD [address] [place] [address] Social History Tobacco Use Types Packs/Day Years Used Date Smoking Tobacco: Every Day Cigarettes Smokeless Tobacco: Never Alcohol Use Standard Drinks/Week Comments Not Currently 0 (1 standard drink = 0.6 oz pur e alcohol) Depression Answer Date Recorded Patient Health Questionnaire-9 Score 24 04/19/2022 Housing Stability Answer Date Recorded What is your housing situation today? I have [place] 12/10/[address] you li ve. Do you have problems with any of the following? None of the above 12/10/2022 Food Insecurity Answer Date Recorded Within the past 12 months, y ou worried that your food would run out before you got money to buy more: Never True 12/10/2022 Within the past 12 months,th e food you bought just didn't last and you didn't have enough money to get more: Never True Transportation Answer Date Recorded In the past 12 months, has l ack of transportation kept you from medical appts, meetings, work or from getting things needed for daily living? No 12/10/2022 Utilities Answer Date Recorded In the past 12 months, has t he electric, gas, oil or water [employer] threatened to shut off services in your home? No 12/10/2022 Depression Answer Date Recorded Patient Health Questionnaire-2 Score 6 04/19/2022 Comments No Sex and Gender Information Value Date Recorded Sex Assigned at Female 12/24/2021 10:14 AM EDT Legal Sex Female 10:14 AM EDT Gender Identity Female 12/24/2021 10:14 AM EDT Sexual Orientation Choose not to disclose 2021 10:14 AM EDT documented as of this encounter Plan of Treatment Not on file documented as of this encounter Procedures Procedure Name Priority Date/Time Associated Diagnosis Comments CULTURE, URINE, ROUTINE Routine 07/16/2023 7:54 PM EDT documented in this encounter Results * Culture, Urine, Routine (07/16/2023 7:54 PM EDT) Urine Urine specimen obtained by clean catch procedure / Unknown 07/16/2023 7:54 PM EDT 07/17/2023 12:25 PM EDT Comment:[facility] - 07/19/2023 7:33 AM EDT Escherichia coli Quant > 100,000 cfu/mL Escherichia coli: Ampicillin <=2(S) Escherichia coli: Ceftriaxone <=0.25(S) Escherichia coli: Gentamicin <=1(S) Escherichia coli: Levofloxacin <=0.12(S) Escherichia coli: Nitrofurantoin <=16(S) Escherichia coli: Trimethoprim/Sulfamethoxazole <=20(S) Specimen Source: Urine clean catch Berna Augustin [facility] MICROBIOLOGY - GENERAL ORD ERABLES Final Result [facility] [address] [place] [address] [phone] documented in this encounter Visit Diagnoses Not on filedocumented in this encounter Additional Health Concerns Assessment Noted Time PHQ-9 Depression Total Score: 24 023 4:01 PM EST documented as of this encounter Care Teams Contact Lens Lathe Operator Relationship Specialty Start Date End Date Justyna Lin MD [address] [place] [phone] PCP - General Family Medicine 04/04/20 Madai Mata Proced TechGarment Manufacturing Supervisor 07/18/23 documented as of this encounter
--- OUTSIDE RECORDS SUMMARY | 2024-11-23 02:37 | XMS_ITS | Encounter Summary ---
Author Organization [employer] Address [address] [place] [address] Care Team Providers Care Manager Women Name Role Phone Justyna Lin MD Primary Care Provider Encounter Details Date Type Department Care Team (Late st Contact Info) Description 07/28/2024 Orders Only [facility] MEDICINE [address] [place], [place] [phone] Justyna Lin MD [address] [place] [address] Seasonal allergies; Low back pain at multiple sites Social History Tobacco Use Types Packs/Day Years [...] as of this encounter Visit Diagnoses Diagnosis Seasonal allergies Allergic rhinitis, cause unspecified Low back pain at multiple sites documented in this encounter Additional Health Concerns Assessment Noted Time PHQ-9 Depression Total Score: 22 024 9:06 AM EST documented as of this encounter Care Teams Manager Women Relationship Specialty Start Date End Date Justyna Lin MD [address] [place] [id number] PCP - General Family Medicine 04/04/20 Madai Mata Cloud Subject Matter ExpertBusiness Integration Manager 07/18/23 documented as of this encounter
--- OUTSIDE RECORDS SUMMARY | 2024-11-23 02:37 | XMS_ITS | Encounter Summary ---
Author Organization [employer] Address [address] [facility] 7t [place] [address] Care Team Providers Care Electrical Manager Name Role Phone Justyna Lin MD Primary Care Provider [phone] Encounter Details Date Type Department Care Team (Late st Contact Info) Description 01/28/2022 Abstract [facility] MEDICINE [address] [place] [address] Provider, MD Fabrice Social History Tobacco Use Types Packs/Day Years Used Date Smoking Tobacco: Never Assessed Comments Unknown Sex and Gender Information Value Date Recorded Sex Assigned at Female 12/24/2021 10:14 AM EDT Legal Sex Female 10:14 AM EDT Gender Identity Female 12/24/2021 10:14 AM EDT Sexual Orientation Choose not to disclose 2021 10:14 AM EDT documented as of this encounter Plan of Treatment Not on file documented as of this encounter Visit Diagnoses Not on filedocumented in this encounter Care Teams Electrical Manager Relationship Specialty Start Date End Date Justyna Lin MD 230 [place] [address] PCP - General Family Medicine 04/04/20 Madai Mata Field Crop Farming SupervisorMasonry Contractor Administrator 07/18/23 documented as of this encounter
--- OUTSIDE RECORDS SUMMARY | 2024-11-23 02:37 | XMS_ITS | Encounter Summary ---
Author Organization [employer] Address [address] [place] [address] Care Team Providers Care Customer Service Agent Name Role Phone Justyna Lin MD Primary Care Provider [phone] Reason for Visit * Reason Comments Med Refill Encounter Details Date Type Department Care Team ([facility] st Contact Info) Description 11/09/2023 Refill [facility] MED[facility]INE 230 [place], [place] [phone] Justyna Lin MD 230 [place], [place] [phone] Social History Tobacco Use Types Packs/Day Years [...] documented as of this encounter Care Teams Customer Service Agent Relationship Specialty Start Date End Date Justyna Lin MD [address] [place] [id number] PCP - General Family Medicine 04/04/20 Madai Mata Mortgage Loan ReviewerStore Lead 07/18/23 documented as of this encounter
== END 2024-11-23 02:35 | disposition left against medical advice (07) ==
PROVIDERS: Emergency Provider Emergency Medicine
DX: R21 Rash and other nonspecific skin eruption (principal); Z53.21 Procedure and treatment not carried out due to patient leaving prior to being seen by health care provider
CPT/HCPCS: 99281

== ENCOUNTER 2024-11-25 11:43 | Outpatient (REF) | payer MEDICAID, SELFPAY ==
--- OUTSIDE RECORDS SUMMARY | 2024-11-24 14:20 | XMS_ITS | Encounter Summary ---
Author Organization [employer] Address [address] [place] [address] Care Team Providers Care Netezza Architect Name Role Phone Justyna Lin MD Primary Care Provider [phone] Reason for Visit * Reason Comments Leg Pain Encounter Details Date Type Department Care Team ([facility] st Contact Info) Description 11/24/2024 2:20 PM EDT Office Visit [facility] [address] [place], [place] [phone] Burt Gold MD 230 [place] [address] Rash (Primary Dx); Wound infection; Elevated blood [...] a rash. + tactile fever. Went to [facility] 2 days ago but left before [...] this visit: Rash Etiology unclear. Referred to [facility] dermatology. Wound infection Presumptive superinfection of [...] documented as of this encounter Care Teams Netezza Architect Relationship Specialty Start Date End Date Justyna Lin MD [address] [place] [id number] PCP - General Family Medicine 04/04/20 Madai Mata Team Leader SurgeryLead C Developer 07/18/23 documented as of this encounter
--- OUTSIDE RECORDS SUMMARY | 2024-11-25 13:31 | XMS_ITS | Encounter Summary ---
Author Organization [employer] Address [address] [place] [address] Care Team Providers Care Explosives Detonator Name Role Phone Justyna Lin MD Primary Care Provider Reason for Visit * Reason Comments Med Refill Encounter Details Date Type Department Care Team ([facility] st Contact Info) Description 11/09/2023 Refill [facility] MEDICINE [address] [place], [place] [phone] Justyna Lin MD [address] [place], [place] [phone] Social History Tobacco Use Types Packs/Day Years [...] documented as of this encounter Care Teams Explosives Detonator Relationship Specialty Start Date End Date Justyna Lin MD [address] [place] [id number] PCP - General Family Medicine 04/04/20 Madai Mata Rubber And Plastics WorkerLens Molding Equipment Operator 07/18/23 documented as of this encounter
--- OUTSIDE RECORDS SUMMARY | 2024-11-25 13:31 | XMS_ITS | Encounter Summary ---
Author Organization [employer] Address [address] [facility] 7t [place] [address] Care Team Providers Care Production Packager Name Role Phone Justyna Lin MD Primary Care Provider [phone] Encounter Details Date Type Department Care Team (Late st Contact Info) Description 01/28/2022 Abstract [facility] MEDICINE [address] [place] [address] Provider, MD Fabrice Social History Tobacco Use [...] on filedocumented in this encounter Care Teams Production Packager Relationship Specialty Start Date End Date Justyna Lin MD [address] [place] [address] PCP - General Family Medicine 04/04/20 Madai Mata Website/Blog EditorFood Service Substitute 07/18/23 documented as of this encounter
--- OUTSIDE RECORDS SUMMARY | 2024-11-25 13:31 | XMS_ITS | Encounter Summary ---
Author Organization [employer] Address [address] [place] [address] Care Team Providers Care Sterile Products Processor Name Role Phone Justyna Lin MD Primary Care Provider [phone] Encounter Details Date Type Department Care Team (Latest Contact Info) Description 11/24/2024 Travel Social History Tobacco Use Types Packs/Day Years [...] documented as of this encounter Care Teams Sterile Products Processor Relationship Specialty Start Date End Date Justyna Lin MD [address] [place] [address] PCP - General Family Medicine 04/04/20 Madai Mata Sales Representative Marine SuppliesCot Assembler 07/18/23 documented as of this encounter
--- OUTSIDE RECORDS SUMMARY | 2024-11-25 13:31 | XMS_ITS | Clinical Summary ---
Author Organization [employer] Address [address] [facility] 7t [place] [address] Care Team Providers Care Associate Director Career Services Name Role Phone Justyna Lin MD Primary Care Provider [phone] Allergies Active Allergy Reactions Criticality Noted Date Comments Levofloxacin Swelling 04/08/2019 Medications * This document contains information received from the source organization and may not represent a complete record from that organization. Spacer/Aero-Holdi ng Chambers (OptiChamber Saige) misc 1 each every 4 (four) hours if needed (asthma). 1 each 025 Active ipratropium-albut priyank (Duo-Neb) 0.5-2.5 mg/3 mL nebulizer solution INHALE 1 AMPULE USING A NEBULIZER EVERY 6 HOURS NEEDED FOR WHEEZING 180 mL 2 025 Active cetirizine (ZyrTEC) 10 MG tabletIndications :Seasonal allergies Take 1 tablet (10 mg) by mouth if needed each day for allergies. 90 tablet 1 025 2024 Active NIFEdipine XL (Procardia XL) 30 MG 24 hr tablet Take 1 tablet (30 mg) by mouth in the morning. 90 tablet 3 025 Active Vit-Fe Fumarate-FA ( Vitamins) 28-0.8 MG tabletIndications :Low back pain at multiple sites Take 1 tablet by mouth in the morning. 90 tablet 3 025 Active ammonium lactate (Amlactin) 12 % cream Apply topically if needed for dry skin. 385 g 025 2025 Active levocetirizine (Xyzal) 5 MG tablet Take 1 tablet (5 mg) by mouth in the evening. 30 tablet Active ibuprofen 600 MG tablet Take 1 tablet (600 mg) by mouth 3 times daily. 30 tablet Active predniSONE (Deltasone) 20 MG tablet Take 3 tab PO/d x 3d/ then 2 tab po/d D4 to D6 then 1 tab PO/d thereafter to complete 14d 28 tablet Active albuterol (Ventolin HFA) 108 (90 Base) MCG/ACT inhaler INHALE 2 PUFFS BY MOUTH EVERY 6 HOURS IF NEEDED FOR WHEEZING OR SHORTNESS OF BREATH 18 g 3 Active fluticasone furoate (Arnuity Ellipta) 200 MCG/ACT inhaler Inhale 1 puff Once per day. Rinse mouth with water after use to reduce aftertaste and incidence of candidiasis. Do not swallow. 30 each 3 Active azithromycin (Zithromax) 250 MG tablet Take 2 tabs PO daily x 1d then 1 tab PO daily on D2 to D5 6 tablet Active ARIPiprazole (Abilify) 10 MG tablet Take 10 mg by mouth at bedtime. Active ondansetron ODT (Zofran-ODT) 4 MG disintegrating tablet take 1 tablet orally every 8 hours as needed for nausea and vomiting Active white petrolatum gel Apply topically if needed for dry skin. 500 g 2 Active sertraline (Zoloft) 100 MG tablet Take 1 tablet (100 mg) by mouth Once per day. 90 tablet 3 025 2025 Active triamcinolone (Kenalog) 0.1 % cream APPLY TOPICALLY TWICE DAILY IN THE MORNING AND AT BEDTIME NEEDED FOR PAIN OR FOR SWELLING 80 g 1 Active doxycycline (Vibramycin) 100 MG capsule Take 1 capsule (100 mg) by mouth 2 times daily for 7 days. Take with at least 8 ounces (large glass) of water, do not lie down for 30 minutes after 14 capsule 025 2024 Active hydrOXYzine pamoate (Vistaril) 50 MG capsule Take 1 capsule (50 mg) by mouth every 6 (six) hours if needed for itching. 30 capsule Active acetaminophen (Tylenol 8 Hour) 650 MG ER tablet Take 1 tablet (650 mg) by mouth every 8 (eight) hours if needed for mild pain. Do not crush, chew, or split. 30 tablet Active cefadroxil (Duricef) 500 MG capsule Take 1 capsule (500 mg) by mouth 2 times daily for 7 days. 14 capsule 025 2024 Active bacitracin-polymy arnulfo b (Polysporin) ointment Apply topically if needed in the morning and at bedtime (rash). Apply to affected area daily 30 g Active acetaminophen (Tylenol 8 Hour) 650 MG ER tablet Take 1 tablet (650 mg) by mouth every 8 (eight) hours if needed for mild pain. Do not crush, chew, or split. 30 tablet 025 2024 Discontinued(R eorder (will not trigger notification to Pharmacy)) triamcinolone (Kenalog) 0.1 % cream Apply topically if needed in the morning and at bedtime (pain and swelling). 80 g 1 025 2024 Discontinued Active Problems Problem Noted Date Diagnosed [...] pt w result -NBZ machine today w Duoneb request to [facility] set staff fitter -prednisone 40 daily for 5 days -dextromethorphan [...] for Behavioral Health Integration Plan External OP therapy referral and OP psychiatry Referral Low back pain at multiple sites 04/07/2023 Pre-eclampsia 03/26/2023 03/26/2023 Assessment & Plan (04/09/2023 9:01 AM EST): Both at the end of requiring delivery and in the period Former cigarette smoker 12/06/2022 12/07/19 23 Paroxysmal supraventricular tachycardia 04/22/19 23 Overview (12/06/2022): SVT in 2019 not futher [...] Encounters Date Type Department Care Team Description 11/24/2024 2:20 PM EDT Office Visit [facility] [address] [place] [phone] Burt Gold MD Rash (Primary Dx); Wound infection; Elevated blood pressure reading in office without diagnosis of hypertension 11/24/2024 Travel 11/13/2024 Refill [facility] [address] [place] [address] Justyna Lin MD 09/14/2024 10:30 AM EDT Office Visit [facility] [address] [place] [address] Justyna Lin MD Dermatitis due to plants, including poison keaton, sumac, and oak (Primary Dx); Dietary counseling; Exercise counseling; Overweight; Paroxysmal supraventricular tachycardia (CMS/HCC); Moderate asthma with exacerbation, unspecified whether persistent 09/14/2024 Travel 09/13/2024 1:00 PM EDT Office Visit [facility] [address] [place] [address] America Morgan MD Moderate persistent asthma with exacerbation (Primary Dx); Dermatitis due to plants, including poison keaton, sumac, and oak 09/13/2024 Telephone [facility] [address] [place] [phone] Justyna Lin MD Chart Prep 09/06/2024 Patient Outreach [facility] [address] [place] [address] Justyna Lin MD Pre-visit Planning ((Unable to complete PVP screening, to be completed in office ) 09/05/2024 Orders Only [facility] External Provider, [facility] 08/30/2024 1:15 PM EDT Office Visit [facility] ADULT DENTAL [address] [place] [address] Marcelo Castillo DDS Open fracture of tooth, initial encounter (Primary Dx); Dental caries from Last 3 Months Immunizations Immunization Administration Dates Next Due DTaP 02/08/2012, 2,01/16/1988,12/21,1986 Hep B, Adolescent or Pediatric 11/24/2000,1998,10/11/1998 Hib ([facility]) 10/08/1991 IPV 10/05/1991, 8,1986,09/28 Influenza injectable quadriv alent preservative free 12/23/2022,12/07/2020 Influenza, seasonal, injecta ble, preservative free 02/08/2012 MMR 03/14/1988 Pneumococcal Polysaccharide PPSV23 07/27/2012 TD (adult), 2 Lf tetanus tox oid, preservative free, adsorbed 05/30/1998 Tdap 10/11/2022,,07/15/2016,01/05 Social History Tobacco Use Types Packs/Day Years [...] the past 12 months, has t he [employer] [place], gas, oil or water company threatened to [...] oz) 11/24/2024 2:20 P M EDT Height 157.5 cm (5' 2 ) 09/14/2024 10:24 AM EDT Body Mass Index 31.39 09/14/2024 10:24 AM EDT Plan of Treatment [...] 07/27/2012 SDOH Screening 06/19/2024 06/20/2023 COVID-19 Vaccine (1 - season) 2024 Influenza Vaccine (#1) 2024 , 12/07/2020, 02/08/2012 Depression Monitoring 03/17/2025 09/14/2024, 025 Disability Screening 09/14/2025 09/14/2024 Tobacco Screening 11/24/2025 11/24/2024 Cervical Cancer Screening 06/08/2027 HPV/Cotest 06/08/2027 06/07/2022 [...] AM EDT Narrative 09/13/2024 12:44 [place] [address] XRay Report Signed Patient: America Ng MR#: [id number] : 1985 Acct:[id number] Age/Sex: 39 / F ADM Date: 09/13/24 Loc: HO.[facility]HCX Attending Dr: America Morgan MD Ordering Physician: America Morgan MD Date of Service: 09/13/24 Procedure(s): XR chest 2V Accession Number(s): [id number] cc: America Morgan MD EXAMINATION: XR CHEST [...] 09/13/24 1241 DD/ 1144 TD/TT: 09/13/24 1233 Computed Tomography Scanner Operator: Procedure Note Donotuseinterpreter, Image - 09/13/[address] [address] XRay Report Signed Patient: Zamzam Ng#: [id number] : 1985Acct:[id number] Age/Sex: 39 / FADM Date: 09/13/24 [facility]: America Morgan MD Ordering Physician: Ameirca Morgan MD Date of Service: 09/13/24 Procedure(s): XR chest 2V Accession Number(s): [id number] cc: America Morgan MD EXAMINATION: XR CHEST [...] 09/13/24 1241 DD/ 1144 TD/TT: 09/13/24 1233 Computed Tomography Scanner Operator: America Morgan MD IMG XR PROCEDURES Final Result * Hm Pap Smear (06/07/2022) Pap Negative for intraephithelial lesion or malignancy Negative for intraephithelial lesion or malignancy, Other HPV Undetected Undetected, Indeterminate, Quantitative, Not Detected Historical Provider MD HEALTH MAINTENANCE Final Result * Hepatitis C Antibody (11/29/2020 11:59 AM EDT) Hepatitis C Antibody Nonreactive Nonreactive [facility] Comment: Antibodies to HCV not detected; does not exclude early acute HCV infection. HIV AB/AG Nonreactive Nonreactive [facility] Comment: HIV-1 p24 Ag [...] of detection of this assay. The [employer] Security Support Analyst HIV Ag/Ab Combo assay result and supplemental assay results should be interpreted in conjunction with the patient's clinical presentation, history and other laboratory results. If the results are inconsistent with clinical evidence, additional testing is suggested to confirm the result. Hepatitis B Surface Antigen Negative Negative [facility] 11/29/2020 11:5 9 AM EDT Violet Carlos HISTORICAL/NON ORDERABLE LABS Fi nal Result [facility] [address] from Last 3 Months or Most Recently Relevant to Health Maintenance Insurance [employer] C3 [place] STAND ADULT Care Teams Associate Director Career Services Relationship Specialty Start Date End Date Justyna Lin MD [address] [place] [address] PCP - General Family Medicine 04/04/20 Madai Mata Spindle PlumberGolf Caddie 07/18/23
--- OUTSIDE RECORDS SUMMARY | 2024-11-25 13:31 | XMS_ITS | Encounter Summary ---
Author Organization [employer] Address [address] [facility] [facility] [address] 7t [place] [address] Care Team Providers Care Support Coordinator Name Role Phone Justyna Lin MD Primary Care Provider [phone] Encounter Details Date Type Department Care Team (Late st Contact Info) Description 07/28/2024 Orders Only [facility] [address] [place] [address] Justyna Lin MD [address] [place] [address] Seasonal allergies; Low back pain at multiple [...] documented as of this encounter Care Teams Support Coordinator Relationship Specialty Start Date End Date Justyna Lin MD [address] [place] [address] PCP - General Family Medicine 04/04/20 Madai Mata Personnel AdministratorFixed Capital Clerk 07/18/23 documented as of this encounter
--- OUTSIDE RECORDS SUMMARY | 2024-11-25 13:31 | XMS_ITS | Encounter Summary ---
Author Organization [employer] Address [address] [facility] [address] 7[address] [place] [address] Care Team Providers Care Waist Presser Name Role Phone Justyna Lin MD Primary Care Provider [phone] Reason for Visit * Reason Comments Med Refill Encounter Details Date Type Department Care Team ([facility] st Contact Info) Description 06/23/2024 Refill [facility] [address] [place], [place] [phone] Burt Gold MD 230 [place], [place] [phone] Cough in adult patient Social History Tobacco [...] documented as of this encounter Care Teams Waist Presser Relationship Specialty Start Date End Date Justyna Lin MD [address] [place] [phone] PCP - General Family Medicine 04/04/20 Madai Mata Crucible Furnace TenderWeb Operations Manager 07/18/23 documented as of this encounter
--- OUTSIDE RECORDS SUMMARY | 2024-11-25 13:32 | XMS_ITS | Encounter Summary ---
Author Organization [employer] Address [address] [facility] [address] 7[address] [place] [address] Care Team Providers Care Finance Lead Name Role Phone Justyna Lin MD Primary Care Provider [phone] Encounter Details Date Type Department Care Team (Late st Contact Info) Description 03/26/2023 Orders Only [facility] 230 [place], [place] [phone] Justyna Lin MD 230 [place] [address] Social History Tobacco Use Types Packs/Day Years [...] t he electric, gas, oil or water [employer] threatened to shut off services in your [...] PM EDT 07/17/2023 12:25 PM EDT Comment:[facility] - 07/19/2023 7:33 AM EDT Escherichia coli Quant > 100,000 cfu/mL Escherichia coli: Ampicillin <=2(S) Escherichia coli: Ceftriaxone <=0.25(S) Escherichia coli: Gentamicin <=1(S) Escherichia coli: Levofloxacin <=0.12(S) Escherichia coli: Nitrofurantoin <=16(S) Escherichia coli: Trimethoprim/Sulfamethoxazole <=20(S) Specimen Source: Urine clean catch Berna Augustin [facility] MICROBIOLOGY - GENERAL ORD ERABLES Final Result [facility] [address] [place] [address] [phone] documented in this encounter Visit Diagnoses Not on filedocumented in this encounter Additional Health Concerns Assessment Noted Time PHQ-9 Depression Total Score: 24 023 4:01 PM EST documented as of this encounter Care Teams Finance Lead Relationship Specialty Start Date End Date Justyna Lin MD [address] [place] [address] PCP - General Family Medicine 04/04/20 Madai Mata Acid Polymerization OperatorSushi Chef 07/18/23 documented as of this encounter
== END 2024-11-25 11:44 | disposition home or self-care (01) ==
LOC: HO.HHCLNP 11:43
PROVIDERS: Visit Provider Emergency Medicine
DX: S71.102A Unspecified open wound, left thigh, initial encounter (principal); L08.9 Local infection of the skin and subcutaneous tissue, unspecified
CPT/HCPCS: 87070; 87077; 87186; 87205

== ENCOUNTER 2024-11-29 01:56 | Emergency (ER) | payer MEDICAID, SELFPAY ==
--- OUTSIDE RECORDS SUMMARY | 2024-11-24 14:20 | XMS_ITS | Encounter Summary ---
Author Organization [employer] Address [address] [place] [address] Care Team Providers Care Digital Circuit Designer Name Role Phone Justyna Lin MD Primary Care Provider [phone] Reason for Visit * Reason Comments Leg Pain Encounter Details Date Type Department Care Team ([facility] st Contact Info) Description 11/24/2024 2:20 PM EDT Office Visit [facility] 230 [place], [place] [phone] Burt Gold MD 230 [place] [address] Rash (Primary Dx); Wound infection; Elevated blood pressure reading in office without diagnosis of hypertension Social History Tobacco Use Types Packs/Day Years [...] AM EDT documented as of this encounter Last Filed Vital Signs Vital Sign Reading Time Taken Comments Blood Pressure 120/90 11/24/2024 2:20 PM EDT Pulse 102 11/24/2024 2:20 PM EDT Temperature 36.6 C (97.8 F) 11/24/2024 2:20 PM EDT Respiratory Rate 18 11/24/2024 2:20 PM EDT Oxygen Saturation 97% 11/24/2024 2:20 PM EDT Inhaled Oxygen Concentration - - Weight 77.8 kg (171 lb 9.6 oz) 11/24/2024 2:20 P M EDT Height - - Body Mass Index 31.39 09/14/2024 10:24 AM EDT documented in this encounter Progress Notes * Burt Gold MD - 11/24/2024 2:20 PM EDT Subjective Patient ID: America Barfield is a 39 y.o. female. HPI America has 1 week h/o itchy rash that started on left thigh, spread to trunk upper extremities. She scratches the rashes, and left thigh rash is huge , painful, has sticky liquid draining where she has been scrathcing. Using triamcinolone 0.1% cream with no relief. States prednisone did not help with the itching. It was prescribed at previous walk-in clinic visit in August. Zyrtec doesn't help. Denies SOB, swelling, sensation of throat tightness, new medications, soap, shampoo, detergent, or deodorant. Denies tick bite, or known contacts who have a rash. + tactile fever. Went to [facility] ED 2 days ago but left before being seen. Was seen in walk-in clinic September 13 and September 14 of this year with diffuse itchy rash that had been present for 2 weeks. She had tried topical steroids with no improvement. She was prescribed prednisone taper for presumptive dermatitis due to plants. She was seen again the next day by her PCP, was prescribed triamcinolone acetonide 0.1% cream and Lamisil tablet. Lives with 5 children. Not employed. LMP=2 days ago H/o BTL. Former smoker. Patient Active Problem List Diagnosis Date Noted Dermatitis due to plants, including poison ke[place], sumac, and oak 09/13/2024 Open fracture of tooth 08/30/2024 Dental caries 08/30/2024 Flexural eczema 08/16/2024 Moderate asthma with exacerbation 10/16/2023 History of pre-eclampsia 08/17/2023 BMI 33.0-33.9,adult 06/05/2023 Primary hypertension 04/09/2023 depression 04/09/2023 Low back pain at multiple sites 04/07/2023 Pre-eclampsia 03/26/2023 Former cigarette smoker 12/06/2022 Paroxysmal supraventricular tachycardia 04/22/2022 Tinea pedis of right foot 04/22/2022 History of cardiac arrhythmia 01/28/2022 Low grade squamous intraepithelial lesion (LGSIL) on cervicovaginal cytologic smear 03/07/2021 Scoliosis deformity of spine 06/04/2020 Mild persistent asthma 06/16/2018 Kidney stones 04/25/2014 The following portions of the chart were reviewed this encounter and updated as appropriate: Review of Systems Constitutional: Negative for fever. Respiratory: Negative for shortness of breath. Cardiovascular: Negative for chest pain. Gastrointestinal: Negative for abdominal pain. Skin: Positive for rash. Neurological: Negative for headaches. Objective Physical Exam Constitutional: Appearance: Normal appearance. HENT: Right Ear: Tympanic membrane normal. Nose: Nose normal. Mouth/Throat: Mouth: Mucous membranes are moist. Pharynx: Oropharynx is clear. Eyes: Conjunctiva/sclera: Conjunctivae normal. Pupils: Pupils are equal, round, and reactive to light. Cardiovascular: Rate and Rhythm: Normal rate and regular rhythm. Heart sounds: No murmur heard. Pulmonary: Effort: Pulmonary effort is normal. Breath sounds: Normal breath sounds. Musculoskeletal: General: Normal range of motion. Cervical back: No tenderness. Skin: Findings: No rash. Comments: Several areas on arms lateral surfaces and anterior right thigh and abdominal wall of confluent, irregular, slightly erythematous maculopapular areas. On left proximal posterior thigh there was a large area of excoriated skin with minimal wetness on surface, surrounded by mild erythema and slightly raised tender area of skin. Neurological: Mental Status: She is alert. Gait: Gait is intact. Psychiatric: Mood and Affect: Mood normal. Behavior: Behavior normal. Procedures Assessment/Plan Diagnoses and all orders for this visit: Rash Etiology unclear. Referred to [facility] dermatology. Wound infection Presumptive superinfection of rash from constant scratching and abrading skin. Swab of surface was sent for culture and sensitivity. Prescribed doxycycline, Duricef, and bacitracin ointment. Return to clinic if not improving. Elevated blood pressure reading in office without diagnosis of hypertension Has home BP monitor. Reviewed BP parameters, given written BP log that includes BP parameters, to keep daily. Call if BP readings are elevated. Other orders - doxycycline (Vibramycin) 100 MG capsule; Take 1 capsule (100 mg) by mouth 2 times daily for 7 days. Take with at least 8 ounces (large glass) of water, do not lie down for 30 minutes after - hydrOXYzine pamoate (Vistaril) 50 MG capsule; Take 1 capsule (50 mg) by mouth every 6 (six) hoursif needed for itching. - acetaminophen (Tylenol 8 Hour) 650 MG ER tablet; Take 1 tablet (650 mg) by mouth every 8 (eight) hours if needed for mild pain. Do not crush, chew, or split. - cefadroxil (Duricef) 500 MG capsule; Take 1 capsule (500 mg) by mouth 2 times daily for 7 days. - bacitracin-polymyxin b (Polysporin) ointment; Apply topically if needed in the morning and at bedtime (rash). Apply to affected area daily documented in this encounter Plan of Treatment Scheduled Orders Name Type Priority Associated Diagnoses Orde r Schedule Wound culture Microbiology Routine Wound infection Ordered: 11/24/2024 documented as of this encounter Visit Diagnoses Diagnosis Rash- Primary Rash and other nonspecific skin eruption Wound infection Posttraumatic wound infection not elsewhere classified Elevated blood pressure reading in office without diagnosis of hypertension documented in this encounter Additional Health Concerns Assessment Noted Time PHQ-9 Depression Total Score: 14 025 11:24 AM EDT documented as of this encounter Care Teams Digital Circuit Designer Relationship Specialty Start Date End Date Justyna Lin MD [address] [place] [id number] PCP - General Family Medicine 04/04/20 Madai Mata Laser/Electro Optics TechnicianFruit Sorter 07/18/23 documented as of this encounter
[2024-11-29 01:59] VITALS: BP 131/62; PULSE 97; RESP 18; TEMP 36.9; O2SAT 92; BMI 32.5
--- OUTSIDE RECORDS SUMMARY | 2024-11-29 02:11 | XMS_ITS | Encounter Summary ---
Author Organization [employer] Address [address] [facility] [address] 7t [place] [address] Care Team Providers Care Motor Vehicle Inspector Name Role Phone Justyna Lin MD Primary Care Provider [phone] Reason for Visit * Reason Comments Med Refill Encounter Details Date Type Department Care Team ([facility] st Contact Info) Description 11/09/2023 Refill [facility] [address] [place], [place] [phone] Justyna Lin MD 230 [place], [place] [phone] Social History Tobacco Use Types Packs/Day Years [...] documented as of this encounter Care Teams Motor Vehicle Inspector Relationship Specialty Start Date End Date Justyna Lin MD [address] [place] [address] PCP - General Family Medicine 04/04/20 Madai Mata Show Horse DriverTest Carrier 07/18/23 documented as of this encounter
--- OUTSIDE RECORDS SUMMARY | 2024-11-29 02:11 | XMS_ITS | Clinical Summary ---
Author Organization [employer] Address [address] [facility] 7t [place] [address] Care Team Providers Care Tax Assistant Name Role Phone Justyna Lin MD Primary Care Provider Allergies Active Allergy Reactions Criticality Noted Date [...] -NBZ machine today w Duoneb request to [facility] clinical staff anesthesiologist -prednisone 40 daily for 5 days -dextromethorphan [...] Encounters Date Type Department Care Team Description 11/25/2024 Orders Only [facility] [address] [place] [phone] Burt Gold MD 11/24/2024 2:20 PM EDT Office Visit [facility] [address] [place] [address] Burt Gold MD Rash (Primary Dx); Wound infection; Elevated blood pressure reading in office without diagnosis of hypertension 11/24/2024 Travel 11/13/2024 Refill [facility] [address] [place] [address] Justyna Lin MD 09/14/2024 10:30 AM EDT Office Visit [facility] [address] [place] [address] Justyna Lin MD Dermatitis due to plants, including poison keaton, sumac, and oak (Primary Dx); Dietary counseling; Exercise counseling; Overweight; Paroxysmal supraventricular tachycardia (CMS/HCC); Moderate asthma with exacerbation, unspecified whether persistent 09/14/2024 Travel 09/13/2024 1:00 PM EDT Office Visit [facility] [address] [place] [address] America Morgan MD Moderate persistent asthma with exacerbation (Primary Dx); Dermatitis due to plants, including poison keaton, sumac, and oak 09/13/2024 Telephone [facility] [address] [place] [address] Justyna Lin MD Chart Prep 09/06/2024 Patient Outreach [facility] [address] [place] [address] Justyna Lin MD Pre-visit Planning ((Unable to complete PVP screening, to be completed in office ) 09/05/2024 Orders Only [facility] External Provider, [facility] 08/30/2024 1:15 PM EDT Office Visit [facility] ADULT DENTAL [address] [place] [address] Marcelo Castillo DDS Open fracture of tooth, initial encounter (Primary Dx); Dental caries from Last 3 Months Immunizations Immunization Administration Dates Next Due DTaP 02/08/2012, 2,01/16/1988,12/21,1986 Hep B, Adolescent or Pediatric 11/24/2000,1998,10/11/1998 Hib ([facility]) 10/08/1991 IPV 10/05/1991, 8,1986,09/28 Influenza injectable quadriv [...] Procedure Name Priority Date/Time Associated Diagnosis Comments GRAM STAIN RESULT (NON ORDERABLE) Routine 11/25/2024 4:48 PM EDT XR CHEST 2 VIEWS Routine 09/13/2024 11:4 [...] 1:15 PM EDT HM PAP/HPV Routine 06/07/2022 [facility] ANTIBODY Routine 11/29/2020 11:59 AM EDT from Last 3 Months or Most Recently Relevant to Health Maintenance Results * Gram Stain Result (11/25/2024 4:48 PM EDT) 11/25/2024 4:48 PM EDT 11/25/2024 4:48 PM EDT Comment:Thigh Left Narrative [facility] - 11/28/2024 7:42 AM EDT Gram stain results: No polys 3+ epithelial cells 2+ Gram-positive rods 1+ Gram-positive cocci Routine Culture Report - external Routine Culture 3+ Mixed skin tyler Staphylococcus aureus Quant Org ID 3+ Staphylococcus aureus: Clindamycin <=0.25(S) Staphylococcus aureus: Erythromycin <=0.25(S) Staphylococcus aureus: Levofloxacin 0.25(S) Staphylococcus aureus: Oxacillin 0.5(S) Staphylococcus aureus: Penicillin-G >=0.5(R) Staphylococcus aureus: Tetracycline <=1(S) Staphylococcus aureus: Trimethoprim/Sulfamethoxazole <=10(S) Specimen Source: Thigh Left Burt Gold MD HISTORICAL/NON ORDERABLE LABS Fi nal Result [facility] [address] [place] [address] [phone] * XR Chest 2 Views (09/13/2024 11:44 AM EDT) Only the most recent of2 resultswithin the time period is included. Anatomical Region Laterality Modality Chest Radiographic Lizzie ging 09/13/2024 11:4 4 AM EDT Narrative 09/13/2024 12:44 PM EDT [address] [address] XRay Report Signed Patient: America Ng MR#: [id number] : 1985 Acct:[id number] Age/Sex: 39 / F ADM Date: 09/13/24 [facility]: America Morgan MD Ordering Physician: America Morgan MD Date of Service: 09/13/24 Procedure(s): XR chest 2V Accession Number(s): [id number] cc: America Morgan MD EXAMINATION: XR CHEST [...] Jaguar Hinojosa MD 09/13/2024 12:41 PM EDT Dictated By: Jaguar Hinojosa MD Signed By: <Electronically signed by Jaguar Hinojosa MD in OV> 09/13/24 1241 DD/ 1144 TD/TT: 09/13/24 1233 Parent Coach: Procedure Note Donotuseinterpreter, Image - 09/13/[address] [address] XRay Report Signed Patient: Zamzam Ng#: [id number] : 1985Acct:[id number] Age/Sex: 39 / FADM Date: 09/13/24 Loc: HO.[facility]HCX Attending Dr: America Morgan MD Ordering Physician: America Morgan MD Date of Service: 09/13/24 Procedure(s): XR chest 2V Accession Number(s): [id number] cc: America Morgan MD EXAMINATION: XR CHEST [...] 09/13/24 1241 DD/ 1144 TD/TT: 09/13/24 1233 Parent Coach: America Morgan MD IMG XR PROCEDURES Final Result * Hm Pap Smear (06/07/2022) Pathologist [facility] Pap Negative for intraephithelial lesion or malignancy Negative for intraephithelial lesion or malignancy, Other HPV Undetected Undetected, Indeterminate, Quantitative, Not Detected Historical Provider HEALTH MAINTENANCE Final Result * Hepatitis C Antibody (11/29/2020 11:59 AM EDT) Pathologist [facility] Hepatitis C Antibody Nonreactive Nonreactive [facility] Comment: Antibodies to HCV not detected; does not exclude early acute HCV infection. HIV AB/AG Nonreactive Nonreactive [facility] Comment: HIV-1 p24 Ag and/or [...] of detection of this assay. The [employer] Prototyper HIV Ag/Ab Combo assay result and supplemental [...] [facility] [address] from Last 3 Months or Most Recently Relevant to Health Maintenance Insurance [facility] C3 D[facility] MED[employer] STAND ADULT Care Teams Tax Assistant Relationship Specialty Start Date End Date Justyna Lin MD [address] [place] [phone] PCP - General Family Medicine 04/04/20 Madai Mata Powder And Primer Canning LeaderRubber Heel And Sole Press Tender 07/18/23
--- OUTSIDE RECORDS SUMMARY | 2024-11-29 02:11 | XMS_ITS | Encounter Summary ---
Author Organization [employer] Address [address] [place] [address] Care Team Providers Care Warp Preparer Name Role Phone Justyna Lin MD Primary Care Provider [phone] Encounter Details Date Type Department Care Team (Late st Contact Info) Description 11/25/2024 Orders Only [facility] [address] [place], [place] [phone] Burt Gold MD [address] [place] [address] Social History Tobacco Use Types Packs/Day Years [...] (NON ORDERABLE) Routine 11/25/2024 4:48 PM EDT documented in this encounter Results * Gram Stain Result (11/25/2024 4:48 PM EDT) 11/25/2024 4:48 PM EDT 11/25/2024 4:48 PM EDT Comment:Thigh Left Narrative [facility] - 11/28/2024 7:42 AM EDT Gram [...] aureus: Trimethoprim/Sulfamethoxazole <=10(S) Specimen Source: Thigh Left us Burt Gold MD HISTORICAL/NON ORDERABLE LABS Fi nal Result [facility] [address] [place] [address] [phone] documented in this encounter Visit Diagnoses Not on filedocumented in this encounter Additional Health Concerns Assessment Noted Time PHQ-9 Depression Total Score: 14 025 11:24 AM EDT documented as of this encounter Care Teams Warp Preparer Relationship Specialty Start Date End Date Justyna Lin MD [address] [place] [address] PCP - General Family Medicine 04/04/20 Madai Mata Environmental LeadTextile Colorist Formulator 07/18/23 documented as of this encounter
--- OUTSIDE RECORDS SUMMARY | 2024-11-29 02:11 | XMS_ITS | Encounter Summary ---
Author Organization [employer] Address [address] [place] [address] Care Team Providers Care Sales Record Clerk Name Role Phone Justyna Lin MD Primary Care Provider [phone] Encounter Details Date Type Department Care Team (Late st Contact Info) Description 03/26/2023 Orders Only [facility] [address], [place] [phone] Justyna Lin MD [address] [place] [address] Social History Tobacco Use Types Packs/Day Years [...] t he electric, gas, oil or water [employer] threatened to shut off services in your [...] PM EDT 07/17/2023 12:25 PM EDT Comment:[facility] - 07/19/2023 7:33 AM EDT Escherichia coli Quant > 100,000 cfu/mL Escherichia coli: Ampicillin <=2(S) Escherichia coli: Ceftriaxone <=0.25(S) Escherichia coli: Gentamicin <=1(S) Escherichia coli: Levofloxacin <=0.12(S) Escherichia coli: Nitrofurantoin <=16(S) Escherichia coli: Trimethoprim/Sulfamethoxazole <=20(S) Specimen Source: Urine clean catch Berna Augustin [facility] MICROBIOLOGY - GENERAL ORD ERABLES Final Result [facility] [address] [place] [address] [phone] documented in this encounter Visit Diagnoses Not on filedocumented in this encounter Additional Health Concerns Assessment Noted Time PHQ-9 Depression Total Score: 24 023 4:01 PM EST documented as of this encounter Care Teams Sales Record Clerk Relationship Specialty Start Date End Date Justyna Lin MD [address] [place] [id number] PCP - General Family Medicine 04/04/20 Madai Mata Thermograph OperatorBusiness Development Assistant 07/18/23 documented as of this encounter
--- OUTSIDE RECORDS SUMMARY | 2024-11-29 02:11 | XMS_ITS | Encounter Summary ---
Author Organization [employer] Address [address] [place] [address] Care Team Providers Care Drapery And Upholstery Measurer Name Role Phone Justyna Lin MD Primary Care Provider Reason for Visit * Reason Comments Med Refill Encounter Details Date Type Department Care Team ([facility] st Contact Info) Description 06/23/2024 Refill [facility] [address] [place], [place] [phone] Burt Gold MD [address] [place], [place] [phone] Cough in adult patient Social History Tobacco [...] documented as of this encounter Care Teams Drapery And Upholstery Measurer Relationship Specialty Start Date End Date Justyna Lin MD [address] [place] [id number] PCP - General Family Medicine 04/04/20 Madai Mata Associate Vice PresidentElectric Motors Salesperson 07/18/23 documented as of this encounter
--- OUTSIDE RECORDS SUMMARY | 2024-11-29 02:11 | XMS_ITS | Encounter Summary ---
Author Organization [employer] Address [address] [facility] [address] [place] [address] Care Team Providers Care Ordinary Seaman Name Role Phone Justyna Lin MD Primary Care Provider [phone] Encounter Details Date Type Department Care Team (Late st Contact Info) Description 01/28/2022 Abstract [facility] [address] [place] [address] Provider, MD Fabrice Social History Tobacco Use [...] on filedocumented in this encounter Care Teams Ordinary Seaman Relationship Specialty Start Date End Date Justyna Lin MD [address] [place] [address] PCP - General Family Medicine 04/04/20 Madai Mata Drug Safety ScientistBacteriology Research Assistant 07/18/23 documented as of this encounter
--- OUTSIDE RECORDS SUMMARY | 2024-11-29 02:11 | XMS_ITS | Encounter Summary ---
Author Organization [employer] Address [address] [place] [address] Care Team Providers Care Talent Consultant Name Role Phone Justyna Lin MD Primary Care Provider [phone] Encounter Details Date Type Department Care Team [...] documented as of this encounter Care Teams Talent Consultant Relationship Specialty Start Date End Date Justyna Lin MD [address] [place] [address] PCP - General Family Medicine 04/04/20 Madai Mata Proposal ManagerWildlife Biostation Research Ecologist 07/18/23 documented as of this encounter
--- OUTSIDE RECORDS SUMMARY | 2024-11-29 02:11 | XMS_ITS | Encounter Summary ---
Author Organization [employer] Address [address] [place] [address] Care Team Providers Care Coke Burner Name Role Phone Justyna Lin MD Primary Care Provider [phone] Encounter Details Date Type Department Care Team (Late st Contact Info) Description 07/28/2024 Orders Only [facility] [address] [place] [address] Justyna Lin MD [address] [place] [address] Seasonal allergies; Low back pain at multiple [...] documented as of this encounter Care Teams Coke Burner Relationship Specialty Start Date End Date Justyna Lin MD [address] [place] [id number] PCP - General Family Medicine 04/04/20 Madai Mata Revenue InvestigatorByproducts Extractor 07/18/23 documented as of this encounter
--- NOTE | 2024-11-29 02:35 | PC.NURSE ---
pt extremely uncomfortable, currently has a rash like welts all over her body, pt states they are very itchy and painful (12/03), she was dx with poison keaton a couple weeks ago, non of the medications that have been prescribed have worked. Pt is tearful. respirations even and unlabored.
--- NOTE | 2024-11-29 04:33 | ED.SKABFB ---
HPI - Skin/Abscess/Foreign Bdy General Chief complaint: Skin/Abscess/Foreign Body Stated complaint: allergic reaction, face lesions Time Seen by Provider: 11/29/24 02:56 Source: patient Mode of arrival: ambulatory Limitations: no limitations History of Present Illness ED Provider: Dr. Breanna Gill HPI narrative: 39-year-old female with history of asthma presenting with diffuse rash that has been ongoing for the last 2 weeks. Admits that she was exposed to poison keaton about 2 months ago and had several courses of steroids since then. She developed a worsening rash over the last several days and has been itching extensively. Rash is now all over her face, groin, chest, legs and buttocks. No lesions in the mouth or vagina. Denies associated to her tongue or throat swelling. No difficulty breathing. No flea or tick exposure. No reported fever. Related Data Previous Rx's ?Medication ?Instructions ?Recorded vitamins with calcium 1 tab PO DAILY #90 tabs 09/05/20 no.72-iron 27 mg-folic acid 1 mg tablet ( Vitamins Plus Low Iron) doxylamine succinate 25 mg tablet 25 mg PO BEDTIME PRN sleep #30 tabs 09/25/20 (Unisom (doxylamine)) pyridoxine (vitamin B6) 25 mg 25 mg PO TID #90 tabs 09/25/20 tablet metronidazole 0.75 % (37.5 mg/5 1 appful vaginal BID 5 days #70 10/31/20 gram) vaginal gel (Metrogel grams Vaginal) ondansetron HCl 4 mg tablet 4 mg PO Q8H PRN nausea and 10/31/20 (Zofran) vomiting #30 tabs acetaminophen 500 mg tablet 1,000 mg (2 x 500 mg) PO QID PRN 11/27/20 (Tylenol Extra Strength) fever or pain #14 tabs cephalexin 500 mg capsule 500 mg PO Q6H 10 days #40 caps 11/27/20 hydroxyzine HCl 25 mg tablet 25 mg PO TID PRN anxiety #20 tabs 10/28/22 ondansetron 4 mg disintegrating 4 mg PO Q8H PRN nausea and 02/03/24 tablet vomiting #20 tabs prednisone 20 mg tablet 40 mg (2 x 20 mg) PO DAILY 5 days 09/05/24 #10 tabs cetirizine 10 mg tablet 10 mg PO TID PRN itching #30 tabs 11/29/24 famotidine 20 mg tablet 20 mg PO TID itch #30 tabs 11/29/24 mupirocin calcium 2 % topical cream 1 appl topical TID #30 grams 11/29/24 prednisone 20 mg tablet 20 mg PO DAILY 21 days #42 tabs 11/29/24 Allergies Allergy/AdvReac Type Severity Reaction Status Date / Time [facility] ([facility] Allergy Intermediate rash Verified 11/29/24 02:03 Review of Systems Review of Systems: as per HPI, full review of systems performed and negative but for the above mentioned pertinent positives and negatives. PMFSH Past Medical History Medical History Tachycardia Migraine Asthma Social History Social History Household Members: Children Housing: Apartment Are you a primary summer child caregiver to a significant other at home: No Do you presently have visiting nurse or other home services: No Alcohol intake: never Patient Tobacco Use Status: Never used Tobacco Substance Use Type: Marijuana Trauma History: none Special roderick needs: No Agree to transfusion: Yes Advance Directives: No Advance Directives Information Provided: No Patient : No Physical Exam Exam: Exam: GENERAL: Ill-Appearing, appears uncomfortable. SKIN: Normal skin color for ethnicity, warm, Diffuse rash involving the entire face, bilateral eyelids, neck, chest, bilateral arms and legs, confluent throughout with raised, erythematous and urticarial patches consistent with poison keaton rash, no vesicular lesions, some honey crusted spots, particularly on the backs of her thighs, multiple areas are excoriated and tender to touch. HEENT:? Normocephalic, atraumatic, no stridor, dry mucous membranes, dentition intact, EOMI. NECK: Soft, supple, full ROM, midline structures nontender, no step-offs, no deformities, no lymphadenopathy. CHEST: Heart regular tachycardia, no murmurs, symmetric chest rise and fall. PULMONARY: Clear to auscultation bilaterally, diminished at the bases, no labored breathing, no wheezes/rhales/rhonchi. ABDOMINAL: Soft, nondistended, nontender, positive bowel sounds in all quadrants. : Deferred. MUSCULOSKELETAL: Normal tone, full range of motion, no deformities, no peripheral edema. NEURO: Alert and oriented x3, CN II through XII intact, equal strength and sensation bilateral upper and lower extremities, no focal neurologic deficits.? PSYCHIATRIC: Flat affect, fluid speech, good eye contact and appropriate demeanor. Vital Signs: Vital Signs: Last Vital Signs Temp 98.2 F 11/29/24 05:17 Pulse 72 11/29/24 05:17 Resp 16 11/29/24 05:17 BP 140/64 H 11/29/24 05:17 Pulse Ox 98 11/29/24 05:17 O2 Del Method Room Air 11/29/24 05:17 BMI result Body Mass Index 32.5 Medications Administered Discontinued Medications Generic Name Dose Route Start Last Admin Trade Name Phongq PRN Reason Stop Dose Admin Bacitracin 10 appl 11/29/24 04:59 11/29/24 05:06 Bacitracin Oint 0.9 Gm Packet TOPICAL 11/29/24 05:00 10 appl ONCE ONE Administration Protocol Famotidine 20 mg 11/29/24 04:27 11/29/24 04:34 Famotidine 20 Mg Tablet PO 11/29/24 04:28 20 mg ONCE ONE Administration Loratadine 10 mg 11/29/24 04:27 11/29/24 04:34 Loratadine 10 Mg Tablet PO 11/29/24 04:28 10 mg ONCE ONE Administration Lorazepam 1 mg 11/29/24 04:27 11/29/24 04:34 Lorazepam 1 Mg Tablet PO 11/29/24 04:28 1 mg ONCE ONE Administration Mupirocin 1 appl 11/29/24 04:27 11/29/24 04:59 Mupirocin 2 % Oint 22 Gm Tube TOPICAL 11/29/24 04:28 Not Given ONCE ONE Protocol Prednisone 60 mg 11/29/24 04:27 11/29/24 04:34 Prednisone 20 Mg Tablet PO 11/29/24 04:28 60 mg ONCE ONE Administration Medical Decision Making Medical Decision Making MDM Narrative: Patient presents today with chief complaint of rash. Differential diagnosis is broad. I considered diagnoses including all rashes that might represent some type of emergent pathology. The patient specifically does not have evidence of vesicles, blistering, petechiae or purpura, involvement of the palms, soles or mucous membranes. There has not been any introduction of new medications. Vital signs are normal. Systemically very well-appearing. Rash consistent with poison keaton dermatitis that is confluent and excoriated in areas with some honey crusted lesions. She will need 3 weeks of high dose prednisone. I discussed this with her at length. Will also need mupirocin for impetigo. She has 2 more days of doxy and keflex, which I encouraged her to finish. Using shared decision making, plan for discharge home to follow-up with primary care and/or specialist.? Patient understands and agrees with plan for discharge.? Discharged home in stable condition. Differential Diagnosis Differential Diagnoses: The differential diagnosis associated with the presentation includes (as above) Admission/Observation Consideration of admission/observation: Escalation of care including admission/observation considered External Record Review External record reviewed: Inpatient record Prescription Management I considered prescription management with: Antibiotic and Other (steroids) Chronic Conditions Patient?s care impacted by: Other (asthma) Discharge Plan Discharge Clinical Impression: Allergic dermatitis due to poison keaton, Impetigo, Urticaria Patient Disposition: Home, Self-Care Instructions: Impetigo (ED), Contact Dermatitis (ED) Additional Instructions: Take your antibiotic as prescribed until the course is completed. Do not stop this medication early if you start to feel better. You need to take the entire course of 3 weeks of steroids to improve this rash. Use mupirocin ointment as needed for areas that are weeping fluid. Finish the antibiotic course that you have started. Return to the emergency department with any new or worsening symptoms including: Worsening rash despite medications, fevers greater than 100?, difficulty breathing, tongue or throat swelling, lesions on the inside of your mouth or vagina, any new symptom that concerns you. Call 911 with any medical emergency. Prescriptions: New prednisone 20 mg tablet 20 mg PO DAILY 21 Days Qty: 42 0RF Rx Instructions: 21 days: 7 days 60mg, 7 days 40mg, 7 days 20mg cetirizine 10 mg tablet 10 mg PO TID PRN (Reason: itching) Qty: 30 0RF famotidine 20 mg tablet 20 mg PO TID Qty: 30 0RF mupirocin calcium 2 % cream 1 appl topical TID Qty: 30 0RF No Action cephalexin 500 mg capsule 500 mg PO Q6H 10 Days Qty: 40 0RF acetaminophen [Tylenol Extra Strength] 500 mg tablet 1,000 mg PO QID PRN (Reason: fever or pain) Qty: 14 0RF hydroxyzine HCl 25 mg tablet 25 mg PO TID PRN (Reason: anxiety) Qty: 20 0RF ondansetron 4 mg tablet,disintegrating 4 mg PO Q8H PRN (Reason: nausea and vomiting) Qty: 20 0RF prednisone 20 mg tablet 40 mg PO DAILY 5 Days Qty: 10 0RF pyridoxine (vitamin B6) 25 mg tablet 25 mg PO TID Qty: 90 1RF Unisom (doxylamine) 25 mg tablet 25 mg PO BEDTIME PRN (Reason: sleep) Qty: 30 1RF Vitamin Plus Low Iron 27 mg iron- 1 mg tablet 1 tab PO DAILY Qty: 90 0RF ondansetron HCl [Zofran] 4 mg tablet 4 mg PO Q8H PRN (Reason: nausea and vomiting) Qty: 30 1RF metronidazole [Metrogel Vaginal] 0.75 % gel 1 appful vaginal BID 5 Days Qty: 70 0RF Interventions: ED Discharge Assessment Last Done: 11/29/24 05:17 Discharge Date/Time: 11/29/24 05:24 Print Language: South African
--- NOTE | 2024-11-29 04:38 | PC.NURSE ---
pt medicated per MAR.
--- NOTE | 2024-11-29 04:59 | PC.NURSE ---
pt medication Bactroban is unavailable in ED pyxus, vandana Shaver reports it is unavailable in PACU as well, pharmacy closed until 6 am. provider aware, awaiting new orders.
--- NOTE | 2024-11-29 05:13 | PC.NURSE ---
pt open wounds on b/l thighs wrapped with non sick pads and gauze wrap after bacitracin was applied.
[2024-11-29 05:17] VITALS: BP 140/64; PULSE 72; RESP 16; TEMP 36.8; O2SAT 98
== END 2024-11-29 05:24 | disposition home or self-care (01) ==
PROVIDERS: Emergency Provider Emergency Medicine
DX: L23.7 Allergic contact dermatitis due to plants, except food (principal); L01.00 Impetigo, unspecified
CPT/HCPCS: 99283; 99284

== ENCOUNTER 2025-01-24 12:40 | Emergency (ER) | payer MEDICAID, SELFPAY ==
--- NOTE | 2025-01-24 12:43 | ED.GENADULT ---
HPI - General Adult General Chief complaint: General Medical Stated complaint: Skin Rash Time Seen by Provider: 01/24/25 12:46 Source: patient, RN notes reviewed and old records reviewed Mode of arrival: ambulatory Limitations: no limitations History of Present Illness ED Provider: Yahir BOYD narrative: Patient is a 39 y/o female presenting to the emergency department with complaint of waxing and waning hives for the past few months. States initially she thought it was related to poison keaton exposure. Has been treated with prednisone in the past but hives keep returning. She states she is unsure if she is allergic to her own dogs. Denies any swelling of lips, tongue, shortness of breath or difficulty breathing. Denies any difficulty swallowing, fevers. MD complaint: rash Onset (ago): month(s) Related Data Previous Rx's ?Medication ?Instructions ?Recorded vitamins with calcium 1 tab PO DAILY #90 tabs 09/05/20 no.72-iron 27 mg-folic acid 1 mg tablet ( Vitamins Plus Low Iron) doxylamine succinate 25 mg tablet 25 mg PO BEDTIME PRN sleep #30 tabs 09/25/20 (Unisom (doxylamine)) pyridoxine (vitamin B6) 25 mg 25 mg PO TID #90 tabs 09/25/20 tablet metronidazole 0.75 % (37.5 mg/5 1 appful vaginal BID 5 days #70 10/31/20 gram) vaginal gel (Metrogel grams Vaginal) ondansetron HCl 4 mg tablet 4 mg PO Q8H PRN nausea and 10/31/20 (Zofran) vomiting #30 tabs acetaminophen 500 mg tablet 1,000 mg (2 x 500 mg) PO QID PRN 11/27/20 (Tylenol Extra Strength) fever or pain #14 tabs cephalexin 500 mg capsule 500 mg PO Q6H 10 days #40 caps 11/27/20 hydroxyzine HCl 25 mg tablet 25 mg PO TID PRN anxiety #20 tabs 10/28/22 ondansetron 4 mg disintegrating 4 mg PO Q8H PRN nausea and 02/03/24 tablet vomiting #20 tabs prednisone 20 mg tablet 40 mg (2 x 20 mg) PO DAILY 5 days 09/05/24 #10 tabs cetirizine 10 mg tablet 10 mg PO TID PRN itching #30 tabs 11/29/24 famotidine 20 mg tablet 20 mg PO TID itch #30 tabs 11/29/24 mupirocin calcium 2 % topical cream 1 appl topical TID #30 grams 11/29/24 prednisone 20 mg tablet 20 mg PO DAILY 21 days #42 tabs 11/29/24 famotidine 20 mg tablet 20 mg PO DAILY #14 tabs 01/24/25 prednisone 20 mg tablet See Rx Instructions .Route 01/24/25 .COMPLEX #18 tabs Allergies Allergy/AdvReac Type Severity Reaction Status Date / Time levofloxacin (From [facility]) Allergy Intermediate rash Verified 01/24/25 12:46 Review of Systems Review of Systems: as per hpi Yes all other systems are reviewed and are negative Constitutional: Constitutional: Reports as per HPI [facility] Past Medical History Medical History Tachycardia Migraine Asthma Social History Social History Household Members: Children Housing: Apartment Are you a primary health care coach to a significant other at home: No Do you presently have visiting nurse or other home services: No Alcohol intake: never Patient Tobacco Use Status: Never used Tobacco Substance Use Type: Marijuana Trauma History: none Special roderick needs: No Agree to transfusion: Yes Physical Exam ED Vital Signs: Vital signs have been reviewed and appear to be correct. Blood pressure normal. Heart rate normal. Respiratory rate normal. Temperature normal. Oxygen saturation normal. Const General: cooperative, healthy appearing and no acute distress Orientation/consciousness: oriented to person, oriented to place, oriented to time and patient oriented x3 Limitations: no limitations [facility] Head: Yes normocephalic and Yes atraumatic Ears: external ears normal General nose exam: Normal external nose present Face and sinus: Yes face symmetric Mouth: oropharynx normal and moist mucous membranes Throat: Yes uvula midline Eyes Pupils: Equal, round and reactive pupils present Neck Neck: Yes normal visual inspection and Yes supple Resp Effort & Inspection: normal respiratory effort and able to speak in complete sentences Auscultation: clear to auscultation bilaterally Cardio Rate: regular rate Rhythm: regular rhythm Heart sounds: S1 normal heart sound present and S2 normal heart sound present GI Palpation (GI): Soft to palpation and nontender Auscultation: normoactive bowel sounds General: Yes no CVA tenderness Back/Spine/Pelvis Back: no CVA tenderness Skin General skin exam: elasticity normal and turgor normal Rashes: rashes noted urticaria diffuse Neuro General: oriented to person, oriented to place, oriented to time, patient oriented x3, moves all extremities, no focal motor deficits and CN's II-XI intact bilaterally Cranial nerves: Yes Equal, round and reactive pupils present Cognition (Neuro): normal cognition Extrem General: Yes full ROM, Yes no pedal edema and Yes no calf tenderness Psych Mental Status: mental status grossly normal Affect: normal affect Thought process: Normal thought process present Medical Decision Making Medical Decision Making [facility] Narrative: Patient is a 39 y/o female presenting to the emergency department with complaint of waxing and waning hives for the past few months. On exam patient is awake, A+Ox3, VS WNL, afebrile, normal neurological exam without focal deficits, physical exam findings as above. Given reported symptoms and physical exam findings, initial differential includes but is not limited to urticaria, contact dermatitis, atopic dermatitis. Do not suspect TEN/SJS, DRESS, TTP/DIC, necrotizing fasciitis, meningococcemia, SSSS, TSS, anaphylaxis. Discussed with patient that she should be taking a daily antihistamine as well as daily famotidine, will also send prescription for prednisone taper. Will refer to derm and allergy/immunology. Return precautions discussed. Patient verbalized understanding of and agreement with plan. Differential Diagnosis Differential Diagnoses: The differential diagnosis associated with the presentation includes as per [facility] Admission/Observation Consideration of admission/observation: Escalation of care including admission/observation considered Patient would have been admitted to the hospital and transferred to appropriate facility had their clinical presentation warranted hospital admission. External Record Review External record reviewed: Inpatient record, Office record and Outpatient record Prescription Management I considered prescription management with: Other Discharge Plan Discharge Clinical Impression: Urticaria Patient Disposition: Home, Self-Care Instructions: Urticaria (ED) Additional Instructions: You were evaluated in the emergency department today for a rash. Your evaluation did not reveal evidence of conditions requiring emergent medical treatment. You are being prescribed a tapering dose of a steroid called prednisone to decrease inflammation. We also recommend that you take a daily antihistamine such as loratadine (Claritin) or cetirizine (Zyrtec). You have also been prescribed famotidine (Pepcid) which is a different type of antihistamine. You can apply a thick unscented lotion to the affected areas such as Eucerine or Vanicream several times daily. Follow up with your primary care provider this week. If your symptoms do not improve, follow up with a repairing calibrator. Return to the emergency department if you develop difficulty breathing or shortness of breath, swelling to lips, tongue, fever, rash inside your mouth or to your palms/soles or any other concerning symptoms. Prescriptions: New prednisone 20 mg tablet See Rx Instructions .Route .COMPLEX Qty: 18 0RF Rx Instructions: 60mg (3 tabs) x 3 days, then 40mg (2 tabs) x 3 days, then 20mg (1 tab) x 3 days famotidine 20 mg tablet 20 mg PO DAILY Qty: 14 0RF No Action cephalexin 500 mg capsule 500 mg PO Q6H 10 Days Qty: 40 0RF acetaminophen [Tylenol Extra Strength] 500 mg tablet 1,000 mg PO QID PRN (Reason: fever or pain) Qty: 14 0RF hydroxyzine HCl 25 mg tablet 25 mg PO TID PRN (Reason: anxiety) Qty: 20 0RF ondansetron 4 mg tablet,disintegrating 4 mg PO Q8H PRN (Reason: nausea and vomiting) Qty: 20 0RF prednisone 20 mg tablet 40 mg PO DAILY 5 Days Qty: 10 0RF prednisone 20 mg tablet 20 mg PO DAILY 21 Days Qty: 42 0RF Rx Instructions: 21 days: 7 days 60mg, 7 days 40mg, 7 days 20mg cetirizine 10 mg tablet 10 mg PO TID PRN (Reason: itching) Qty: 30 0RF famotidine 20 mg tablet 20 mg PO TID Qty: 30 0RF mupirocin calcium 2 % cream 1 appl topical TID Qty: 30 0RF pyridoxine (vitamin B6) 25 mg tablet 25 mg PO TID Qty: 90 1RF Unisom (doxylamine) 25 mg tablet 25 mg PO BEDTIME PRN (Reason: sleep) Qty: 30 1RF Vitamin Plus Low Iron 27 mg iron- 1 mg tablet 1 tab PO DAILY Qty: 90 0RF ondansetron HCl [Zofran] 4 mg tablet 4 mg PO Q8H PRN (Reason: nausea and vomiting) Qty: 30 1RF metronidazole [Metrogel Vaginal] 0.75 % gel 1 appful vaginal BID 5 Days Qty: 70 0RF Referrals: [facility] [Provider Group] Referral Note: sxs for months Clinical Impression: Urticaria [facility] [Provider Group] - 1 week Clinical Impression: Urticaria Print Language: Luxembourgish
[2025-01-24 12:44] VITALS: BP 168/101; PULSE 80; RESP 18; TEMP 36.6; O2SAT 98; BMI 30.6
[2025-01-24 13:17] VITALS: BP 168/101; PULSE 80; RESP 18; TEMP 36.6; O2SAT 98
--- OUTSIDE RECORDS SUMMARY | 2025-01-24 16:52 | XMS_ITS | Encounter Summary ---
Author Organization [employer] Address [address] [place] [address] Care Team Providers Care Auto Locator Name Role Phone Justyna Lin MD Primary Care Provider [phone] Encounter Details Date Type Department Care Team (Late st Contact Info) Description 07/28/2024 Orders Only [facility] [address] [place] [address] Justyna Lin MD [address] [place] [address] Seasonal allergies; Low back pain at multiple [...] documented as of this encounter Care Teams Auto Locator Relationship Specialty Start Date End Date Justyna Lin MD [address] [place] [id number] PCP - General Family Medicine 04/04/20 Madai Mata Supervisor LandscapeHistory Faculty Member 07/18/23 documented as of this encounter
--- OUTSIDE RECORDS SUMMARY | 2025-01-24 16:52 | XMS_ITS | Clinical Summary ---
Author Organization [employer] Address [address] [facility] 7t [place] [address] Care Team Providers Care Plate Take Out Worker Name Role Phone Justyna Lin MD Primary Care Provider [phone] Allergies Active Allergy Reactions Criticality Noted Date Comments Levofloxacin Swelling 04/08/2019 Medications * This document contains information received from the source organization and may not represent a complete record from that organization. Spacer/Aero-Holding Chambers (OptiChamber Saige) misc 1 each every 4 (four) hours if needed (asthma). 1 each 03/24/19 25 Active ipratropium-albuter ol (Duo-Neb) 0.5-2.5 mg/3 mL nebulizer solution INHALE 1 AMPULE USING A NEBULIZER EVERY 6 HOURS NEEDED FOR WHEEZING 180 mL 2 03/25/19 25 Active NIFEdipine XL (Procardia XL) 30 MG 24 hr tablet Take 1 tablet (30 mg) by mouth in the morning. 90 tablet 3 07/29/19 25 Active Vit-Fe Fumarate-FA ( Vitamins) 28-0.8 MG tabletIndications:L ow back pain at multiple sites Take 1 tablet by mouth in the morning. 90 tablet 3 07/29/19 25 Active ibuprofen 600 MG tablet Take 1 tablet (600 mg) by mouth 3 times daily. 30 tablet 08/31/19 25 Active albuterol (Ventolin HFA) 108 (90 [...] swallow. 30 each 3 09/14/19 25 Active white petrolatum gel Apply topically if needed for dry skin. 500 g 2 09/15/19 25 Active sertraline (Zoloft) 100 MG tablet Take 1 tablet (100 mg) by mouth Once per day. 90 tablet 3 09/15/19 25 026 Active hydrOXYzine pamoate (Vistaril) 50 MG capsule Take 1 capsule (50 mg) by mouth every 6 (six) hours if needed for itching. 30 capsule 11/25/19 25 Active acetaminophen (Tylenol 8 Hour) 650 MG ER tablet Take 1 tablet (650 mg) by mouth every 8 (eight) hours if needed for mild pain. Do not crush, chew, or split. 30 tablet 11/25/19 25 Active bacitracin-polymyxi n b (Polysporin) ointment Apply topically if needed in the morning and at bedtime (rash). Apply to affected area daily 30 g 11/25/19 25 Active cetirizine (ZyrTEC) 10 MG tabletIndications:D ermatitis due to plants, including poison keaton, sumac, and oak,Secondary lichenification Take 1 tablet (10 mg) by mouth if needed each day for allergies. 90 tablet 1 12/02/19 25 026 Active famotidine (Pepcid) 20 MG tabletIndications:D ermatitis due to plants, including poison keaton, sumac, and oak,Secondary lichenification Take 1 tablet (20 mg) by mouth at bedtime. 30 tablet 12/02/19 25 026 Active triamcinolone (Kenalog) 0.1 % creamIndications:De rmatitis due to plants, including poison keaton, sumac, and oak,Secondary lichenification Apply topically if needed in the morning and at bedtime for rash. 80 g 2 12/02/19 25 Active mineral oil-hydrophil petrolat ointment Topical OintmentIndications :Dermatitis due to plants, including poison keaton, sumac, and oak Apply topically if needed. 10/22/19 25 Active diphenhydrAMINE (BENADryl) 25 MG tablet Take 1 tablet (25 mg) by mouth every 6 (six) hours if needed for itching. 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 Cellulitis of left lower leg 12/01/2024 Dermatitis due to plants, in cluding poison [...] I will treat for bronchitis/asthma exacerbation with Nydia-Vadim given that she is potentially allergic to [...] exacerbation from viral illness ,VS wnl, Received Abelardo VALDIVIA in office today -Continue Arnuity Ellipta use and albuterol PRN -CXR order today to r/o [facility]NA-will pt w result -NBZ machine today w Duoneb request to [facility] junior staff accountant -prednisone 40 daily for 5 days -dextromethorphan QID PRN -tylenol prn -alarm signs and symptoms discussed w pt History of pre-eclampsia 08/17/2023 Class 1 obesity due to exces s calories with serious comorbidity and body mass index (BMI) of 31.0 to 31.9 in adult 06/05/2023 Primary hypertension 04/09/2023 Assessment & Plan [...] Low back pain at multiple sites 04/07/2023 Former cigarette smoker 12/06/2022 12/07/19 Paroxysmal supraventricular tachycardia 04/22/19 Overview (12/06/2022): SVT in 2019 not futher problem Assessment & Plan (04/22/2022 6:50 AM EST): Not symptomatic currently Can take Atenolol if feels it currently May need cardiology consult if starts again in History of cardiac arrhythmia 01/28/2022 Low grade [...] -Follow up precautions reviewed Kidney stones 04/25/2014 Resolved Problems Problem Noted Date Diagnosed Date Resolved Date Pre-eclampsia 03/26/2023 03/26/2023 12/01/2024 Assessment & Plan (04/09/2023 9:01 AM EST): Both at the end of requiring delivery and in the period Tinea pedis of right foot 04/22/2022 Encounters Date Type Department Care Team Description 01/24/[address] [address] Justyna Lin MD telephone call 01/12/2025 Travel 01/12/[address] [address] Justyna Lin MD Nurse Triage 01/12/[address] [address] Justyna Lin MD Appointment Request 12/01/2024 6:20 PM EDT Office Visit [facility] [address] [address] Justyna Lin MD Dermatitis due to plants, including poison keaton, sumac, and oak (Primary Dx); Secondary lichenification; Cellulitis of left lower leg; Class 1 obesity due to excess calories with serious comorbidity and body mass index (BMI) of 31.0 to 31.9 in adult; Primary hypertension 12/01/2024 Travel 12/01/[address] [address] Justyna Lin MD Med Refill 11/25/2024 Orders Only [facility] [address] [address] Burt Gold MD 11/24/2024 2:20 PM EDT [facility] [address] [address] Burt Gold MD Rash (Primary Dx); Wound infection; Elevated blood pressure reading in office without diagnosis of hypertension 11/24/2024 Travel 11/13/[address] [address] Justyna Lin MD from Last 3 Months Immunizations Immunization Administration Dates Next Due DTaP 02/08/2012, 2,01/16/1988,12/21,1986 Hep B, Adolescent or Pediatric 11/24/2000,1998,10/11/1998 Hib (HbOC) 10/08/1991 IPV 10/05/1991, 8,1986,09/28 Influenza injectable quadriv [...] Sign Reading Time Taken Comments Blood Pressure 123/86 12/01/2024 6:15 PM EDT Pulse 91 12/01/2024 6:15 PM EDT Temperature 37.2 C (98.9 F) 12/01/2024 6:15 PM EDT Respiratory Rate 20 12/01/2024 6:15 PM EDT Oxygen Saturation 98% 12/01/2024 6:15 PM EDT Inhaled Oxygen Concentration - - Weight 78 kg (172 lb) 12/01/2024 6:15 PM EDT Height 157.5 cm (5' 2 ) 09/14/2024 10:24 AM EDT Body Mass Index 31.46 09/14/2024 10:24 AM EDT Plan of Treatment [...] SDOH Screening 06/19/2024 06/20/2023 COVID-19 Vaccine ( - season) 2024 Influenza Vaccine (#1) 2024 , 12/07/2020, 02/08/2012 Depression Monitoring 03/17/2025 09/14/2024, 025 Disability Screening 09/14/2025 09/14/2024 Tobacco Screening 12/01/2025 12/01/2024 Cervical Cancer Screening 06/08/2027 HPV/Cotest 06/08/2027 06/07/2022 Pap Smear 06/08/2027 06/07/2022 Dental X-Ray: Full Mouth 09/01/2027 08/30/2024, 08/02/2021 DTaP/Tdap/Td Vaccines (10 - Td or Tdap) [...] (NON ORDERABLE) Routine 11/25/2024 4:48 PM EDT PANORAMIC RADIOGRAPHIC IMAGE Routine 08/30/2024 1:15 PM EDT HM PAP/HPV Routine 06/07/2022 ZZZ HISTORICAL HEPATITIS C ANTIBODY Routine 11/29/2020 11:59 AM EDT from Last 3 Months or Most Recently Relevant to Health Maintenance Results * Gram Stain Result (11/25/2024 4:48 PM EDT) 11/25/2024 4:48 PM EDT 11/25/2024 4:48 PM EDT Comment:Thigh Left Narrative [facility] - 11/28/2024 7:42 AM EDT [...] MD HISTORICAL/NON ORDERABLE LABS Fi nal Result [facility] [address] [place] [address] [phone] * Pap Smear (06/07/2022) Pathologist [facility] Pap Negative for intraephithelial lesion or malignancy Negative for intraephithelial lesion or malignancy, Other HPV Undetected Undetected, Indeterminate, Quantitative, Not Detected Result [facility] Historical Yann [facility] Final Result * Hepatitis C Antibody (11/29/2020 11:59 AM EDT) Pathologist [facility] Hepatitis C Antibody Nonreactive Nonreactive [facility] Comment: Antibodies to HCV not detected; does not exclude early acute HCV infection. HIV AB/AG Nonreactive Nonreactive [facility] Comment: HIV-1 p24 Ag and/or [...] of detection of this assay. The [employer] Shift Leader HIV Ag/Ab Combo assay result and supplemental assay results should be interpreted in conjunction with the patient's clinical presentation, history and other laboratory results. If the results are inconsistent with clinical evidence, additional testing is suggested to confirm the result. Hepatitis B Surface Antigen Negative Negative [facility] 11/29/2020 11:5 9 AM EDT Result [facility] Violet Carlos HISTORICAL/NON ORDERABLE LABS Fi nal Result [facility] [address] from Last 3 Months or Most Recently Relevant to Health Maintenance Insurance [facility] C[facility] MEDICAID STAND ADULT Care Teams Plate Take Out Worker Relationship Specialty Start Date End Date Justyna Lin MD [address] [place] [address] PCP - General Family Medicine 04/04/20 Madai Mata EntrepreneurDistribution Sales Manager 07/18/23
--- OUTSIDE RECORDS SUMMARY | 2025-01-24 16:52 | XMS_ITS | Encounter Summary ---
Author Organization [employer] Address [address] [facility] [place] [address] Care Team Providers Care Head Of Stock Name Role Phone Justyna Lin MD Primary Care Provider [phone] Reason for Visit * Reason Comments Med Refill Encounter Details Date Type Department Care Team ([facility] st Contact Info) Description 06/23/2024 Refill [facility] [address] [place], [place] [phone] Burt Gold MD [address] [place], [place] [phone] Cough in adult patient Social History Tobacco [...] documented as of this encounter Care Teams Head Of Stock Relationship Specialty Start Date End Date Justyna Lin MD [address] [place] [address] PCP - General Family Medicine 04/04/20 Madai Mata Banking AnalystAc/Dc Rewinder 07/18/23 documented as of this encounter
--- OUTSIDE RECORDS SUMMARY | 2025-01-24 16:52 | XMS_ITS | Encounter Summary ---
Author Organization [employer] Address [address] [place] [address] Care Team Providers Care Truck Loader Overhead Crane Name Role Phone Justyna Lin MD Primary Care Provider [phone] Reason for Visit * Reason Comments Med Refill Encounter Details Date Type Department Care Team ([facility] st Contact Info) Description 11/09/2023 Refill [facility] [address] [place], [place] [phone] Justyna Lin MD [address] [place], [place] [phone] Social History Tobacco Use Types Packs/Day Years [...] documented as of this encounter Care Teams Truck Loader Overhead Crane Relationship Specialty Start Date End Date Justyna Lin MD [address] [place] [id number] PCP - General Family Medicine 04/04/20 Madai Mata Front Desk Team MemberDecorating Consultant 07/18/23 documented as of this encounter
--- OUTSIDE RECORDS SUMMARY | 2025-01-24 16:52 | XMS_ITS | Encounter Summary ---
Author Organization [employer] Address [address] 7[address] [place] [address] Care Team Providers Care Physical Therapy Technician Name Role Phone Justyna Lin MD Primary Care Provider [phone] Reason for Visit * Reason Onset Date Comments Appointment Request 01/12/2025 Encounter Details Date Type Department Care Team ([facility] st Contact Info) Description 01/12/2025 Telephone [facility] [address] [place], [place] [phone] Justyna Lin MD [address] [place], [place] [phone] Appointment Request Social History Tobacco Use Types Packs/Day Years [...] AM EDT documented as of this encounter Miscellaneous Notes * Telephone Encounter - Jourdan Bacon - 01/12/2025 9:35 AM EST Tc from pt requesting to reschedule ,issed derm apt Contact pt at [phone] (uzbek) documented in this encounter Plan of Treatment Not on file documented as of this encounter Visit Diagnoses Not on filedocumented in this encounter Additional Health Concerns Assessment Noted Time PHQ-9 Depression Total Score: 14 025 11:24 AM EDT documented as of this encounter Care Teams Physical Therapy Technician Relationship Specialty Start Date End Date Justyna Lin MD [address] [place] [address] PCP - General Family Medicine 04/04/20 Madai Mata Computer Systems Technology InstructorComputer Applications Instructor 07/18/23 documented as of this encounter
--- OUTSIDE RECORDS SUMMARY | 2025-01-24 16:53 | XMS_ITS | Encounter Summary ---
Author Organization [employer] Address [address] [facility] [place] [address] Care Team Providers Care Imaging Clerk Name Role Phone Justyna Lin MD Primary Care Provider [phone] Encounter Details Date Type Department Care Team (Late st Contact Info) Description 03/26/2023 Orders Only [facility] [address] [place], [place] [phone] Justyna Lin MD [address] [place] [address] Social History Tobacco Use Types Packs/Day Years [...] t he electric, gas, oil or water [employer] threatened to shut off services in your [...] PM EDT 07/17/2023 12:25 PM EDT Comment:[facility] - 07/19/2023 7:33 AM EDT Escherichia coli Quant > 100,000 cfu/mL Escherichia coli: Ampicillin <=2(S) Escherichia coli: Ceftriaxone <=0.25(S) Escherichia coli: Gentamicin <=1(S) Escherichia coli: Levofloxacin <=0.12(S) Escherichia coli: Nitrofurantoin <=16(S) Escherichia coli: Trimethoprim/Sulfamethoxazole <=20(S) Specimen Source: Urine clean catch Berna Augustin [facility] MICROBIOLOGY - GENERAL ORD ERABLES Final Result [facility] [address] [place] [phone] [phone] documented in this encounter Visit Diagnoses Not on filedocumented in this encounter Additional Health Concerns Assessment Noted Time PHQ-9 Depression Total Score: 24 023 4:01 PM EST documented as of this encounter Care Teams Imaging Clerk Relationship Specialty Start Date End Date Justyna Lin MD [address] [place] [id number] PCP - General Family Medicine 04/04/20 Madai Mata Wire SpinnerPlasterer Rough 07/18/23 documented as of this encounter
--- OUTSIDE RECORDS SUMMARY | 2025-01-24 16:53 | XMS_ITS | Encounter Summary ---
Author Organization [employer] Address [address] [place] [address] Care Team Providers Care Top Lift Compressor Name Role Phone Justyna Lin MD Primary Care Provider [phone] Reason for Visit * Reason Onset Date Comments telephone call 01/24/2025 Encounter Details Date Type Department Care Team ([facility] st Contact Info) Description 01/24/2025 Telephone [facility] [address] [place], [place] [phone] Justyna Lin MD [address] [place] [address] telephone call Social History Tobacco Use Types Packs/Day Years [...] encounter Miscellaneous Notes * Telephone Encounter - Andie Moreau - 01/24/2025 3:55 PM EST Pt walked in stating she was seen in the emergency room today for a rash but she is requesting a referral for a grain elevator worker due to this. documented in this encounter Plan of Treatment Not on file documented as of this encounter Visit Diagnoses Not on filedocumented in this encounter Additional Health Concerns Assessment Noted Time PHQ-9 Depression Total Score: 14 025 11:24 AM EDT documented as of this encounter Care Teams Top Lift Compressor Relationship Specialty Start Date End Date Justyna Lin MD [address] [place] [id number] PCP - General Family Medicine 04/04/20 Madai Mata Independent ConsultantPublic Message Service Supervisor 07/18/23 documented as of this encounter
--- OUTSIDE RECORDS SUMMARY | 2025-01-24 16:53 | XMS_ITS | Encounter Summary ---
Author Organization [employer] Address [address] [facility] 7t [place] [address] Care Team Providers Care Saturation Diver Name Role Phone Justyna Lin MD Primary Care Provider [phone] Encounter Details Date Type Department Care Team (Late st Contact Info) Description 01/28/2022 Abstract [facility] [address] [place] [address] Provider, MD Fabrice Social History Tobacco Use [...] on filedocumented in this encounter Care Teams Saturation Diver Relationship Specialty Start Date End Date Justyna Lin MD [address] [place] [address] PCP - General Family Medicine 04/04/20 Madai Mata Copy Lathe TenderRelief Worker 07/18/23 documented as of this encounter
== END 2025-01-24 13:20 | disposition home or self-care (01) ==
PROVIDERS: Emergency Provider Emergency Medicine Emergency Medical Services; PCP General Practice
DX: L50.9 Urticaria, unspecified (principal)
CPT/HCPCS: 99282; 99283